=== PATIENT | male | born 1960 | race Caucasian/White ===

== ENCOUNTER 2019-06-30 14:52 | Emergency (ER) | payer BC, MEDICARE ==
--- NOTE | 2019-06-30 15:54 | ED ---
General Adult HPI - General Chief complaint: Shortness of Breath Stated complaint: SOB, low 02 levels, high blood count Time Seen by Provider: 06/30/19 15:25 Source: patient Mode of arrival: ambulatory Limitations: no limitations - History of Present Illness Initial comments: Dictation was produced using [employer] dictation software. please excuse any grammatical, word or spelling errors. Chief Complaint: 59-year-old male who has past medical history of rare blood disorder. He presents today with shortness breath and hypoxac. History of Present Illness: 59-year-old male presents today with chief complaint of shortness of breath and chest pain. 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 He was recently on a plane where he had hour and a half plane ride from [place]. Patient went to go see his special doctor to treat his rare blood disorder. Patient currently on immunotherapy for his disease. Patient states his was symptomatic upon coming back. Denies any lower extremity symptoms. History of blood clots. Patient states he has a pulse ox machine at home. Found to be in the low 90s high 80s. Patient also complains of some mild vertigo chest pain is anterior chest. To see primary care doctor today. He was sent over to the emergency department because they felt he needed to be evaluated for pulmonary embolus. he has no history of PE. The ROS documented in this emergency department record has been reviewed and confirmed by me. Those systems with pertinent positive or negative responses have been documented in the HPI. All other systems are other negative and/or noncontributory. PHYSICAL EXAM: General Impression: Alert and oriented x3, not in acute distress HEENT: Normocephalic atraumatic, extra-ocular movements intact, pupils equal and reactive to light bilaterally, mucous membranes moist. Cardiovascular: Heart regular rate and rhythm, S1&S2 audible, no murmurs, rubs or gallops Chest: Lungs clear to auscultation bilaterally, no rhonchi, no wheeze, no rales Abdomen: Bowel sounds present, abdomen soft, non-tender, non-distended, no organomegaly Musculoskeletal: Pulses present and equal in all extremities, no peripheral edema Motor: no focal deficits noted Neurological: CN II-XII grossly intact, no focal motor or sensory deficits noted Skin: Intact with no visualized rashes Psych: Normal affect and mood ED course: 59 y Old male presents with chief complaint of shortness of breath or chest pain. His upon arrival are within acceptable limits. Patient's well- appearing. He is not hypoxic Laboratory evaluation obtained. Nontoxic is 14.1. Coag panel unremarkable. D- dimer 0.34. Metabolic panel is negative. Troponins negative. Prematurity peptide is 88. X-ray shows mild degree of atelectasis. Patient observed in emergency department with stable medical condition. Patient clear for discharge. Advised follow-up with his primary care physician. Patient understandable and agreeable to disposition. Return parameters discussed. All questions answered. EKG interpretation: Ventricular rate 72, normal sinus rhythm. No NE prolongation, no QTC prolongation, no ST or T-wave changes noted. Overall, this EKG is unremarkable - Related Data Home Medications Medication Instructions Recorded Confirmed ALPRAZolam [Xanax] 2 mg PO HS 01/19/14 01/19/14 Lisinopril [Zestril] 40 mg PO DAILY 01/19/14 01/19/14 Allergies Allergy/AdvReac Type Severity Reaction Status Date / Time No Known Allergies Allergy Verified 06/30/19 15:02 Review of Systems ROS Statement: Those systems with pertinent positive or pertinent negative responses have been documented in the HPI. ROS Other: All systems not noted in ROS Statement are negative. Past Medical History Past Medical History: Coronary Artery Disease (CAD), Cancer, CVA/TIA, Hypertension History of Any Multi-Drug Resistant Organisms: None Reported Past Surgical History: Heart Catheterization With Stent, Hernia Repair Additional Past Surgical History / Comment(s): exp lap Past Psychological History: Anxiety, Depression Smoking Status: Never smoker Past Alcohol Use History: None Reported Past Drug Use History: None Reported General Exam Limitations: no limitations Course Vital Signs 06/30/19 06/30/19 14:57 16:35 Temperature 97.7 F Pulse Rate 88 Respiratory 22 20 Rate Blood Pressure 155/89 O2 Sat by Pulse 96 Oximetry Medical Decision Making - Lab Data Result diagrams: 06/30/19 16:12 06/30/19 16:12 Lab Results 06/30/19 06/30/19 06/30/19 Range/Units 16:12 16:12 16:12 WBC 14.1 H (3.8-10.6) k/uL RBC 4.78 (4.30-5.90) m/uL Hgb 14.9 (13.0-17.5) gm/dL Hct 44.3 (39.0-53.0) % MCV 92.6 (80.0-100.0) fL MCH 31.1 (25.0-35.0) pg MCHC 33.6 (31.0-37.0) g/dL RDW 12.5 (11.5-15.5) % Plt Count 295 (150-450) k/uL Neutrophils % 83 % Lymphocytes % 6 % Monocytes % 6 % Eosinophils % 1 % Basophils % 2 % Neutrophils # 11.6 H (1.3-7.7) k/uL Lymphocytes # 0.9 L (1.0-4.8) k/uL Monocytes # 0.8 (0-1.0) k/uL Eosinophils # 0.2 (0-0.7) k/uL Basophils # 0.2 (0-0.2) k/uL PT 9.7 (9.0-12.0) sec INR 0.9 (<1.2) APTT 25.6 (22.0-30.0) sec D-Dimer 0.34 (<0.60) mg/L FEU Sodium 137 (137-145) mmol/L Potassium 4.4 (3.5-5.1) mmol/L Chloride 101 (98-107) mmol/L Carbon Dioxide 30 (22-30) mmol/L Anion Gap 6 mmol/L BUN 17 (9-20) mg/dL Creatinine 0.93 (0.66-1.25) mg/dL Est GFR (CKD-EPI)AfAm >90 (>60 ml/min/1.73 sqM) Est GFR (CKD-EPI)NonAf >90 (>60 ml/min/1.73 sqM) Glucose 100 H (74-99) mg/dL Plasma Lactic Acid Isaiah (0.7-2.0) mmol/L Calcium 9.3 (8.4-10.2) mg/dL Magnesium 2.1 (1.6-2.3) mg/dL Troponin I (0.000-0.034) ng/mL NT-Pro-B Natriuret Pep pg/mL 06/30/19 06/30/19 06/30/19 Range/Units 16:12 16:12 16:12 WBC (3.8-10.6) k/uL RBC (4.30-5.90) m/uL Hgb (13.0-17.5) gm/dL Hct (39.0-53.0) % MCV (80.0-100.0) fL MCH (25.0-35.0) pg MCHC (31.0-37.0) g/dL RDW (11.5-15.5) % Plt Count (150-450) k/uL Neutrophils % % Lymphocytes % % Monocytes % % Eosinophils % % Basophils % % Neutrophils # (1.3-7.7) k/uL Lymphocytes # (1.0-4.8) k/uL Monocytes # (0-1.0) k/uL Eosinophils # (0-0.7) k/uL Basophils # (0-0.2) k/uL PT (9.0-12.0) sec INR (<1.2) APTT (22.0-30.0) sec D-Dimer (<0.60) mg/L FEU Sodium (137-145) mmol/L Potassium (3.5-5.1) mmol/L Chloride (98-107) mmol/L Carbon Dioxide (22-30) mmol/L Anion Gap mmol/L BUN (9-20) mg/dL Creatinine (0.66-1.25) mg/dL Est GFR (CKD-EPI)AfAm (>60 ml/min/1.73 sqM) Est GFR (CKD-EPI)NonAf (>60 ml/min/1.73 sqM) Glucose (74-99) mg/dL Plasma Lactic Acid Isaiah 0.9 (0.7-2.0) mmol/L Calcium (8.4-10.2) mg/dL Magnesium (1.6-2.3) mg/dL Troponin I <0.012 (0.000-0.034) ng/mL NT-Pro-B Natriuret Pep 88 pg/mL Disposition Clinical Impression: Dyspnea Disposition: HOME SELF-CARE Condition: Good Instructions (If sedation given, give patient instructions): Dyspnea (ED) Is patient prescribed a controlled substance at d/c from ED?: No Referrals: Hernan Hinton MD [Primary Care Provider] - 1-2 days Time of Disposition: 17:31
[2019-06-30 16:42] LABS: Basophils # (A) 0.2 k/uL (0-0.2); Basophils % (A) 2 %; Eosinophils # (A) 0.2 k/uL (0-0.7); Eosinophils % (A) 1 %; HCT 44.3 % (39.0-53.0); HGB 14.9 gm/dL (13.0-17.5); Lymphocytes # (A) 0.9 k/uL (1.0-4.8); Lymphocytes % (A) 6 %; MCH 31.1 pg (25.0-35.0); MCHC 33.6 g/dL (31.0-37.0); MCV 92.6 fL (80.0-100.0); Mean Platelet Volume 7.2; Monocytes # (A) 0.8 k/uL (0-1.0); Monocytes % (A) 6 %; Neutrophils # (A) 11.6 k/uL (1.3-7.7); Neutrophils % (A) 83 %; Platelet Count 295 k/uL (150-450); RBC 4.78 m/uL (4.30-5.90); RDW 12.5 % (11.5-15.5); WBC 14.1 k/uL (3.8-10.6)
[2019-06-30 16:50] LABS: African American GFR (CKD) >90 (>60 ml/min/1.73 sqM); Anion Gap 6 mmol/L; Blood Urea Nitrogen 17 mg/dL (9-20); Calcium 9.3 mg/dL (8.4-10.2); Carbon Dioxide 30 mmol/L (22-30); Chloride 101 mmol/L (98-107); Glucose 100 mg/dL (74-99); Magnesium 2.1 mg/dL (1.6-2.3); Non-African American GFR(CKD) >90 (>60 ml/min/1.73 sqM); Potassium 4.4 mmol/L (3.5-5.1); Sodium 137 mmol/L (137-145)
--- NOTE | 2019-06-30 16:52 | XR ---
EXAMINATION TYPE: XR chest 2V DATE OF EXAM: 06/30/2019 COMPARISON: NONE HISTORY: Short of breath TECHNIQUE: 2 views FINDINGS: There is some patchy linear density in the mid and lower lung alvarez. Heart size is normal. There is no heart failure. There is no pleural effusion. IMPRESSION: Patchy atelectasis at the lung bases. Normal heart.
[2019-06-30 16:54] LABS: D-Dimer 0.34 mg/L FEU (<0.60); INR 0.9 (<1.2); Partial Thromboplastin Time 25.6 sec (22.0-30.0); Prothrombin Time 9.7 sec (9.0-12.0)
[2019-06-30 17:47] VITALS: BP 120/72; PULSE 71; RESP 18; TEMP 98.2
== END 2019-06-30 17:50 | disposition home or self-care (01) ==
LOC: EC 14:52
DX: R06.00 Dyspnea, unspecified (principal); R06.02 Shortness of breath; R07.9 Chest pain, unspecified; R42 Dizziness and giddiness; I10 Essential (primary) hypertension; F41.9 Anxiety disorder, unspecified; F32.9 Major depressive disorder, single episode, unspecified; I25.10 Atherosclerotic heart disease of native coronary artery without angina pectoris; Z79.899 Other long term (current) drug therapy; Z86.73 Personal history of transient ischemic attack (TIA), and cerebral infarction without residual deficits; Z95.5 Presence of coronary angioplasty implant and graft
CPT/HCPCS: 36415; 71046; 80048; 83605; 83735; 83880; 84484; 85025; 85379; 85610; 85730; 93005; 99285

== ENCOUNTER 2019-07-05 18:08 | Inpatient (IN) | payer MEDICARE ==
[2019-07-05] MEDS ORDERED: IPRATROPIUM-ALBUTEROL 3 ML NEB INHALATION STA (18:32)
--- NOTE | 2019-07-05 18:37 | ED ---
SOB HPI - General Chief Complaint: Shortness of Breath Stated Complaint: SOB Time Seen by Provider: 07/05/19 18:16 Source: patient, RN notes reviewed Mode of arrival: ambulatory Limitations: no limitations - History of Present Illness Initial Comments: This a 59-year-old male presents emergency Department chief complaint of dyspnea. He's had worsening dyspnea along with exertional dyspnea the last 1 week. He states it's a point where he can only go a few isles at the grocery store. Patient states he was seen here a few days ago and symptoms have worsened. He does admit that he has a very rare blood disorder in which he sees an oncologist in [place]. He states he occasionally is on chemo currently is on a new immunotherapy in which he recently got back from [place]. He felt that he picked up some type of cold but states that symptoms are not improving. He's had low-grade temp around 99-100. Patient was seen and sent emergency department on June 30 by PCP. Patient has no history of PE though he has pleuritic chest pain. He does admit that he had a stent placed 7 years ago in which she had similar symptoms. Patient denies any history of CHF. He has no prior lung disease. Patient denies any leg swelling he does admit to some leg cramping. Patient denies any nausea vomiting diarrhea constipation. Patient states that today he was so short of breath that he noticed some skin discoloration to his hands. - Related Data Home Medications Medication Instructions Recorded Confirmed ALPRAZolam [Xanax] 2 mg PO HS 01/19/14 01/19/14 Lisinopril [Zestril] 40 mg PO DAILY 01/19/14 01/19/14 Allergies Allergy/AdvReac Type Severity Reaction Status Date / Time No Known Allergies Allergy Verified 07/05/19 18:14 Review of Systems ROS Statement: Those systems with pertinent positive or pertinent negative responses have been documented in the HPI. ROS Other: All systems not noted in ROS Statement are negative. 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 Absent: scleral icterus, conjunctival injection, periorbital swelling ENT exam: Present: normal exam, normal oropharynx, mucous membranes moist, TM's normal bilaterally, normal external ear exam Neck exam: Present: normal inspection, full ROM. Absent: tenderness, meningismus, lymphadenopathy Respiratory exam: Present: wheezes, decreased breath sounds. Absent: normal lung sounds bilaterally, respiratory distress, rales, rhonchi, stridor Cardiovascular Exam: Present: normal rhythm, tachycardia, normal heart sounds. Absent: systolic murmur, diastolic murmur, rubs, gallop, clicks GI/Abdominal exam: Present: soft, normal bowel sounds. Absent: distended, tenderness, guarding, rebound, rigid Extremities exam: Absent: pedal edema Psychiatric exam: Present: normal affect, normal mood Skin exam: Present: warm, dry, intact, normal color. Absent: rash Course Vital Signs 07/05/19 07/05/19 07/05/19 18:10 18:28 19:18 Temperature 99.8 F H Pulse Rate 110 H Respiratory 18 18 Rate Blood Pressure 146/81 O2 Sat by Pulse 90 L 81 L Oximetry 07/05/19 07/05/19 07/05/19 19:19 19:29 19:40 Temperature 100.9 F H Pulse Rate 81 92 100 Respiratory 16 Rate Blood Pressure 136/84 O2 Sat by Pulse 97 Oximetry Medical Decision Making - Medical Decision Making Chest x-ray shows bilateral atelectasis versus pneumonia CT shows bilateral diffuse infiltrates, labs reveal moderate leukocytosis, vitals show evidence of hypoxia, fever. Patient be admitted for bilateral pneumonia with exertional dyspnea patient will have pulmonology evaluation, echocardiogram. Patient be continued on DuoNeb treatments, antibiotics, steroids - Lab Data Result diagrams: 07/05/19 18:45 07/05/19 18:45 Lab Results 07/05/19 07/05/19 07/05/19 Range/Units 18:45 18:45 18:45 WBC 18.3 H (3.8-10.6) k/uL RBC 4.77 (4.30-5.90) m/uL Hgb 14.5 (13.0-17.5) gm/dL Hct 43.5 (39.0-53.0) % MCV 91.2 (80.0-100.0) fL MCH 30.5 (25.0-35.0) pg MCHC 33.4 (31.0-37.0) g/dL RDW 12.3 (11.5-15.5) % Plt Count 386 (150-450) k/uL Neutrophils % 86 % Lymphocytes % 6 % Monocytes % 4 % Eosinophils % 1 % Basophils % 0 % Neutrophils # 15.8 H (1.3-7.7) k/uL Lymphocytes # 1.1 (1.0-4.8) k/uL Monocytes # 0.8 (0-1.0) k/uL Eosinophils # 0.2 (0-0.7) k/uL Basophils # 0.1 (0-0.2) k/uL PT (9.0-12.0) sec INR (<1.2) APTT (22.0-30.0) sec VBG pH (7.31-7.41) VBG pCO2 (37-51) mmHg VBG HCO3 (24-28) mmol/L Sodium 134 L (137-145) mmol/L Potassium 5.3 H (3.5-5.1) mmol/L Chloride 100 (98-107) mmol/L Carbon Dioxide 25 (22-30) mmol/L Anion Gap 9 mmol/L BUN 19 (9-20) mg/dL Creatinine 0.86 (0.66-1.25) mg/dL Est GFR (CKD-EPI)AfAm >90 (>60 ml/min/1.73 sqM) Est GFR (CKD-EPI)NonAf >90 (>60 ml/min/1.73 sqM) Glucose 89 (74-99) mg/dL Calcium 9.4 (8.4-10.2) mg/dL Magnesium 1.9 (1.6-2.3) mg/dL Total Bilirubin 0.6 (0.2-1.3) mg/dL AST 49 (17-59) U/L ALT 43 (4-49) U/L Alkaline Phosphatase 97 (38-126) U/L Troponin I (0.000-0.034) ng/mL NT-Pro-B Natriuret Pep 74 pg/mL Total Protein 6.6 (6.3-8.2) g/dL Albumin 3.6 (3.5-5.0) g/dL Influenza Type A RNA (Not Detectd) Influenza Type B (PCR) (Not Detectd) 07/05/19 07/05/19 07/05/19 Range/Units 18:45 18:45 18:45 WBC (3.8-10.6) k/uL RBC (4.30-5.90) m/uL Hgb (13.0-17.5) gm/dL Hct (39.0-53.0) % MCV (80.0-100.0) fL MCH (25.0-35.0) pg MCHC (31.0-37.0) g/dL RDW (11.5-15.5) % Plt Count (150-450) k/uL Neutrophils % % Lymphocytes % % Monocytes % % Eosinophils % % Basophils % % Neutrophils # (1.3-7.7) k/uL Lymphocytes # (1.0-4.8) k/uL Monocytes # (0-1.0) k/uL Eosinophils # (0-0.7) k/uL Basophils # (0-0.2) k/uL PT 10.2 (9.0-12.0) sec INR 0.9 (<1.2) APTT 22.8 (22.0-30.0) sec VBG pH (7.31-7.41) VBG pCO2 (37-51) mmHg VBG HCO3 (24-28) mmol/L Sodium (137-145) mmol/L Potassium (3.5-5.1) mmol/L Chloride (98-107) mmol/L Carbon Dioxide (22-30) mmol/L Anion Gap mmol/L BUN (9-20) mg/dL Creatinine (0.66-1.25) mg/dL Est GFR (CKD-EPI)AfAm (>60 ml/min/1.73 sqM) Est GFR (CKD-EPI)NonAf (>60 ml/min/1.73 sqM) Glucose (74-99) mg/dL Calcium (8.4-10.2) mg/dL Magnesium (1.6-2.3) mg/dL Total Bilirubin (0.2-1.3) mg/dL AST (17-59) U/L ALT (4-49) U/L Alkaline Phosphatase (38-126) U/L Troponin I <0.012 (0.000-0.034) ng/mL NT-Pro-B Natriuret Pep pg/mL Total Protein (6.3-8.2) g/dL Albumin (3.5-5.0) g/dL Influenza Type A RNA Not Detected (Not Detectd) Influenza Type B (PCR) Not Detected (Not Detectd) 07/05/19 Range/Units 18:45 WBC (3.8-10.6) k/uL RBC (4.30-5.90) m/uL Hgb (13.0-17.5) gm/dL Hct (39.0-53.0) % MCV (80.0-100.0) fL MCH (25.0-35.0) pg MCHC (31.0-37.0) g/dL RDW (11.5-15.5) % Plt Count (150-450) k/uL Neutrophils % % Lymphocytes % % Monocytes % % Eosinophils % % Basophils % % Neutrophils # (1.3-7.7) k/uL Lymphocytes # (1.0-4.8) k/uL Monocytes # (0-1.0) k/uL Eosinophils # (0-0.7) k/uL Basophils # (0-0.2) k/uL PT (9.0-12.0) sec INR (<1.2) APTT (22.0-30.0) sec VBG pH 7.46 H (7.31-7.41) VBG pCO2 39 (37-51) mmHg VBG HCO3 27 (24-28) mmol/L Sodium (137-145) mmol/L Potassium (3.5-5.1) mmol/L Chloride (98-107) mmol/L Carbon Dioxide (22-30) mmol/L Anion Gap mmol/L BUN (9-20) mg/dL Creatinine (0.66-1.25) mg/dL Est GFR (CKD-EPI)AfAm (>60 ml/min/1.73 sqM) Est GFR (CKD-EPI)NonAf (>60 ml/min/1.73 sqM) Glucose (74-99) mg/dL Calcium (8.4-10.2) mg/dL Magnesium (1.6-2.3) mg/dL Total Bilirubin (0.2-1.3) mg/dL AST (17-59) U/L ALT (4-49) U/L Alkaline Phosphatase (38-126) U/L Troponin I (0.000-0.034) ng/mL NT-Pro-B Natriuret Pep pg/mL Total Protein (6.3-8.2) g/dL Albumin (3.5-5.0) g/dL Influenza Type A RNA (Not Detectd) Influenza Type B (PCR) (Not Detectd) Disposition Clinical Impression: Bilateral pneumonia, Exertional dyspnea, Hypoxia Disposition: ADMITTED IP TO THIS HOSP Condition: Fair Referrals: Hernan Hinton MD [Primary Care Provider] - 1-2 days
[2019-07-05 18:59] LABS: Basophils # (A) 0.1 k/uL (0-0.2); Basophils % (A) 0 %; Eosinophils # (A) 0.2 k/uL (0-0.7); Eosinophils % (A) 1 %; HCT 43.5 % (39.0-53.0); HGB 14.5 gm/dL (13.0-17.5); Lymphocytes # (A) 1.1 k/uL (1.0-4.8); Lymphocytes % (A) 6 %; MCH 30.5 pg (25.0-35.0); MCHC 33.4 g/dL (31.0-37.0); MCV 91.2 fL (80.0-100.0); Mean Platelet Volume 7.1; Monocytes # (A) 0.8 k/uL (0-1.0); Monocytes % (A) 4 %; Neutrophils # (A) 15.8 k/uL (1.3-7.7); Neutrophils % (A) 86 %; Platelet Count 386 k/uL (150-450); RBC 4.77 m/uL (4.30-5.90); RDW 12.3 % (11.5-15.5); VBG PH 7.46 (7.31-7.41); WBC 18.3 k/uL (3.8-10.6)
--- NOTE | 2019-07-05 19:00 | XR ---
EXAMINATION TYPE: XR chest 1V DATE OF EXAM: 07/05/2019 COMPARISON: 06/30/2019 HISTORY: Short of breath TECHNIQUE: Single view FINDINGS: There is poor aspiration and atelectasis at both lung bases. There is no heart failure. Hea rt size is normal. Bony thorax is intact. IMPRESSION: There is increased atelectasis at the lung bases compared to last exam. No heart failure.
[2019-07-05 19:10] LABS: ALT 43 U/L (4-49); AST 49 U/L (17-59); African American GFR (CKD) >90 (>60 ml/min/1.73 sqM); Albumin 3.6 g/dL (3.5-5.0); Alkaline Phosphatase 97 U/L (38-126); Anion Gap 9 mmol/L; Blood Urea Nitrogen 19 mg/dL (9-20); Calcium 9.4 mg/dL (8.4-10.2); Carbon Dioxide 25 mmol/L (22-30); Chloride 100 mmol/L (98-107); Glucose 89 mg/dL (74-99); Magnesium 1.9 mg/dL (1.6-2.3); Non-African American GFR(CKD) >90 (>60 ml/min/1.73 sqM); Potassium 5.3 mmol/L (3.5-5.1); Sodium 134 mmol/L (137-145); Total Bilirubin 0.6 mg/dL (0.2-1.3); Total Protein 6.6 g/dL (6.3-8.2)
[2019-07-05 19:22] LABS: INR 0.9 (<1.2); Partial Thromboplastin Time 22.8 sec (22.0-30.0); Prothrombin Time 10.2 sec (9.0-12.0)
--- NOTE | 2019-07-05 19:40 | CT ---
EXAMINATION TYPE: CT chest angio for PE DATE OF EXAM: 07/05/2019 COMPARISON: None HISTORY: Exertional dyspnea, chest pain. Hx stroke, heart cath w/stent. CT DLP: 388.7 mGycm Automated exposure control for dose reduction was used. CONTRAST: Performed with IV Contrast, patient injected with 100 mL of Isovue 370. there are 3-D post processed images. There is patchy groundglass interstitial infiltrate in both lungs. There is more coalescent reticular interstitial infiltrate at the lung bases. Heart size is normal. There is no pericardial effusion. T here is no mediastinal adenopathy. There are no hilar masses. There are a few bilateral bronchial lym ph nodes up to 1 cm. Thoracic aorta shows no aneurysm or dissection. There is normal contrast opacification of the pulmona ry arteries. I see no filling defect. Thoracic spine is intact. There is no compression fracture. There is spurring in the thoracic spine. There is extensive bilateral perinephric edema. IMPRESSION: No evidence of pulmonary embolism. Extensive pulmonary interstitial infiltrates are nonspecific and c ould relate to pulmonary interstitial fibrosis. Extensive perinephric edema.
[2019-07-05] MEDS ORDERED: cefTRIAXone IN SWFI 1,000 MG/10 ML SYRINGE IVP STA (19:52)
[2019-07-05] MEDS ORDERED: AZITHROMYCIN 500 MG in SODIUM CHLORIDE 0.9% 250 ML IVPB STA (19:52)
[2019-07-05] MEDS ORDERED: methylPREDNISolone SOD SUCCI 125 MG/2 ML VIAL IV STA (19:52)
[2019-07-05] MEDS ORDERED: PNEUMONIA PROTOCOL UTILIZED 1 EACH MISC PO PRN (19:54)
[2019-07-05] MEDS: IPRATROPIUM-ALBUTEROL 3 ML NEB INHALATION SCH (20:10)
[2019-07-05] MEDS ORDERED: CAFFEINE PO PRN (23:02)
[2019-07-05] MEDS ORDERED: ASPIRIN PO PRN (23:02)
[2019-07-05] MEDS ORDERED: HYDROcodone/APAP 10-325MG 1 EACH TAB PO PRN (23:02)
[2019-07-05] MEDS ORDERED: BUTALBITAL PO PRN (23:02)
[2019-07-05] MEDS ORDERED: ASPIRIN-ACET-CAFF 250-250-65MG 1 EACH TAB PO PRN (23:27)
[2019-07-05] MEDS: MORPHINE SULFATE ER 30 MG TABLET PO SCH (23:41)
[2019-07-05] MEDS: methylPREDNISolone SOD SUCCI 125 MG/2 ML VIAL IV SCH (23:50)
[2019-07-06 07:16] LABS: Glucose,Whole Blood 144 mg/dL (75-99)
--- NOTE | 2019-07-06 07:45 | XR ---
EXAMINATION TYPE: XR chest 2V DATE OF EXAM: 07/06/2019 COMPARISON: 07/05/2019, 06/30/2019 INDICATION: Pneumonia TECHNIQUE: Frontal and lateral views of the chest are obtained. FINDINGS: The heart size is normal. The pulmonary vasculature is normal. Bibasilar infiltrates are present. This is greater on the right. Findings are similar to the most rec ent comparison.. IMPRESSION: 1. Bibasilar infiltrates, worsening from 06/30/2019 but similar to 07/05/2019. Continued follow-up is recommended
[2019-07-06] MEDS: IPRATROPIUM-ALBUTEROL 3 ML NEB INHALATION SCH ×4 (09:14→21:13)
[2019-07-06 09:17] LABS: HCT 43.8 % (39.0-53.0); HGB 14.5 gm/dL (13.0-17.5); MCH 30.6 pg (25.0-35.0); MCHC 33.1 g/dL (31.0-37.0); MCV 92.7 fL (80.0-100.0); Mean Platelet Volume 7.3; Platelet Count 415 k/uL (150-450); RBC 4.73 m/uL (4.30-5.90); RDW 12.3 % (11.5-15.5); WBC 12.4 k/uL (3.8-10.6)
[2019-07-06 09:24] LABS: African American GFR (CKD) >90 (>60 ml/min/1.73 sqM); Anion Gap 8 mmol/L; Blood Urea Nitrogen 17 mg/dL (9-20); Calcium 9.3 mg/dL (8.4-10.2); Carbon Dioxide 29 mmol/L (22-30); Chloride 99 mmol/L (98-107); Glucose 129 mg/dL (74-99); Non-African American GFR(CKD) >90 (>60 ml/min/1.73 sqM); Potassium 4.9 mmol/L (3.5-5.1); Sodium 136 mmol/L (137-145)
[2019-07-06] MEDS: CLOPIDOGREL 75 MG TAB PO SCH (09:39)
[2019-07-06] MEDS: AZITHROMYCIN 500 MG TAB PO SCH (09:39)
[2019-07-06] MEDS: MULTIVITAMINS, THERA 1 EACH TAB PO SCH (09:39)
[2019-07-06] MEDS: METOPROLOL TARTRATE 25 MG TAB PO SCH (09:39)
[2019-07-06] MEDS: ATORVASTATIN 20 MG TAB PO SCH (09:39)
[2019-07-06] MEDS: LISINOPRIL 5 MG TAB PO SCH (09:39)
[2019-07-06] MEDS: methylPREDNISolone SOD SUCCI 125 MG/2 ML VIAL IV SCH ×2 (09:40→15:35)
[2019-07-06] MEDS: CITALOPRAM HYDROBROMIDE 20 MG TAB PO SCH (09:40)
[2019-07-06] MEDS: TAMSULOSIN 0.4 MG CAP.ER.24H PO SCH (09:40)
[2019-07-06] MEDS: CHOLECALCIFEROL 1,000 UNIT TAB PO SCH (09:41)
[2019-07-06] MEDS: buPROPion XL 300 MG TAB.ER.24H PO SCH (09:43)
[2019-07-06] MEDS: MORPHINE SULFATE ER 30 MG TABLET PO SCH ×2 (09:43→22:09)
--- NOTE | 2019-07-06 09:59 | HP ---
HISTORY AND PHYSICAL CHIEF COMPLAINT: 59-year-old white male comes in the hospital complaining of dyspnea, worsening dyspnea over the past week. When he goes to the grocery store. He gets short of breath. Does admit has a very rare blood disorder. He sees Oncology in [place]. He is on new chemo with new immunotherapy. He recently got back in [place]. Not sure what it is. No history of PE. He has pleuritic-type chest pain though. He had CT in the chest which is negative except for pulmonary fibrosis. He had cardiac stent placed 7 years ago. Denies any prior history of CHF. No prior lung disease. Denies any leg swelling or leg cramping. Denies any nausea, vomiting, diarrhea, constipation. He became short of breath. He did notice some discoloration of his hands. MEDICATIONS: At home include: Xanax 2 mg at night, Zestril 40 mg daily. ALLERGIES: None. REVIEW OF SYSTEMS: Fourteen-point review of systems negative except for mentioned in HPI. PAST MEDICAL HISTORY: Coronary artery disease, CVA, TIA, hypertension, heart catheterization with stent, anxiety, depression. SOCIAL HISTORY: Never a smoker. No alcohol. No illicit drugs. PHYSICAL EXAMINATION: HEENT normocephalic, atraumatic. Vital signs are reviewed. Pupils equal, round, reactive. GI soft. Hematology negative Homans. Lungs are not clear. They are wheezing, scattered wheezing and rales at the bases. Heart S1, S2. Abdomen is soft, nontender. No masses or organomegaly. Psych: Fair mood and affect. SKIN: Warm, dry, intact. No rashes. O2 saturation 81-90 percent, temp 99.8, pulse rate is 110, respiratory rate 16 to 18. Chest x-ray shows bilateral atelectasis versus pneumonia. CT shows bilateral diffuse infiltrates. LAB DATA: Show moderate leukocytosis, hypoxia, fever. ASSESSMENT AND PLAN: 1. Bilateral pneumonia. 2. Pulmonary fibrosis. 3. DuoNeb. 4. Antibiotics. 5. Steroids. 6. Cardiology consult. 7. Pulmonary consult. 8. Please see further orders. MMODL / IJN: [id number] /
[2019-07-06 14:48] VITALS: RESP 16
--- NOTE | 2019-07-06 22:57 | CONS ---
CONSULTATION PULMONARY/CRITICAL CARE CONSULTATION: DATE OF SERVICE: 07/06/2019 This is a very pleasant 59-year-old gentleman who presents to the emergency department with complaints of shortness of breath. The patient apparently had worsening shortness of breath for about a week prior to presenting to the emergency room on July 05. The patient apparently could only walk a few feet before became very short of breath. When his symptoms worsened, he decided to come to the emergency room to be evaluated. 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 He currently sees a specialist in [place] at [facility] for his disease and has been getting both chemotherapy and immunotherapy for the disease process. He was concerned that his recently administered immunotherapy may have caused his difficulty in breathing. The patient apparently had a slight temperature elevation. He also was complaining of cough and some mild production. The patient had a CT angiogram which did not show any pulmonary embolism. It did show some chronic basilar and peripheral fibrotic changes consistent with somebody with interstitial lung disease. He denies a prior history of lung disease. He denies any hemoptysis. He denies any chest pain or chest discomfort. There is no nausea, vomiting or diarrhea. No genitourinary complaints. MEDICATIONS: Reviewed. He is on Wellbutrin XL, morphine sulfate, [place] Plavix, vitamin D3, Flomax, metoprolol, lisinopril, Crestor, multivitamins, dexamethasone, Celexa, and butalbital/aspirin/caffeine. ALLERGIES: Denied. PAST MEDICAL HISTORY: Includes hypertension, hyperlipidemia, CVA, Erdheim-[place] disease and CAD. SURGICAL HISTORY: Includes heart catheterization with stent placement and hernia repair. SOCIAL HISTORY: Significant for he is a lifelong nonsmoker. Denies any alcohol use or illicit drug use. REVIEW OF SYSTEMS: CONSTITUTIONAL: Negative. NEUROLOGIC: Negative. HEENT: Negative. CARDIOVASCULAR: Negative. PULMONARY: Shortness of breath on exertion, not at rest; chest tightness, cough, minimal phlegm production and slight fever. GI: Negative. : Negative. RHEUMATOLOGIC: Negative. IMMUNOLOGIC: Negative. ENDOCRINOLOGIC: Negative. DERMATOLOGIC: Negative. PHYSICAL EXAMINATION: Current vital signs are reviewed. He is afebrile. Temperature is 98.5, heart rate 95, respiratory rate 16, blood pressure 130/74, mean 92, 2 L saturation 94%. He appears in no acute distress. Actually when we saw him he was on room air. No audible wheezing, use of accessory muscles, or conversational dyspnea. HEENT examination is grossly unremarkable. Mucous membranes are moist. No oral lesions. NECK: Supple. Full range of motion. No adenopathy or thyromegaly. Neck veins are flat. CARDIOVASCULAR examination reveals regular rhythm and rate. Heart rate about 80 beats per minute. S1, S2 normal. No murmur. LUNGS: Reveal a few scattered coarse rhonchi and crackles. Breath sounds equal. No wheezes. ABDOMEN: Soft. Bowel sounds are heard. EXTREMITIES are intact. No signs of clubbing or edema. SKIN: Without rash. NEUROLOGIC: Examination is brief but nonfocal. LABS: Reviewed. White count 12.4, hemoglobin 14.5, hematocrit 43.8, platelet count 415,000. PT/INR and PTT all normal. Venous blood gases are normal. Electrolytes look good. Sodium 136, potassium 4.9, chloride 99, CO2 is 29, anion gap is 8. BUN and creatinine were 17 and 0.86. The rest of his labs look good including this troponins and N terminal proBNP. Influenza studies were negative. The patient had a chest x-ray which shows some infiltrate or atelectasis at the lung bases. A CT angiogram was negative for PE but did show evidence of interstitial infiltrates, possibly related to underlying fibrosis. A repeat chest x-ray again shows diffuse bilateral lower lobe infiltrates or atelectasis, which are stable from the prior exam. Current medications are reviewed. As pertains to his respiratory status, he is on Zithromax and Rocephin. He is also on Solu-Medrol 60 q.8h. He is also on DuoNeb q.i.d. and p.r.n. ASSESSMENT: 1. Probable purulent tracheobronchitis rather than bronchopneumonia. 2. Erdheim-[place] disease. 3. History of coronary artery disease with previous stent placement. 4. History of cerebrovascular accident. 5. Hypertension. 6. Hyperlipidemia. 7. ILD/pulmonary fibrosis PLAN: The patient is doing well. He is feeling better. I would like him to be able to be discharged tomorrow I believe. The CT scan looks more chronic than acute. He is feeling better from the respiratory status. He is not requiring any supplemental oxygen. He is on good antibiotics, updrafts and steroids. Additional recommendations and suggestions are forthcoming. I am going to try to contact the neuro oncology fellow from [facility] that this patient sees. ELIE / FRANCESN: [id number] / MTDD
[2019-07-07] MEDS: methylPREDNISolone SOD SUCCI 125 MG/2 ML VIAL IV SCH ×2 (00:06→08:04)
[2019-07-07 06:16] VITALS: BP 108/69; TEMP 98.5
[2019-07-07] MEDS: buPROPion XL 300 MG TAB.ER.24H PO SCH (08:03)
[2019-07-07] MEDS: MORPHINE SULFATE ER 30 MG TABLET PO SCH (08:03)
[2019-07-07] MEDS: ATORVASTATIN 20 MG TAB PO SCH (08:04)
[2019-07-07] MEDS: METOPROLOL TARTRATE 25 MG TAB PO SCH (08:04)
[2019-07-07] MEDS: LISINOPRIL 5 MG TAB PO SCH (08:04)
[2019-07-07] MEDS: MULTIVITAMINS, THERA 1 EACH TAB PO SCH (08:04)
[2019-07-07] MEDS: TAMSULOSIN 0.4 MG CAP.ER.24H PO SCH (08:04)
[2019-07-07] MEDS: CHOLECALCIFEROL 1,000 UNIT TAB PO SCH (08:04)
[2019-07-07] MEDS: CITALOPRAM HYDROBROMIDE 20 MG TAB PO SCH (08:04)
[2019-07-07] MEDS: CLOPIDOGREL 75 MG TAB PO SCH (08:04)
[2019-07-07] MEDS: AZITHROMYCIN 500 MG TAB PO SCH (08:04)
[2019-07-07 08:52] LABS: HCT 43.7 % (39.0-53.0); HGB 14.4 gm/dL (13.0-17.5); MCH 30.7 pg (25.0-35.0); MCHC 32.9 g/dL (31.0-37.0); MCV 93.5 fL (80.0-100.0); Platelet Count 445 k/uL (150-450); RBC 4.67 m/uL (4.30-5.90); RDW 12.4 % (11.5-15.5); WBC 22.2 k/uL (3.8-10.6)
[2019-07-07] MEDS: IPRATROPIUM-ALBUTEROL 3 ML NEB INHALATION SCH ×2 (08:58→12:20)
[2019-07-07 09:00] LABS: African American GFR (CKD) >90 (>60 ml/min/1.73 sqM); Anion Gap 9 mmol/L; Blood Urea Nitrogen 16 mg/dL (9-20); Calcium 10.1 mg/dL (8.4-10.2); Carbon Dioxide 31 mmol/L (22-30); Chloride 99 mmol/L (98-107); Glucose 145 mg/dL (74-99); Non-African American GFR(CKD) >90 (>60 ml/min/1.73 sqM); Potassium 5.2 mmol/L (3.5-5.1); Sodium 139 mmol/L (137-145)
--- NOTE | 2019-07-07 11:24 | ECHOF ---
Referral Reason:Exertional dyspnea MEASUREMENTS -------- HEIGHT: 175.3 cm WEIGHT: 79.4 kg BP: 108/69 RVIDd: 3.3 cm (< 3.3) IVSd: 1.1 cm (0.6 - 1.1) LVIDd: 4.6 cm (3.9 - 5.3) LVPWd: 1.1 cm (0.6 - 1.1) IVSs: 1.4 cm LVIDs: 3.0 cm LVPWs: 1.7 cm LA Diam: 3.7 cm (2.7 - 3.8) LAESV Index (A-L): 27.19 ml/m Ao Diam: 3.2 cm (2.0 - 3.7) AV Cusp: 2.4 cm (1.5 - 2.6) MV EXCURSION: 16.594 mm (> 18.000) MV EF SLOPE: 56 mm/s (70 - 150) EPSS: 0.3 cm MV E Hernan: 0.88 m/s MV DecT: 216 ms MV A Hernan: 0.76 m/s MV E/A Ratio: 1.16 FINDINGS -------- Sinus rhythm. This was a technically adequate study. The left ventricular size is normal. There is borderline concentric left ventricular hypertrophy. Overall left ventricular systolic function is normal with, an EF between 55 - 60 %. The right ventricle is normal in size. Normal LA size by volume 22+/-6 ml/m2. The right atrial size is normal. Interatrial and interventricular septum intact. The aortic valve is trileaflet, and appears structurally normal. No aortic stenosis or regurgitation. The mitral valve is normal. There is trace to mild mitral regurgitation. The tricuspid valve appears structurally normal. Trace tricuspid regurgitation present. There is no pulmonic regurgitation present. The aortic root size is normal. Normal inferior vena cava with normal inspiratory collapse consistent with estimated right atrial pre ssure of 5 mmHg. There is no pericardial effusion. CONCLUSIONS -------- 1. Sinus rhythm. 2. The left ventricular size is normal. 3. There is borderline concentric left ventricular hypertrophy. 4. Overall left ventricular systolic function is normal with, an EF between 55 - 60 %. 5. Normal LA size by volume 22+/-6 ml/m2. 6. The aortic valve is trileaflet, and appears structurally normal. No aortic stenosis or regurgitati on. 7. There is trace to mild mitral regurgitation. 8. Trace tricuspid regurgitation present. 9. There is no pulmonic regurgitation present. 10. There is no pericardial effusion. AUTO TRANSMISSION SPECIALIST: Rosanna Villa RDCS
[2019-07-07 12:31] VITALS: PULSE 96
--- NOTE | 2019-07-07 13:26 | P.DS ---
Providers Date of admission: 07/05/19 20:27 Expected date of discharge: 07/07/19 Attending physician: Rufino López Consults: 07/05/19 19:54 Consult Physician Routine Consulting Provider: Tyler Harrington Consult Reason/Comments: Bilateral pneumonia, exertional dyspnea Do you want consulting provider notified?: Yes Primary care physician: [facility] Hospital Course: Final Diagnoses: Acute purulent tracheobronchitis, doubt bronchial pneumonia as per pulmonary Pulmonary fibrosis Erdheim-[place] disease. Hypertension Hyperlipidemia Hospital course this is a 59-year-old gentleman presented with complaints of dyspnea, on chemotherapy, immunotherapy with a history of Erdheim-Migue Syndrome and multiple other medical issues. CTA reported no pulmonary embolism. Evaluated by pulmonary, CT reviewed, more chronic than acute/repeat chest x-ray reported bilateral lower lobe infiltrates or atelectasis, unchanged from prior exam. Maintained on IV antibiotics, steroids and nebulized treatments. Significant clinical improvement. Cleared by pulmonary for discharge. Patient is being discharged home in a stable condition with guarded prognosis. EXAM: GENERAL: Alert and oriented 3, no acute distress CARDIOVASCULAR: S1, S2 regular.. No murmur RESPIRATION: Breath sounds diminished in the bases. Occasional scattered rhonchi and crackles. No wheezing. ABDOMEN: Soft, nontender . No guarding. no masses palpable.Bowel sounds hear NERVOUS SYSTEM: No focal deficits. The impression and plan of care has been dictated as directed. : I performed a history and examination of this patient, discussed the same with the dictator. I agree with the dictator's note ,documented as a scribe. Any additional findings or plans will be noted. Patient Condition at Discharge: Stable Plan - Discharge Summary Discharge Rx Participant: No New Discharge Prescriptions: New Cefuroxime Axetil [Ceftin] 500 mg PO BID #10 tab methylPREDNISolone Dose Pack [Medrol Dose Pack] 4 mg PO DIRECTED #21 package Albuterol Sulfate [Ventolin HFA] 2 puff INHALATION QID #1 inhaler Continue buPROPion HCL [Wellbutrin XL] 300 mg PO DAILY Morphine Sulfate ER [Ms Contin] 30 mg PO Q12H Hydrocodone/Acetaminophen [[place] 10-325] 1 tab PO TID PRN PRN Reason: Breakthrough Pain Clopidogrel Bisulfate [Plavix] 75 mg PO DAILY Cholecalciferol (Vitamin D3) [Vitamin D3] 2,000 unit PO DAILY Tamsulosin HCl [Flomax] 0.4 mg PO DAILY Metoprolol Tartrate 25 mg PO DAILY Lisinopril [Prinivil] 5 mg PO DAILY Rosuvastatin Calcium [Crestor] 10 mg PO DAILY Multivit-Min/FA/Lycopen/Lutein [Centrum Silver Men Tablet] 1 tab PO DAILY Citalopram Hydrobromide [CeleXA] 20 mg PO DAILY Butalbital/Aspirin/Caffeine [[place]-Qruztlv-Ncpptohi 50-325-40 mg] 1 tab PO Q4H PRN PRN Reason: Migraine Headache Dexamethasone 1 mg PO DAILY #0 Discharge Medication List Butalbital/Aspirin/Caffeine [Leyvub-Mtsbwaf-Anlgnxjm 50-325-40 mg] 1 tab PO Q4H PRN 07/05/19 [History] Cholecalciferol (Vitamin D3) [Vitamin D3] 2,000 unit PO DAILY 07/05/19 [History] Citalopram Hydrobromide [CeleXA] 20 mg PO DAILY 07/05/19 [History] Clopidogrel Bisulfate [Plavix] 75 mg PO DAILY 07/05/19 [History] Hydrocodone/Acetaminophen [[place] 10-325] 1 tab PO TID PRN 07/05/19 [History] Lisinopril [Prinivil] 5 mg PO DAILY 07/05/19 [History] Metoprolol Tartrate 25 mg PO DAILY 07/05/19 [History] Morphine Sulfate ER [Ms Contin] 30 mg PO Q12H 07/05/19 [History] Multivit-Min/FA/Lycopen/Lutein [Centrum Silver Men Tablet] 1 tab PO DAILY 07/05/19 [History] Rosuvastatin Calcium [Crestor] 10 mg PO DAILY 07/05/19 [History] Tamsulosin HCl [Flomax] 0.4 mg PO DAILY 07/05/19 [History] buPROPion HCL [Wellbutrin XL] 300 mg PO DAILY 07/05/19 [History] Albuterol Sulfate [Ventolin HFA] 2 puff INHALATION QID #1 inhaler 07/07/19 [Rx] Cefuroxime Axetil [Ceftin] 500 mg PO BID #10 tab 07/07/19 [Rx] Dexamethasone 1 mg PO DAILY #0 07/07/19 [Rx] methylPREDNISolone Dose Pack [Medrol Dose Pack] 4 mg PO DIRECTED #21 package 07/07/19 [Rx] Follow up Appointment(s)/Referral(s): Hernan Hinton MD [Primary Care Provider] - 07/08/19 (Office closed, please call to make appointment) Ambulatory/Diagnostic Orders: Complete Blood Count w/diff [LAB.AMB] Time Frame: 3 Days, Location: None Selected Activity/Diet/Wound Care/Special Instructions: Copy of CT with patient to take to Dr. Jeanine Mitchell in [place].
--- NOTE | 2019-07-07 14:17 | P.PN ---
Subjective Progress Note Date: 07/07/19 Principal diagnosis: Probable purulent tracheobronchitis On 07/07/2019 patient seen in follow-up on medical surgical floor. He is awake and alert, sitting up in the recliner, he has been ambulating in the hallway, tolerating activity well, no shortness of breath, he is breathing much easier, room air pulse ox is 95%, no fever or chills, hemodynamically stable. Blood culture showed no growth, lung sounds reveal a few scattered rhonchi, no wheezes, patient has been treated with a combination of Zithromax and ceftriaxone, breathing treatments and IV steroids, improved, patient can be considered for discharge home today. Objective - Vital Signs Vital signs: Vital Signs Temp 98.5 F 07/07/19 06:14 Pulse 96 07/07/19 12:31 Resp 16 07/07/19 06:14 BP 108/69 07/07/19 06:14 Pulse Ox 95 07/07/19 06:14 Intake & Output 07/06/19 07/07/19 07/07/19 18:59 06:59 18:59 Intake Total 300 200 600 Balance 300 200 600 Intake: Oral 300 200 600 Other: Voiding Method Toilet Toilet # Voids 3 2 1 - Exam GENERAL EXAM: Alert, pleasant, 59-year-old white male, on room air, with a pulse ox of 97% comfortable in no apparent distress. HEAD: Normocephalic/atraumatic. EYES: Normal reaction of pupils, equal size. Conjunctiva pink, sclera white. NOSE: Clear with pink turbinates. THROAT: No erythema or exudates. NECK: No masses, no JVD, no thyroid enlargement, no adenopathy. CHEST: No chest wall deformity. Symmetrical expansion. LUNGS: Equal air entry with a few scattered rhonchi, no wheezing, good air entry bilaterally CVS: Regular rate and rhythm, normal S1 and S2, no gallops, no murmurs, no rubs ABDOMEN: Soft, nontender. No hepatosplenomegaly, normal bowel sounds, no guarding or rigidity. EXTREMITIES: No clubbing, no edema, no cyanosis, 2+ pulses and upper and lower extremities. MUSCULOSKELETAL: Muscle strength and tone normal. SPINE: No scoliosis or deformity SKIN: No rashes CENTRAL NERVOUS SYSTEM: Alert and oriented -3. No focal deficits, tone is normal in all 4 extremities. PSYCHIATRIC: Alert and oriented -3. Appropriate affect. Intact judgment and insight. - Labs CBC & Chem 7: 07/07/19 08:19 07/07/19 08:19 Labs: Abnormal Lab Results - Last 24 Hours (Table) 07/07/19 07/07/19 Range/Units 08:19 08:19 WBC 22.2 H (3.8-10.6) k/uL Potassium 5.2 H (3.5-5.1) mmol/L Carbon Dioxide 31 H (22-30) mmol/L Glucose 145 H (74-99) mg/dL Microbiology - Last 24 Hours (Table) 07/05/19 18:45 Blood Culture - Preliminary Blood No Growth after 24 hours Assessment and Plan Plan: Assessment: #1. Dyspnea related to probable purulent tracheobronchitis, doubt bronchopneumonia #2. Erdheim-[place] disease #3. History of coronary artery disease with previous stent placement #4. History of CVA #5. Hypertension #6. Hyperlipidemia #7. ILD/pulmonary fibrosis Plan: Patient is doing well, vital signs are stable, no fever or chills, patient is on room air, he is tolerating ambulation, no significant cough or congestion, patie nt is stable for discharge home today on oral antibiotics, and prednisone taper, patient was instructed to follow-up with his Erdheim-Pl[place] disease specialist in [place], and take CD with his CT scan of the chest with him at the follow-up appointment. Clinically stable. I performed a history & physical examination of the patient and discussed their management with my nurse practitioner, Leticia Morales. I reviewed the nurse practitioner's note and agree with the documented findings and plan of care. Lung sounds are positive for a few scattered rhonchi. The findings and the impression was discussed with the patient. I attest to the documentation by the nurse practitioner. Time with Patient: Less than 30
== END 2019-07-07 14:26 | disposition home or self-care (01) | DRG 203 ==
LOC: EC 18:08 → 6NMEDSUR 20:27
PROVIDERS: ADMIT Family Medicine; ATTEND Family Medicine
DX: J20.9 Acute bronchitis, unspecified (principal); E88.89 Other specified metabolic disorders; J84.10 Pulmonary fibrosis, unspecified; R09.02 Hypoxemia; I10 Essential (primary) hypertension; E78.5 Hyperlipidemia, unspecified; F32.9 Major depressive disorder, single episode, unspecified; F41.9 Anxiety disorder, unspecified; Z79.02 Long term (current) use of antithrombotics/antiplatelets; Z79.891 Long term (current) use of opiate analgesic; Z79.899 Other long term (current) drug therapy; I25.10 Atherosclerotic heart disease of native coronary artery without angina pectoris; Z86.73 Personal history of transient ischemic attack (TIA), and cerebral infarction without residual deficits; Z95.5 Presence of coronary angioplasty implant and graft; Z98.890 Other specified postprocedural states
CPT/HCPCS: 36415; 71045; 71046; 71275; 80048; 80053; 82803; 83605; 83735; 83880; 84484; 85025; 85027; 85610; 85730; 87040; 87502; 93005; 93306; 94640; 96365; 96375; 99285

== ENCOUNTER → 2019-07-11 | Outpatient (CLI) | payer MEDICARE ==
[2019-07-11 10:21] LABS: Basophils # (A) 0.3 k/uL (0-0.2); Basophils % (A) 1 %; Eosinophils # (A) 0.5 k/uL (0-0.7); Eosinophils % (A) 2 %; HCT 48.9 % (39.0-53.0); HGB 15.9 gm/dL (13.0-17.5); Lymphocytes # (A) 1.3 k/uL (1.0-4.8); Lymphocytes % (A) 6 %; MCH 30.8 pg (25.0-35.0); MCHC 32.4 g/dL (31.0-37.0); MCV 94.9 fL (80.0-100.0); Monocytes # (A) 0.9 k/uL (0-1.0); Monocytes % (A) 5 %; Neutrophils # (A) 17.2 k/uL (1.3-7.7); Neutrophils % (A) 83 %; Platelet Count 505 k/uL (150-450); RBC 5.15 m/uL (4.30-5.90); RDW 12.4 % (11.5-15.5); WBC 20.7 k/uL (3.8-10.6)
== END | disposition home or self-care (01) ==
LOC: LABWHC1 09:48
PROVIDERS: ATTEND Psychiatry & Neurology Neurology
DX: D76.3 Other histiocytosis syndromes (principal); J18.9 Pneumonia, unspecified organism
CPT/HCPCS: 36415; 85025

== ENCOUNTER 2019-10-01 12:38 | Emergency (ER) | payer MEDICARE ==
[2019-10-01] MEDS ORDERED: RX INFO: IV CONTRAST WAS GIVEN 1 EACH MISC MISCELLANE PRN (13:14)
[2019-10-01 13:19] VITALS: RESP 20
[2019-10-01 13:22] LABS: Basophils # (A) 0.1 k/uL (0-0.2); Basophils % (A) 1 %; Eosinophils # (A) 0.2 k/uL (0-0.7); Eosinophils % (A) 2 %; HCT 51.3 % (39.0-53.0); HGB 16.8 gm/dL (13.0-17.5); Lymphocytes % (A) 8 %; MCH 29.7 pg (25.0-35.0); MCHC 32.8 g/dL (31.0-37.0); MCV 90.4 fL (80.0-100.0); Mean Platelet Volume 7.3; Monocytes # (A) 0.8 k/uL (0-1.0); Monocytes % (A) 7 %; Neutrophils # (A) 10.3 k/uL (1.3-7.7); Neutrophils % (A) 80 %; Platelet Count 370 k/uL (150-450); RBC 5.67 m/uL (4.30-5.90); RDW 12.8 % (11.5-15.5); WBC 12.9 k/uL (3.8-10.6)
[2019-10-01 13:40] LABS: African American GFR (CKD) >90 (>60 ml/min/1.73 sqM); Anion Gap 6 mmol/L; Blood Urea Nitrogen 16 mg/dL (9-20); C Reactive Protein 46.2 mg/L (<10.0); Calcium 9.4 mg/dL (8.4-10.2); Carbon Dioxide 27 mmol/L (22-30); Chloride 102 mmol/L (98-107); Glucose 79 mg/dL (74-99); Non-African American GFR(CKD) >90 (>60 ml/min/1.73 sqM); Potassium 4.7 mmol/L (3.5-5.1); Sodium 135 mmol/L (137-145)
--- NOTE | 2019-10-01 13:40 | ED ---
General Adult HPI - General Chief complaint: Shortness of Breath Stated complaint: SOB Time Seen by Provider: 10/01/19 12:50 Source: patient Mode of arrival: ambulatory Limitations: no limitations - History of Present Illness Initial comments: Dictation was produced using [employer] dictation software. please excuse any grammatical, word or spelling errors. This patient was cared for during a federal and state declared state of emergency secondary to Covid 19 Chief Complaint: 59-year-old male with past medical history of Erdheim-Migue syndrome presents with dyspnea, dizziness and hypoxia. History of Present Illness: Patient is 59-year-old male with past medical history of unusual rare immune disease called Erdheim-Migue resents today with a chief complaint of dyspnea, dizziness and hypoxia. Patient is concerned that he has Covid 19. He reports that patient goes to [place] regularly for special immunotherapy infusions. He sees a specialist oncologist and gets a rare chemotherapy. The last time he was in [place] was in July. 2 days ago patient had a infusions at [facility]. Patient denies any recent sick contacts. She states that he's been feeling dizzy. He states he feels more dizzy especially with leaning forward. He does feel mildly dyspneic especially with exertion. He has a pulse oximeter at home and measured it and found readings that were reading 86%. States this made him anxious and prompted him to come to the emergency department. She denies any coughing. Denies any vomiting or diarrhea. No abdominal pain. Patient has no pain complaints. No history of blood clots. The ROS documented in this emergency department record has been reviewed and confirmed by me. Those systems with pertinent positive or negative responses have been documented in the HPI. All other systems are other negative and/or noncontributory. PHYSICAL EXAM: General Impression: Alert and oriented x3, not in acute distress HEENT: Normocephalic atraumatic, extra-ocular movements intact, pupils equal and reactive to light bilaterally, mucous membranes moist. 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 As upon arrival shows an is within acceptable limits. Patient's 96% on room air. Patient's well-appearing at bedside. Laboratory evaluation obtained. Mild leukocytosis of 12.9. Metabolic panel is unremarkable. Patient does have a C-reactive protein elevation of 46.2, and fluids test negative CT of the chest was obtained considering patient had complex CT findings in the past. CT shows no findings to suggest infiltrate or ground glass opacities. There is however inflammatory process of his retroperitoneum. Patient knows of these findings and has his oncologist in [place] and this up. This has been a chronic finding last several months. Patient observed in emergency department. Patient is well-appearing. Patient is not hypoxic. Not showing signs of respiratory distress. Clinical presentation does not suggest Covid 19 however hypothetically there is still a chance. Patient told to self isolate. Return parameters discussed. Patient told to seek immediate medical attention should he develop worsening symptoms especially in setting of fever, chills and hypoxia. He is advised to monitor his oxygen le vels at home with his pulse oximeter. Patient is understandable and agreeable with disposition. All questions answered. EKG interpretation: Ventricular rate, normal sinus rhythm,. Interval 176, QRS 82, QTC 46. No NM prolongation, no QTC prolongation, no ST or T-wave changes noted. EKG compared to 07/05/2019 showing no changes. Overall, this EKG is unremarkable - Related Data Home Medications Medication Instructions Recorded Confirmed Butalbital/Aspirin/Caffeine 1 tab PO Q4H PRN 07/05/19 07/05/19 [Dvlcui-Kfbpgiv-Kgxmgoaq 50-325-40 mg] Cholecalciferol (Vitamin D3) 2,000 unit PO DAILY 07/05/19 07/05/19 [Vitamin D3] Citalopram Hydrobromide [CeleXA] 20 mg PO DAILY 07/05/19 07/05/19 Clopidogrel Bisulfate [Plavix] 75 mg PO DAILY 07/05/19 07/05/19 Hydrocodone/Acetaminophen [Palmetto 1 tab PO TID PRN 07/05/19 07/05/19 10-325] Lisinopril [Prinivil] 5 mg PO DAILY 07/05/19 07/05/19 Metoprolol Tartrate 25 mg PO DAILY 07/05/19 07/05/19 Morphine Sulfate ER [Ms Contin] 30 mg PO Q12H 07/05/19 07/05/19 Multivit-Min/FA/Lycopen/Lutein 1 tab PO DAILY 07/05/19 07/05/19 [Centrum Silver Men Tablet] Rosuvastatin Calcium [Crestor] 10 mg PO DAILY 07/05/19 07/05/19 Tamsulosin HCl [Flomax] 0.4 mg PO DAILY 07/05/19 07/05/19 buPROPion HCL [Wellbutrin XL] 300 mg PO DAILY 07/05/19 07/05/19 Previous Rx's Medication Instructions Recorded Albuterol Sulfate [Ventolin HFA] 2 puff INHALATION QID #1 inhaler 07/07/19 Cefuroxime Axetil [Ceftin] 500 mg PO BID #10 tab 07/07/19 Dexamethasone 1 mg PO DAILY #0 07/07/19 methylPREDNISolone Dose Pack 4 mg PO DIRECTED #21 package 07/07/19 [Medrol Dose Pack] Azithromycin [Zithromax Z-pack] 0 mg PO DIRECTED #6 tab 10/01/19 Allergies Allergy/AdvReac Type Severity Reaction Status Date / Time No Known Allergies Allergy Verified 10/01/19 12:49 Review of Systems ROS Statement: Those systems with pertinent positive or pertinent negative responses have been documented in the HPI. ROS Other: All systems not noted in ROS Statement are negative. Past Medical History Past Medical History: Coronary Artery Disease (CAD), Cancer, CVA/TIA, Hypertension Additional Past Medical History / Comment(s): erdheimchester's disease (rare blood cancer) History of Any Multi-Drug Resistant Organisms: None Reported Past Surgical History: Heart Catheterization With Stent, Hernia Repair Additional Past Surgical History / Comment(s): exp lap,. biopsies of bone and kidney (negative) Past Anesthesia/Blood Transfusion Reactions: No Reported Reaction Date of Last Stent Placement:: 2013 Past Psychological History: Anxiety, Depression Smoking Status: Never smoker Past Alcohol Use History: None Reported Past Drug Use History: None Reported - Past Family History Mother Family Medical History: Coronary Artery Disease (CAD) Father Additional Family Medical History / Comment(s): dies from AIDS in 1988 General Exam Limitations: no limitations Course Vital Signs 10/01/19 10/01/19 10/01/19 12:46 13:00 14:00 Temperature 97.9 F Pulse Rate 90 85 76 Respiratory 22 20 20 Rate Blood Pressure 153/100 135/96 128/65 O2 Sat by Pulse 96 97 97 Oximetry 10/01/19 14:53 Temperature 98.2 F Pulse Rate 67 Respiratory 20 Rate Blood Pressure 131/92 O2 Sat by Pulse 94 L Oximetry Medical Decision Making - Lab Data Result diagrams: 10/01/19 13:09 10/01/19 13:09 Lab Results 10/01/19 10/01/19 10/01/19 Range/Units 13:05 13:09 13:09 WBC 12.9 H (3.8-10.6) k/uL RBC 5.67 (4.30-5.90) m/uL Hgb 16.8 (13.0-17.5) gm/dL Hct 51.3 (39.0-53.0) % MCV 90.4 (80.0-100.0) fL MCH 29.7 (25.0-35.0) pg MCHC 32.8 (31.0-37.0) g/dL RDW 12.8 (11.5-15.5) % Plt Count 370 (150-450) k/uL Neutrophils % 80 % Lymphocytes % 8 % Monocytes % 7 % Eosinophils % 2 % Basophils % 1 % Neutrophils # 10.3 H (1.3-7.7) k/uL Lymphocytes # 1.0 (1.0-4.8) k/uL Monocytes # 0.8 (0-1.0) k/uL Eosinophils # 0.2 (0-0.7) k/uL Basophils # 0.1 (0-0.2) k/uL Sodium 135 L (137-145) mmol/L Potassium 4.7 (3.5-5.1) mmol/L Chloride 102 (98-107) mmol/L Carbon Dioxide 27 (22-30) mmol/L Anion Gap 6 mmol/L BUN 16 (9-20) mg/dL Creatinine 0.86 (0.66-1.25) mg/dL Est GFR (CKD-EPI)AfAm >90 (>60 ml/min/1.73 sqM) Est GFR (CKD-EPI)NonAf >90 (>60 ml/min/1.73 sqM) Glucose 79 (74-99) mg/dL Calcium 9.4 (8.4-10.2) mg/dL C-Reactive Protein 46.2 H (<10.0) mg/L NT-Pro-B Natriuret Pep pg/mL Influenza Type A RNA Not Detected (Not Detectd) Influenza Type B (PCR) Not Detected (Not Detectd) 10/01/19 Range/Units 13:09 WBC (3.8-10.6) k/uL RBC (4.30-5.90) m/uL Hgb (13.0-17.5) gm/dL Hct (39.0-53.0) % MCV (80.0-100.0) fL MCH (25.0-35.0) pg MCHC (31.0-37.0) g/dL RDW (11.5-15.5) % Plt Count (150-450) k/uL Neutrophils % % Lymphocytes % % Monocytes % % Eosinophils % % Basophils % % Neutrophils # (1.3-7.7) k/uL Lymphocytes # (1.0-4.8) k/uL Monocytes # (0-1.0) k/uL Eosinophils # (0-0.7) k/uL Basophils # (0-0.2) k/uL Sodium (137-145) mmol/L Potassium (3.5-5.1) mmol/L Chloride (98-107) mmol/L Carbon Dioxide (22-30) mmol/L Anion Gap mmol/L BUN (9-20) mg/dL Creatinine (0.66-1.25) mg/dL Est GFR (CKD-EPI)AfAm (>60 ml/min/1.73 sqM) Est GFR (CKD-EPI)NonAf (>60 ml/min/1.73 sqM) Glucose (74-99) mg/dL Calcium (8.4-10.2) mg/dL C-Reactive Protein (<10.0) mg/L NT-Pro-B Natriuret Pep 55 pg/mL Influenza Type A RNA (Not Detectd) Influenza Type B (PCR) (Not Detectd) Disposition Clinical Impression: Dyspnea Disposition: HOME SELF-CARE Condition: Good Instructions (If sedation given, give patient instructions): Dyspnea (ED) Additional Instructions: Today you were evaluated for symptoms consistent with upper respiratory infection. There is concern that perhaps your symptomatology may represent Covid 19. Your are stable for discharge, however it is instructed to to seek immediate medical attention especially if you develop worsening symptoms especi ally respiratory distress. In the meantime please remain in quarantine for 14 days. For any other questions please contact Arturo for here in emergency department or [facility] at [phone] Prescriptions: Azithromycin [Zithromax Z-pack] 0 mg PO DIRECTED #6 tab Is patient prescribed a controlled substance at d/c from ED?: No Referrals: Hernan Hinton MD [Primary Care Provider] - 1-2 days Time of Disposition: 15:00
--- NOTE | 2019-10-01 14:49 | CT ---
EXAMINATION TYPE: CT chest w con DATE OF EXAM: 10/01/2019 COMPARISON: CTA chest July 05, 2019. 2 view chest x-ray July 06, 2019. HISTORY: Dyspnea, SOB CT DLP: 378.6 mGycm. Automated Exposure Control for Dose Reduction was Utilized. TECHNIQUE: CT scan of the thorax is performed following with IV Contrast, patient injected with 100 ml mL of Isovue 300. FINDINGS: LUNGS: An overall mosaic attenuation bilaterally is present similar to prior CT. Dependent groundglas s opacities in the lower lungs remain present. Additional [id number] linear atelectasis and/or scarring again seen. No new areas of focal consolidation or groundglass opacity. No pneumothorax seen bilaterally. Tiny bilateral pleural effusions or pleural thickening posterior medial aspect both naseem gs redemonstrated. No suspicious new nodules or masses. Tracheobronchial tree patent. MEDIASTINUM: There are no greater than 1 cm hilar or mediastinal lymph nodes. No cardiomegaly or pe ricardial effusion is seen. OTHER: Redemonstration of significant perinephric fluid surrounding the visualized portion of both ki dneys along with areas of increased thickening and vascularity in the wall of the gallbladder. Abnorm al retroperitoneal fluid and/or soft tissue in the upper abdomen remains present encasing both renal arteries. Findings not significant change from prior CT. IMPRESSION: No significant change from prior CTA chest study. Unusual involvement of abnormal tissue and/or fluid in the retroperitoneum. Consider underlying vasculitis, inflammatory processes such as s arcoidosis, IgG4 related diseases, or other systemic processes. No new focal infiltrate. Advise nonem ergent endocrinology, GI, and/or pulmonary referrals.
[2019-10-01 14:54] VITALS: BP 131/92; PULSE 67; TEMP 98.2
== END 2019-10-01 15:05 | disposition home or self-care (01) ==
LOC: EC 12:38
DX: R06.00 Dyspnea, unspecified (principal); D72.829 Elevated white blood cell count, unspecified; R79.82 Elevated C-reactive protein (CRP); R93.89 Abnormal findings on diagnostic imaging of other specified body structures; E88.89 Other specified metabolic disorders; R42 Dizziness and giddiness; Z20.828 Contact with and (suspected) exposure to other viral communicable diseases; I25.10 Atherosclerotic heart disease of native coronary artery without angina pectoris; I10 Essential (primary) hypertension; F32.9 Major depressive disorder, single episode, unspecified; F41.9 Anxiety disorder, unspecified; Z79.02 Long term (current) use of antithrombotics/antiplatelets; Z79.891 Long term (current) use of opiate analgesic; Z79.899 Other long term (current) drug therapy; Z92.21 Personal history of antineoplastic chemotherapy; Z92.25 Personal history of immunosuppression therapy; Z86.73 Personal history of transient ischemic attack (TIA), and cerebral infarction without residual deficits; Z95.5 Presence of coronary angioplasty implant and graft
CPT/HCPCS: 36415; 93005; 83880; 80048; 85025; 86140; 87502; 71260; 99285; Q9967

== ENCOUNTER → 2020-12-21 | Outpatient (CLI) | payer MEDICARE ==
--- NOTE | 2020-12-22 04:41 | MR ---
EXAMINATION TYPE: MR angio head wo con DATE OF EXAM: 12/21/2020 COMPARISON: None HISTORY: Migraines MR angiographic images were obtained of the brain without contrast. There is arterial flow in both distal internal carotid arteries. There is arterial flow in the basila r artery. Basilar artery fills from the left side. There is arterial flow apparently in both distal v ertebral arteries. Exam fails to show any significant blood flow in the left middle cerebral artery. It is not clear whe re the blood supply to the left temporal lobe is originating. There is diminished arterial vessels in the left sylvian fissure compared to the right. There appears to be only significant flow in one ant erior cerebral artery. There is no blood flow seen in the A1 segment of the right anterior cerebral a rtery. Anterior cerebral arteries appear to fill entirely from the left side through the left interna l carotid artery. There is arterial flow in both posterior cerebral arteries. The right posterior cerebral arteries lar asya than the left. No evidence of intracranial aneurysm. There is increased signal in the frontal sinuses could relate to sinusitis. IMPRESSION: Diminished size and flow signal seen in the left posterior cerebral artery compared to the right. The re appears to be no significant flow in the left anterior cerebral artery. The right anterior cerebra l artery appears to fill through the anterior communicating artery from the left side. There is no significant blood flow demonstrated in the left middle cerebral artery proximally. There is diminished vessels in the left sylvian fissure compared to the right. Appearance could relate to m ultifocal hemodynamically significant stenosis. CT angiogram would be helpful to confirm the extent of the vascular abnormalities.
== END | disposition home or self-care (01) ==
LOC: RADMRIMAIN 10:48
PROVIDERS: ATTEND Physician Assistant Medical
DX: G43.909 Migraine, unspecified, not intractable, without status migrainosus (principal)
CPT/HCPCS: 70544

== ENCOUNTER → 2021-01-10 | Outpatient (CLI) | payer MEDICARE ==
--- NOTE | 2021-01-10 16:45 | MR ---
EXAMINATION TYPE: MR brain wo con DATE OF EXAM: 01/10/2021 COMPARISON: Prior MRI brain September 08, 2011 HISTORY: Migraines, history of blood cancer. TECHNIQUE: Multiplanar, multisequence imaging of the brain and brainstem is performed without IV cont rast. FINDINGS: Diffusion weighted images demonstrate no evidence of a recent infarct or other diffusion abnormality. There is no worrisome extra-axial fluid collection. The ventricular system and cisternal spaces are n ormal in size and appearance. The brain volume is age appropriate. There a few scattered foci of T2 hyperintensity seen throughout the white matter bilaterally. Approxi mately 5-10 scattered lesions small in size redemonstrated. They are nonspecific in appearance and di stribution but felt to reflect product of chronic small vessel ischemic change. There are areas of old infarct or encephalomalacia in the right parietal-occipital and the left poste rior frontal lobes redemonstrated. Former fairly stable. Latter more prominent or increased in size f rom prior. Midline structures redemonstrate normal morphology. The craniocervical junction appears within normal limits. Normal vascular flow voids are redemonstrated. Absent right A1 segment with filling of A2 segment fro m the anterior communicating artery. Dominant left vertebral artery redemonstrated. The globes are intact. Moderate mucosal thickening involving paranasal sinuses redemonstrated slightl y improved from prior. IMPRESSION: Mild chronic small vessel ischemic change fairly stable. Stable right posterior watershed infarct. More prominent old infarct left parietal lobe from 2012 study. Chronic paranasal sinus dise ase slightly less prominent than prior study.
== END | disposition home or self-care (01) ==
LOC: RADMRIMAIN 14:02
PROVIDERS: ATTEND Physician Assistant Medical
DX: I67.82 Cerebral ischemia (principal); I63.9 Cerebral infarction, unspecified; Z85.79 Personal history of other malignant neoplasms of lymphoid, hematopoietic and related tissues
CPT/HCPCS: 70551

== ENCOUNTER → 2021-01-24 | Outpatient (CLI) | payer MEDICARE ==
--- NOTE | 2021-01-24 08:31 | CT ---
EXAMINATION TYPE: CT angio head DATE OF EXAM: 01/24/2021 COMPARISON: None HISTORY: Migraine CT DLP: 1473.1 mGycm CONTRAST: CTA [place] with 3-D reconstruction is performed and without and with IV Contrast, patient i njected with 100 mL of Isovue 370. Contrast CTA of the [place] was performed 3-D reconstruction imaging obtained at a separate workstation. Vertebrobasilar system as well as intracranial portions of the internal carotid arterie s and their major tributaries are patent. I do not see evidence for sizable aneurysm or vascular mal formation. Please note MRI provides greater sensitivity and specificity. CT of the brain demonstrate s a remote insult high left frontal region as well as the posterior right parietal region IMPRESSION: No evidence for sizable aneurysm or vascular malformation.
== END | disposition home or self-care (01) ==
LOC: RADCTMAIN 06:36
PROVIDERS: ATTEND Psychiatry & Neurology Neurology
DX: G43.909 Migraine, unspecified, not intractable, without status migrainosus (principal)
CPT/HCPCS: 82565; 84520; 70496; 36415; Q9967

== ENCOUNTER 2021-12-30 13:48 | Emergency (ER) | payer MEDICARE ==
[2021-12-30 14:14] VITALS: RESP 18; TEMP 98.9
--- NOTE | 2021-12-30 16:15 | US ---
EXAMINATION TYPE: US venous doppler duplex LE RT DATE OF EXAM: 12/30/2021 2:20 PM COMPARISON: NONE CLINICAL HISTORY: dvt. Right leg pain. No redness. On blood thinners. CAD. SIDE PERFORMED: Right TECHNIQUE: The lower extremity deep venous system is examined utilizing real time linear array sonog indira with graded compression, doppler sonography and color-flow sonography. VESSELS IMAGED: Common Femoral Vein Deep Femoral Vein Superior aspect of the Greater Saphenous Vein * Femoral Vein Popliteal Vein Small Saphenous Vein * Proximal Calf Veins (* superficial vessels) Right Leg: Positive for DVT. Duplicate Femoral vein seen. Positive for SVT in SSV. IMPRESSION: DVT of the right lower extremity is seen extending from the mid femoral vein down to the inferior aspect of the popliteal vein.
--- NOTE | 2021-12-30 16:25 | ED ---
General Adult HPI - General Source: EMS Mode of arrival: EMS <Janna Emery - Last Filed: 12/30/21 16:31> <Kendall Fernandes - Last Filed: 12/30/21 17:41> - General Chief complaint: Recheck/Abnormal Lab/Rx Stated complaint: Right Leg Pain Time Seen by Provider: 12/30/21 14:00 - History of Present Illness Initial comments: 61-year-old male with past medical history of erdheim-yahaira disease, CVA on plavix, peptic ulcer disease who presents to the emergency department with 2 days' worth of right calf pain. States that the pain started after he was mowing the lawn. He describes it as a cramping sensation. The pain is worse in the morning when he wakes up. Reports that it will feel better over the course the day. This morning the pain was so significant that he went into an urgent care on [address]. He was seen by a nurse practitioner who ordered an ultrasound. He was told that his study was positive and he needed to be transferred to the hospital for treatment. Patient is not sent with results of the ultrasound. He denies previous history of DVT or PE. Denies any chest pain or shortness of breath. Does have history of peptic ulcer disease which required blood transfusion. Denies having any issues with peptic ulcer disease in several years. He remains on Plavix without issue. No other alleviating, precipitating or modifying factors (Janna Emery) - Related Data Home Medications Medication Instructions Recorded Confirmed Clopidogrel Bisulfate [Plavix] 75 mg PO DAILY 07/05/19 12/30/21 Hydrocodone/Acetaminophen [[place] 1 tab PO TID PRN 07/05/19 12/30/21 10-325] Metoprolol Tartrate 25 mg PO DAILY 07/05/19 12/30/21 Multivit-Min/FA/Lycopen/Lutein 1 tab PO DAILY 07/05/19 12/30/21 [Centrum Silver Men Tablet] Rosuvastatin Calcium [Crestor] 10 mg PO DAILY 07/05/19 12/30/21 Tamsulosin HCl [Flomax] 0.4 mg PO DAILY 07/05/19 12/30/21 lisinopriL [Prinivil] 5 mg PO DAILY 07/05/19 12/30/21 Ascorbic Acid [Vitamin C] 500 mg PO DAILY 12/30/21 12/30/21 Butalb/APAP/Caff 50-325-40Mg 1 tab PO TID PRN 12/30/21 12/30/21 [Fioricet 50-325-40] Cholecalciferol [Vitamin D3 (25 25 mcg PO DAILY 12/30/21 12/30/21 Mcg = 1000 Iu)] Morphine Sulfate ER [Ms Contin] 15 mg PO HS 12/30/21 12/30/21 Omeprazole 20 mg PO DAILY 12/30/21 12/30/21 buPROPion XL [Wellbutrin XL] 150 mg PO DAILY 12/30/21 12/30/21 dexAMETHasone [Dexamethasone] 0.5 mg PO DAILY 12/30/21 12/30/21 Previous Rx's Medication Instructions Recorded Apixaban [Eliquis Starter Pack 5 - 10 mg PO DIRECTED 30 Days 12/30/21 (for VTE)] #1 each Allergies Allergy/AdvReac Type Severity Reaction Status Date / Time No Known Allergies Allergy Verified 12/30/21 15:08 Review of Systems ROS Other: All systems not noted in ROS Statement are negative. <Janna Emery - Last Filed: 12/30/21 16:31> ROS Other: All systems not noted in ROS Statement are negative. <Kendall Fernandes - Last Filed: 12/30/21 17:41> ROS Statement: Those systems with pertinent positive or pertinent negative responses have been documented in the HPI. Past Medical History Past Medical History: Coronary Artery Disease (CAD), Cancer, CVA/TIA, Hypertension Additional Past Medical History / Comment(s): erdheimchester's disease (rare blood cancer) History of Any Multi-Drug Resistant Organisms: None Reported Past Surgical History: Heart Catheterization With Stent, Hernia Repair Additional Past Surgical History / Comment(s): exp lap,. biopsies of bone and kidney (negative) Past Anesthesia/Blood Transfusion Reactions: No Reported Reaction Date of Last Stent Placement:: 2013 Past Psychological History: Anxiety, Depression Smoking Status: Never smoker Past Alcohol Use History: Rare Past Drug Use History: Marijuana - Past Family History Mother Family Medical History: Coronary Artery Disease (CAD) Father Additional Family Medical History / Comment(s): dies from AIDS in 1988 <Janna Emery - Last Filed: 12/30/21 16:31> General Exam General appearance: alert, in no apparent distress Head exam: Present: atraumatic, normocephalic, normal inspection Eye exam: Present: normal appearance, PERRL, EOMI. Absent: scleral icterus, conjunctival injection, periorbital swelling ENT exam: Present: normal exam, mucous membranes moist Neck exam: Present: normal inspection. Absent: tenderness, meningismus, lymphadenopathy Respiratory exam: Present: normal lung sounds bilaterally. Absent: respiratory distress, wheezes, rales, rhonchi, stridor Cardiovascular Exam: Present: regular rate, normal rhythm, normal heart sounds. Absent: systolic murmur, diastolic murmur, rubs, gallop, clicks GI/Abdominal exam: Present: soft, normal bowel sounds. Absent: distended, tenderness, guarding, rebound, rigid Extremities exam: Present: full ROM, tenderness, normal capillary refill, calf tenderness, other (Compartments are soft. 2+ DP and PT pulses. Cap refill is less than 3 seconds). Absent: pedal edema, joint swelling Back exam: Present: normal inspection Neurological exam: Present: alert, oriented X3, CN II-XII intact Psychiatric exam: Present: normal affect, normal mood Skin exam: Present: warm, dry, intact, normal color. Absent: rash <Janna Emery - Last Filed: 12/30/21 16:31> Course Vital Signs 12/30/21 12/30/21 13:54 17:18 Temperature 98.9 F Pulse Rate 75 76 Respiratory 18 18 Rate Blood Pressure 155/98 133/76 O2 Sat by Pulse 99 96 Oximetry Medical Decision Making <Janna Emery - Last Filed: 12/30/21 16:31> <Kendall Fernandes - Last Filed: 12/30/21 17:41> - Medical Decision Making Upon arrival patient was placed into room 6. We did call over to the urgent care and we are required to leave a message. We do attempt to contact them at several different numbers however we are unable to obtain the results of the ultrasound. I did order a repeat ultrasound at our facility. Patient originally refused as he did not want to pay double for the study. Patient finally agrees as we are told that the results will not be finalized for several days from the urgent care. Ultrasound read pending at this time the patient is signed out to Dr. Fernandes. (Janna Emery) Patient was signed out to me pending results of DVT scan of the right lower extremity. On discussion with him, no suspicion for PE at this time. Isolated RLE swelling/pain. He does have a complicated past medical history including Erdheim-Marl[place] disease which is a form of blood disorders/cancer, prior GI bleed multiple years ago remains on Plavix, no history of anticoagulation use. Patient also had a prior CVA when he was taken off Plavix. Presents after a positive DVT scan at outpatient facility. Was unable to confirm as he was not sent with any documentation, reads. Unable to receive the read. Therefore scan was repeated here. Ultrasound returned positive for DVT in the right lower extremity. I reached out to our vascular surgeon here, Dr. Reilly who I discussed the findings with. We're ensuring that with his past medical history, he believes it is appropriate to start him on Eliquis outpatient. To his knowledge, this is the case. He agreed with the plan. Also recommended that we attempt to contact the patient's blood specialist. I spoke with the patient, who does have an on-call line he can contact his specialist who is located at [facility] in [place]. Specialist name is Dr. Miranda Mitchell. He'll reach out to him and discuss starting Eliquis for DVT. Patient was able to contact his physician's offices and they stated that it is okay to start Eliquis on the patient to treat for DVT. Will follow up with vascular surgery as well as primary care. He'll be given his first dose here as well as Eliquis starter pack. Patient was in agreement this plan. Strict return precautions were discussed regarding signs and symptoms of PE or GI bleed. Patient was in agreement with this plan. I will provide the patient with a prescription for Eliquis. I instructed the patient to follow up with their PCP in the next 3 days. I provided contact information for follow up with vascular surgery. I explained that the patient should return to the emergency department if they experience any worsening symptoms. Strict return precautions were discussed with the patient. The patient expressed understanding of these instructions. I answered all questions that the patient had. The patient was discharged home in good condition with their prescr iptions and follow up information. (Kendall Fernandes) Disposition <Janna Emery - Last Filed: 12/30/21 16:31> Is patient prescribed a controlled substance at d/c from ED?: No Time of Disposition: 17:30 <Kendall Fernandes - Last Filed: 12/30/21 17:41> Clinical Impression: DVT (deep venous thrombosis) Disposition: HOME SELF-CARE Condition: Good Instructions (If sedation given, give patient instructions): Deep Vein Thrombosis (ED) Additional Instructions: Watch for signs of GI bleeding, including blood in stool or emesis. Watch for signs or symptoms of blood clot in lung including chest pain, worsening shortness of breath. Return for evaluation if any concern. Follow up with vascular surgery. Prescriptions: Apixaban [Eliquis Starter Pack (for VTE)] 5 - 10 mg PO DIRECTED 30 Days #1 each Referrals: Hernan Hinton MD [Primary Care Provider] - 1-2 days Gold Reilly DO [STAFF PHYSICIAN] - 1-2 days
[2021-12-30] MEDS ORDERED: APIXABAN 5 MG TAB PO STA (17:32)
[2021-12-30 17:58] VITALS: BP 137/84; PULSE 72
== END 2021-12-30 17:58 | disposition home or self-care (01) ==
LOC: EC 13:48
DX: I82.401 Acute embolism and thrombosis of unspecified deep veins of right lower extremity (principal); I25.10 Atherosclerotic heart disease of native coronary artery without angina pectoris; I10 Essential (primary) hypertension; F32.A Depression, unspecified; F41.9 Anxiety disorder, unspecified; F12.90 Cannabis use, unspecified, uncomplicated; Z79.899 Other long term (current) drug therapy; Z79.02 Long term (current) use of antithrombotics/antiplatelets
CPT/HCPCS: 99284

== ENCOUNTER → 2022-06-07 | Outpatient (CLI) | payer MEDICARE ==
[2022-06-07 10:03] LABS: ALT 25 U/L (4-49); AST 25 U/L (17-59); African American GFR (CKD) 80 (>60 ml/min/1.73 sqM); Albumin 4.4 g/dL (3.5-5.0); Alkaline Phosphatase 60 U/L (38-126); Amylase 68 U/L (30-110); Anion Gap 7 mmol/L; Blood Urea Nitrogen 17 mg/dL (9-20); C Reactive Protein <0.5 mg/dL (<1.0); Carbon Dioxide 29 mmol/L (22-30); Chloride 102 mmol/L (98-107); Glucose 94 mg/dL (74-99); Lipase 133 U/L (23-300); Magnesium 2.1 mg/dL (1.6-2.3); Non-African American GFR(CKD) 69 (>60 ml/min/1.73 sqM); Phosphorus 4.1 mg/dL (2.5-4.5); Potassium 4.8 mmol/L (3.5-5.1); Sodium 138 mmol/L (137-145); Total Bilirubin 0.5 mg/dL (0.2-1.3); Total Protein 6.9 g/dL (6.3-8.2)
[2022-06-07 10:08] LABS: HCT 45.2 % (39.0-53.0); HGB 15.4 gm/dL (13.0-17.5); MCH 32.2 pg (25.0-35.0); MCV 94.5 fL (80.0-100.0); Mean Platelet Volume 8.4; Platelet Count 258 k/uL (150-450); RBC 4.78 m/uL (4.30-5.90); RDW 12.2 % (11.5-15.5); WBC 8.4 k/uL (3.8-10.6)
[2022-06-07 12:38] LABS: Erythrocyte Sedimentation Rate 2 mm/hr (0-15)
--- NOTE | 2022-06-09 22:00 | PE ---
EXAMINATION TYPE: PET CT fusion whole body DATE OF EXAM: 06/07/2022 CLINICAL INDICATION:Male, 62 years old with history of [id number]; TECHNIQUE: Following the intravenous administration of 13.0 mCi of F-18 FDG, whole body images are performed from the skull base through the feet. Images are reviewed on the computer in the coronal, axial, and sagittal planes. Reconstructed rotating images are created on independent workstation and reviewed on the computer. A non-contrast CT is performed in conjunction with the PET scan. Glucose level 92 mg/dL COMPARISON: CT 01/24/2021, PET/CT None, FINDINGS: Mediastinal SUV mean is 1.5. Hepatic parenchyma SUV mean is 2.8. SKULL BASE AND NECK: No suspicious radiotracer activity. Radiotracer uptake at the level of vocal cords posteriorly max SUV 6.3 inferiorly be physiologic. CHEST, MEDIASTINUM, AND HILAR REGION: No suspicious radiotracer activity. ABDOMEN AND PELVIS: No suspicious radiotracer activity. OSSEOUS STRUCTURES: No suspicious radiotracer activity. EXTREMITIES: The lower extremities demonstrate no abnormal radiotracer uptake. OTHER CT: Atherosclerosis of the arterial vasculature including the coronary arteries. Fat stranding changes around the kidneys bilaterally. Mild fatty changes to the inguinal canals bilaterally. Few sc attered clonic diverticula present. Redemonstration of fat stranding changes around the aorta extendi ng from the retrocrural region and down along the aorta similar to report description and from CT in 2015. IMPRESSION: 1. No evidence for suspicious metabolic activity. 2. Findings consistent with prior diagnosis of Erdheim Migue with perinephric and retroperitoneal inflammation changes. Findings are described in report provided from 03/28/2021.
== END | disposition home or self-care (01) ==
LOC: RADPETMAIN 08:18
PROVIDERS: ATTEND Psychiatry & Neurology Neurology
DX: E88.89 Other specified metabolic disorders (principal)
CPT/HCPCS: 80053; 85652; 82150; 83690; 83735; 84100; 85027; 86140; 78816; A9552

== ENCOUNTER 2022-06-16 20:48 | Observation (INO) | payer MEDICARE ==
[2022-06-16] MEDS ORDERED: ASPIRIN 81 MG PO STA (21:02)
[2022-06-16] MEDS ORDERED: ONDANSETRON 4 MG/2 ML VIAL IVP STA (21:03)
[2022-06-16 21:20] LABS: HCT 45.5 % (39.0-53.0); HGB 15.7 gm/dL (13.0-17.5); MCH 31.8 pg (25.0-35.0); MCHC 34.5 g/dL (31.0-37.0); MCV 92.2 fL (80.0-100.0); Platelet Count 253 k/uL (150-450); RBC 4.94 m/uL (4.30-5.90); RDW 12.1 % (11.5-15.5); WBC 12.9 k/uL (3.8-10.6)
[2022-06-16 21:21] LABS: Basophils # (A) 0.1 k/uL (0-0.2); Basophils % (A) 0 %; Eosinophils # (A) 0.2 k/uL (0-0.7); Eosinophils % (A) 2 %; Lymphocytes # (A) 1.1 k/uL (1.0-4.8); Lymphocytes % (A) 9 %; Mean Platelet Volume 8.1; Monocytes # (A) 0.6 k/uL (0-1.0); Monocytes % (A) 5 %; Neutrophils # (A) 10.7 k/uL (1.3-7.7); Neutrophils % (A) 82 %
[2022-06-16 21:31] LABS: Albumin 4.3 g/dL (3.5-5.0); Calcium 9.3 mg/dL (8.4-10.2); Potassium 3.9 mmol/L (3.5-5.1); Total Bilirubin 0.7 mg/dL (0.2-1.3); Total Protein 6.7 g/dL (6.3-8.2)
--- NOTE | 2022-06-16 21:34 | XR ---
EXAMINATION TYPE: XR chest 2V DATE OF EXAM: 06/16/2022 9:18 PM COMPARISON: Chest radiographs from 07/06/2019 TECHNIQUE: XR chest 2V Frontal and lateral views of the chest. CLINICAL INDICATION:Male, 62 years old with history of Chest Pain; FINDINGS: Lungs/Pleura: There is no evidence of pleural effusion, focal consolidation, or pneumothorax. Pulmonary vascularity: Unremarkable. Heart/mediastinum: Cardiomediastinal silhouette is unremarkable. Musculoskeletal: No acute osseous pathology. IMPRESSION: No acute cardiopulmonary disease/process.
--- NOTE | 2022-06-16 21:41 | ED ---
General Adult HPI - General Chief complaint: Chest Pain Stated complaint: Chest Pain Time Seen by Provider: 06/16/22 20:53 Source: patient, EMS Mode of arrival: EMS Limitations: no limitations - History of Present Illness Initial comments: Patient is a 62-year-old male with past medical history remarkable for coronary artery disease, TIA/CVA, hypertension, Erdheim Hughes's disease, DVTs currently on I will request who presents emergency Department complaining of sudden onset chest pain. States the pain started approximate 1 hour ago while watching TV. States it is more of an epigastric abdominal discomfort that he describes as a twisting knot sensation that did not radiate. It causes nausea as well as diaphoresis for the patient. States it lasted until he called EMS. It resolved when he was placed in the ambulance. States he does have a history of marked multiple cardiac stents. Most of his physicians are out of the area, including in [place]. Is to follow up with them 2 weeks. Denies any fevers, chills, sick contacts. Denies any shortness of breath. States he is compliant with anticoagulation. - Related Data Home Medications Medication Instructions Recorded Confirmed Clopidogrel Bisulfate [Plavix] 75 mg PO DAILY 07/05/19 06/16/22 Hydrocodone/Acetaminophen [[place] 1 tab PO TID PRN 07/05/19 06/16/22 10-325] Metoprolol Tartrate 25 mg PO DAILY 07/05/19 06/16/22 Multivit-Min/FA/Lycopen/Lutein 1 tab PO DAILY 07/05/19 06/16/22 [Centrum Silver Men Tablet] Rosuvastatin Calcium [Crestor] 10 mg PO DAILY 07/05/19 06/16/22 Tamsulosin HCl [Flomax] 0.4 mg PO DAILY 07/05/19 06/16/22 lisinopriL [Prinivil] 5 mg PO DAILY 07/05/19 06/16/22 Butalb/APAP/Caff 50-325-40Mg 1 tab PO TID PRN 12/30/21 06/16/22 [Fioricet 50-325-40] Cholecalciferol [Vitamin D3 (25 25 mcg PO DAILY 12/30/21 06/16/22 Mcg = 1000 Iu)] Morphine Sulfate ER [Ms Contin] 15 mg PO HS 12/30/21 06/16/22 Omeprazole 20 mg PO DAILY 12/30/21 06/16/22 buPROPion XL [Wellbutrin XL] 150 mg PO DAILY 12/30/21 06/16/22 dexAMETHasone [Dexamethasone] 0.5 mg PO DAILY 12/30/21 06/16/22 Apixaban [Eliquis] 5 mg PO BID 06/16/22 06/16/22 Citalopram Hydrobromide [CeleXA] 20 mg PO DAILY 06/16/22 06/16/22 Allergies Allergy/AdvReac Type Severity Reaction Status Date / Time No Known Allergies Allergy Verified 06/16/22 20:49 Review of Systems ROS Statement: Those systems with pertinent positive or pertinent negative responses have been documented in the HPI. ROS Other: All systems not noted in ROS Statement are negative. Past Medical History Past Medical History: Coronary Artery Disease (CAD), Cancer, CVA/TIA, Hypertension Additional Past Medical History / Comment(s): erdheimchester's disease (rare blood cancer) History of Any Multi-Drug Resistant Organisms: None Reported Past Surgical History: Heart Catheterization With Stent, Hernia Repair Additional Past Surgical History / Comment(s): exp lap,. biopsies of bone and kidney (negative) Past Anesthesia/Blood Transfusion Reactions: No Reported Reaction Date of Last Stent Placement:: 2013 Past Psychological History: Anxiety, Depression Smoking Status: Never smoker Past Alcohol Use History: Rare Past Drug Use History: Marijuana - Past Family History Mother Family Medical History: Coronary Artery Disease (CAD) Father Additional Family Medical History / Comment(s): dies from AIDS in 1988 General Exam - General Exam Comments Initial Comments: General: Appears in no acute distress. HEAD: Normal with no signs of head trauma. EYES: PERRLA, EOMI, conjunctiva normal, no discharge. ENT: Hearing grossly intact, normal oropharynx. RESPIRATORY: Clear breath sounds bilaterally. No wheezes, rales, or rhonchi. C/V: Regular rate and rhythm. S1 and S2 auscultated, no edema, peripheral pulses 2+ and intact throughout ABD: Abd is soft, nontender, nondistended EXT: Normal range of motion, no obvious deformity SKIN: No rashes or lesions observed on exposed skin. NEURO: Alert and oriented 4. Limitations: no limitations Course Vital Signs 06/16/22 20:49 Temperature 98.2 F Pulse Rate 81 Respiratory 16 Rate Blood Pressure 118/76 O2 Sat by Pulse 98 Oximetry Medical Decision Making - Medical Decision Making Based on the patient's presentation and physical exam, I'm concerned for possible cardiac etiology for his current symptoms. He is currently symptom- free but his symptoms earlier were concerned for possible ACS considering his history cardiac stents. We will obtain cardiac labs including EKG, chest x-ray, and blood work. He will be given 324 millions of aspirin. Also be given Zofran. He was in agreement this plan. Vital signs within acceptable limits. EKG shows no signs of acute ischemia. Chronic T wave inversions in lead III.Chest x-ray as interpreted by myself reveals no evidence of acute cardio pulmonary process. Patient's laboratory studies are remarkable for a mild leukocytosis of 12.9 which is likely reactive. No other findings. Troponin undetectable. On reevaluation come patient remains asymptomatic. His heart score is 4. We did discuss that with his past medical history, and risk factors I believe it is safest for him to be in observation telemetry admission. He was in agreement this plan. He'll be admitted to observation telemetry. Cardiology is consulted. Troponin will be trended. We'll continue his home medications. I spoke with the admitting physician, Dr. Bush who accepted the patient. Patient was admitted in stable condition. - Lab Data Result diagrams: 06/16/22 21:04 06/16/22 21:04 Lab Results 06/16/22 06/16/22 06/16/22 Range/Units 21:04 21:04 21:04 WBC 12.9 H (3.8-10.6) k/uL RBC 4.94 (4.30-5.90) m/uL Hgb 15.7 (13.0-17.5) gm/dL Hct 45.5 (39.0-53.0) % MCV 92.2 (80.0-100.0) fL MCH 31.8 (25.0-35.0) pg MCHC 34.5 (31.0-37.0) g/dL RDW 12.1 (11.5-15.5) % Plt Count 253 (150-450) k/uL MPV 8.1 Neutrophils % 82 % Lymphocytes % 9 % Monocytes % 5 % Eosinophils % 2 % Basophils % 0 % Neutrophils # 10.7 H (1.3-7.7) k/uL Lymphocytes # 1.1 (1.0-4.8) k/uL Monocytes # 0.6 (0-1.0) k/uL Eosinophils # 0.2 (0-0.7) k/uL Basophils # 0.1 (0-0.2) k/uL PT 10.6 (9.0-12.0) sec INR 1.0 (<1.2) APTT 23.0 (22.0-30.0) sec Sodium 135 L (137-145) mmol/L Potassium 3.9 (3.5-5.1) mmol/L Chloride 102 (98-107) mmol/L Carbon Dioxide 25 (22-30) mmol/L Anion Gap 8 mmol/L BUN 17 (9-20) mg/dL Creatinine 1.11 (0.66-1.25) mg/dL Est GFR (CKD-EPI)AfAm 83 (>60 ml/min/1.73 sqM) Est GFR (CKD-EPI)NonAf 72 (>60 ml/min/1.73 sqM) Glucose 129 H (74-99) mg/dL Calcium 9.3 (8.4-10.2) mg/dL Magnesium 2.0 (1.6-2.3) mg/dL Total Bilirubin 0.7 (0.2-1.3) mg/dL AST 23 (17-59) U/L ALT 21 (4-49) U/L Alkaline Phosphatase 54 (38-126) U/L Troponin I (0.000-0.034) ng/mL Total Protein 6.7 (6.3-8.2) g/dL Albumin 4.3 (3.5-5.0) g/dL Amylase 85 (30-110) U/L Lipase 191 (23-300) U/L 06/16/22 Range/Units 21:04 WBC (3.8-10.6) k/uL RBC (4.30-5.90) m/uL Hgb (13.0-17.5) gm/dL Hct (39.0-53.0) % MCV (80.0-100.0) fL MCH (25.0-35.0) pg MCHC (31.0-37.0) g/dL RDW (11.5-15.5) % Plt Count (150-450) k/uL MPV Neutrophils % % Lymphocytes % % Monocytes % % Eosinophils % % Basophils % % Neutrophils # (1.3-7.7) k/uL Lymphocytes # (1.0-4.8) k/uL Monocytes # (0-1.0) k/uL Eosinophils # (0-0.7) k/uL Basophils # (0-0.2) k/uL PT (9.0-12.0) sec INR (<1.2) APTT (22.0-30.0) sec Sodium (137-145) mmol/L Potassium (3.5-5.1) mmol/L Chloride (98-107) mmol/L Carbon Dioxide (22-30) mmol/L Anion Gap mmol/L BUN (9-20) mg/dL Creatinine (0.66-1.25) mg/dL Est GFR (CKD-EPI)AfAm (>60 ml/min/1.73 sqM) Est GFR (CKD-EPI)NonAf (>60 ml/min/1.73 sqM) Glucose (74-99) mg/dL Calcium (8.4-10.2) mg/dL Magnesium (1.6-2.3) mg/dL Total Bilirubin (0.2-1.3) mg/dL AST (17-59) U/L ALT (4-49) U/L Alkaline Phosphatase (38-126) U/L Troponin I <0.012 (0.000-0.034) ng/mL Total Protein (6.3-8.2) g/dL Albumin (3.5-5.0) g/dL Amylase (30-110) U/L Lipase (23-300) U/L - EKG Data -: EKG Interpreted by Me EKG Comments: 12-lead Electrocardiogram Interpretation Note EKG was reviewed and interpreted by myself. 12-lead ECG performed at 2049 is interpreted by me as revealing normal sinus rhythm at a rate of 74 beats per minute. [place] is normal. [place] interval is 187 ms, QRS duration is 84 ms, QTc is 385 ms.. There is a chronic T-wave inversions seen in EKGs from June 2019. There were no acute ST or T wave abnormalities to suggest myocardial ischemia or injury. R wave progression across the precordium was satisfactory. By my interpretation this EKG is non-diagnostic for acute ischemia. Disposition Clinical Impression: Chest pain Disposition: ADMITTED IP TO THIS HOSP Condition: Stable Referrals: Hernan Hinton MD [Primary Care Provider] - 1-2 days Time of Disposition: 22:15
[2022-06-16 21:46] LABS: Prothrombin Time 10.6 sec (9.0-12.0)
[2022-06-16] MEDS ORDERED: NALOXONE 0.4 MG/ML 1 ML VIAL IV PRN (22:20)
[2022-06-16] MEDS ORDERED: HYDROcodone/APAP 10-325MG 1 EACH TAB PO PRN (22:23)
[2022-06-16] MEDS ORDERED: BUTALB/APAP/CAFF 50-325-40MG TAB PO PRN (22:23)
--- NOTE | 2022-06-17 03:56 | P.HPIM ---
History of Present Illness H&P Date: 06/17/22 Chief Complaint: chest pain 62 year old male with CAD s/p stents, CVA/TIA, Erdheim [place] Disease patient coming in for sudden onset chest pain, he was relaxing watching TV when started having epigastric abd and lower chest pain, non radiating , 7/10 in severity sharp crushing pain, with shallow difficult breathing, cold sweats, feeling nauseated and dizzy. denies any palpitations,. this felt like a heart attack to him, and notified EMS. he denies any recent travel, hospital stay , or history of blood clots. he is on blood thinners per cardiology recommendations due to his history of CAD and stents . he denies any history of afib. he denies any fever, chills, URI symptoms , trauma . denies any GI bleeding workup in the ED unremarkable , EKG NSR, CXR no acute pathology he denies any tobacco smoking, illicit drugs or heavy alcohol Review of Systems Pertinent positives as noted in HPI. All other systems were reviewed and are neg ative Past Medical History Past Medical History: Coronary Artery Disease (CAD), Cancer, CVA/TIA, Hypertension Additional Past Medical History / Comment(s): erdheimchester's disease (rare blood cancer) History of Any Multi-Drug Resistant Organisms: None Reported Past Surgical History: Heart Catheterization With Stent, Hernia Repair Additional Past Surgical History / Comment(s): exp lap,. biopsies of bone and kidney (negative) Past Anesthesia/Blood Transfusion Reactions: No Reported Reaction Date of Last Stent Placement:: 2013 Past Psychological History: Anxiety, Depression Smoking Status: Never smoker Past Alcohol Use History: Rare Past Drug Use History: Marijuana - Past Family History Mother Family Medical History: Coronary Artery Disease (CAD) Father Additional Family Medical History / Comment(s): dies from AIDS in 1988 Medications and Allergies Home Medications Medication Instructions Recorded Confirmed Type Clopidogrel Bisulfate [Plavix] 75 mg PO DAILY 07/05/19 06/16/22 History Hydrocodone/Acetaminophen [[place] 1 tab PO TID PRN 07/05/19 06/16/22 History 10-325] Metoprolol Tartrate 25 mg PO DAILY 07/05/19 06/16/22 History Multivit-Min/FA/Lycopen/Lutein 1 tab PO DAILY 07/05/19 06/16/22 History [Centrum Silver Men Tablet] Rosuvastatin Calcium [Crestor] 10 mg PO DAILY 07/05/19 06/16/22 History Tamsulosin HCl [Flomax] 0.4 mg PO DAILY 07/05/19 06/16/22 History lisinopriL [Prinivil] 5 mg PO DAILY 07/05/19 06/16/22 History Butalb/APAP/Caff 50-325-40Mg 1 tab PO TID PRN 12/30/21 06/16/22 History [Fioricet 50-325-40] Cholecalciferol [Vitamin D3 (25 25 mcg PO DAILY 12/30/21 06/16/22 History Mcg = 1000 Iu)] Morphine Sulfate ER [Ms Contin] 15 mg PO HS 12/30/21 06/16/22 History Omeprazole 20 mg PO DAILY 12/30/21 06/16/22 History buPROPion XL [Wellbutrin XL] 150 mg PO DAILY 12/30/21 06/16/22 History dexAMETHasone [Dexamethasone] 0.5 mg PO DAILY 12/30/21 06/16/22 History Apixaban [Eliquis] 5 mg PO BID 06/16/22 06/16/22 History Citalopram Hydrobromide [CeleXA] 20 mg PO DAILY 06/16/22 06/16/22 History Allergies Allergy/AdvReac Type Severity Reaction Status Date / Time No Known Allergies Allergy Verified 06/16/22 20:49 Physical Exam Vitals: Vital Signs Temp Pulse Resp BP Pulse Ox 06/16/22 23:51 62 18 117/77 92 L 06/16/22 23:12 70 15 114/71 94 L 06/16/22 20:49 98.2 F 81 16 118/76 98 Intake and Output 06/16/22 06/16/22 06/17/22 14:59 22:59 06:59 Other: Weight 86.183 kg Constitutional: No acute distress, conversant, pleasant Eyes: Anicteric sclerae, moist conjunctiva, Pupils equal round reactive to light ENMT: NC/AT Oropharynx clear, no erythema, or exudates Neck: Supple, no masses, or JVD No carotid bruits No thyromegaly Lungs: Clear to auscultation Clear to percussion Normal respiratory effort, no accessory muscle use Cardiovascular: Heart regular in rate and rhythm, No murmurs, gallops, or rubs No peripheral edema Abdominal: Soft Nontender, no guarding, rebound or rigidity Abdomen moving with respiration Normoactive bowel sounds No hepatomegaly, No splenomegaly No palpable mass No abdominal wall hernia noted Skin: Normal temperature, tone, texture, turgor No induration No subcutaneous nodules No rash, lesions No ulcers Extremities: No digital cyanosis No clubbing Pedal pulses intact and symmetrical Radial pulses intact and symmetrical No calf tenderness Psychiatric: Alert and oriented to person, place and time Appropriate affect fair judgement Neuro Muscles Strength 5/5 in all 4 extremities Sensation to light touch grossly present throughout Cranial nerves II-XII grossly intact Lymphatics: no palpable cervical or supraclavicular lymph nodes Results CBC & Chem 7: 06/16/22 21:04 06/16/22 21:04 Labs: Abnormal Lab Results - Last 24 Hours (Table) 06/16/22 06/16/22 Range/Units 21:04 21:04 WBC 12.9 H (3.8-10.6) k/uL Neutrophils # 10.7 H (1.3-7.7) k/uL Sodium 135 L (137-145) mmol/L Glucose 129 H (74-99) mg/dL Assessment and Plan Assessment: atypical chest pain rule out ACS EKG no acute changes CXR no acute pathology trops negative X2 monitoring and evaluation advisor monitor vital signs ASA, statin cardiology consult A1c, lipid panel , TSH pain control chronic conditions CAD s/p stents Erdheim, yahaira disease , continue OP follow up full code DVT PPX on eliquis for cardiac reasons , no history of afib
[2022-06-17 04:02] LABS: Basophils # (A) 0.1 k/uL (0-0.2); Basophils % (A) 1 %; Eosinophils # (A) 0.3 k/uL (0-0.7); Eosinophils % (A) 3 %; HCT 44.6 % (39.0-53.0); HGB 15.4 gm/dL (13.0-17.5); Lymphocytes # (A) 1.9 k/uL (1.0-4.8); Lymphocytes % (A) 20 %; MCH 32.1 pg (25.0-35.0); MCHC 34.5 g/dL (31.0-37.0); MCV 93.1 fL (80.0-100.0); Mean Platelet Volume 8.1; Monocytes # (A) 0.7 k/uL (0-1.0); Monocytes % (A) 7 %; Neutrophils # (A) 6.3 k/uL (1.3-7.7); Neutrophils % (A) 66 %; Platelet Count 241 k/uL (150-450); RDW 12.1 % (11.5-15.5); WBC 9.6 k/uL (3.8-10.6)
[2022-06-17 04:14] LABS: Calcium 9.2 mg/dL (8.4-10.2); Potassium 4.7 mmol/L (3.5-5.1)
[2022-06-17] MEDS: PANTOPRAZOLE 40 MG TABLET PO SCH (07:39)
[2022-06-17] MEDS: CITALOPRAM HYDROBROMIDE 20 MG TAB PO SCH (09:08)
[2022-06-17] MEDS: APIXABAN 5 MG TAB PO SCH ×2 (09:08→20:19)
[2022-06-17] MEDS: CHOLECALCIFEROL 25 MCG (1000 IU) TABLET PO SCH (09:08)
[2022-06-17] MEDS: ATORVASTATIN 20 MG TAB PO SCH (09:08)
[2022-06-17] MEDS: ASPIRIN 81 MG PO SCH (09:08)
--- NOTE | 2022-06-17 09:08 | P.PN ---
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 He presented to the emergency department 06/16/22 with a chief complaint of chest pain/pressure. He underwent full evaluation in the emergency department. Labs including CBC, CMP, coags, lipase and troponin were unremarkable with the exception of mild leukocytosis with a WBC count of 12.9. Troponin was less than 0.012. EKG showing sinus rhythm at 74 bpm with no noted T-wave or ST abnormalities showing no signs of acute ischemia. Chest x-ray negative for acute cardiopulmonary process. Patient was admitted under services of consultation to cardiology. Troponins trended overnight all negative at less than 0.012. Patient seen and evaluated at bedside this morning and reports that he feels that previous reports of chest pain was the result of a panic attack and currently denies having any pain or complaints. Cardiology evaluated recommending stress testing however patient was given breakfast this morning so plan is for patient to again be hospitalized overnight with plans to undergo stress echocardiogram tomorrow morning. Physical exam: Vital signs reviewed and stable. General: Nontoxic, no distress and appears stated age. Derm: Skin warm and dry, normal coloration for ethnicity. Head: Atraumatic, normocephalic and symmetric. Eyes: EOMs intact, no lid lag, and anicteric sclera Mouth: no lip lesions, mucus membranes moist Cardiovascular: regular rate and rhythm with normal S1S2, no murmur, positive posterior tibial pulses bilaterally, and cap refill < 2 seconds. Lungs: Respirations even, regular, and unlabored on room air. Lungs CTA bilaterally, no rhonchi, no rales, no wheezing, and no accessory muscle usage. Abdominal: soft, nontender to palpation, no guarding, no appreciable organomegaly Ext: ROM intact. No gross muscle atrophy, no edema, no contractures Neuro: Speech clear, face symmetrical and CN II-XII grossly intact with no noted focal neuro deficits Psych: Alert and oriented to person, place, time, and situation. Appropriate and pleasant affect. Assessment and Plan of Care: Chest pain, rule out acute coronary event History of CAD status post stents 2 Hypertension Hyperlipidemia -Cardiology following, planning to take patient for stress echocardiogram tomorrow morning. -Telemetry monitoring -Troponins negative. -Cardiac diet, NPO at midnight -Continue cardiac medication regimen with Eliquis, Aspirin, atorvastatin, Plavix, lisinopril, and metoprolol. -Echocardiogram Erdheim-Mifflin disease History of DVTs -Continue anticoagulation with Eliquis History of CVAx2 due to left cerebral artery occlusion -Continue daily Plavix and rosuvastatin CODE STATUS: Full code DVT prophylaxis: Eliquis Discussed with: Patient and RN Anticipated discharge date: Within the next 24-[address]: Home A total of 35 minutes was spent on the care of this complex patient more than 50% of the time was spent in counseling and care coordination. Objective - Vital Signs Vital signs: Vital Signs Temp 98.3 F 06/17/22 07:34 Pulse 63 06/17/22 07:34 Resp 20 06/17/22 07:34 BP 122/73 06/17/22 07:34 Pulse Ox 95 06/17/22 07:34 FiO2 Intake & Output 06/16/22 06/17/22 06/17/22 18:59 06:59 18:59 Weight 86.183 kg - Labs CBC & Chem 7: 06/17/22 03:42 06/17/22 03:42 Labs: Abnormal Lab Results - Last 24 Hours (Table) 06/16/22 06/16/22 06/17/22 Range/Units 21:04 21:04 03:42 WBC 12.9 H (3.8-10.6) k/uL Neutrophils # 10.7 H (1.3-7.7) k/uL Sodium 135 L 136 L (137-145) mmol/L Glucose 129 H (74-99) mg/dL
[2022-06-17] MEDS: lisinopriL 5 MG TAB PO SCH (09:09)
[2022-06-17] MEDS: TAMSULOSIN 0.4 MG CAP.ER.24H PO SCH (09:09)
[2022-06-17] MEDS: buPROPion XL 150 MG TAB.ER.24H PO SCH (09:09)
[2022-06-17] MEDS: METOPROLOL TARTRATE 25 MG TAB PO SCH (09:09)
[2022-06-17] MEDS: CLOPIDOGREL 75 MG TAB PO SCH (09:09)
--- NOTE | 2022-06-17 10:06 | P.CRDCN ---
History of Present Illness Consult date: 06/17/22 History of present illness: History of present illness: This is a 62 year old male patient with past medical history of coronary artery disease with 2 stents in the circumflex at [facility], CVA 2 at age 51, Erdheim-Taylor disease, left cerebral artery occlusion, DVT diagnosed in August 2021 on eliquis. Patient follows with stock wetter, Dr. Spear, but has not been to him in greater than 1 year. Patient states that he was having a low sternal chest pressure along with extreme chills and shakes and cold sweats and a little shortness of breath. He thinks he was having a panic attack because after the EMS arrived and they checked his vital signs he started to come down in [place] the pressure. The day before this he was standing and was feeling dizzy but no chest pain. At that time he also had some right arm numbness and he tried to sit down and take some deep breaths and relax with improvement. EKG sinus rhythm Chest x-ray shows no acute disease Troponin negative 3. Initial WBC 12.9 with repeat of 9.6. Hemoglobin 12.4 and platelet count 241. Sodium 136 otherwise electrolytes and renal function are normal. Liver function tests are normal. Magnesium 2.0 Home cardiac medications: Eliquis 5 mg twice daily (for DVT), Plavix 75 mg da nigel, lisinopril 5 mg daily, metoprolol tartrate 25 mg daily, Crestor 10 mg daily Review Of Systems: At the time of my evaluation Constitutional: No fever, no chills. No weakness, fatigue or lethargy. EENT: No headache. No dizziness. Lungs: No shortness of breath, cough, no sputum production. No wheezing. Cardiovascular: No chest pain, no lower extremity edema. No palpitations. No paroxysmal nocturnal dyspnea. No orthopnea. No lightheadedness or dizziness. No syncopal episodes. Abdominal: No abdominal pain. No nausea, vomiting. No diarrhea. No constipation. No bloody or tarry stools.. No loss of appetite. Genitourinary: No dysuria.. No urinary retention. Musculoskeletal: No myalgias. No muscle weakness, no gait dysfunction, no frequent falls. No back pain. No neck pain. Integumentary: No wounds. No rash or pruritus. No unusual bruising. Neurologic: No aphasia. No facial droop. No change in mentation. No head injury. No headache. No paralysis. No paresthesia. Psychiatric: No depression. No anxiety. Endocrine: No abnormal blood sugars. Physical examination: Gen: This is a 62-year-old male resting in the ER stretcher and appears to be comfortable, no acute distress. VS: reviewed HEENT: Head is atraumatic, normocephalic. Pupils equal, round. Sclerae is anic teric. NECK: Supple. No JVD. LUNGS: Clear to auscultation. No wheezes or rhonchi. No intercostal retractions. HEART: Regular rate and rhythm. No murmur. ABDOMEN: Soft. No masses. No tenderness. EXTREMITIES: No pedal edema. No calf tenderness. Dorsalis pedis +2 bilaterally. NEUROLOGICAL: Patient is awake, alert and oriented x3. Assessment: Chest pressure with chills shakes cold sweats and shortness of breath, possible panic attack Acute coronary syndrome has been ruled out History of coronary artery disease status post 2 stents in the circumflex CVA 2 Erdheim-Taylor disease Left cerebral artery occlusion DVT Plan: Patient ate breakfast this morning Stress echocardiogram ordered for tomorrow Obtain 2-D echocardiogram and Doppler study to assess cardiac structure and function Recommend continuing patient's home cardiac medications Further recommendations to follow based upon clinical course Thank you kindly for this consultation. Nurse practitioner note has been reviewed, I agree with documented findings and plan of care. Patient was seen and examined. Past Medical History Past Medical History: Coronary Artery Disease (CAD), Cancer, CVA/TIA, Hypertension Additional Past Medical History / Comment(s): erdheimchester's disease (rare blood cancer) History of Any Multi-Drug Resistant Organisms: None Reported Past Surgical History: Heart Catheterization With Stent, Hernia Repair Additional Past Surgical History / Comment(s): exp lap,. biopsies of bone and kidney (negative) Past Anesthesia/Blood Transfusion Reactions: No Reported Reaction Date of Last Stent Placement:: 2013 Past Psychological History: Anxiety, Depression Smoking Status: Never smoker Past Alcohol Use History: Rare Past Drug Use History: Marijuana - Past Family History Mother Family Medical History: Coronary Artery Disease (CAD) Father Additional Family Medical History / Comment(s): dies from AIDS in 1988 Medications and Allergies Home Medications Medication Instructions Recorded Confirmed Type Clopidogrel Bisulfate [Plavix] 75 mg PO DAILY 07/05/19 06/16/22 History Hydrocodone/Acetaminophen [[place] 1 tab PO TID PRN 07/05/19 06/16/22 History 10-325] Metoprolol Tartrate 25 mg PO DAILY 07/05/19 06/16/22 History Multivit-Min/FA/Lycopen/Lutein 1 tab PO DAILY 07/05/19 06/16/22 History [Centrum Silver Men Tablet] Rosuvastatin Calcium [Crestor] 10 mg PO DAILY 07/05/19 06/16/22 History Tamsulosin HCl [Flomax] 0.4 mg PO DAILY 07/05/19 06/16/22 History lisinopriL [Prinivil] 5 mg PO DAILY 07/05/19 06/16/22 History Butalb/APAP/Caff 50-325-40Mg 1 tab PO TID PRN 12/30/21 06/16/22 History [Fioricet 50-325-40] Cholecalciferol [Vitamin D3 (25 25 mcg PO DAILY 12/30/21 06/16/22 History Mcg = 1000 Iu)] Morphine Sulfate ER [Ms Contin] 15 mg PO HS 12/30/21 06/16/22 History Omeprazole 20 mg PO DAILY 12/30/21 06/16/22 History buPROPion XL [Wellbutrin XL] 150 mg PO DAILY 12/30/21 06/16/22 History dexAMETHasone [Dexamethasone] 0.5 mg PO DAILY 12/30/21 06/16/22 History Apixaban [Eliquis] 5 mg PO BID 06/16/22 06/16/22 History Citalopram Hydrobromide [CeleXA] 20 mg PO DAILY 06/16/22 06/16/22 History Allergies Allergy/AdvReac Type Severity Reaction Status Date / Time No Known Allergies Allergy Verified 06/16/22 20:49 Physical Exam Vitals: Vital Signs Temp Pulse Resp BP Pulse Ox 06/17/22 07:34 98.3 F 63 20 122/73 95 06/17/22 06:15 64 15 121/73 94 L 06/16/22 23:51 62 18 117/77 92 L 06/16/22 23:12 70 15 114/71 94 L 06/16/22 20:49 98.2 F 81 16 118/76 98 Intake and Output 06/16/22 06/17/22 06/17/22 22:59 06:59 14:59 Other: Weight 86.183 kg Results 06/17/22 03:42 06/17/22 03:42 Cardiac Enzymes 06/16/22 06/16/22 06/17/22 Range/Units 21:04 21:04 00:40 AST 23 (17-59) U/L Troponin I <0.012 <0.012 (0.000-0.034) ng/mL 06/17/22 Range/Units 03:42 AST (17-59) U/L Troponin I <0.012 (0.000-0.034) ng/mL Coagulation 06/16/22 Range/Units 21:04 PT 10.6 (9.0-12.0) sec APTT 23.0 (22.0-30.0) sec CBC 06/16/22 06/17/22 Range/Units 21:04 03:42 WBC 12.9 H 9.6 (3.8-10.6) k/uL RBC 4.94 4.80 (4.30-5.90) m/uL Hgb 15.7 15.4 (13.0-17.5) gm/dL Hct 45.5 44.6 (39.0-53.0) % Plt Count 253 241 (150-450) k/uL Comprehensive Metabolic Panel 06/16/22 06/17/22 Range/Units 21:04 03:42 Sodium 135 L 136 L (137-145) mmol/L Potassium 3.9 4.7 (3.5-5.1) mmol/L Chloride 102 105 (98-107) mmol/L Carbon Dioxide 25 24 (22-30) mmol/L BUN 17 15 (9-20) mg/dL Creatinine 1.11 1.05 (0.66-1.25) mg/dL Glucose 129 H 92 (74-99) mg/dL Calcium 9.3 9.2 (8.4-10.2) mg/dL AST 23 (17-59) U/L ALT 21 (4-49) U/L Alkaline Phosphatase 54 (38-126) U/L Total Protein 6.7 (6.3-8.2) g/dL Albumin 4.3 (3.5-5.0) g/dL Current Medications Generic Name Dose Route Start Last Admin Trade Name Freq PRN Reason Stop Dose Admin Acetaminophen/Butalbital/Caffeine 1 each 06/16/22 22:23 Butalb/Apap/Caff 50-325-40mg Tab PO TID PRN Migraine Headache Hydrocodone Bitart/Acetaminophen 1 each 06/16/22 22:23 Hydrocodone/Apap 10-325mg 1 Each Tab PO TID PRN Breakthrough Pain Apixaban 5 mg 06/17/22 09:00 Apixaban 5 Mg Tab PO BID [facility] Protocol Aspirin 81 mg 06/17/22 09:00 Aspirin 81 Mg PO DAILY [facility] Atorvastatin Calcium 20 mg 06/17/22 09:00 Atorvastatin 20 Mg Tab PO DAILY [facility] Bupropion HCl 150 mg 06/17/22 09:00 Bupropion Xl 150 Mg Tab.Er.24h PO DAILY [facility] Cholecalciferol 25 mcg 06/17/22 09:00 Cholecalciferol 25 Mcg (1000 Iu) Tablet PO DAILY [facility] Citalopram Hydrobromide 20 mg 06/17/22 09:00 Citalopram Hydrobromide 20 Mg Tab PO DAILY [facility] Clopidogrel Bisulfate 75 mg 06/17/22 09:00 Clopidogrel 75 Mg Tab PO DAILY [facility] Dexamethasone 0.5 mg 06/17/22 09:00 Dexamethasone 0.5 Mg Tab PO DAILY [facility] Lisinopril 5 mg 06/17/22 09:00 Lisinopril 5 Mg Tab PO DAILY [facility] Metoprolol Tartrate 25 mg 06/17/22 09:00 Metoprolol Tartrate 25 Mg Tab PO DAILY [facility] Naloxone HCl 0.2 mg 06/16/22 22:20 Naloxone 0.4 Mg/Ml 1 Ml Vial IV Q2M PRN Opioid Reversal Pantoprazole Sodium 40 mg 06/17/22 07:30 06/17/22 07:39 Pantoprazole 40 Mg Tablet PO 40 mg [id number] [facility] Administration Tamsulosin HCl 0.4 mg 06/17/22 09:00 Tamsulosin 0.4 Mg Cap.Er.24h PO DAILY [facility] Intake and Output 06/16/22 06/17/22 06/17/22 22:59 06:59 14:59 Other: Weight 86.183 kg 06/17/22 03:42 06/17/22 03:42
[2022-06-17] MEDS ORDERED: MORPHINE SULFATE ER 15 MG TABLET PO SCH (21:00)
[2022-06-18] MEDS: PANTOPRAZOLE 40 MG TABLET PO SCH (06:06)
--- NOTE | 2022-06-18 07:44 | P.PN ---
Subjective Progress Note Date: 06/18/22 History of present illness: This is a 62 year old male patient with past medical history of coronary artery disease with 2 stents in the circumflex at [facility], CVA 2 at age 51, Erdheim-Avinger disease, left cerebral artery occlusion, DVT diagnosed in August 2021 on eliquis. Patient follows with budget counselor, Dr. Spear, but has not been to him in greater than 1 year. Patient states that he was having a low sternal chest pressure along with extreme chills and shakes and cold sweats and a little shortness of breath. He thinks he was having a panic attack because after the EMS arrived and they checked his vital signs he started to come down in [place] the pressure. The day before this he was standing and was feeling dizzy but no chest pain. At that time he also had some right arm numbness and he tried to sit down and take some deep breaths and relax with improvement. EKG sinus rhythm Chest x-ray shows no acute disease Troponin negative 3. Initial WBC 12.9 with repeat of 9.6. Hemoglobin 12.4 and platelet count 241. Sodium 136 otherwise electrolytes and renal function are normal. Liver function tests are normal. Magnesium 2.0 Home cardiac medications: Eliquis 5 mg twice daily (for DVT), Plavix 75 mg daily, lisinopril 5 mg daily, metoprolol tartrate 25 mg daily, Crestor 10 mg daily 06/18 Patient denies having any chest pain last evening or this morning. He also denies having any anxiety or panic attacks overnight. He is scheduled for echocardiogram and exercise stress echocardiogram today. He has been hemodynamically stable. court recording monitor has been a sinus rhythm. Physical examination: Gen: This is a 62-year-old male resting in the ER stretcher and appears to be comfortable, no acute distress. VS: reviewed HEENT: Head is atraumatic, normocephalic. Pupils equal, round. Sclerae is anicteric. NECK: Supple. No JVD. LUNGS: Clear to auscultation. No wheezes or rhonchi. No intercostal retractions. HEART: Regular rate and rhythm. No murmur. ABDOMEN: Soft. No masses. No tenderness. EXTREMITIES: No pedal edema. No calf tenderness. Dorsalis pedis +2 bilaterally. NEUROLOGICAL: Patient is awake, alert and oriented x3. Assessment: Chest pressure with chills shakes cold sweats and shortness of breath, possible panic attack Acute coronary syndrome has been ruled out History of coronary artery disease status post 2 stents in the circumflex CVA 2 Erdheim-Avinger disease Left cerebral artery occlusion DVT Plan: Exercise Stress echocardiogram today Obtain 2-D echocardiogram and Doppler study to assess cardiac structure and function, pending Recommend continuing patient's home cardiac medications If exercise stress echocardiogram and echocardiogram are within normal limits, patient is cleared from cardiology for discharge home. Thank you kindly for this consultation. Nurse practitioner note has been reviewed, I agree with documented findings and plan of care. Patient was seen and examined. Objective - Vital Signs Vital signs: Vital Signs Temp 98.4 F 06/18/22 03:10 Pulse 66 06/18/22 03:10 Resp 19 06/18/22 03:10 BP 117/67 06/18/22 03:10 Pulse Ox 94 L 06/18/22 03:10 FiO2 Intake & Output 06/17/22 06/18/22 06/18/22 18:59 06:59 18:59 Intake Total 240 Balance 240 Weight 83.1 kg Intake: Oral 240 Other: Voiding Method Toilet # Voids 1 2 - Labs CBC & Chem 7: 06/17/22 03:42 06/17/22 03:42
[2022-06-18 08:58] VITALS: RESP 18
[2022-06-18] MEDS: ATORVASTATIN 20 MG TAB PO SCH (10:28)
[2022-06-18] MEDS: TAMSULOSIN 0.4 MG CAP.ER.24H PO SCH (10:28)
[2022-06-18] MEDS: ASPIRIN 81 MG PO SCH (10:28)
[2022-06-18] MEDS: buPROPion XL 150 MG TAB.ER.24H PO SCH (10:29)
[2022-06-18] MEDS: CLOPIDOGREL 75 MG TAB PO SCH (10:29)
[2022-06-18] MEDS: APIXABAN 5 MG TAB PO SCH (10:29)
[2022-06-18] MEDS: CITALOPRAM HYDROBROMIDE 20 MG TAB PO SCH (10:29)
[2022-06-18] MEDS: CHOLECALCIFEROL 25 MCG (1000 IU) TABLET PO SCH (10:29)
[2022-06-18] MEDS: lisinopriL 5 MG TAB PO SCH (10:29)
[2022-06-18] MEDS: METOPROLOL TARTRATE 25 MG TAB PO SCH (13:56)
[2022-06-18 14:00] VITALS: BP 131/72; PULSE 97; TEMP 98.6
--- NOTE | 2022-06-18 17:31 | CA ---
Transthoracic Echo Report Name: Pancho Hicks Age: 62 Gender: M : 1960 Exam Date: 06/18/2022 12:00 Exam Location: [facility] Ht (in): 68 Wt (lb): 183 Ordering Physician: Chichi Overton Attending/Referring Phys: [id number], [employer] Fauzia Armenta RDCS Procedure CPT: Indications: LVF Cardiac Hx: Technical Quality: Fair Contrast 1: Total Dose (mL): Contrast 2: Total Dose (mL): MEASUREMENTS (Male / Female) Normal Values 2D ECHO LV Diastolic Diameter PLAX 3.3 cm 4.2 - 5.9 / 3.9 - 5.3 cm LV Systolic Diameter PLAX 2.3 cm IVS Diastolic Thickness 1.2 cm 0.6 - 1.0 / 0.6 - 0.9 cm LVPW Diastolic Thickness 1.2 cm 0.6 - 1.0 / 0.6 - 0.9 cm LV Relative Wall Thickness 0.7 RV Internal Dim ED PLAX 2.9 cm LA Volume 25.5 cm??? 18 - 58 / 22 - 52 cm??? M-MODE Aortic Root Diameter MM 3.3 cm LA Systolic Diameter MM 3.4 cm LA Ao Ratio MM 1.0 AV Cusp Separation MM 2.5 cm DOPPLER AV Peak Velocity 128.4 cm/s AV Peak Gradient 6.6 mmHg AV Mean Velocity 86.3 cm/s AV Mean Gradient 3.4 mmHg AV Velocity Time Integral 23.5 cm LVOT Peak Velocity 105.8 cm/s LVOT Peak Gradient 4.5 mmHg MV Area PHT 2.9 cm??? Mitral E Point Velocity 48.0 cm/s Mitral A Point Velocity 81.0 cm/s Mitral E to A Ratio 0.6 MV Deceleration Time 260.6 ms MV E' Velocity 5.7 cm/s Mitral E to MV E' Ratio 8.4 FINDINGS Left Ventricle Mildly increased left ventricular wall thickness. Normal Left ventricular size, systolic function with no obvious regional wall motion abnormalities. Normal Left ventricular diastolic filling pattern. Left ventricular ejection fraction is estimated at 55-60 %. Right Ventricle Normal right ventricular size and function. Right ventricular systolic pressure within normal limits. Right Atrium Normal right atrial size. Left Atrium Normal left atrial size. No evidence for an atrial septal defect. Mitral Valve Structurally normal mitral valve. No mitral stenosis, regurgitation or prolapse. Aortic Valve Trileaflet aortic valve. No aortic valve stenosis or regurgitation. Tricuspid Valve Structurally normal tricuspid valve. Trace tricuspid regurgitation. Pulmonic Valve Trace pulmonic regurgitation. Pericardium No pericardial effusion. Aorta Normal size aortic root and proximal ascending aorta. CONCLUSIONS Normal LV function Previewed by: Dr. Dieudonne Looney MD (Electronically Signed) Final Date: 18 June 2022 17:30
--- NOTE | 2022-06-18 17:33 | CA ---
Stress Echo Report Pancho Hicks Age: 62 Gender: M : 1960 Exam Date: 06/18/2022 11:41 Exam Location: [facility] Ht (in): 69 Wt (lb): 183 Ordering Physician: Chichi Overton Referring Physician: [id number] [employer] Rehabilitation Officer: Jonatan Jackman Technologist Procedure CPT: Indication: CP ICD-9 Codes: Rhythm: Patient History: Cardiac Medications: Medications in past 24 hours: Contrast: Stress Results Protocol: Paul Total dose(mL): Exercise Duration (min:sec): 9:[address] Depression (mm): Angina Score: Mays Score: METS: 10.3 Resting HR: 92 Resting BP: 117 / 63 Peak HR: 155 Peak BP: 209 / 94 Max Predicted HR: 160 97 % Max Predicted HR Target HR: 136 Double Product: [id number] Stress Summary: BP Response: Reason for Termination: Reached target heart rate or work-load Cardiac Symptoms: NO SYMPTOMS ECG Analysis Resting ECG: Normal sinus rhythm normal axis normal intervals Stress ECG: No ST segment depression Arrhythmia: Echo Analysis Resting Echo: Normal left ventricular size wall motion systolic function Peak Echo Analysis: Normal hyperdynamic response of all segments of myocardium noted MEASUREMENTS (Male/Female) Normal Values CONCLUSIONS Good exercise tolerance Negative stress test by EKG criteria Negative stress echo Dr. Dieudonne Looney MD (Electronically Signed) Final Date: 18 June 2022 17:32
--- NOTE | 2022-06-18 18:39 | P.DS ---
Providers Date of admission: 06/16/22 22:21 Expected date of discharge: 06/18/22 Attending physician: Hannah Babcock MD Consults: 06/16/22 22:20 Consult Physician Routine Consulting Provider: [facility] Consult Reason/Comments: chest pain Do you want consulting provider notified?: Yes, Notify in am Primary care physician: Hernan [facility] Course: Discharge Diagnosis: Chest pain, acute coronary event ruled out. 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 He presented to the emergency department 06/16/22 with a chief complaint of chest pain/pressure. He underwent full evaluation in the emergency department. Labs including CBC, CMP, coags, lipase and troponin were unremarkable with the exception of mild leukocytosis with a WBC count of 12.9. Troponin was less than 0.012. EKG showing sinus rhythm at 74 bpm with no noted T-wave or ST abnormalities showing no signs of acute ischemia. Chest x-ray negative for acute cardiopulmonary process. Patient was admitted under services of consultation to cardiology. Troponins trended overnight all negative at less than 0.012. Patient seen and evaluated at bedside this morning and reports that he feels that previous reports of chest pain was the result of a panic attack and currently denies having any pain or complaints. Cardiology evaluated and took patient for stress echo. Stress echo revealed good exercise tolerance and negative stress test by EKG and echo criteria. Echocardiogram revealed normal EF of 55-60% with no reported valvular structural abnormalities. Patient has been free from chest pain and denies having any other complaints or concerns. Vital signs are unremarkable. Medically, patient is stable for discharge at this time and to follow up outpatient with PCP in 1-2 days and cardiology in 1 week. No medication changes were made during this admission. Physical exam: Vital signs reviewed and stable. General: Nontoxic, no distress and appears stated age. Derm: Skin warm and dry, normal coloration for ethnicity. Head: Atraumatic, normocephalic and symmetric. Eyes: EOMs intact, no lid lag, and anicteric sclera Mouth: no lip lesions, mucus membranes moist Cardiovascular: regular rate and rhythm with normal S1S2, no murmur, positive posterior tibial pulses bilaterally, and cap refill < 2 seconds. Lungs: Respirations even, regular, and unlabored on room air. Lungs CTA bilaterally, no rhonchi, no rales, no wheezing, and no accessory muscle usage. Abdominal: soft, nontender to palpation, no guarding, no appreciable organomegaly Ext: ROM intact. No gross muscle atrophy, no edema, no contractures Neuro: Speech clear, face symmetrical and CN II-XII grossly intact with no noted focal neuro deficits Psych: Alert and oriented to person, place, time, and situation. Appropriate and pleasant affect. A total of 33 minutes of time were spent preparing this complex discharge summary. Pt was discharged on 06/18/22 at 6:39 PM. Attending Note Abel Wilder NP rendered care for this patient independently, reviewed the findings and plan as documented in the note above. I did not physically speak with our examined the patient on this date. Patient Condition at Discharge: Stable Plan - Discharge Summary New Discharge Prescriptions: Continue Hydrocodone/Acetaminophen [[place] 10-325] 1 tab PO TID PRN PRN Reason: Breakthrough Pain Clopidogrel Bisulfate [Plavix] 75 mg PO DAILY Tamsulosin HCl [Flomax] 0.4 mg PO DAILY Metoprolol Tartrate 25 mg PO DAILY lisinopriL [Prinivil] 5 mg PO DAILY Rosuvastatin Calcium [Crestor] 10 mg PO DAILY Multivit-Min/FA/Lycopen/Lutein [Centrum Silver Men Tablet] 1 tab PO DAILY Omeprazole 20 mg PO DAILY Cholecalciferol [Vitamin D3 (25 Mcg = 1000 Iu)] 25 mcg PO DAILY buPROPion XL [Wellbutrin XL] 150 mg PO DAILY Morphine Sulfate ER [Ms Contin] 15 mg PO HS dexAMETHasone [Dexamethasone] 0.5 mg PO DAILY Butalb/APAP/Caff 50-325-40Mg [Fioricet 50-325-40] 1 tab PO TID PRN PRN Reason: Migraine Headache Apixaban [Eliquis] 5 mg PO BID Citalopram Hydrobromide [CeleXA] 20 mg PO DAILY Discharge Medication List Clopidogrel Bisulfate [Plavix] 75 mg PO DAILY 07/05/19 [History] Hydrocodone/Acetaminophen [Frank[place] 10-325] 1 tab PO TID PRN 07/05/19 [History] Metoprolol Tartrate 25 mg PO DAILY 07/05/19 [History] Multivit-Min/FA/Lycopen/Lutein [Centrum Silver Men Tablet] 1 tab PO DAILY 07/05/19 [History] Rosuvastatin Calcium [Crestor] 10 mg PO DAILY 07/05/19 [History] Tamsulosin HCl [Flomax] 0.4 mg PO DAILY 07/05/19 [History] lisinopriL [Prinivil] 5 mg PO DAILY 07/05/19 [History] Butalb/APAP/Caff 50-325-40Mg [Fioricet 50-325-40] 1 tab PO TID PRN 12/30/21 [History] Cholecalciferol [Vitamin D3 (25 Mcg = 1000 Iu)] 25 mcg PO DAILY 12/30/21 [History] Morphine Sulfate ER [Ms Contin] 15 mg PO HS 12/30/21 [History] Omeprazole 20 mg PO DAILY 12/30/21 [History] buPROPion XL [Wellbutrin XL] 150 mg PO DAILY 12/30/21 [History] dexAMETHasone [Dexamethasone] 0.5 mg PO DAILY 12/30/21 [History] Apixaban [Eliquis] 5 mg PO BID 06/16/22 [History] Citalopram Hydrobromide [CeleXA] 20 mg PO DAILY 06/16/22 [History] Follow up Appointment(s)/Referral(s): Hernan Hitnon MD [Primary Care Provider] - 1-2 days Dieudonne Looney MD [STAFF PHYSICIAN] - 1 Week (pt to call and make appointment ) Patient Instructions/Handouts: Chest Pain (DC) Activity/Diet/Wound Care/Special Instructions: Activity: As tolerated. Take breaks as needed. Diet: Heart healthy and carb consistent diet. Avoid salts, or foods with hidden salts such as canned or boxed foods and frozen dinners. Extra salt makes your heart work harder and traps the fluid in your body for longer. Special Instructions: Take all of your medications as directed and remember to keep all of your doctor's appointments and follow-up as needed. Thank you for allowing us to participate in your care, it was truly a pleasure having you for our patient!!! Discharge Disposition: HOME SELF-CARE
== END 2022-06-18 19:00 | disposition home or self-care (01) ==
LOC: EC 20:48 → 6NMEDSUR 22:21
PROVIDERS: ADMIT Internal Medicine; ATTEND Internal Medicine
DX: R07.89 Other chest pain (principal); D72.829 Elevated white blood cell count, unspecified; I25.10 Atherosclerotic heart disease of native coronary artery without angina pectoris; I10 Essential (primary) hypertension; E88.89 Other specified metabolic disorders; F41.9 Anxiety disorder, unspecified; F32.A Depression, unspecified; E78.5 Hyperlipidemia, unspecified; F12.90 Cannabis use, unspecified, uncomplicated; I66.9 Occlusion and stenosis of unspecified cerebral artery; I07.1 Rheumatic tricuspid insufficiency; I37.1 Nonrheumatic pulmonary valve insufficiency; Z86.73 Personal history of transient ischemic attack (TIA), and cerebral infarction without residual deficits; Z86.718 Personal history of other venous thrombosis and embolism; Z95.5 Presence of coronary angioplasty implant and graft; Z79.02 Long term (current) use of antithrombotics/antiplatelets; Z79.899 Other long term (current) drug therapy; Z79.01 Long term (current) use of anticoagulants; Z82.49 Family history of ischemic heart disease and other diseases of the circulatory system; Z83.0 Family history of human immunodeficiency virus [HIV] disease
CPT/HCPCS: 96374; 99291; 36415; 94760; 93005; 93306; 93351; 80053; 80048; 82150; 83690; 83735; 84484 ×2; 85025 ×2; 85610; 85730; 71046; G0378 ×3; J8540 ×2; J2405

== ENCOUNTER 2024-06-02 16:05 | Emergency (ER) | payer MEDICARE ==
[2024-06-02 16:34] LABS: Basophils % (A) 0 %; Eosinophils # (A) 0.1 k/uL (0-0.7); Eosinophils % (A) 1 %; HCT 47.9 % (39.0-53.0); HGB 16.3 gm/dL (13.0-17.5); Lymphocytes # (A) 0.5 k/uL (1.0-4.8); Lymphocytes % (A) 3 %; MCH 31.9 pg (25.0-35.0); MCV 93.8 fL (80.0-100.0); Mean Platelet Volume 7.3; Monocytes # (A) 0.4 k/uL (0-1.0); Monocytes % (A) 3 %; Neutrophils # (A) 13.7 k/uL (1.3-7.7); Neutrophils % (A) 93 %; Platelet Count 233 k/uL (150-450); RDW 12.9 % (11.5-15.5); WBC 14.8 k/uL (3.8-10.6)
--- NOTE | 2024-06-02 16:39 | ED ---
Chest Pain HPI - General Chief Complaint: Chest Pain Stated Complaint: Chest pain Time Seen by Provider: 06/02/24 16:10 Source: patient, EMS, RN notes reviewed, old records reviewed Mode of arrival: EMS Limitations: no limitations - History of Present Illness Initial Comments: This is a 64-year-old male to the ER today. This patient is going to Emergency Department for evaluation in regards to chest pain MD Complaint: chest pain -: hour(s) Onset: during rest, during exertion Pain Location: substernal Pain Radiation: none Severity: moderate Severity scale (1-10): 4 Quality: tightness Consistency: constant Improves With: nothing Worsens With: nothing Anginal Symptoms: dyspnea Other Symptoms: palpitations Treatments Prior to Arrival: none - Related Data Home Medications Medication Instructions Recorded Confirmed Clopidogrel Bisulfate [Plavix] 75 mg PO DAILY 07/05/19 06/02/24 Metoprolol Tartrate 25 mg PO BID 07/05/19 06/02/24 Rosuvastatin Calcium [Crestor] 10 mg PO DAILY 07/05/19 06/02/24 Tamsulosin HCl [Flomax] 0.4 mg PO DAILY 07/05/19 06/02/24 lisinopriL [Prinivil] 5 mg PO DAILY 07/05/19 06/02/24 Omeprazole 20 mg PO DAILY 12/30/21 06/02/24 buPROPion XL [Wellbutrin XL] 150 mg PO DAILY 12/30/21 06/02/24 dexAMETHasone [Dexamethasone] 0.5 mg PO BID 12/30/21 06/02/24 Citalopram Hydrobromide [CeleXA] 20 mg PO DAILY 06/16/22 06/02/24 Allergies Allergy/AdvReac Type Severity Reaction Status Date / Time No Known Allergies Allergy Verified 06/02/24 16:11 Review of Systems ROS Statement: Those systems with pertinent positive or pertinent negative responses have been documented in the HPI. ROS Other: All systems not noted in ROS Statement are negative. EKG Findings - EKG Comments: EKG Findings:: EKG is sinus 87 NJ 172 QRS 82 QTc 404 - EKG Results: EKG: interpreted by DEANNE Past Medical History Past Medical History: Coronary Artery Disease (CAD), Cancer, CVA/TIA, Hypertension Additional Past Medical History / Comment(s): erdheimchester's disease (rare blood cancer) History of Any Multi-Drug Resistant Organisms: None Reported Past Surgical History: Heart Catheterization With Stent, Hernia Repair Additional Past Surgical History / Comment(s): exp lap,. biopsies of bone and kidney (negative) Past Anesthesia/Blood Transfusion Reactions: No Reported Reaction Date of Last Stent Placement:: 2013 Past Psychological History: Anxiety, Depression Smoking Status: Never smoker Past Alcohol Use History: Rare Past Drug Use History: Marijuana - Past Family History Mother Family Medical History: Coronary Artery Disease (CAD) Father Additional Family Medical History / Comment(s): dies from AIDS in 1988 General Exam Limitations: no limitations General appearance: anxious Head exam: Present: atraumatic, normocephalic, normal inspection Eye exam: Present: normal appearance, PERRL, EOMI. Absent: scleral icterus, conjunctival injection, periorbital swelling ENT exam: Present: normal exam, mucous membranes moist Neck exam: Present: normal inspection. Absent: tenderness, meningismus, lymphadenopathy Respiratory exam: Present: normal lung sounds bilaterally. Absent: respiratory distress, wheezes, rales, rhonchi, stridor Cardiovascular Exam: Present: regular rate, normal rhythm, normal heart sounds. Absent: systolic murmur, diastolic murmur, rubs, gallop, clicks GI/Abdominal exam: Present: soft, normal bowel sounds. Absent: distended, tenderness, guarding, rebound, rigid Extremities exam: Present: normal inspection, full ROM, normal capillary refill. Absent: tenderness, pedal edema, joint swelling, calf tenderness Back exam: Present: normal inspection Neurological exam: Present: alert, oriented X3, CN II-XII intact Psychiatric exam: Present: normal affect, normal mood Skin exam: Present: warm, dry, intact, normal color. Absent: rash Course Vital Signs 06/02/24 06/02/24 06/02/24 16:06 17:19 18:43 Temperature 97.9 F 98.0 F Pulse Rate 69 75 102 H Respiratory 20 16 18 Rate Blood Pressure 121/70 164/85 126/88 O2 Sat by Pulse 100 96 95 Oximetry - Reevaluation(s) Reevaluation #1: 06/02/24 16:43 Medical records reviewed Reevaluation #2: 06/02/24 18:17 Patient symptoms improved Reevaluation #3: 06/02/24 18:18 Informed of results and questions answered Reevaluation #4: Was pt. sent in by a medical professional or institution (, MARTIN, PRODUCTION ESTIMATOR, urgent care, hospital, or custodial...) When possible be specific @ -no Did you speak to anyone other than the patient for history (EMS, parent, family, police, friend...)? What history was obtained from this source @ -no Did you review nursing and triage notes (agree or disagree)? Why? @ -agree Are old charts reviewed (outside hosp., previous admission, EMS record, old EKG, old radiological studies, urgent care reports/EKG's, custodial records)? Report findings @ -yes Differential Diagnosis (chest pain, altered mental status, abdominal pain women, abdominal pain men, vaginal bleeding, weakness, fever, dyspnea, syncope, headache, dizziness, GI bleed, back pain, seizure, CVA, palpatations, mental health, musculoskeletal)? @ -prior EKG interpreted by me (3pts min.). @ -yes X-rays interpreted by me (1pt min.). @ -no CT interpreted by me (1pt min.). @ -yes negative for acute disease U/S interpreted by me (1pt. min.). @ -no What testing was considered but not performed or refused? (CT, X-rays, U/S, labs)? Why? @ -none What meds were considered but not given or refused? Why? @ -none Did you discuss the management of the patient with other professionals (professionals i.e. , MARTIN, PRODUCTION ESTIMATOR, lab, RT, psych nurse, older adult social work specialist, turkey cleaner, teacher, chief risk officer, case manager specialist)? Give summary @ -no Was smoking cessation discussed for >3mins.? @ -no Was critical care preformed (if so, how long)? @ -no Were there social determinants of health that impacted care today? How? (Homelessness, low income, unemployed, alcoholism, drug addiction, transportation, low edu. Level, literacy, decrease access to med. care, snf, rehab)? @ -none Was there de-escalation of care discussed even if they declined (Discuss DNR or withdrawal of care, Hospice)? DNR status @ -no What co-morbidities impacted this encounter? (DM, HTN, Smoking, COPD, CAD, Cancer, CVA, ARF, Chemo, Hep., AIDS, mental health diagnosis, sleep apnea, morbid obesity)? @ -none Was patient admitted / discharged? Hospital course, mention meds given and route, prescriptions, significant lab abnormalities, going to OR and other pertinent info. @ - 64 male with nausea vomiting diarrhea chest pain, no acute cause of any symptoms found here in the ER patient has normal lab testing normal imaging and will be discharged home Discharge Undiagnosed new problem with uncertain prognosis? @ -no Drug Therapy requiring intensive monitoring for toxicity (Heparin, Nitro, Insulin, Cardizem)? @ -no Were any procedures done? @ -no Diagnosis/symptom? @ -Nausea vomiting chest pain Acute, or Chronic, or Acute on Chronic? @ -Acute Uncomplicated (without systemic symptoms) or Complicated (systemic symptoms)? @ -Complicated Side effects of treatment? @ -no Exacerbation, Progression, or Severe Exacerbation? @ -exacerbation Poses a threat to life or bodily function? How? (Chest pain, USA, ID, pneumonia, PE, COPD, DKA, ARF, appy, cholecystitis, CVA, Diverticulitis, Homicidal, Suicidal, threat to staff... and all critical care pts) @ -yes with chest pain Reevaluation #5: Differential Chest Pain: Stable Angina, Unstable Angina, STEMI, NSTEMI Aortic Dissection, Pneumothorax, Musculoskeletal, Esophageal Spasm GERD, Cholecystitis, Pancreatitis, Zoster, this is not meant to be an all-inclusive list. Chest Pain [facility]DM - [facility] 64 male with nausea vomiting diarrhea chest pain, no acute cause of any symptoms found here in the ER patient has normal lab testing normal imaging and will be discharged home Disposition Clinical Impression: Chest pain, Gastroenteritis Disposition: HOME SELF-CARE Condition: Good Instructions (If sedation given, give patient instructions): Chest Pain (ED), Gastroenteritis (ED) Is patient prescribed a controlled substance at d/c from ED?: No Referrals: Hernan Hinton MD [Primary Care Provider] - 1-2 days Time of Disposition: 18:00
[2024-06-02 16:44] LABS: ALT 33 U/L (4-49); AST 56 U/L (17-59); African American GFR (CKD) 74 (>60 ml/min/1.73 sqM); Albumin 4.5 g/dL (3.5-5.0); Alkaline Phosphatase 69 U/L (38-126); Anion Gap 9 mmol/L; Blood Urea Nitrogen 17 mg/dL (9-20); Calcium 9.7 mg/dL (8.4-10.2); Carbon Dioxide 26 mmol/L (22-30); Chloride 100 mmol/L (98-107); Glucose 112 mg/dL (74-99); Lipase 91 U/L (23-300); Magnesium 1.8 mg/dL (1.6-2.3); Non-African American GFR(CKD) 64 (>60 ml/min/1.73 sqM); Potassium 4.1 mmol/L (3.5-5.1); Sodium 135 mmol/L (137-145); Total Bilirubin 2.9 mg/dL (0.2-1.3)
[2024-06-02 16:53] LABS: NT-Pro-B-Type Natriuretic Pept 115 pg/mL
[2024-06-02 16:59] LABS: Prothrombin Time 10.6 sec (10.0-12.5)
[2024-06-02 17:08] LABS: Partial Thromboplastin Time 20.1 sec (22.0-30.0)
[2024-06-02] MEDS: ONDANSETRON 4 MG/2 ML VIAL IVP STA (17:13)
[2024-06-02] MEDS: HYDROmorphone 1 MG/ML 1 ML SYRINGE IVP STA (17:15)
[2024-06-02] MEDS: ACETAMINOPHEN IV (For NPO) 1,000 MG in EMPTY BAG 1 BAG IVPB STA (17:17)
--- NOTE | 2024-06-02 18:02 | CT ---
EXAMINATION TYPE: CT abdomen pelvis w con DATE OF EXAM: 06/02/2024 5:48 PM COMPARISON: Previous PET/CT study dated 06/07/2022. CLINICAL INDICATION: Male, 64 years old with history of pain; N,V,D, CP burning pain under left ribs, hx of stents, started this AM 0900. TECHNIQUE: Axial CT abdomen pelvis w con;Sagittal and coronal reformats were created on a separate w orkstation. Contrast used:100ml mL of Isovue 370 with IV Contrast, (none if empty) Oral contrast used: without Oral Contrast (none if empty) CT DLP: Combined 1386.5 mGycm, Automated exposure control for dose reduction was used. FINDINGS: LOWER CHEST: Unremarkable ABDOMEN LIVER: Unremarkable GALLBLADDER AND BILE DUCTS: Unremarkable. PANCREAS: Unremarkable. SPLEEN: Unremarkable. ADRENAL GLANDS: Unremarkable. KIDNEYS AND URETERS: Bilateral perinephric soft tissue stranding present on prior study 06/07/2022. Ki dneys enhance relatively symmetrically. No definite hydronephrosis. PELVIS BLADDER: No evidence for wall thickening or mass given limitations of exam. REPRODUCTIVE: Unremarkable. ABDOMEN & PELVIS STOMACH AND BOWEL: Stomach and duodenum are unremarkable. Scattered diverticula are noted throughout the colon. No evidence of bowel obstruction. PERITONEUM/RETROPERITONEUM: Soft tissue stranding in the retroperitoneum, most involving the left per iaortic region. No significant free fluid or free air in abdomen/pelvis. VASCULATURE: No evidence of aortic aneurysm. Soft tissue in the retroperitoneum surrounding the aorta , most notably within the left periaortic region. MUSCULOSKELETAL: No acute osseous abnormalities LYMPH NODES: No gross evidence for lymphadenopathy. SOFT TISSUE/ABDOMINAL WALL: Unremarkable IMPRESSION: 1. No acute abnormality in the abdomen/pelvis. 2. Extensive perinephric and retroperitoneal soft tissue stranding, present on prior study 06/07/2022 and previously described as Erdheim Otero's disease. [facility], Workstation: [id number], 06/02/2024 6:00 PM
--- NOTE | 2024-06-02 18:05 | CT ---
EXAMINATION TYPE: CT angio chest DATE OF EXAM: 06/02/2024 5:48 PM COMPARISON: Previous CT chest dated 10/01/2019. CLINICAL INDICATION: Male, 64 years old with history of pain; N,V,D, CP burning pain under left ribs, hx of stents, started this AM 0900. TECHNIQUE/CONTRAST: CTA scan of the thorax is performed with IV Contrast, patient injected with 100ml mL of Isovue 370, M IP images are created and reviewed these are created on a separate workstation.. CT DLP: Combined 1386.5 mGycm, Automated exposure control for dose reduction was used. FINDINGS: Pulmonary Artery: There is no evidence for a filling defect within the pulmonary vasculature to sugge st acute pulmonary embolism. The pulmonary artery is of normal size. Lungs/Pleura: No evidence of focal consolidation, pleural effusion or pneumothorax. Pleural thickenin g bilaterally, similar to previous studies Airway: Large airways are patent. Heart: Heart is within normal limits for size. Vasculature: No evidence of aortic aneurysm. Mediastinum: No gross evidence of adenopathy. Musculoskeletal: No acute osseous abnormalities Soft Tissues/lymph nodes: Unremarkable. Lower neck: No significant findings. Upper Abdomen: No significant findings. IMPRESSION: No evidence of acute pulmonary embolism. [facility], , 06/02/2024 6:03 PM
[2024-06-02 18:40] VITALS: BP 126/88; PULSE 102; RESP 18; TEMP 98
[2024-06-02] MEDS: traMADol 50 MG STARTER PACK 3 TAB BTL PO STA (18:42)
[2024-06-02] MEDS: ONDANSETRON 4 MG ODT STARTER PACK 2 TAB BTL PO STA (18:42)
== END 2024-06-02 18:43 | disposition home or self-care (01) ==
LOC: EC 16:05
DX: K52.9 Noninfective gastroenteritis and colitis, unspecified (principal); R07.9 Chest pain, unspecified; Z86.73 Personal history of transient ischemic attack (TIA), and cerebral infarction without residual deficits
CPT/HCPCS: 36415; 93005; 83880; 80053; 83690; 83735; 84484; 85025; 85610; 85730; 71275; 74177; 99285; 96365; 96375 ×2; J2405; J1171; J0131; S0119; Q9967

== ENCOUNTER 2024-06-15 08:34 | Inpatient (IN) | payer MEDICARE ==
--- NOTE | 2024-06-15 09:20 | ED ---
Abdominal Pain HPI - General Chief Complaint: Abdominal Pain Stated Complaint: NVD/abd pain Time Seen by Provider: 06/15/24 08:59 Source: patient, RN notes reviewed Mode of arrival: ambulatory Limitations: no limitations - History of Present Illness Initial Comments: This is a 64-year-old male who presents to the emergency department for abdominal pain, nausea, and vomiting. States that it started around 3 AM. Pain is in the epigastric region. Reports diarrhea as well. He was evaluated here for this 2 to 3 weeks ago and states that symptoms feel the same. At that time they could not determine a cause of his symptoms. Patient is concerned that it may be related to his gallbladder. States that he had a lot of fatty and greasy foods last night. MD Complaint: abdominal pain - Related Data Home Medications Medication Instructions Recorded Confirmed Clopidogrel Bisulfate [Plavix] 75 mg PO DAILY 07/05/19 06/15/24 Metoprolol Tartrate 25 mg PO BID 07/05/19 06/15/24 Rosuvastatin Calcium [Crestor] 10 mg PO DAILY 07/05/19 06/15/24 Tamsulosin HCl [Flomax] 0.4 mg PO DAILY 07/05/19 06/15/24 lisinopriL [Prinivil] 5 mg PO DAILY 07/05/19 06/15/24 Omeprazole 20 mg PO DAILY 12/30/21 06/15/24 buPROPion XL [Wellbutrin XL] 150 mg PO DAILY 12/30/21 06/15/24 Citalopram Hydrobromide [CeleXA] 20 mg PO DAILY 06/16/22 06/15/24 Vemurafenib [Zelboraf] 1 dose PO DIRECTED 06/15/24 06/15/24 Allergies Allergy/AdvReac Type Severity Reaction Status Date / Time No Known Allergies Allergy Verified 06/15/24 12:53 Review of Systems ROS Statement: Those systems with pertinent positive or pertinent negative responses have been documented in the HPI. ROS Other: All systems not noted in ROS Statement are negative. Past Medical History Past Medical History: Coronary Artery Disease (CAD), Cancer, CVA/TIA, Hypertension Additional Past Medical History / Comment(s): erdheimchester's disease (rare blood cancer) History of Any Multi-Drug Resistant Organisms: None Reported Past Surgical History: Heart Catheterization With Stent, Hernia Repair Additional Past Surgical History / Comment(s): exp lap,. biopsies of bone and kidney (negative) Past Anesthesia/Blood Transfusion Reactions: No Reported Reaction Date of Last Stent Placement:: 2013 Past Psychological History: Anxiety, Depression Smoking Status: Never smoker Past Alcohol Use History: Rare Past Drug Use History: Marijuana - Past Family History Mother Family Medical History: Coronary Artery Disease (CAD) Father Additional Family Medical History / Comment(s): dies from AIDS in 1988 General Exam Limitations: no limitations General appearance: alert, in distress Head exam: Present: atraumatic, normocephalic, normal inspection Respiratory exam: Present: normal lung sounds bilaterally. Absent: respiratory distress, wheezes, rales, rhonchi, stridor Cardiovascular Exam: Present: regular rate, normal rhythm, normal heart sounds. Absent: systolic murmur, diastolic murmur, rubs, gallop, clicks GI/Abdominal exam: Present: soft, tenderness (Epigastric), normal bowel sounds. Absent: distended Neurological exam: Present: alert, oriented X3, CN II-XII intact Psychiatric exam: Present: normal affect, normal mood Skin exam: Present: warm, dry, intact, normal color. Absent: rash Course Vital Signs 06/15/24 06/15/24 06/15/24 08:51 13:12 14:54 Temperature 97.4 F L 98.5 F Pulse Rate 69 99 Pulse Rate [ 93 Pulse Oximetery ] Respiratory 20 20 16 Rate Blood Pressure 184/108 172/102 Blood Pressure 178/95 [Left Arm] O2 Sat by Pulse 100 99 96 Oximetry Medical Decision Making - Medical Decision Making This is a 64-year-old male who presents emergency department for abdominal pain, nausea, and vomiting. Was pt. sent in by a medical professional or institution? @ -No Did you speak to anyone other than the patient for history? @ -No Did you review nursing and triage notes? @ -Yes, and I agree, it is accurate with regards to the patient's symptoms. Were old charts reviewed? @ -No Differential Diagnosis? @ -Differential Abdominal Pain Men: Appendicitis, cholecystitis, diverticulosis, ischemic bowel, pancreatitis, he patitis, UTI, gastroenteritis, AAA, incarcerated hernia, bowel obstruction, constipation, inflammatory bowel, hepatitis, peptic ulcer disease, splenic infarction, perforated viscus, testicular torsion, this is not meant to be an all-inclusive list EKG interpreted by me (3pts min.)? @ -EKG interpreted by me demonstrating the following: Sinus rhythm. Ventricular rate 77 bpm, VT interval 202 ms, QRS duration 86 ms, QTc 402 ms. X-rays interpreted by me (1pt min.)? @ -Not obtained CT interpreted by me (1pt min.)? @ -CT scan of the abdomen and pelvis obtained. My interpretation identifies no evidence of bowel wall thickening. U/S interpreted by me (1pt. min.)? @ -Gallbladder ultrasound obtained. Major potation identifies no evidence of gallbladder wall thickening. What testing was considered but not performed? (CT, X-rays, U/S, labs)? Why? @ -None What meds were considered but not given? Why? @ -None Did you discuss the management of the patient with other professionals? @ -Yes, Dr. Matos, who accepts the patient for admission. Did you reconcile home meds? @ -Yes Was smoking cessation discussed for >3mins.? @ -No Was critical care preformed (if so, how long)? @ -No Were there social determinants of health that impacted care today? How? (Homelessness, low income, unemployed, alcoholism, drug addiction, transpo rtation, low edu. Level, literacy, decrease access to med. care, retirement, rehab)? @ -No Was there de-escalation of care discussed even if they declined? (Discuss DNR or withdrawal of care, Hospice)? @ -No What co-morbidities impacted this encounter? (DM, HTN, Smoking, COPD, CAD, Cancer, CVA, Hep., AIDS, mental health diagnosis, sleep apnea, morbid obesity)? @ -CAD, HTN Was patient admitted / discharged? @ -Admitted. Lab work demonstrates leukocytosis with a white blood cell count of 27.9. Lactic acid elevated at 2.4. Amylase 5473 and lipase greater than 20,000. We first started with a gallbladder ultrasound. His gallbladder was at the upper limits of normal and the CBD was reported to be dilated. No gallstones were identified. We then proceeded with a CT scan of the abdomen and pelvis. He was found to have progression of extensive perinephric and retroperitoneal soft tissue stranding/fluid from imaging on 06/02 consistent with [place] disease. Superimposed pancreatitis is identified as well. There are no organizing fluid collections. On the CT they did note cholelithiasis, which was not noted on the ultrasound. They also identified slightly increased intrahepatic biliary ductal dilation. LFTs unremarkable. Of note he was noted to have an increasing hypodense region in the left kidney that may represent a renal neoplasm versus infarct versus infection that will require further workup. Patient admitted to medicine for pancreatitis. There are questionable gallstones per CT report. Consult placed for GI and general surgery for pancreatitis, possibly caused by gallstones. Given the level of leukocytosis, he was started on Zosyn. Maintenance fluids initiated as well. Case discussed with ED attending Dr. Wright. Undiagnosed new problem with uncertain prognosis? @ -None Drug Therapy requiring intensive monitoring for toxicity (Heparin, Nitro, Insulin, Cardizem)? @ -None Were any procedures done? @ -None Diagnosis/symptom? @ -Pancreatitis, possible gallstones Acute, or Chronic, or Acute on Chronic? @ -Acute Uncomplicated (without systemic symptoms) or Complicated (systemic symptoms)? @ -Complicated Side effects of treatment? @ -None Exacerbation, Progression, or Severe Exacerbation] @ -Not applicable Poses a threat to life or bodily function? @ -Yes, can lead to life threatening infection - Lab Data Result diagrams: 06/15/24 09:16 06/15/24 09:16 Lab Results 06/15/24 06/15/24 06/15/24 Range/Units 09:16 09:16 09:16 WBC 27.9 H (3.8-10.6) k/uL RBC 5.18 (4.30-5.90) m/uL Hgb 16.0 (13.0-17.5) gm/dL Hct 48.2 (39.0-53.0) % MCV 93.0 (80.0-100.0) fL MCH 30.9 (25.0-35.0) pg MCHC 33.2 (31.0-37.0) g/dL RDW 13.3 (11.5-15.5) % Plt Count 554 H D (150-450) k/uL MPV 7.7 Neutrophils % 87 % Lymphocytes % 6 % Monocytes % 5 % Eosinophils % 1 % Basophils % 0 % Neutrophils # 24.2 H (1.3-7.7) k/uL Lymphocytes # 1.6 (1.0-4.8) k/uL Monocytes # 1.4 H (0-1.0) k/uL Eosinophils # 0.3 (0-0.7) k/uL Basophils # 0.1 (0-0.2) k/uL Sodium 137 (137-145) mmol/L Potassium 4.1 (3.5-5.1) mmol/L Chloride 105 (98-107) mmol/L Carbon Dioxide 24 (22-30) mmol/L Anion Gap 8 mmol/L BUN 17 (9-20) mg/dL Creatinine 0.99 (0.66-1.25) mg/dL Est GFR (CKD-EPI)AfAm >90 (>60 ml/min/1.73 sqM) Est GFR (CKD-EPI)NonAf 81 (>60 ml/min/1.73 sqM) Glucose 114 H (74-99) mg/dL Lactic Ac Sepsis Rflx Plasma Lactic Acid Isaiah (0.7-2.0) mmol/L Calcium 10.2 (8.4-10.2) mg/dL Total Bilirubin 1.0 (0.2-1.3) mg/dL AST 45 (17-59) U/L ALT 51 H (4-49) U/L Alkaline Phosphatase 109 (38-126) U/L Troponin I (0.000-0.034) ng/mL Total Protein 7.2 (6.3-8.2) g/dL Albumin 4.7 (3.5-5.0) g/dL Amylase 5473 H* (30-110) U/L Lipase >53698 H (23-300) U/L Urine Color Colorless Urine Appearance Clear (Clear) Urine pH 5.5 (5.0-8.0) Ur Specific Eads 1.010 (1.001-1.035) Urine Protein Negative (Negative) Urine Glucose (UA) Negative (Negative) Urine Ketones Negative (Negative) Urine Blood Negative (Negative) Urine Nitrite Negative (Negative) Urine Bilirubin Negative (Negative) Urine Urobilinogen <2.0 (<2.0) mg/dL Ur Leukocyte Esterase Negative (Negative) 06/15/24 06/15/24 06/15/24 Range/Units 09:16 09:16 10:20 WBC (3.8-10.6) k/uL RBC (4.30-5.90) m/uL Hgb (13.0-17.5) gm/dL Hct (39.0-53.0) % MCV (80.0-100.0) fL MCH (25.0-35.0) pg MCHC (31.0-37.0) g/dL RDW (11.5-15.5) % Plt Count (150-450) k/uL MPV Neutrophils % % Lymphocytes % % Monocytes % % Eosinophils % % Basophils % % Neutrophils # (1.3-7.7) k/uL Lymphocytes # (1.0-4.8) k/uL Monocytes # (0-1.0) k/uL Eosinophils # (0-0.7) k/uL Basophils # (0-0.2) k/uL Sodium (137-145) mmol/L Potassium (3.5-5.1) mmol/L Chloride (98-107) mmol/L Carbon Dioxide (22-30) mmol/L Anion Gap mmol/L BUN (9-20) mg/dL Creatinine (0.66-1.25) mg/dL Est GFR (CKD-EPI)AfAm (>60 ml/min/1.73 sqM) Est GFR (CKD-EPI)NonAf (>60 ml/min/1.73 sqM) Glucose (74-99) mg/dL Lactic Ac Sepsis Rflx Y Plasma Lactic Acid Isaiah 2.4 H* (0.7-2.0) mmol/L Calcium (8.4-10.2) mg/dL Total Bilirubin (0.2-1.3) mg/dL AST (17-59) U/L ALT (4-49) U/L Alkaline Phosphatase (38-126) U/L Troponin I <0.012 (0.000-0.034) ng/mL Total Protein (6.3-8.2) g/dL Albumin (3.5-5.0) g/dL Amylase (30-110) U/L Lipase (23-300) U/L Urine Color Urine Appearance (Clear) Urine pH (5.0-8.0) Ur Specific Eads (1.001-1.035) Urine Protein (Negative) Urine Glucose (UA) (Negative) Urine Ketones (Negative) Urine Blood (Negative) Urine Nitrite (Negative) Urine Bilirubin (Negative) Urine Urobilinogen (<2.0) mg/dL Ur Leukocyte Esterase (Negative) 06/15/24 Range/Units 12:51 WBC (3.8-10.6) k/uL RBC (4.30-5.90) m/uL Hgb (13.0-17.5) gm/dL Hct (39.0-53.0) % MCV (80.0-100.0) fL MCH (25.0-35.0) pg MCHC (31.0-37.0) g/dL RDW (11.5-15.5) % Plt Count (150-450) k/uL MPV Neutrophils % % Lymphocytes % % Monocytes % % Eosinophils % % Basophils % % Neutrophils # (1.3-7.7) k/uL Lymphocytes # (1.0-4.8) k/uL Monocytes # (0-1.0) k/uL Eosinophils # (0-0.7) k/uL Basophils # (0-0.2) k/uL Sodium (137-145) mmol/L Potassium (3.5-5.1) mmol/L Chloride (98-107) mmol/L Carbon Dioxide (22-30) mmol/L Anion Gap mmol/L BUN (9-20) mg/dL Creatinine (0.66-1.25) mg/dL Est GFR (CKD-EPI)AfAm (>60 ml/min/1.73 sqM) Est GFR (CKD-EPI)NonAf (>60 ml/min/1.73 sqM) Glucose (74-99) mg/dL Lactic Ac Sepsis Rflx Plasma Lactic Acid Isaiah 1.7 (0.7-2.0) mmol/L Calcium (8.4-10.2) mg/dL Total Bilirubin (0.2-1.3) mg/dL AST (17-59) U/L ALT (4-49) U/L Alkaline Phosphatase (38-126) U/L Troponin I (0.000-0.034) ng/mL Total Protein (6.3-8.2) g/dL Albumin (3.5-5.0) g/dL Amylase (30-110) U/L Lipase (23-300) U/L Urine Color Urine Appearance (Clear) Urine pH (5.0-8.0) Ur Specific Eads (1.001-1.035) Urine Protein (Negative) Urine Glucose (UA) (Negative) Urine Ketones (Negative) Urine Blood (Negative) Urine Nitrite (Negative) Urine Bilirubin (Negative) Urine Urobilinogen (<2.0) mg/dL Ur Leukocyte Esterase (Negative) - Radiology Data Radiology results: report reviewed, image reviewed Disposition Clinical Impression: Pancreatitis, Abnormal findings on diagnostic imaging of gallbladder Disposition: ADMITTED IP TO THIS HOSP
[2024-06-15] MEDS: ONDANSETRON 4 MG/2 ML VIAL IVP STA ×2 (09:37→10:55)
[2024-06-15] MEDS: PANTOPRAZOLE 40 MG/10 ML VIAL IVP STA (09:37)
[2024-06-15] MEDS: SODIUM CHLORIDE 0.9% 1,000 ML IV STA (09:37)
[2024-06-15] MEDS: HYDROmorphone 1 MG/ML 1 ML SYRINGE IVP STA ×3 (09:38→13:10)
[2024-06-15 09:57] LABS: Basophils # (A) 0.1 k/uL (0-0.2); Basophils % (A) 0 %; Eosinophils # (A) 0.3 k/uL (0-0.7); Eosinophils % (A) 1 %; HCT 48.2 % (39.0-53.0); Lymphocytes # (A) 1.6 k/uL (1.0-4.8); Lymphocytes % (A) 6 %; MCH 30.9 pg (25.0-35.0); MCHC 33.2 g/dL (31.0-37.0); Mean Platelet Volume 7.7; Monocytes # (A) 1.4 k/uL (0-1.0); Monocytes % (A) 5 %; Neutrophils # (A) 24.2 k/uL (1.3-7.7); Neutrophils % (A) 87 %; RBC 5.18 m/uL (4.30-5.90); RDW 13.3 % (11.5-15.5); WBC 27.9 k/uL (3.8-10.6)
[2024-06-15 10:00] LABS: Platelet Count 554 k/uL (150-450)
[2024-06-15 10:01] LABS: ALT 51 U/L (4-49); AST 45 U/L (17-59); African American GFR (CKD) >90 (>60 ml/min/1.73 sqM); Albumin 4.7 g/dL (3.5-5.0); Alkaline Phosphatase 109 U/L (38-126); Anion Gap 8 mmol/L; Blood Urea Nitrogen 17 mg/dL (9-20); Calcium 10.2 mg/dL (8.4-10.2); Carbon Dioxide 24 mmol/L (22-30); Chloride 105 mmol/L (98-107); Glucose 114 mg/dL (74-99); Non-African American GFR(CKD) 81 (>60 ml/min/1.73 sqM); Potassium 4.1 mmol/L (3.5-5.1); Sodium 137 mmol/L (137-145); Total Protein 7.2 g/dL (6.3-8.2)
[2024-06-15 11:33] LABS: Lipase >20000 U/L (23-300)
[2024-06-15 11:34] LABS: Amylase 5473 U/L (30-110)
--- NOTE | 2024-06-15 11:42 | US ---
EXAMINATION TYPE: US gallbladder DATE OF EXAM: 06/15/2024 COMPARISON: NONE CLINICAL INDICATION: Male, 64 years old with history of Epigastric pain; RUQ pain and vomiting. Limi damion exam due to bowel gas and patient in a lot of pain. TECHNIQUE: Grayscale and color Doppler imaging of the right upper quadrant was performed. FINDINGS: EXAM MEASUREMENTS: Liver Length: 16 cm Gallbladder Wall: .3 cm CBD: 0.7 cm Right Kidney: 9.5 x 6.0 x 5.4 cm CHAMPION OF SUSTAINABLE DESIGN NOTES: Pancreas: Obscured by bowel gas Liver: Limited due to bowel gas. Gallbladder: 9.6 cm upper limits no stones seen. Evidence for sonographic Negron's sign: no CBD: Dilated Right Kidney: Limited due to bowel gas. IMPRESSION: No evidence for acute process. [facility], , 06/15/2024 11:39 AM
[2024-06-15 12:21] LABS: Appearance,Urine Clear (Clear); Bilirubin,Urine Negative (Negative); Blood,Urine Negative (Negative); Color,Urine Colorless; Glucose,Urine (UA) Negative (Negative); Ketones,Urine Negative (Negative); Leukocyte Esterase,Urine Negative (Negative); Nitrite,Urine Negative (Negative); PH, Urine 5.5 (5.0-8.0); Protein,Urine Negative (Negative); Urobilinogen,Urine <2.0 mg/dL (<2.0)
--- NOTE | 2024-06-15 12:54 | CT ---
EXAMINATION TYPE: CT abdomen pelvis w con CT DLP: 1275.2 mGycm, Automated exposure control for dose reduction was used. DATE OF EXAM: 06/15/2024 12:33 PM COMPARISON: Gallbladder ultrasound 06/15/2024, CT abdomen and pelvis 06/02/2024, PET CT 06/07/2022 CLINICAL INDICATION:Male, 64 years old with history of Epigastric pain, pancreatitis; Abdominal pain with n/v since this morning. 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 TECHNIQUE: Standard CT of the abdomen and pelvis following the administration of 100 cc of Isovue 3 00 IV contrast material. Coronal and sagittal reformats were performed. FINDINGS: LOWER CHEST: Linear atelectasis within the bilateral lower lobes. Coronary artery calcifications. ABDOMEN LIVER: Unremarkable GALLBLADDER AND BILE DUCTS: Mildly dilated gallbladder with cholelithiasis. No surrounding inflammato ry changes. Subtle increase in intrahepatic biliary duct dilatation. No definitive extrahepatic bilia ry duct dilatation. PANCREAS: The pancreas enhances homogeneously without intrapancreatic lesion. No pancreatic parenchym al calcifications or ductal dilatation. There is surrounding fat stranding/fluid without organized fl uid collection. The portal venous system is patent. SPLEEN: Unremarkable. ADRENAL GLANDS: Unremarkable. KIDNEYS AND URETERS: No evidence of hydronephrosis. Nonobstructive bilateral renal calculi with large st within the right kidney measuring up to 4 mm in largest within the left kidney measuring up to 5 m m. The kidneys enhance symmetrically. There is again bilateral similar perinephric stranding changes. No ureteral dilatation or calculi. Increase region of low attenuation within the medial aspect of th e left mid kidney. Contrast is demonstrated within both collecting systems on the delayed phase. PELVIS BLADDER: Unremarkable REPRODUCTIVE: Unremarkable. ABDOMEN & PELVIS STOMACH AND BOWEL: Stomach is unremarkable. There is surrounding inflammatory changes involving the d uodenum without significant wall thickening. The appendix is within normal limits. No focal bowel wal l thickening. No evidence of bowel obstruction. PERITONEUM/RETROPERITONEUM: No evidence of pneumoperitoneum. Increased fat and fluid stranding change s within the retroperitoneum around the duodenum and pancreas extending into the mesentery when bety red to prior exam. This extends into the german hepatis region. VASCULATURE: Mild atherosclerotic calcifications are present throughout the abdominal aorta and its b ranches. No evidence of aortic aneurysm. Periaortic fat stranding changes are redemonstrated. MUSCULOSKELETAL: No acute osseous abnormalities. Minimal grade 1 anterolisthesis of L4 on L5. No pars defects. Mild multilevel degenerative disc disease. LYMPH NODES: Redemonstration of enlarged left periaortic lymph node measuring 2.4 cm. Additional subc entimeter para-aortic lymph nodes. SOFT TISSUE/ABDOMINAL WALL: Postsurgical changes of the lower anterior abdominal wall hernia repair w ith mesh anchors. IMPRESSION: 1. Progression of extensive perinephric and retroperitoneal soft tissue stranding/fluid from prior C T on 06/02/2024. Findings are consistent with reported [place]heim [place] disease. Superimposed pancreat itis is not excluded. No organized fluid collections. 2. Increasing size of hypodense 3.2 cm region within the left kidney which may represent a renal eloina plasm versus infarct versus infectious process versus other. Consider further workup. 3. Slightly increased intrahepatic biliary duct dilatation which may be related to #1. Correlate wit h biliary labs. 4. Redemonstration of an enlarged left periaortic lymph node and surrounding subcentimeter lymph nod es which are likely reactive to #1. 5. Nonobstructive bilateral renal calculi. 6. Cholelithiasis. [facility], , 06/15/2024 12:52 PM
[2024-06-15] MEDS: KETOROLAC 15 MG/ML 1 ML VIAL IVP STA (13:07)
[2024-06-15] MEDS: METOCLOPRAMIDE 5 MG/ML 2 ML VIAL IVP STA (13:08)
[2024-06-15] MEDS ORDERED: ACETAMINOPHEN TAB 325 MG TAB PO PRN (13:16)
[2024-06-15] MEDS ORDERED: NALOXONE 0.4 MG/ML 1 ML VIAL IV PRN (13:16)
[2024-06-15] MEDS ORDERED: HYDROmorphone 0.5 MG/0.5 ML SYRINGE IVP PRN (13:16)
[2024-06-15] MEDS: PIPERACILLIN-TAZOBACTAM 3.375 GM in SODIUM CHLORIDE 0.9% 100 ML IVPB SCH (13:41)
[2024-06-15] MEDS: SODIUM CHLORIDE 0.9% 1,000 ML IV SCH (13:45)
--- NOTE | 2024-06-15 15:21 | P.CONS ---
History of Present Illness - Reason for Consult Consult date: 06/15/24 Possible gallstone pancreatitis Requesting physician: Robin E Sheet - Chief Complaint Nausea vomiting and abdominal pain - History of Present Illness This a pleasant 64-year-old male with a past medical history of with [place]heim [place]'s disease, COPD, coronary artery disease, CVA/TIA, anxiety and depression. Patient presented to the emergency department today with complaints of nausea vomiting and abdominal pain that started yesterday. He had a similar episode Thanks day and came into the emergency department. States that pain only lasted a few hours. He was sent home once pain was resolved. At that time he had no elevation in his LFTs or pancreatic enzymes. However they did think it could be secondary to his gallbladder. During this visit it was noted that he had elevated amylase and lipase. He had a CT of the abdomen pelvis as well as gallbladder ultrasound. CT shows fat stranding consistent with Erdheim- [place]'s disease as well as possible superimposed pancreatitis, mildly dilated gallbladder with cholelithiasis. Gallbladder ultrasound reports normal gallbladder without any this gallstones. CBD 0.7 cm. Today's labs WBC 27.8, total bilirubin 1.0 AST 45 ALT 51 alkaline phosphatase 109, amylase 5473 and lipase greater than 20,000. Review of Systems REVIEW OF SYSTEMS: CARDIOPULMONARY: No chest pain or shortness of breath. Gastrointestinal: Abdominal pain. Positive nausea or vomiting. No hematemesis, coffee-ground emesis. No rectal bleeding, or melena. GENITOURINARY: No dysuria or hematuria. MUSCULOSKELETAL: Reports normal range of motion., Joint pain. SKIN: No rashes. No jaundice. ENDOCRINE: No chills, fevers. No excessive weight gain or loss. No polydipsia or polyuria. PSYCHIATRIC: Unremarkable. NEUROLOGY: No change in mental status. Denies dizziness, headache. ENT: Vision unremarkable. CONSTITUTIONAL: No recent weight loss. No fever, chills, night sweats. Past Medical History Past Medical History: Coronary Artery Disease (CAD), Cancer, CVA/TIA, Hypertension Additional Past Medical History / Comment(s): erdheim[place]'s disease (rare blood cancer) History of Any Multi-Drug Resistant Organisms: None Reported Past Surgical History: Heart Catheterization With Stent, Hernia Repair Additional Past Surgical History / Comment(s): exp lap,. biopsies of bone and kidney (negative) Past Anesthesia/Blood Transfusion Reactions: No Reported Reaction Date of Last Stent Placement:: 2013 Past Psychological History: Anxiety, Depression Smoking Status: Never smoker Past Alcohol Use History: Rare Past Drug Use History: Marijuana - Past Family History Mother Family Medical History: Coronary Artery Disease (CAD) Father Additional Family Medical History / Comment(s): dies from AIDS in 1988 Medications and Allergies Home Medications Medication Instructions Recorded Confirmed Type Clopidogrel Bisulfate [Plavix] 75 mg PO DAILY 07/05/19 06/15/24 History Metoprolol Tartrate 25 mg PO BID 07/05/19 06/15/24 History Rosuvastatin Calcium [Crestor] 10 mg PO DAILY 07/05/19 06/15/24 History Tamsulosin HCl [Flomax] 0.4 mg PO DAILY 07/05/19 06/15/24 History lisinopriL [Prinivil] 5 mg PO DAILY 07/05/19 06/15/24 History Omeprazole 20 mg PO DAILY 12/30/21 06/15/24 History buPROPion XL [Wellbutrin XL] 150 mg PO DAILY 12/30/21 06/15/24 History Citalopram Hydrobromide [CeleXA] 20 mg PO DAILY 06/16/22 06/15/24 History Vemurafenib [Zelboraf] 1 dose PO DIRECTED 06/15/24 06/15/24 History Allergies Allergy/AdvReac Type Severity Reaction Status Date / Time No Known Allergies Allergy Verified 06/15/24 12:53 Physical Exam Vitals: Vital Signs Temp Pulse Resp BP Pulse Ox 06/15/24 13:12 99 20 172/102 99 06/15/24 08:51 97.4 F L 69 20 184/108 100 Intake and Output 06/14/24 06/15/24 06/15/24 22:59 06:59 14:59 Other: Weight 81.647 kg General appearance: The patient is alert, oriented, appears in no acute distress. HET: Head is normocephalic and atraumatic. Conjunctiva pink. Sclera anicteric. Neck: Supple without lymphadenopathy. Trachea midline. Heart: Regular. Lungs: Equal expansion, normal respiratory effort. Abdomen: Soft, no epigastric and right upper quadrant tenderness, , nondistended. Skin: No rashes. No jaundice. Extremities: Normal skin color and turgor. No pedal edema. Neurological: No focal deficits. Alert and oriented x3. Results CBC & Chem 7: 06/15/24 09:16 06/15/24 09:16 Labs: Abnormal Lab Results - Last 24 Hours (Table) 06/15/24 06/15/24 06/15/24 Range/Units 09:16 09:16 09:16 WBC 27.9 H (3.8-10.6) k/uL Plt Count 554 H D (150-450) k/uL Neutrophils # 24.2 H (1.3-7.7) k/uL Monocytes # 1.4 H (0-1.0) k/uL Glucose 114 H (74-99) mg/dL Plasma Lactic Acid Isaiah 2.4 H* (0.7-2.0) mmol/L ALT 51 H (4-49) U/L Amylase 5473 H* (30-110) U/L Lipase >61183 H (23-300) U/L Assessment and Plan (1) Pancreatitis Narrative/Plan: 64-year-old male presenting with abdominal pain, nausea and vomiting with elevated amylase and lipase consistent with pancreatitis. No history of alcoholism. I will CT of the abdomen pelvis shows some fat stranding around pancreas could be secondary to patient's Erdheim Migue disease with superimposed pancreatitis. Gallbladder ultrasound without any evidence of gallstones. Pancreatitis is likely secondary to gallstones without any evidence of choledocholithiasis. Will continue to monitor, recommend surgical consult. Current Visit: Yes Status: Acute Code(s): K85.90 - ACUTE PANCREATITIS WITHOUT NECROSIS OR INFECTION, UNSP SNOMED Code(s): 82057918 (2) Abdominal pain Current Visit: Yes Status: Acute Code(s): R10.9 - UNSPECIFIED ABDOMINAL PAIN SNOMED Code(s): 34334002 (3) [place] disease Current Visit: Yes Status: Acute Code(s): E88.89 - OTHER SPECIFIED METABOLIC DISORDERS SNOMED Code(s): 797836894 (4) Leukocytosis Current Visit: Yes Status: Acute Code(s): D72.829 - ELEVATED WHITE BLOOD CELL COUNT, UNSPECIFIED SNOMED Code(s): 208439642 Plan: 1. Continue symptomatic and supportive care 2. Keep n.p.o. 3. Antiemetics as needed 4. Protonix 40 mg daily for GI prophylaxis 5. Pain medication as needed 6. Repeat CBC, BMP, amylase and lipase tomorrow 7. General Surgery on consult 8. Further recommendations forthcoming based on clinical course Thank you for this consultation, we will continue to follow. Dr. Steven Looney I agree with the dictator's note, documented as a scribe by Patricia BASS. Patient
[2024-06-15] MEDS: HYDROmorphone 1 MG/ML 1 ML SYRINGE IVP PRN (15:27)
[2024-06-15] MEDS: VEMURAFENIB 240 MG PO SCH (16:13)
--- NOTE | 2024-06-15 19:12 | P.HPIM ---
History of Present Illness This is a pleasant 64 years old male with past medical history of multiple medical problems as per patient and at bedside he was recently treated for acute pancreatitis for about 2 to 3 weeks ago, he felt well and then he disch arged home. However his symptoms recurrent over the last few days and he presents with worsening abdominal pain and nausea vomiting. He is afebrile. No fever no sick contact. Denies specific urinary complaint, no headache dizziness weakness numbness, no chest pain dyspnea. He states that his urine was dark. He had diarrhea today. He vomited today but there is no blood. Abdominal pain looks moderate and controlled now. He denies smoking alcohol or illicit drugs Vitals stable, afebrile. Labs showing significant leukocytosis of 27.9, rest of CBC, BMP, LFT, INR were unremarkable MAC is elevated 11/06/1972, lipase more than 20,000. CT of the abdomen and pelvis showing progression of extensive perinephric and Retroperitoneal soft tissue stranding [ Erdheim yahaira disease ] per radiologist and superimposed pancreatitis -Increased left renal 3.2 cm lesion suspicious for neoplasm versus infection. -Renal and gallbladder stones EKG showing sinus rhythm at 77 with frequent PVCs but no significant ST-T changes Review of Systems Review of systems CONSTITUTIONAL: No fever, no malaise, no fatigue. HEENT: No recent visual problems or hearing problems. Denied any sore throat. CARDIOVASCULAR: No orthopnea, PND, no palpitations, no syncope. PULMONARY: No shortness of breath, no cough, no hemoptysis. GASTROINTESTINAL: As above NEUROLOGICAL: No headaches, no weakness, no numbness. HEMATOLOGICAL: Denies any bleeding or petechiae. GENITOURINARY: Denies any burning micturition, frequency, or urgency. MUSCULOSKELETAL/RHEUMATOLOGICAL: Denies any joint pain, swelling, or any muscle pain. ENDOCRINE: Denies any polyuria or polydipsia. Past Medical History Past Medical History: Coronary Artery Disease (CAD), Cancer, CVA/TIA, Hypertension Additional Past Medical History / Comment(s): erdheimchester's disease (rare blood cancer) History of Any Multi-Drug Resistant Organisms: None Reported Past Surgical History: Heart Catheterization With Stent, Hernia Repair Additional Past Surgical History / Comment(s): exp lap,. biopsies of bone and kidney (negative) Past Anesthesia/Blood Transfusion Reactions: No Reported Reaction Date of Last Stent Placement:: 2013 Past Psychological History: Anxiety, Depression Smoking Status: Never smoker Past Alcohol Use History: Rare Past Drug Use History: Marijuana - Past Family History Mother Family Medical History: Coronary Artery Disease (CAD) Father Additional Family Medical History / Comment(s): dies from AIDS in 1988 Medications and Allergies Home Medications Medication Instructions Recorded Confirmed Type Clopidogrel Bisulfate [Plavix] 75 mg PO DAILY 07/05/19 06/15/24 History Metoprolol Tartrate 25 mg PO BID 07/05/19 06/15/24 History Rosuvastatin Calcium [Crestor] 10 mg PO DAILY 07/05/19 06/15/24 History Tamsulosin HCl [Flomax] 0.4 mg PO DAILY 07/05/19 06/15/24 History lisinopriL [Prinivil] 5 mg PO DAILY 07/05/19 06/15/24 History Omeprazole 20 mg PO DAILY 12/30/21 06/15/24 History buPROPion XL [Wellbutrin XL] 150 mg PO DAILY 12/30/21 06/15/24 History Citalopram Hydrobromide [CeleXA] 20 mg PO DAILY 06/16/22 06/15/24 History Vemurafenib [Zelboraf] 1 dose PO DIRECTED 06/15/24 06/15/24 History Allergies Allergy/AdvReac Type Severity Reaction Status Date / Time No Known Allergies Allergy Verified 06/15/24 12:53 Physical Exam Vitals: Vital Signs Temp Pulse Pulse Resp BP BP Pulse Ox 06/15/24 14:54 98.5 F 93 16 178/95 96 06/15/24 13:12 99 20 172/102 99 06/15/24 08:51 97.4 F L 69 20 184/108 100 Intake and Output 06/15/24 06/15/24 06/15/24 06:59 14:59 22:59 Other: Weight 81.647 kg 81.647 kg GENERAL: The patient is alert and oriented x3, not in any acute distress. Well developed, well nourished. HEENT: Pupils are round and equally reacting to light. EOMI. No scleral icterus. No conjunctival pallor. Normocephalic, atraumatic. No pharyngeal erythema. No thyromegaly. CARDIOVASCULAR: S1 and S2 present. No murmurs, rubs, or gallops. PULMONARY: Chest is clear to auscultation, no wheezing , no crackles. -ABDOMEN: Soft, periumbilical and epigastric tenderness r, nondistended, normo active bowel sounds. No palpable organomegaly. MUSCULOSKELETAL: No joint swelling or deformity. EXTREMITIES: No cyanosis, clubbing, or pedal edema. NEUROLOGICAL: Gross neurological examination did not reveal any focal deficits. SKIN: No rashes. no petechiae. Results CBC & Chem 7: 06/15/24 09:16 06/15/24 09:16 Labs: Abnormal Lab Results - Last 24 Hours (Table) 06/15/24 06/15/24 06/15/24 Range/Units 09:16 09:16 09:16 WBC 27.9 H (3.8-10.6) k/uL Plt Count 554 H D (150-450) k/uL Neutrophils # 24.2 H (1.3-7.7) k/uL Monocytes # 1.4 H (0-1.0) k/uL Glucose 114 H (74-99) mg/dL Plasma Lactic Acid Isaiah 2.4 H* (0.7-2.0) mmol/L ALT 51 H (4-49) U/L Amylase 5473 H* (30-110) U/L Lipase >49695 H (23-300) U/L Thrombosis Risk Factor Assmnt - Choose All That Apply Any of the Below Risk Factors Present?: Yes Each Factor Represents 1 point: Obesity (BMI >25) Other Risk Factors: Yes Each Risk Factor Represents 2 Points: Age 61-74 years Each Risk Factor Represents 3 Points: History of DVT/PE Other congenital or acquired thrombophilia - If yes, enter type in comment: Yes Thrombosis Risk Factor Assessment Total Risk Factor Score: 6 Thrombosis Risk Factor Assessment Level: High Risk Assessment and Plan Assessment: -Acute pancreatitis with CT of the abdomen and pelvis showing progression of extensive perinephric and Retroperitoneal soft tissue stranding [ Erdheim yahaira disease ] per radiologist and superimposed pancreatitis -Extensive leukocytosis secondary to above -Enlarging left kidney lesion 3.2 cm suspicious for neoplasm versus infection -Cholelithiasis -Kidney stone -Hypertension Plan: Continue with bowel rest, currently n.p.o. Continue with normal saline 130 mL/h On pain medication Dilaudid and Toradol Surgery team consult GI team consult Patient will require outpatient follow-up for his left kidney lesion/mass Continue with the blood pressure medication lisinopril, metoprolol. Add p.o. and IV hydralazine as needed Plavix is on hold Labs and medication were reviewed.. Continue same treatment. Continue with symptomatic treatment. Resume home medication. Monitor labs and vitals. DVT and GI prophylaxis. Further recommendations as per clinical course of the patient DVT prophylaxis: Subcutaneous heparin GI Prophylaxis: P Protonix Prognosis is guarded
[2024-06-15] MEDS: METOPROLOL TARTRATE 25 MG TAB PO SCH (20:31)
[2024-06-15] MEDS: HEPARIN SODIUM,PORCINE 5,000 UNIT/ML 1 ML VIAL SQ SCH (20:31)
[2024-06-16 08:40] LABS: HGB 14.9 g/dL (13.0-17.0); MCH 30.7 pg (27.0-32.0); MCHC 33.1 g/dL (32.0-37.0); MCV 92.6 FL (80.0-97.0); Mean Platelet Volume 9.4 FL (9.5-12.2); NRBC Per 100 WBC 0 X 10*3/uL (0.00-0.01); Platelet Count 461 X 10*3/uL (140-440); RBC 4.86 X 10*6/uL (4.40-5.60); RDW 13.4 % (11.5-14.5); WBC 24.11 X 10*3/uL (4.50-10.00)
[2024-06-16] MEDS: lisinopriL 5 MG TAB PO SCH (08:43)
[2024-06-16] MEDS: TAMSULOSIN 0.4 MG CAP.ER.24H PO SCH (08:43)
[2024-06-16] MEDS: ATORVASTATIN 20 MG TAB PO SCH (08:43)
[2024-06-16] MEDS: CITALOPRAM HYDROBROMIDE 20 MG TAB PO SCH (08:44)
[2024-06-16] MEDS: PANTOPRAZOLE 40 MG/10 ML VIAL IV SCH (08:44)
[2024-06-16] MEDS: buPROPion XL 150 MG TAB.ER.24H PO SCH (08:44)
[2024-06-16] MEDS: KETOROLAC 15 MG/ML 1 ML VIAL IVP PRN (08:50)
[2024-06-16] MEDS ORDERED: NON FORMULARY DRUG (Omeprazole [Omeprazole] 20 MG Capsule.Dr) PO SCH (09:00)
[2024-06-16 09:06] LABS: ALT 37 U/L (10-49); AST 27 U/L (14-35); Albumin 3.5 g/dL (3.8-4.9); Albumin/Globulin Ratio 1.84 Ratio (1.60-3.17); Alkaline Phosphatase 86 U/L (41-126); Amylase 1149 U/L (23-121); BUN/Creat Ratio 15.18 Ratio (12.00-20.00); Blood Urea Nitrogen 16.7 mg/dL (9.0-27.0); Calcium 8.7 mg/dL (8.7-10.3); Carbon Dioxide 22.5 mmol/L (21.6-31.8); Chloride 110 mmol/L (96-109); Globulin 1.9 g/dL (1.6-3.3); Glucose 95 mg/dL (70-110); Potassium 5.2 mmol/L (3.5-5.5); Sodium 141 mmol/L (135-145); Total Bilirubin 1.3 mg/dL (0.3-1.2); Total Protein 5.4 g/dL (6.2-8.2)
[2024-06-16 09:18] LABS: Lipase 1780 U/L (14-60)
[2024-06-16 10:59] LABS: Basophils # (A) 0.04 X 10*3/uL (0.00-0.10); Basophils % (A) 0.2 %; Eosinophils # (A) 0.03 X 10*3/uL (0.04-0.35); Eosinophils % (A) 0.1 %; Lymphocytes # (A) 0.83 X 10*3/uL (0.90-5.00); Lymphocytes % (A) 3.4 %; Monocytes % (A) 6.6 %; Neutrophils # (A) 21.42 X 10*3/uL (1.80-7.70); Neutrophils % (A) 88.9 %; RBC Morphology Normal (Normal)
--- NOTE | 2024-06-16 13:17 | P.PN ---
Subjective This is a pleasant 64 years old male with past medical history of multiple medical problems as per patient and at bedside he was recently treated for acute pancreatitis for about 2 to 3 weeks ago, he felt well and then he discharged home. However his symptoms recurrent over the last few days and he presents with worsening abdominal pain and nausea vomiting. He is afebrile. No fever no sick contact. Denies specific urinary complaint, no headache dizziness weakness numbness, no chest pain dyspnea. He states that his urine was dark. He had diarrhea today. He vomited today but there is no blood. Abdominal pain looks moderate and controlled now. He denies smoking alcohol or illicit drugs Vitals stable, afebrile. Labs showing significant leukocytosis of 27.9, rest of CBC, BMP, LFT, INR were unremarkable MAC is elevated 11/06/1972, lipase more than 20,000. CT of the abdomen and pelvis showing progression of extensive perinephric and Retroperitoneal soft tissue stranding [ Erdheim yahaira disease ] per radiologist and superimposed pancreatitis -Increased left renal 3.2 cm lesion suspicious for neoplasm versus infection. -Renal and gallbladder stones EKG showing sinus rhythm at 77 with frequent PVCs but no significant ST-T curry ges 06/16 Patient feels much better, he is sitting in chair, he tolerated Abdominal pain is better His plan for him to go to surgery on Thursday He says Plavix is taking for coronary artery disease and stent placed 12 years ago school. Keep holding Plavix, patient informed and he agrees Objective - Vital Signs Vital signs: Vital Signs Temp 98.0 F 06/16/24 07:47 Pulse 77 06/16/24 07:47 Resp 16 06/16/24 07:47 BP 128/75 06/16/24 07:47 Pulse Ox 93 L 06/16/24 07:47 FiO2 Intake & Output 06/15/24 06/16/24 06/16/24 18:59 06:59 18:59 Weight 81.647 kg Other: # Voids 2 - Exam GENERAL: The patient is alert and oriented x3, not in any acute distress. Well developed, well nourished. HEENT: Pupils are round and equally reacting to light. EOMI. No scleral icterus. No conjunctival pallor. Normocephalic, atraumatic. No pharyngeal erythema. No thyromegaly. CARDIOVASCULAR: S1 and S2 present. No murmurs, rubs, or gallops. PULMONARY: Chest is clear to auscultation, no wheezing , no crackles. -ABDOMEN: Soft, periumbilical and epigastric tenderness (better) , nondistended, normoactive bowel sounds. No palpable organomegaly. MUSCULOSKELETAL: No joint swelling or deformity. EXTREMITIES: No cyanosis, clubbing, or pedal edema. NEUROLOGICAL: Gross neurological examination did not reveal any focal deficits. SKIN: No rashes. no petechiae. - Labs CBC & Chem 7: 06/16/24 02:57 06/16/24 02:57 Labs: Abnormal Lab Results - Last 24 Hours (Table) 06/16/24 06/16/24 06/16/24 Range/Units 02:57 02:57 02:57 WBC 24.11 H (4.50-10.00) X 10*3/uL Plt Count 461 H (140-440) X 10*3/uL MPV 9.4 L (9.5-12.2) FL Immature Gran # 0.19 H (0.00-0.04) X 10*3/uL Neutrophils # 21.42 H (1.80-7.70) X 10*3/uL Lymphocytes # 0.83 L (0.90-5.00) X 10*3/uL Monocytes # 1.60 H (0.20-1.00) X 10*3/uL Eosinophils # 0.03 L (0.04-0.35) X 10*3/uL Chloride 110 H (96-109) mmol/L Total Bilirubin 1.3 H (0.3-1.2) mg/dL Total Protein 5.4 L (6.2-8.2) g/dL Albumin 3.5 L (3.8-4.9) g/dL Amylase 1149 H (23-121) U/L Lipase 1780 H (14-60) U/L Procalcitonin 1.49 H (0.02-0.50) ng/mL Assessment and Plan Assessment: -Acute pancreatitis with CT of the abdomen and pelvis showing progression of extensive perinephric and Retroperitoneal soft tissue stranding [ Erdheim yahaira disease ] per radiologist and superimposed pancreatitis -Extensive leukocytosis secondary to above -Enlarging left kidney lesion 3.2 cm suspicious for neoplasm versus infection -Cholelithiasis -Kidney stone -Hypertension Plan: Continue with bowel rest, diet advanced to clear liquid Continue continue with IV hydration Plan for surgery on Thursday On pain medication Dilaudid and Toradol Surgery team consult GI team consult Patient will require outpatient follow-up for his left kidney lesion/mass Continue with the blood pressure medication lisinopril, metoprolol. Add p.o. and IV hydralazine as needed Plavix is on hold Labs and medication were reviewed.. Continue same treatment. Continue with symptomatic treatment. Resume home medication. Monitor labs and vitals. DVT and GI prophylaxis. Further recommendations as per clinical course of the pat ient DVT prophylaxis: Subcutaneous heparin GI Prophylaxis: P Protonix Prognosis is guarded
--- NOTE | 2024-06-16 13:26 | P.GSCN ---
History of Present Illness Consult date: 06/16/24 History of present illness: CHIEF COMPLAINT: Abdominal pain HISTORY OF PRESENT ILLNESS: This is a 64-year-old male who presented with complaints of epigastric pain and right upper quadrant abdominal pain that started yesterday. Patient reports the pain was very severe. Pain did occur after eating pizza. Patient did have several episodes of vomiting and diarrhea. Patient had a CAT scan abdomen pelvis completed that reported progression of extensive perinephric and retroperitoneal soft tissue stranding/fluid from prior CAT scan in May. 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 Superimposed pancreatitis is not excluded. Cholelithiasis present. Patient reports having a similar episode about a month ago that resolved on its own. Patient has elevated lipase and white count. Denies any alcohol use. Abdominal surgery includes a inguinal hernia repair. Patient seen and examined with Dr. Childers PAST MEDICAL HISTORY: Coronary Artery Disease (CAD), Cancer, CVA/TIA, Hypertension, Erdheim-Migue disease PAST SURGICAL HISTORY: Heart Catheterization With Stent, Hernia Repair, biopsies of bone and kidney (negative) MEDICATIONS: See below ALLERGIES: See below SOCIAL HISTORY: No illicit drug use. REVIEW OF SYSTEMS: CONSTITUTIONAL: Denies fever or chills. HEENT: Denies blurred vision, vision changes, or eye pain. Denies hemoptysis CARDIOVASCULAR: Denies chest pain or pressure. RESPIRATORY: No shortness of breath. GASTROINTESTINAL: See HPI for pertinent findings HEMATOLOGIC: Denies bleeding disorders. GENITOURINARY: Denies any blood in urine or increased urinary frequency. SKIN: Denies pruitis. Denies rash. PHYSICAL EXAM: VITAL SIGNS: Reviewed GENERAL: Well-developed in no acute distress. HEENT: No sclera icterus. Extraocular movements grossly intact. Moist buccal mucosa. Head is atraumatic, normocephalic. No nasal drainage. ABDOMEN: Soft. Nondistended. Tenderness to palpation epigastric and right upper quadrant area NEUROLOGIC: Alert and oriented. Cranial nerves II through XII grossly intact. LABORATORY DATA: WBC 27.9 to 24.11 Hgb 14.9 platelets 461 Sodium 141 potassium is 5.2 creatinine 1.1 Lactic acid 2.4 down to 1.7 Total bilirubin 1.3 AST 27 ALT 37 alk phos 86 Lipase greater than 20,000 down to 1780 amylase 5004 and 73 down to 1149 IMAGING: CT scan abdomen and pelvis reports progression of extrinsic perinephric and retroperitoneal soft tissue stranding/fluid from prior CT on 06/02/2024. 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 Superimposed pancreatitis is not excluded. No organized fluid collections. Increasing size of hypodense 3.2 cm region within the left kidney which may represent a renal neoplasm versus infarct versus infectious process versus other. Slightly increased intrahepatic biliary duct dilatation which may be related to #1. Redemonstration of an enlarged left periaortic lymph node and surrounding subcentimeter lymph nodes which may be active to #1. Nonobstructive bilateral renal calculi. Cholelithiasis. Gallbladder ultrasound reports no evidence for acute process. Gallbladder upper limits of normal 9.6 cm ASSESSMENT: 1. Gallstone pancreatitis. Right upper quadrant and epigastric abdominal pain. 2. History of Erdheim-Seymour's disease PLAN: -Patient scheduled for laparoscopic cholecystectomy on Thursday with Dr. Childers -Advance diet to clear liquids -Continue IV fluids -Continue pain management -Continue antibiotics -Repeat labs in a.m. Physician Jailer/Training Officer note has been reviewed by physician. Signing provider agrees with the documented findings, assessment, and plan of care. Past Medical History Past Medical History: Coronary Artery Disease (CAD), Cancer, CVA/TIA, Hypertension Additional Past Medical History / Comment(s): erdheimchester's disease (rare blood cancer) History of Any Multi-Drug Resistant Organisms: None Reported Past Surgical History: Heart Catheterization With Stent, Hernia Repair Additional Past Surgical History / Comment(s): exp lap,. biopsies of bone and kidney (negative) Past Anesthesia/Blood Transfusion Reactions: No Reported Reaction Date of Last Stent Placement:: 2013 Past Psychological History: Anxiety, Depression Smoking Status: Never smoker Past Alcohol Use History: Rare Past Drug Use History: Marijuana - Past Family History Mother Family Medical History: Coronary Artery Disease (CAD) Father Additional Family Medical History / Comment(s): dies from AIDS in 1988 Medications and Allergies Home Medications Medication Instructions Recorded Confirmed Type Clopidogrel Bisulfate [Plavix] 75 mg PO DAILY 07/05/19 06/15/24 History Metoprolol Tartrate 25 mg PO BID 07/05/19 06/15/24 History Rosuvastatin Calcium [Crestor] 10 mg PO DAILY 07/05/19 06/15/24 History Tamsulosin HCl [Flomax] 0.4 mg PO DAILY 07/05/19 06/15/24 History lisinopriL [Prinivil] 5 mg PO DAILY 07/05/19 06/15/24 History Omeprazole 20 mg PO DAILY 12/30/21 06/15/24 History buPROPion XL [Wellbutrin XL] 150 mg PO DAILY 12/30/21 06/15/24 History Citalopram Hydrobromide [CeleXA] 20 mg PO DAILY 06/16/22 06/15/24 History Vemurafenib [Zelboraf] 960 mg PO BID 06/15/24 06/16/24 History Allergies Allergy/AdvReac Type Severity Reaction Status Date / Time No Known Allergies Allergy Verified 06/15/24 12:53 Surgical - Exam Vital Signs Temp Pulse Resp BP Pulse Ox 97.4 F L 69 20 184/108 100 06/15/24 08:51 06/15/24 08:51 06/15/24 08:51 06/15/24 08:51 06/15/24 08:51 Results - Labs 06/16/24 02:57 06/16/24 02:57 Abnormal Lab Results - Last 24 Hours (Table) 06/16/24 06/16/24 06/16/24 Range/Units 02:57 02:57 02:57 WBC 24.11 H (4.50-10.00) X 10*3/uL Plt Count 461 H (140-440) X 10*3/uL MPV 9.4 L (9.5-12.2) FL Immature Gran # 0.19 H (0.00-0.04) X 10*3/uL Neutrophils # 21.42 H (1.80-7.70) X 10*3/uL Lymphocytes # 0.83 L (0.90-5.00) X 10*3/uL Monocytes # 1.60 H (0.20-1.00) X 10*3/uL Eosinophils # 0.03 L (0.04-0.35) X 10*3/uL Chloride 110 H (96-109) mmol/L Total Bilirubin 1.3 H (0.3-1.2) mg/dL Total Protein 5.4 L (6.2-8.2) g/dL Albumin 3.5 L (3.8-4.9) g/dL Amylase 1149 H (23-121) U/L Lipase 1780 H (14-60) U/L Procalcitonin 1.49 H (0.02-0.50) ng/mL Diabetes panel 06/16/24 Range/Units 02:57 Sodium 141 (135-145) mmol/L Potassium 5.2 (3.5-5.5) mmol/L Chloride 110 H (96-109) mmol/L Carbon Dioxide 22.5 (21.6-31.8) mmol/L BUN 16.7 (9.0-27.0) mg/dL Creatinine 1.1 (0.6-1.5) mg/dL Glucose 95 (70-110) mg/dL Calcium 8.7 (8.7-10.3) mg/dL AST 27 (14-35) U/L ALT 37 (10-49) U/L Alkaline Phosphatase 86 (41-126) U/L Total Protein 5.4 L (6.2-8.2) g/dL Albumin 3.5 L (3.8-4.9) g/dL Calcium panel 06/16/24 Range/Units 02:57 Calcium 8.7 (8.7-10.3) mg/dL Albumin 3.5 L (3.8-4.9) g/dL Pituitary panel 06/16/24 Range/Units 02:57 Sodium 141 (135-145) mmol/L Potassium 5.2 (3.5-5.5) mmol/L Chloride 110 H (96-109) mmol/L Carbon Dioxide 22.5 (21.6-31.8) mmol/L BUN 16.7 (9.0-27.0) mg/dL Creatinine 1.1 (0.6-1.5) mg/dL Glucose 95 (70-110) mg/dL Calcium 8.7 (8.7-10.3) mg/dL Adrenal panel 06/16/24 Range/Units 02:57 Sodium 141 (135-145) mmol/L Potassium 5.2 (3.5-5.5) mmol/L Chloride 110 H (96-109) mmol/L Carbon Dioxide 22.5 (21.6-31.8) mmol/L BUN 16.7 (9.0-27.0) mg/dL Creatinine 1.1 (0.6-1.5) mg/dL Glucose 95 (70-110) mg/dL Calcium 8.7 (8.7-10.3) mg/dL Total Bilirubin 1.3 H (0.3-1.2) mg/dL AST 27 (14-35) U/L ALT 37 (10-49) U/L Alkaline Phosphatase 86 (41-126) U/L Total Protein 5.4 L (6.2-8.2) g/dL Albumin 3.5 L (3.8-4.9) g/dL
--- NOTE | 2024-06-16 14:03 | P.PN ---
Subjective Progress Note Date: 06/16/24 Principal diagnosis: Pancreatitis This a pleasant 64-year-old male with a past medical history of with Erdheim Migue's disease, COPD, coronary artery disease, CVA/TIA, anxiety and depression. Patient presented to the emergency department today with complaints of nausea vomiting and abdominal pain that started yesterday. He had a similar episode Thanks day and came into the emergency department. States that pain only lasted a few hours. He was sent home once pain was resolved. At that time he had no elevation in his LFTs or pancreatic enzymes. However they did think it could be secondary to his gallbladder. During this visit it was noted that he had elevated amylase and lipase. He had a CT of the abdomen pelvis as well as gallbladder ultrasound. CT shows fat stranding consistent with Erdheim- Migue's disease as well as possible superimposed pancreatitis, mildly dilated gallbladder with cholelithiasis. Gallbladder ultrasound reports normal gallblad rajni without any this gallstones. CBD 0.7 cm. Today's labs WBC 27.8, total bilirubin 1.0 AST 45 ALT 51 alkaline phosphatase 109, amylase 5473 and lipase greater than 20,000. 06/16/2024 Patient seen and examined today as a follow-up. He states abdominal pain has improved some. Of course he is on pain medication. No further nausea or vomiting. He remains with leukocytosis, LFTs are unremarkable, bilirubin 1.3 amylase 1149 down from 5473 lipase 1780 down from greater than 20,000 Objective - Vital Signs Vital signs: Vital Signs Temp 98.0 F 06/16/24 07:47 Pulse 77 06/16/24 07:47 Resp 16 06/16/24 07:47 BP 128/75 06/16/24 07:47 Pulse Ox 93 L 06/16/24 07:47 FiO2 Intake & Output 06/15/24 06/16/24 06/16/24 18:59 06:59 18:59 Weight 81.647 kg Other: # Voids 2 - Exam General appearance: The patient is alert, oriented, appears in no acute distress. HET: Head is normocephalic and atraumatic. Conjunctiva pink. Sclera anicteric. Neck: Supple without lymphadenopathy. Abdomen: Soft, right upper quadrant and epigastric tenderness, nondistended. Extremities: Normal skin color and turgor. No pedal edema Skin: No rashes, no jaundice Neurological: No focal deficits. Alert and oriented. - Labs CBC & Chem 7: 06/16/24 02:57 06/16/24 02:57 Labs: Abnormal Lab Results - Last 24 Hours (Table) 06/15/24 06/15/24 06/15/24 Range/Units 09:16 09:16 09:16 WBC 27.9 H (3.8-10.6) k/uL Plt Count 554 H D (150-450) k/uL MPV (9.5-12.2) FL Neutrophils # 24.2 H (1.3-7.7) k/uL Monocytes # 1.4 H (0-1.0) k/uL Chloride (96-109) mmol/L Glucose 114 H (74-99) mg/dL Plasma Lactic Acid Isaiah 2.4 H* (0.7-2.0) mmol/L Total Bilirubin (0.3-1.2) mg/dL ALT 51 H (4-49) U/L Total Protein (6.2-8.2) g/dL Albumin (3.8-4.9) g/dL Amylase 5473 H* (30-110) U/L Lipase >96541 H (23-300) U/L Procalcitonin (0.02-0.50) ng/mL 06/16/24 06/16/24 06/16/24 Range/Units 02:57 02:57 02:57 WBC 24.11 H (3.8-10.6) k/uL Plt Count 461 H (150-450) k/uL MPV 9.4 L (9.5-12.2) FL Neutrophils # (1.3-7.7) k/uL Monocytes # (0-1.0) k/uL Chloride 110 H (96-109) mmol/L Glucose (74-99) mg/dL Plasma Lactic Acid Isaiah (0.7-2.0) mmol/L Total Bilirubin 1.3 H (0.3-1.2) mg/dL ALT (4-49) U/L Total Protein 5.4 L (6.2-8.2) g/dL Albumin 3.5 L (3.8-4.9) g/dL Amylase 1149 H (30-110) U/L Lipase 1780 H (23-300) U/L Procalcitonin 1.49 H (0.02-0.50) ng/mL Assessment and Plan (1) Pancreatitis Narrative/Plan: 64-year-old male presenting with abdominal pain, nausea and vomiting with elevated amylase and lipase consistent with pancreatitis. No history of alcoholism. I will CT of the abdomen pelvis shows some fat stranding around pa ncreas could be secondary to patient's Erdheim Brea disease with superimposed pancreatitis. Gallbladder ultrasound without any evidence of gallstones. Pancreatitis is likely secondary to gallstones without any evidence of choledocholithiasis. Will continue to monitor, recommend surgical consult. Current Visit: Yes Status: Acute Code(s): K85.90 - ACUTE PANCREATITIS WITHOUT NECROSIS OR INFECTION, UNSP SNOMED Code(s): 01473438 (2) Abdominal pain Current Visit: Yes Status: Acute Code(s): R10.9 - UNSPECIFIED ABDOMINAL PAIN SNOMED Code(s): 27225517 (3) Erdheim-Migue disease Current Visit: Yes Status: Acute Code(s): E88.89 - OTHER SPECIFIED METABOLIC DISORDERS SNOMED Code(s): 794587143 (4) Leukocytosis Narrative/Plan: Continue antibiotics Current Visit: Yes Status: Acute Code(s): D72.829 - ELEVATED WHITE BLOOD CELL COUNT, UNSPECIFIED SNOMED Code(s): 325480341 Plan: 1. Continue symptomatic and supportive care 2. May advance to clear liquid diet 3. Antiemetics as needed 4. Protonix 40 mg daily for GI prophylaxis 5. Pain medication as needed 6. Repeat CBC, BMP, amylase and lipase tomorrow 7. General Surgery on consult, they plan on laparoscopic cholecystectomy on Thursday 8. Further recommendations forthcoming based on clinical course Thank you for this consultation, we will continue to follow. Dr. Steven Looney I agree with the dictator's note, documented as a scribe by Patricia Enciso. Patient
[2024-06-17] MEDS: ONDANSETRON 4 MG/2 ML VIAL IVP PRN (08:35)
[2024-06-17 08:39] LABS: Basophils # (A) 0.04 X 10*3/uL (0.00-0.10); Basophils % (A) 0.3 %; Eosinophils # (A) 0.22 X 10*3/uL (0.04-0.35); Eosinophils % (A) 1.5 %; HCT 37.6 % (39.6-50.0); HGB 12.2 g/dL (13.0-17.0); Lymphocytes # (A) 0.79 X 10*3/uL (0.90-5.00); Lymphocytes % (A) 5.3 %; MCH 30.8 pg (27.0-32.0); MCHC 32.4 g/dL (32.0-37.0); MCV 94.9 FL (80.0-97.0); Mean Platelet Volume 9.7 FL (9.5-12.2); Monocytes # (A) 1.11 X 10*3/uL (0.20-1.00); Monocytes % (A) 7.5 %; NRBC Per 100 WBC 0 X 10*3/uL (0.00-0.01); Neutrophils # (A) 12.53 X 10*3/uL (1.80-7.70); Neutrophils % (A) 84.9 %; Platelet Count 333 X 10*3/uL (140-440); RBC 3.96 X 10*6/uL (4.40-5.60); RDW 13.2 % (11.5-14.5); WBC 14.77 X 10*3/uL (4.50-10.00)
[2024-06-17 09:28] LABS: ALT 21 U/L (10-49); AST 18 U/L (14-35); Albumin/Globulin Ratio 1.76 Ratio (1.60-3.17); Alkaline Phosphatase 71 U/L (41-126); BUN/Creat Ratio 15.33 Ratio (12.00-20.00); Blood Urea Nitrogen 13.8 mg/dL (9.0-27.0); Carbon Dioxide 17.4 mmol/L (21.6-31.8); Chloride 109 mmol/L (96-109); Globulin 1.7 g/dL (1.6-3.3); Glucose 77 mg/dL (70-110); Lipase 409 U/L (14-60); Sodium 138 mmol/L (135-145); Total Bilirubin 1.1 mg/dL (0.3-1.2); Total Protein 4.7 g/dL (6.2-8.2)
--- NOTE | 2024-06-17 11:43 | P.PN ---
Subjective This is a pleasant 64 years old male with past medical history of multiple medical problems as per patient and at bedside he was recently treated for acute pancreatitis for about 2 to 3 weeks ago, he felt well and then he discharged home. However his symptoms recurrent over the last few days and he presents with worsening abdominal pain and nausea vomiting. He is afebrile. No fever no sick contact. Denies specific urinary complaint, no headache dizziness weakness numbness, no chest pain dyspnea. He states that his urine was dark. He had diarrhea today. He vomited today but there is no blood. Abdominal pain looks moderate and controlled now. He denies smoking alcohol or illicit drugs Vitals stable, afebrile. Labs showing significant leukocytosis of 27.9, rest of CBC, BMP, LFT, INR were unremarkable MAC is elevated 11/06/1970, lipase more than 20,000. CT of the abdomen and pelvis showing progression of extensive perinephric and Retroperitoneal soft tissue stranding [ Erdheim yahaira disease ] per radiologist and superimposed pancreatitis -Increased left renal 3.2 cm lesion suspicious for neoplasm versus infection. -Renal and gallbladder stones EKG showing sinus rhythm at 77 with frequent PVCs but no significant ST-T curry ges 06/16 Patient feels much better, he is sitting in chair, he tolerated Abdominal pain is better His plan for him to go to surgery on Thursday He says Plavix is taking for coronary artery disease and stent placed 12 years ago school. Keep holding Plavix, patient informed and he agrees 06/17 Patient still has epigastric abdominal pain today and extensive nausea. He has to bowel movements. However patient states his nausea medicine is working. Patient has low-grade fever yesterday. Leukocytosis improving down to 14.7. Patient wants to switch surgeons services. I discussed the case with Dr. Chester who kindly will come and see the patient today. Also will consult urology service for his kidney lesion Objective - Vital Signs Vital signs: Vital Signs Temp 97.5 F L 06/17/24 07:30 Pulse 80 06/17/24 07:30 Resp 16 06/17/24 07:30 BP 146/88 06/17/24 07:30 Pulse Ox 98 06/17/24 07:30 FiO2 Intake & Output 06/16/24 06/17/24 06/17/24 18:59 06:59 18:59 Intake Total 1760 Balance 1760 Intake: Intake, IV Titration 1760 Amount Piperacillin-Tazobactam 3 200 .375 gm In Sodium Chloride 0.9% 100 ml @ 25 mls/hr IVPB Q8HR [facility] Rx# :[id number] Sodium Chloride 0.9% 1, 1560 000 ml @ 130 mls/hr IV . Q7H42M [facility] Rx#:[id number] Other: # Voids 2 - Exam GENERAL: The patient is alert and oriented x3, not in any acute distress. Well developed, well nourished. HEENT: Pupils are round and equally reacting to light. EOMI. No scleral icterus. No conjunctival pallor. Normocephalic, atraumatic. No pharyngeal erythema. No thyromegaly. CARDIOVASCULAR: S1 and S2 present. No murmurs, rubs, or gallops. PULMONARY: Chest is clear to auscultation, no wheezing , no crackles. -ABDOMEN: Soft, periumbilical and epigastric tenderness (better) , nondistended, normoactive bowel sounds. No palpable organomegaly. MUSCULOSKELETAL: No joint swelling or deformity. EXTREMITIES: No cyanosis, clubbing, or pedal edema. NEUROLOGICAL: Gross neurological examination did not reveal any focal deficits. SKIN: No rashes. no petechiae. - Labs CBC & Chem 7: 06/17/24 04:21 06/17/24 04:21 Labs: Abnormal Lab Results - Last 24 Hours (Table) 06/17/24 06/17/24 Range/Units 04:21 04:21 WBC 14.77 H (4.50-10.00) X 10*3/uL RBC 3.96 L (4.40-5.60) X 10*6/uL Hgb 12.2 L (13.0-17.0) g/dL Hct 37.6 L (39.6-50.0) % Immature Gran # 0.08 H (0.00-0.04) X 10*3/uL Neutrophils # 12.53 H (1.80-7.70) X 10*3/uL Lymphocytes # 0.79 L (0.90-5.00) X 10*3/uL Monocytes # 1.11 H (0.20-1.00) X 10*3/uL Carbon Dioxide 17.4 L (21.6-31.8) mmol/L Calcium 8.0 L (8.7-10.3) mg/dL Total Protein 4.7 L (6.2-8.2) g/dL Albumin 3.0 L (3.8-4.9) g/dL Lipase 409 H (14-60) U/L Microbiology - Last 24 Hours (Table) 06/15/24 13:43 Blood Culture - Preliminary Blood Assessment and Plan Assessment: -Acute pancreatitis with CT of the abdomen and pelvis showing progression of extensive perinephric and Retroperitoneal soft tissue stranding [ Erdheim yahaira disease ] per radiologist and superimposed pancreatitis -Extensive leukocytosis secondary to above -Enlarging left kidney lesion 3.2 cm suspicious for neoplasm versus infection -Cholelithiasis -Kidney stone -Hypertension Plan: Continue with bowel rest, diet advanced to clear liquid Continue continue with IV hydration Plan for surgery on Thursday or as per surgery team. On pain medication Dilaudid and Toradol Surgery team consult, change service per patient request GI team consult consult urology for his left kidney lesion Continue with the blood pressure medication lisinopril, metoprolol. Add p.o. and IV hydralazine as needed Plavix is on hold Labs and medication were reviewed.. Continue same treatment. Continue with symptomatic treatment. Resume home medication. Monitor labs and vitals. DVT and GI prophylaxis. Further recommendations as per clinical course of the patient DVT prophylaxis: Subcutaneous heparin GI Prophylaxis: P Protonix Prognosis is guarded
--- NOTE | 2024-06-17 12:36 | P.PN ---
Subjective Progress Note Date: 06/17/24 Principal diagnosis: Pancreatitis This a pleasant 64-year-old male with a past medical history of with Erdheim Migue's disease, COPD, coronary artery disease, CVA/TIA, anxiety and depression. Patient presented to the emergency department today with complaints of nausea vomiting and abdominal pain that started yesterday. He had a similar episode Thanks day and came into the emergency department. States that pain only lasted a few hours. He was sent home once pain was resolved. At that time he had no elevation in his LFTs or pancreatic enzymes. However they did think it could be secondary to his gallbladder. During this visit it was noted that he had elevated amylase and lipase. He had a CT of the abdomen pelvis as well as gallbladder ultrasound. CT shows fat stranding consistent with Erdheim- Migue's disease as well as possible superimposed pancreatitis, mildly dilated gallbladder with cholelithiasis. Gallbladder ultrasound reports normal gallblad rajni without any this gallstones. CBD 0.7 cm. Today's labs WBC 27.8, total bilirubin 1.0 AST 45 ALT 51 alkaline phosphatase 109, amylase 5473 and lipase greater than 20,000. 06/16/2024 Patient seen and examined today as a follow-up. He states abdominal pain has improved some. Of course he is on pain medication. No further nausea or vomiting. He remains with leukocytosis, LFTs are unremarkable, bilirubin 1.3 amylase 1149 down from 5473 lipase 1780 down from greater than 20,000 1324 Patient seen and examined today as a follow-up. Abdominal pain continues to improve. No nausea or vomiting. He has been tolerating a clear liquid diet. He has been afebrile. Patient is asking for a general surgeon second opinion. Patient is waiting second surgical consult recommendations. Leukocytosis improving. Total bilirubin 1.1 AST 18 ALT 21 alkaline phosphatase 71 lipase 409 Objective - Vital Signs Vital signs: Vital Signs Temp 99.3 F 06/17/24 01:50 Pulse 76 06/17/24 01:50 Resp 16 06/17/24 01:50 BP 117/63 06/17/24 01:50 Pulse Ox 92 L 06/17/24 01:50 FiO2 Intake & Output 06/16/24 06/16/24 06/17/24 06:59 18:59 06:59 Intake Total 1760 Balance 1760 Intake: Intake, IV Titration 1760 Amount Piperacillin-Tazobactam 3 200 .375 gm In Sodium Chloride 0.9% 100 ml @ 25 mls/hr IVPB Q8HR [facility] Rx# :[id number] Sodium Chloride 0.9% 1, 1560 000 ml @ 130 mls/hr IV . Q7H42M [facility] Rx#:[id number] Other: # Voids 2 2 - Exam General appearance: The patient is alert, oriented, appears in no acute distress. HET: Head is normocephalic and atraumatic. Conjunctiva pink. Sclera anicteric. Neck: Supple without lymphadenopathy. Abdomen: Soft, right upper quadrant and epigastric tenderness, nondistended. Extremities: Normal skin color and turgor. No pedal edema Skin: No rashes, no jaundice Neurological: No focal deficits. Alert and oriented. - Labs CBC & Chem 7: 06/17/24 04:21 06/17/24 04:21 Labs: Abnormal Lab Results - Last 24 Hours (Table) 06/16/24 06/16/24 06/16/24 Range/Units 02:57 02:57 02:57 WBC 24.11 H (4.50-10.00) X 10*3/uL Plt Count 461 H (140-440) X 10*3/uL MPV 9.4 L (9.5-12.2) FL Immature Gran # 0.19 H (0.00-0.04) X 10*3/uL Neutrophils # 21.42 H (1.80-7.70) X 10*3/uL Lymphocytes # 0.83 L (0.90-5.00) X 10*3/uL Monocytes # 1.60 H (0.20-1.00) X 10*3/uL Eosinophils # 0.03 L (0.04-0.35) X 10*3/uL Chloride 110 H (96-109) mmol/L Total Bilirubin 1.3 H (0.3-1.2) mg/dL Total Protein 5.4 L (6.2-8.2) g/dL Albumin 3.5 L (3.8-4.9) g/dL Amylase 1149 H (23-121) U/L Lipase 1780 H (14-60) U/L Procalcitonin 1.49 H (0.02-0.50) ng/mL Microbiology - Last 24 Hours (Table) 06/15/24 13:43 Blood Culture - Preliminary Blood Assessment and Plan (1) Pancreatitis Narrative/Plan: 64-year-old male presenting with abdominal pain, nausea and vomiting with elevated amylase and lipase consistent with pancreatitis. No history of alcoholism. I will CT of the abdomen pelvis shows some fat stranding around pancreas could be secondary to patient's Erdheim Migue disease with superimposed pancreatitis. Gallbladder ultrasound without any evidence of gallstones. Pancreatitis is likely secondary to gallstones without any evidence of choledocholithiasis. Will continue to monitor, recommend surgical consult. Current Visit: Yes Status: Acute Code(s): K85.90 - ACUTE PANCREATITIS WITHOUT NECROSIS OR INFECTION, UNSP SNOMED Code(s): 34395909 (2) Abdominal pain Current Visit: Yes Status: Acute Code(s): R10.9 - UNSPECIFIED ABDOMINAL PAIN SNOMED Code(s): 45795707 (3) Erdheim-Beaver disease Current Visit: Yes Status: Acute Code(s): E88.89 - OTHER SPECIFIED METABOLIC DISORDERS SNOMED Code(s): 921973771 (4) Leukocytosis Narrative/Plan: Continue antibiotics Current Visit: Yes Status: Acute Code(s): D72.829 - ELEVATED WHITE BLOOD CELL COUNT, UNSPECIFIED SNOMED Code(s): 806293601 Plan: 1. Continue symptomatic and supportive care 2. Diet per recommendations from general surgery 3. Antiemetics as needed 4. Protonix 40 mg daily for GI prophylaxis 5. Pain medication as needed 6. General Surgery on consult, they plan on laparoscopic cholecystectomy on Thursday Thank you for allowing us to participate in the care of the patient, the GI service will sign off. . Dr. Steven Looney I agree with the dictator's note, documented as a scribe by Patricia Enciso. Patient
--- NOTE | 2024-06-17 13:26 | P.GSCN ---
History of Present Illness Consult date: 06/17/24 History of present illness: Patient seen and examined with Dr. Patel CHIEF COMPLAINT: Abdominal pain HISTORY OF PRESENT ILLNESS: This is a 64-year-old male who presented with complaints of epigastric pain and right upper quadrant abdominal pain that started 2 days ago. Patient reports the pain was very severe. Pain did occur after eating pizza. Patient did have several episodes of vomiting and diarrhea. Patient had a CAT scan abdomen pelvis completed that reported progression of extensive perinephric and retroperitoneal soft tissue stranding/fluid from prior CAT scan in May. 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 Superimposed pancreatitis is not excluded. Cholelithiasis present. Patient reports having a similar episode about a month ago that resolved on its own. Patient has elevated lipase and white count. Denies any alcohol use. Abdominal surgery history includes a inguinal hernia repair. Patient reports that he has been off of his Plavix for over 5 days. Patient does report being on a chemo medication for his Erdheim-Hampden disease. He follows with a specialist out of [place]. Patient had more nausea and vomiting this morning. After being restarted on his medications the nausea has improved. His lipase is trending downwards. PAST MEDICAL HISTORY: Coronary Artery Disease (CAD), Cancer, CVA/TIA, Hypertension, Erdheim-Migue disease PAST SURGICAL HISTORY: Heart Catheterization With Stent, Hernia Repair, biopsies of bone and kidney (negative) MEDICATIONS: See below ALLERGIES: See below SOCIAL HISTORY: No illicit drug use. REVIEW OF SYSTEMS: CONSTITUTIONAL: Denies fever or chills. HEENT: Denies blurred vision, vision changes, or eye pain. Denies hemoptysis CARDIOVASCULAR: Denies chest pain or pressure. RESPIRATORY: No shortness of breath. GASTROINTESTINAL: See HPI for pertinent findings HEMATOLOGIC: Denies bleeding disorders. GENITOURINARY: Denies any blood in urine or increased urinary frequency. SKIN: Denies pruitis. Denies rash. PHYSICAL EXAM: VITAL SIGNS: Reviewed GENERAL: Well-developed in no acute distress. HEENT: No sclera icterus. Extraocular movements grossly intact. Moist buccal mucosa. Head is atraumatic, normocephalic. No nasal drainage. ABDOMEN: Soft. Nondistended. Tenderness palpation epigastric and right upper quadrant NEUROLOGIC: Alert and oriented. Cranial nerves II through XII grossly intact. LABORATORY DATA: WBC 27 on admission down to 14.7 Hgb 12.2 platelets 333 Sodium 138 potassium 4.0 creatinine 0.9 Lipase greater than 20,000 on admission down to 1780 now 409 Amylase 5473 down to 1149 IMAGING: CT scan abdomen and pelvis reports progression of extrinsic perinephric and retroperitoneal soft tissue stranding/fluid from prior CT on 06/02/2024. 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 Superimposed pa ncreatitis is not excluded. No organized fluid collections. Increasing size of hypodense 3.2 cm region within the left kidney which may represent a renal neoplasm versus infarct versus infectious process versus other. Slightly increased intrahepatic biliary duct dilatation which may be related to #1. Redemonstration of an enlarged left periaortic lymph node and surrounding subcentimeter lymph nodes which may be active to #1. Nonobstructive bilateral renal calculi. Cholelithiasis. Gallbladder ultrasound reports no evidence for acute process. Gallbladder upper limits of normal 9.6 cm ASSESSMENT: 1. Gallstone pancreatitis 2. History of Erdheim-Hampden's disease PLAN: -Advance diet to full liquids -Continue antibiotics -Continue antiemetics and pain medication as needed -Continue IV fluids -Further recommendations forthcoming per surgeon regarding surgical intervention Physician Major Assembly Lineman note has been reviewed by physician. Signing provider agrees with the documented findings, assessment, and plan of care. Past Medical History Past Medical History: Coronary Artery Disease (CAD), Cancer, CVA/TIA, Hypertension Additional Past Medical History / Comment(s): erdheimchester's disease (rare blood cancer) History of Any Multi-Drug Resistant Organisms: None Reported Past Surgical History: Heart Catheterization With Stent, Hernia Repair Additional Past Surgical History / Comment(s): exp lap,. biopsies of bone and kidney (negative) Past Anesthesia/Blood Transfusion Reactions: No Reported Reaction Date of Last Stent Placement:: 2013 Past Psychological History: Anxiety, Depression Smoking Status: Never smoker Past Alcohol Use History: Rare Past Drug Use History: Marijuana - Past Family History Mother Family Medical History: Coronary Artery Disease (CAD) Father Additional Family Medical History / Comment(s): dies from AIDS in 1988 Medications and Allergies Home Medications Medication Instructions Recorded Confirmed Type Clopidogrel Bisulfate [Plavix] 75 mg PO DAILY 07/05/19 06/15/24 History Metoprolol Tartrate 25 mg PO BID 07/05/19 06/15/24 History Rosuvastatin Calcium [Crestor] 10 mg PO DAILY 07/05/19 06/15/24 History Tamsulosin HCl [Flomax] 0.4 mg PO DAILY 07/05/19 06/15/24 History lisinopriL [Prinivil] 5 mg PO DAILY 07/05/19 06/15/24 History Omeprazole 20 mg PO DAILY 12/30/21 06/15/24 History buPROPion XL [Wellbutrin XL] 150 mg PO DAILY 12/30/21 06/15/24 History Citalopram Hydrobromide [CeleXA] 20 mg PO DAILY 06/16/22 06/15/24 History Vemurafenib [Zelboraf] 960 mg PO BID 06/15/24 06/16/24 History Allergies Allergy/AdvReac Type Severity Reaction Status Date / Time No Known Allergies Allergy Verified 06/15/24 12:53 Surgical - Exam Osteopathic Statement: *. No significant issues noted on an osteopathic structural exam other than those noted in the History and Physical/Consult. Vital Signs Temp Pulse Resp BP Pulse Ox 97.4 F L 69 20 184/108 100 06/15/24 08:51 06/15/24 08:51 06/15/24 08:51 06/15/24 08:51 06/15/24 08:51 Results - Labs 06/17/24 04:21 06/17/24 04:21 Abnormal Lab Results - Last 24 Hours (Table) 06/17/24 06/17/24 Range/Units 04:21 04:21 WBC 14.77 H (4.50-10.00) X 10*3/uL RBC 3.96 L (4.40-5.60) X 10*6/uL Hgb 12.2 L (13.0-17.0) g/dL Hct 37.6 L (39.6-50.0) % Immature Gran # 0.08 H (0.00-0.04) X 10*3/uL Neutrophils # 12.53 H (1.80-7.70) X 10*3/uL Lymphocytes # 0.79 L (0.90-5.00) X 10*3/uL Monocytes # 1.11 H (0.20-1.00) X 10*3/uL Carbon Dioxide 17.4 L (21.6-31.8) mmol/L Calcium 8.0 L (8.7-10.3) mg/dL Total Protein 4.7 L (6.2-8.2) g/dL Albumin 3.0 L (3.8-4.9) g/dL Lipase 409 H (14-60) U/L Microbiology - Last 24 Hours (Table) 06/15/24 13:43 Blood Culture - Preliminary Blood Diabetes panel 06/17/24 Range/Units 04:21 Sodium 138 (135-145) mmol/L Potassium 4.0 (3.5-5.5) mmol/L Chloride 109 (96-109) mmol/L Carbon Dioxide 17.4 L (21.6-31.8) mmol/L BUN 13.8 (9.0-27.0) mg/dL Creatinine 0.9 (0.6-1.5) mg/dL Glucose 77 (70-110) mg/dL Calcium 8.0 L (8.7-10.3) mg/dL AST 18 (14-35) U/L ALT 21 (10-49) U/L Alkaline Phosphatase 71 (41-126) U/L Total Protein 4.7 L (6.2-8.2) g/dL Albumin 3.0 L (3.8-4.9) g/dL Calcium panel 06/17/24 Range/Units 04:21 Calcium 8.0 L (8.7-10.3) mg/dL Albumin 3.0 L (3.8-4.9) g/dL Pituitary panel 06/17/24 Range/Units 04:21 Sodium 138 (135-145) mmol/L Potassium 4.0 (3.5-5.5) mmol/L Chloride 109 (96-109) mmol/L Carbon Dioxide 17.4 L (21.6-31.8) mmol/L BUN 13.8 (9.0-27.0) mg/dL Creatinine 0.9 (0.6-1.5) mg/dL Glucose 77 (70-110) mg/dL Calcium 8.0 L (8.7-10.3) mg/dL Adrenal panel 06/17/24 Range/Units 04:21 Sodium 138 (135-145) mmol/L Potassium 4.0 (3.5-5.5) mmol/L Chloride 109 (96-109) mmol/L Carbon Dioxide 17.4 L (21.6-31.8) mmol/L BUN 13.8 (9.0-27.0) mg/dL Creatinine 0.9 (0.6-1.5) mg/dL Glucose 77 (70-110) mg/dL Calcium 8.0 L (8.7-10.3) mg/dL Total Bilirubin 1.1 (0.3-1.2) mg/dL AST 18 (14-35) U/L ALT 21 (10-49) U/L Alkaline Phosphatase 71 (41-126) U/L Total Protein 4.7 L (6.2-8.2) g/dL Albumin 3.0 L (3.8-4.9) g/dL Assessment and Plan Assessment: 64 yo male w/ gallstone pancreatitis, pt still having abdominal pain. full liquid diet for now. NPO after midnight. Time with Patient: Less than 30
--- NOTE | 2024-06-17 17:39 | P.GSCN ---
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 Admitted to the hospital with pancreatitis. Urology is consulted for incidental finding of a 3.2 cm renal lesion. He underwent a CT abdomen pelvis on presentation which showed bilateral renal stranding which has been present on previous CTs and is consistent with his disease. But in addition there is also a 3.2 renal lesion along the right kidney that was not clearly present on prior imaging, read by the radiologist as a possible focal abscess versus a mass. He denies any flank pain, gross hematuria or dysuria. No previous renal surgeries. Patient did have evidence of leukocytosis on presentation which has been resolving, he is afebrile currently. He indicated he undergoes a PET scan every 6-month to evaluate his disease. He does have a follow-up coming up with his medical oncologist Review of Systems - Constitutional Denies fever, Denies weight loss - EENT Ears, nose, mouth and throat: Denies dysphagia - Cardiovascular Denies chest pain, Denies shortness of breath - Respiratory Denies cough, Denies 7 - Gastrointestinal Reports abdominal pain, Denies nausea, Denies vomiting - Integumentary Reports as per HPI - Neurological Denies headaches, Denies syncope Past Medical History Past Medical History: Coronary Artery Disease (CAD), Cancer, CVA/TIA, Hypertensi on Additional Past Medical History / Comment(s): erdheimchester's disease (rare blood cancer) History of Any Multi-Drug Resistant Organisms: None Reported Past Surgical History: Heart Catheterization With Stent, Hernia Repair Additional Past Surgical History / Comment(s): exp lap,. biopsies of bone and kidney (negative) Past Anesthesia/Blood Transfusion Reactions: No Reported Reaction Date of Last Stent Placement:: 2013 Past Psychological History: Anxiety, Depression Smoking Status: Never smoker Past Alcohol Use History: Rare Past Drug Use History: Marijuana - Past Family History Mother Family Medical History: Coronary Artery Disease (CAD) Father Additional Family Medical History / Comment(s): dies from AIDS in 1988 Medications and Allergies Home Medications Medication Instructions Recorded Confirmed Type Clopidogrel Bisulfate [Plavix] 75 mg PO DAILY 07/05/19 06/15/24 History Metoprolol Tartrate 25 mg PO BID 07/05/19 06/15/24 History Rosuvastatin Calcium [Crestor] 10 mg PO DAILY 07/05/19 06/15/24 History Tamsulosin HCl [Flomax] 0.4 mg PO DAILY 07/05/19 06/15/24 History lisinopriL [Prinivil] 5 mg PO DAILY 07/05/19 06/15/24 History Omeprazole 20 mg PO DAILY 12/30/21 06/15/24 History buPROPion XL [Wellbutrin XL] 150 mg PO DAILY 12/30/21 06/15/24 History Citalopram Hydrobromide [CeleXA] 20 mg PO DAILY 06/16/22 06/15/24 History Vemurafenib [Zelboraf] 960 mg PO BID 06/15/24 06/16/24 History Allergies Allergy/AdvReac Type Severity Reaction Status Date / Time No Known Allergies Allergy Verified 06/15/24 12:53 Surgical - Exam Vital Signs Temp Pulse Resp BP Pulse Ox 97.4 F L 69 20 184/108 100 06/15/24 08:51 06/15/24 08:51 06/15/24 08:51 06/15/24 08:51 06/15/24 08:51 - General no distress, no pain - Eyes normal ocular movement, no pale - ENT normal nares, normal mucosa - Respiratory normal expansion, normal respiratory effort - Abdomen No CVA tenderness Abdomen: soft - Psychiatric oriented to time, oriented to person, oriented to place Results - Labs 06/17/24 04:21 06/17/24 04:21 Abnormal Lab Results - Last 24 Hours (Table) 06/17/24 06/17/24 Range/Units 04:21 04:21 WBC 14.77 H (4.50-10.00) X 10*3/uL RBC 3.96 L (4.40-5.60) X 10*6/uL Hgb 12.2 L (13.0-17.0) g/dL Hct 37.6 L (39.6-50.0) % Immature Gran # 0.08 H (0.00-0.04) X 10*3/uL Neutrophils # 12.53 H (1.80-7.70) X 10*3/uL Lymphocytes # 0.79 L (0.90-5.00) X 10*3/uL Monocytes # 1.11 H (0.20-1.00) X 10*3/uL Carbon Dioxide 17.4 L (21.6-31.8) mmol/L Calcium 8.0 L (8.7-10.3) mg/dL Total Protein 4.7 L (6.2-8.2) g/dL Albumin 3.0 L (3.8-4.9) g/dL Lipase 409 H (14-60) U/L Microbiology - Last 24 Hours (Table) 06/15/24 13:43 Blood Culture - Preliminary Blood Diabetes panel 06/17/24 Range/Units 04:21 Sodium 138 (135-145) mmol/L Potassium 4.0 (3.5-5.5) mmol/L Chloride 109 (96-109) mmol/L Carbon Dioxide 17.4 L (21.6-31.8) mmol/L BUN 13.8 (9.0-27.0) mg/dL Creatinine 0.9 (0.6-1.5) mg/dL Glucose 77 (70-110) mg/dL Calcium 8.0 L (8.7-10.3) mg/dL AST 18 (14-35) U/L ALT 21 (10-49) U/L Alkaline Phosphatase 71 (41-126) U/L Total Protein 4.7 L (6.2-8.2) g/dL Albumin 3.0 L (3.8-4.9) g/dL Calcium panel 06/17/24 Range/Units 04:21 Calcium 8.0 L (8.7-10.3) mg/dL Albumin 3.0 L (3.8-4.9) g/dL Pituitary panel 06/17/24 Range/Units 04:21 Sodium 138 (135-145) mmol/L Potassium 4.0 (3.5-5.5) mmol/L Chloride 109 (96-109) mmol/L Carbon Dioxide 17.4 L (21.6-31.8) mmol/L BUN 13.8 (9.0-27.0) mg/dL Creatinine 0.9 (0.6-1.5) mg/dL Glucose 77 (70-110) mg/dL Calcium 8.0 L (8.7-10.3) mg/dL Adrenal panel 06/17/24 Range/Units 04:21 Sodium 138 (135-145) mmol/L Potassium 4.0 (3.5-5.5) mmol/L Chloride 109 (96-109) mmol/L Carbon Dioxide 17.4 L (21.6-31.8) mmol/L BUN 13.8 (9.0-27.0) mg/dL Creatinine 0.9 (0.6-1.5) mg/dL Glucose 77 (70-110) mg/dL Calcium 8.0 L (8.7-10.3) mg/dL Total Bilirubin 1.1 (0.3-1.2) mg/dL AST 18 (14-35) U/L ALT 21 (10-49) U/L Alkaline Phosphatase 71 (41-126) U/L Total Protein 4.7 L (6.2-8.2) g/dL Albumin 3.0 L (3.8-4.9) g/dL Assessment and Plan Assessment: 64-year-old male with history Erdheim-[place] disease, trending around his kidneys consistent with a disease, but the focal area seen on CT unlikely to be related to his disease but cannot be completely excluded. At this time discussed with him he is asymptomatic from it and he is currently on antibiotics which I recommend continuing. Discussed is difficult to assess whether this is a focal abscess versus a renal mass, did discuss with him he will need continued surveillance of this lesion. Given lack of symptoms and fever it is unlikely to be a renal abscess -Advised him to follow back up with us as an outpatient, we will obtain a repeat CT. -Recommending continuing antibiotics for 2 weeks, he can be discharged on p.o. antibiotics, can be discharged on cephalosporins -Advised him to follow-up with his medical oncologist once he is discharged
[2024-06-17] MEDS: VEMURAFENIB 240 MG PO SCH (21:41)
--- NOTE | 2024-06-18 12:55 | MR ---
EXAMINATION TYPE: MR MRCP DATE OF EXAM: 06/18/2024 12:38 PM COMPARISON: 06/15/2024. CLINICAL INDICATION: Male, 64 years old with history of gallstone pancreatitis with retroperitoneal f at ; [facility], gallstone pancreatitis with retroperitoneal fat stranding with erdheim disease TECHNIQUE: Multi planar, T2-weighted imaging with and without fat saturation and chemical shift imag ing was performed of the abdomen. Then, heavily T2 weighted imaging (half-Fourier acquisition single- shot turbo spin-echo) was utilized in order to study the biliary system. Maximum intensity projectio n images were reconstructed from the original data of the biliary tree. 3D images were created on a [employer]urt work station. No Gadolinium given. FINDINGS: Lower Thorax: Trace bilateral pleural effusions with associated atelectasis. MRCP: * The intrahepatic ducts have a normal appearance. * The extrahepatic ducts have a normal appearance. * The common hepatic duct measures 6 mm in size. * The common bile duct at the level of the pancreatic head measures 5 mm in size. * The pancreatic duct is normal. * The gallbladder demonstrates some layering gallstones. The wall is prominent in size. Abdomen: Liver: No evidence for hepatic steatosis or cirrhosis. Pancreas: Fat stranding changes in the upper abdomen around the pancreas. No ductal dilation. No evid ence for solid mass. Spleen: Normal for size. Adrenal glands: Unremarkable. Kidneys: Lesion involving the medial aspect of the right kidneys is indeterminate without IV contrast . Measuring up to 24 mm. Extensive Fat stranding changes around the kidneys, right greater than left. No evidence for obstructive uropathy. Stomach and Bowel: No evidence for bowel wall thickening or evidence for obstruction. Retroperitoneum/Peritoneum: No evidence of pneumoperitoneum or free fluid. Vasculature: No aortic aneurysm. Musculoskeletal: The osseous structures appear intact. Lymph Nodes: No gross evidence for lymphadenopathy. Prominent lymph nodes along the aorta as seen on prior CT. Not significantly changed. Abdominal wall: Unremarkable. IMPRESSION: 1. Extensive fat stranding in the upper abdomen appears to be centered around the pancreas, findings could be guest services representative of pancreatitis alternatively pancreatic involvement of Erdheim [place] dise ase could be considered. Logy him visualized is no talus on the right and visualized. No neural 2. The pancreatic duct and common bile duct appear without evidence for obstructing stone. No eviden ce to suggest ductal stricture, choledocholithiasis, or biliary ductal dilatation. 3. Indeterminate medial left renal lesion. Increasing size of hypodense 3.2 cm region within the lef t kidney which may represent a renal neoplasm versus infarct versus infectious process versus other. Consider multiphase -renal mass protocol. 4. Redemonstration of an enlarged left periaortic lymph node and surrounding subcentimeter lymph nod es which are likely reactive to #1. 5. 5. Nonobstructive bilateral renal calculi better appreciated on CT. 6. Prominence of the gallbladder wall with Cholelithiasis correlate present and symptoms of cholecyst itis. [facility], , 06/18/2024 12:52 PM
--- NOTE | 2024-06-18 14:02 | P.PN ---
Subjective Progress Note Date: 06/18/24 64 years old male with past medical history of multiple medical problems as per patient and at bedside he was recently treated for acute pancreatitis for about 2 to 3 weeks ago, he felt well and then he discharged home. However his symptoms recurrent over the last few days and he presents with worsening abdominal pain and nausea vomiting. He is afebrile. No fever no sick contact. Denies specific urinary complaint, no headache dizziness weakness numbness, no chest pain dyspnea. He states that his urine was dark. He had diarrhea today. He vomited today but there is no blood. Abdominal pain looks moderate and controlled now. He denies smoking alcohol or illicit drugs Vitals stable, afebrile. Labs showing significant leukocytosis of 27.9, rest of CBC, BMP, LFT, INR were unremarkable MAC is elevated 11/06/1970, lipase more than 20,000. CT of the abdomen and pelvis showing progression of extensive perinephric and Retroperitoneal soft tissue stranding [ Erdheim yahaira disease ] per radio logist and superimposed pancreatitis -Increased left renal 3.2 cm lesion suspicious for neoplasm versus infection. -Renal and gallbladder stones EKG showing sinus rhythm at 77 with frequent PVCs but no significant ST-T changes 06/16 Patient feels much better, he is sitting in chair, he tolerated Abdominal pain is better His plan for him to go to surgery on Thursday He says Plavix is taking for coronary artery disease and stent placed 12 years ago school. Keep holding Plavix, patient informed and he agrees 06/17 Patient still has epigastric abdominal pain today and extensive nausea. He has to bowel movements. However patient states his nausea medicine is working. Patient has low-grade fever yesterday. Leukocytosis improving down to 14.7. Patient wants to switch surgeons services. I discussed the case with Dr. Chester who kindly will come and see the patient today. Also will consult urology service for his kidney lesion 06/18: patient seen and evaluated at bedside , completed MRCP, Does c/p Nausea and abdominal pain EXAM GENERAL: The patient is alert and oriented x3, not in any acute distress. Well developed, well nourished. HEENT: Pupils are round and equally reacting to light. EOMI. Normocephalic, atraumatic. CARDIOVASCULAR: S1 and S2 present. No murmurs, rubs, or gallops. PULMONARY: Chest is clear to auscultation, no wheezing , no crackles. ABDOMEN: Soft, epigastric tenderness, nondistended, normoactive bowel sounds. MUSCULOSKELETAL: No joint swelling or deformity. EXTREMITIES: No cyanosis, clubbing, or pedal edema. NEUROLOGICAL: Gross neurological examination did not reveal any focal deficits. SKIN: No rashes. no petechiae. CT scan abdomen and pelvis reports progression of extrinsic perinephric and retroperitoneal soft tissue stranding/fluid from prior CT on 06/02/2024. Findings are consistent with reported [place]heim[place] disease. Superimposed pancreatitis is not excluded. No organized fluid collections. Increasing size of hypodense 3.2 cm region within the left kidney which may represent a renal neoplasm versus infarct versus infectious process versus other. Slightly increa sed intrahepatic biliary duct dilatation which may be related to #1. Redemonstration of an enlarged left periaortic lymph node and surrounding subcentimeter lymph nodes which may be active to #1. Nonobstructive bilateral renal calculi. Cholelithiasis. Gallbladder ultrasound reports no evidence for acute process. Gallbladder upper limits of normal 9.6 cm Assessment and Plan * Acute pancreatitis * history Erdheim-Yahaira disease * sepsis secondary to pancreatitis * Enlarging left kidney lesion 3.2 cm suspicious for neoplasm versus infection * Cholelithiasis leading to pancreatitis * Hypertension * coronary artery disease history of PCI * history of DVT * history of CVA Plan: * in regards to pancreatitis CT abdomen pelvis reviewed, MRCP ordered continue patient on IV Zosyn, patient on fluid resuscitation, on full liquid diet * General Surgery team on consult, GI team consulted * in regards to renal lesion urology consulted recommend outpatient follow-up and continue antibiotic * in regards to sepsis, blood cultures collected no growth noted, infectious is consulted continue Zosyn * in regards to history of hypertension continue hydralazine, hold lisinopril, * Plavix is on hold in anticipation of surgical intervention * Labs and medication were reviewed. * DVT prophylaxis: Subcutaneous heparin * GI Prophylaxis: P Protonix Objective - Vital Signs Vital signs: Vital Signs Temp 98.8 F 06/18/24 07:14 Pulse 69 06/18/24 07:14 Resp 17 06/18/24 07:14 BP 179/87 06/18/24 07:14 Pulse Ox 95 06/18/24 07:14 FiO2 Intake & Output 06/17/24 06/18/24 06/18/24 18:59 06:59 18:59 Other: # Voids 2 - Labs CBC & Chem 7: 06/17/24 04:21 06/17/24 04:21 Labs: Microbiology - Last 24 Hours (Table) 06/15/24 13:43 Blood Culture - Preliminary Blood
--- NOTE | 2024-06-18 16:59 | P.PN ---
Subjective Patient seen and evaluated at bedside. Patent doing well, admits to minimal abdominal pain denies nausea, vomiting, fevers, or chills. Objective - Vital Signs Vital signs: Vital Signs Temp 97.5 F L 06/18/24 14:33 Pulse 73 06/18/24 14:33 Resp 17 06/18/24 14:33 BP 149/67 06/18/24 14:33 Pulse Ox 95 06/18/24 14:33 FiO2 Intake & Output 06/17/24 06/18/24 06/18/24 18:59 06:59 18:59 Intake Total 1140 Balance 1140 Intake: Intake, IV Titration 1140 Amount Piperacillin-Tazobactam 3 100 .375 gm In Sodium Chloride 0.9% 100 ml @ 25 mls/hr IVPB Q8HR [facility] Rx# :[id number] Sodium Chloride 0.9% 1, 1040 000 ml @ 130 mls/hr IV . Q7H42M [facility] Rx#:[id number] Other: # Voids 2 - Exam gen: nac cv: rrr pul: Non labored breathing abd: soft, min distention, mild tenderness, no guarding or rebound tenderness - Labs CBC & Chem 7: 06/17/24 04:21 06/17/24 04:21 Labs: Microbiology - Last 24 Hours (Table) 06/15/24 13:43 Blood Culture - Preliminary Blood Assessment and Plan Assessment: 64 yo male w/ gallstone pancreatitis 0k for full liquid diet mrcp reviewed, no choledocho or malignancy observed, will take to the OR tomorrow for robotic gilda npo after midnight Time with Patient: Less than 30
[2024-06-19] MEDS: IV FLUID CONTINUATION 1,000 ML IV ONE ×2 (09:15→12:07)
--- NOTE | 2024-06-19 09:19 | P.CONS ---
History of Present Illness - Reason for Consult Consult date: 06/18/24 Sepsis secondary to pancreatitis Requesting physician: Moshe Frausto - Chief Complaint Abdominal pain and vomiting x few days - History of Present Illness Patient is a 64-year-old male with a past medical history significant for CVA TIA hypertension coronary artery disease and erdheimchester's disease, patient presented to hospital 4 days ago for evaluation of abdominal pain nausea and vomiting the patient been started around 3 AM and has been mostly epigastric area patient apparently was evaluated in the ER about 3 weeks ago for similar issues patient was describing the pain to be mostly sharp moderate to severe intensity without any radiation this is a nausea and vomiting patient presented to the hospital was afebrile but he did have 1 low-grade fever of 99.9 on 06/16/2024 and the patient has been afebrile since then patient was not tachycardic hypotensive or hypoxic patient did have a white count of 27.9 on admission last white count is 14.7 patient did have normal kidney function electrolytes are normal did have elevated lactic acid on admission liver enzymes are normal except ALT was 51 on admission that has subsequent normalized patient did have elevated amylase and lipase procalcitonin check on 1211 was 1.49 UA has been negative patient did have abdominal pelvis CT progression of extensive perinephric and retroperitoneal soft tissue stranding findings are consistent with reported erdheim yahaira's disease, superimposed pancreatitis not excluded there was concern also for a renal neoplasm versus infarct versus infectious etiology and large left para-aortic lymph node and cholelithiasis patient gallbladder ultrasound no evidence for acute process patient has been treated with Zosyn infectious disease was consulted today concerning for possible sepsis related to pancreatitis patient did have MRCP completed this morning results are pending patient mention oral pain has decreased in intensity some nausea but no further vomiting Review of Systems Positive point and negatives has been mentioned in the HPI, complete review of systems was performed and all other systems are negative Past Medical History Past Medical History: Coronary Artery Disease (CAD), Cancer, CVA/TIA, Hypertension Additional Past Medical History / Comment(s): erdheimchester's disease (rare blood cancer) History of Any Multi-Drug Resistant Organisms: None Reported Past Surgical History: Heart Catheterization With Stent, Hernia Repair Additional Past Surgical History / Comment(s): exp lap,. biopsies of bone and kidney (negative) Past Anesthesia/Blood Transfusion Reactions: No Reported Reaction Date of Last Stent Placement:: 2013 Past Psychological History: Anxiety, Depression Smoking Status: Never smoker Past Alcohol Use History: Rare Past Drug Use History: Marijuana - Past Family History Mother Family Medical History: Coronary Artery Disease (CAD) Father Additional Family Medical History / Comment(s): dies from AIDS in 1988 Medications and Allergies Home Medications Medication Instructions Recorded Confirmed Type Clopidogrel Bisulfate [Plavix] 75 mg PO DAILY 07/05/19 06/15/24 History Metoprolol Tartrate 25 mg PO BID 07/05/19 06/15/24 History Rosuvastatin Calcium [Crestor] 10 mg PO DAILY 07/05/19 06/15/24 History Tamsulosin HCl [Flomax] 0.4 mg PO DAILY 07/05/19 06/15/24 History lisinopriL [Prinivil] 5 mg PO DAILY 07/05/19 06/15/24 History Omeprazole 20 mg PO DAILY 12/30/21 06/15/24 History buPROPion XL [Wellbutrin XL] 150 mg PO DAILY 12/30/21 06/15/24 History Citalopram Hydrobromide [CeleXA] 20 mg PO DAILY 06/16/22 06/15/24 History Vemurafenib [Zelboraf] 960 mg PO BID 06/15/24 06/16/24 History Allergies Allergy/AdvReac Type Severity Reaction Status Date / Time No Known Allergies Allergy Verified 06/15/24 12:53 Physical Exam Vitals: Vital Signs Temp Pulse Resp BP Pulse Ox 06/18/24 07:14 98.8 F 69 17 179/87 95 06/18/24 01:06 98.7 F 74 18 99/68 92 L 06/17/24 19:43 99.2 F 64 19 139/72 93 L 06/17/24 13:42 98.1 F 85 17 138/72 98 Intake and Output 06/17/24 06/18/24 06/18/24 22:59 06:59 14:59 Other: # Voids 2 GENERAL DESCRIPTION: Middle-aged male lying in bed, no distress. No tachypnea or accessory muscle of respiration use. HEENT: Shows Pallor , no scleral icterus. Oral mucous membrane is dry. NECK: Trachea central, no thyromegaly. LUNGS: Unlabored breathing. Clear to auscultation anteriorly. No wheeze or crackle. HEART: S1, S2, regular rate and rhythm. No loud murmur ABDOMEN: Soft, mild epigastric tenderness , no guarding or rigidity EXTREMITIES: No edema of feet. SKIN: No rash, no masses palpable. NEUROLOGICAL: The patient is awake, alert, oriented x3, mood and affect normal. Results CBC & Chem 7: 06/17/24 04:21 06/17/24 04:21 Labs: Microbiology - Last 24 Hours (Table) 06/15/24 13:43 Blood Culture - Preliminary Blood Assessment and Plan (1) Leukocytosis Current Visit: Yes Status: Acute Code(s): D72.829 - ELEVATED WHITE BLOOD CELL COUNT, UNSPECIFIED SNOMED Code(s): 964207577 (2) Pancreatitis Current Visit: Yes Status: Acute Code(s): K85.90 - ACUTE PANCREATITIS WITHOUT NECROSIS OR INFECTION, UNSP SNOMED Code(s): 39415465 Plan: 1patient presented to the hospital abdominal pain and this patient has been diagnosed with acute pancreatitis ultrasound of the gallbladder was negative for any gallstones aneurysm has been normal there was significant family changes but did not mention any fluid collection patient did have ongoing low-grade fever and the white count is trending down. There was abnormality seen on the kidney but UA has been negative 2patient is appropriately covered with Zosyn 3.375 g every 8 hour to continue and will follow-up on MRCP results Question concern answered We will follow on clinical condition and cultures to further adjust medication if needed Thank you for this consultation we will follow the patient along with you Dictation was produced using [employer] dictation software. please excuse any grammatical, word or spelling errors. Time with Patient: Greater than 30
[2024-06-19 10:00] LABS: ALT 16 U/L (10-49); AST 14 U/L (14-35); Albumin 2.8 g/dL (3.8-4.9); Albumin/Globulin Ratio 1.56 Ratio (1.60-3.17); Alkaline Phosphatase 73 U/L (41-126); Blood Urea Nitrogen 9.9 mg/dL (9.0-27.0); Calcium 8.1 mg/dL (8.7-10.3); Carbon Dioxide 19.5 mmol/L (21.6-31.8); Chloride 108 mmol/L (96-109); Globulin 1.8 g/dL (1.6-3.3); Glucose 81 mg/dL (70-110); Potassium 3.6 mmol/L (3.5-5.5); Sodium 137 mmol/L (135-145); Total Bilirubin 1.1 mg/dL (0.3-1.2); Total Protein 4.6 g/dL (6.2-8.2)
[2024-06-19] MEDS ORDERED: ROCURONIUM 10 MG/ML (5 ML VIAL) IV ONE (10:24)
[2024-06-19] MEDS ORDERED: MIDAZOLAM 2 MG/2 ML VIAL ONE (10:24)
[2024-06-19] MEDS ORDERED: PROPOFOL 10 MG/ML 20 ML VIAL IV ONE (10:24)
[2024-06-19] MEDS ORDERED: LIDOCAINE 1% INJ 10MG/ML (20 ML MDV) ONE (10:24)
[2024-06-19] MEDS ORDERED: fentaNYL (PF) 50 MCG/ML 2 ML AMP ONE (10:24)
[2024-06-19] MEDS ORDERED: SUCCINYLCHOLINE CHLORIDE 200 MG/10 ML VIAL IV ONE (10:24)
[2024-06-19] MEDS ORDERED: KETOROLAC 15 MG/ML 1 ML VIAL ONE (10:24)
[2024-06-19] MEDS ORDERED: HYDROmorphone (PF) 1 MG/ML ONE (10:24)
[2024-06-19] MEDS: LIDOCAINE 1%-EPI 1:100,000 20 ML VIAL SQ ONE ×2 (10:52→11:54)
--- NOTE | 2024-06-19 12:18 | P.PN ---
Subjective Progress Note Date: 06/19/24 64 years old male with past medical history of multiple medical problems as per patient and at bedside he was recently treated for acute pancreatitis for about 2 to 3 weeks ago, he felt well and then he discharged home. However his symptoms recurrent over the last few days and he presents with worsening abdominal pain and nausea vomiting. He is afebrile. No fever no sick contact. Denies specific urinary complaint, no headache dizziness weakness numbness, no chest pain dyspnea. He states that his urine was dark. He had diarrhea today. He vomited today but there is no blood. Abdominal pain looks moderate and controlled now. He denies smoking alcohol or illicit drugs Vitals stable, afebrile. Labs showing significant leukocytosis of 27.9, rest of CBC, BMP, LFT, INR were unremarkable MAC is elevated 11/06/1970, lipase more than 20,000. CT of the abdomen and pelvis showing progression of extensive perinephric and Retroperitoneal soft tissue stranding [ Erdheim yahaira disease ] per radio logist and superimposed pancreatitis -Increased left renal 3.2 cm lesion suspicious for neoplasm versus infection. -Renal and gallbladder stones EKG showing sinus rhythm at 77 with frequent PVCs but no significant ST-T changes 06/16 Patient feels much better, he is sitting in chair, he tolerated Abdominal pain is better His plan for him to go to surgery on Thursday He says Plavix is taking for coronary artery disease and stent placed 12 years ago school. Keep holding Plavix, patient informed and he agrees 06/17 Patient still has epigastric abdominal pain today and extensive nausea. He has to bowel movements. However patient states his nausea medicine is working. Patient has low-grade fever yesterday. Leukocytosis improving down to 14.7. Patient wants to switch surgeons services. I discussed the case with Dr. Chester who kindly will come and see the patient today. Also will consult urology service for his kidney lesion 06/18: patient seen and evaluated at bedside , completed MRCP, Does c/p Nausea and abdominal pain 06/19- patient seen and evaluated at bedside noted to have temp of 99, heart rate of 73 remains on room air saturation 91%, blood work reviewed sodium 137 creatinine of 0.9 calcium of 8.1 with albumin of 2.8 lipase trending down to 409 procalcitonin was elevated earlier 1.49, continue Zosyn MRCP results reviewed patient receiving fluid resuscitation as well, patient taken to the OR for surgery PHYSICAL EXAMINATION: Patient not available taken to the OR for surgery CT scan abdomen and pelvis reports progression of extrinsic perinephric and retroperitoneal soft tissue stranding/fluid from prior CT on 06/02/2024. 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 Superimposed p ancreatitis is not excluded. No organized fluid collections. Increasing size of hypodense 3.2 cm region within the left kidney which may represent a renal neoplasm versus infarct versus infectious process versus other. Slightly increased intrahepatic biliary duct dilatation which may be related to #1. Redemonstration of an enlarged left periaortic lymph node and surrounding subcentimeter lymph nodes which may be active to #1. Nonobstructive bilateral renal calculi. Cholelithiasis. Gallbladder ultrasound reports no evidence for acute process. Gallbladder upper limits of normal 9.6 cm Assessment and Plan * Acute pancreatitis * history Erdheim-Sutter disease * sepsis secondary to pancreatitis * Enlarging left kidney lesion 3.2 cm suspicious for neoplasm versus infection * Cholelithiasis leading to pancreatitis * Hypertension * coronary artery disease history of PCI * history of DVT * history of CVA Plan: * in regards to pancreatitis CT abdomen pelvis reviewed, MRCP completed continue patient on IV Zosyn, patient on fluid resuscitation, , undergoing robotic cholecystectomy * General Surgery team on consult, GI team consulted * in regards to renal lesion urology consulted recommend outpatient follow-up and continue antibiotic * in regards to sepsis, blood cultures collected no growth noted, infectious is consulted continue Zosyn * in regards to history of hypertension continue hydralazine, hold lisinopril, * Plavix is on hold in anticipation of surgical intervention * Labs and medication were reviewed. * DVT prophylaxis: Subcutaneous heparin * GI Prophylaxis: Protonix Objective - Vital Signs Vital signs: Vital Signs Temp 99.0 F 06/19/24 07:26 Pulse 73 06/19/24 07:26 Resp 16 06/19/24 07:26 BP 137/59 06/19/24 07:26 Pulse Ox 91 L 06/19/24 07:26 FiO2 Intake & Output 06/18/24 06/19/24 06/19/24 18:59 06:59 18:59 Intake Total 1140 1180 Balance 1140 1180 Intake: Intake, IV Titration 1140 100 Amount Piperacillin-Tazobactam 3 100 100 .375 gm In Sodium Chloride 0.9% 100 ml @ 25 mls/hr IVPB Q8HR [facility] Rx# :[id number] Sodium Chloride 0.9% 1, 1040 000 ml @ 130 mls/hr IV . Q7H42M [facility] Rx#:[id number] Oral 1080 Other: # Voids 7 - Labs CBC & Chem 7: 06/17/24 04:21 06/19/24 03:48 Labs: Abnormal Lab Results - Last 24 Hours (Table) 06/19/24 Range/Units 03:48 Carbon Dioxide 19.5 L (21.6-31.8) mmol/L BUN/Creatinine Ratio 11.00 L (12.00-20.00) Ratio Calcium 8.1 L (8.7-10.3) mg/dL Total Protein 4.6 L (6.2-8.2) g/dL Albumin 2.8 L (3.8-4.9) g/dL Albumin/Globulin Ratio 1.56 L (1.60-3.17) Ratio Microbiology - Last 24 Hours (Table) 06/15/24 13:43 Blood Culture - Preliminary Blood
--- NOTE | 2024-06-19 12:25 | P.OP ---
Date of Procedure: 06/19/24 Preoperative Diagnosis: gallstone pancreatitis Postoperative Diagnosis: gallstone pancreatitis Procedure(s) Performed: robotic assisted cholecystectomy Anesthesia: AZULA Surgeon: Hung Patel Estimated Blood Loss (ml): 40 Pathology: none sent Condition: stable Disposition: PACU Indications for Procedure: gallstone pancreatitis Operative Findings: distended gallbladder, edematous, inflammed Description of Procedure: the patient was brought to the operating room where he was cleaned and draped in sterile fashion and a timeout was performed and everyone agreed with the information recited.a #15 blade was then used to make an incision in the left upper quadrant and a 5 mm Visiport was then used to gain access. The abdomen was then insufflated. And 3 more 8 mm ports were placed in the mid abdomen and left upper quadrant. The gallbladder appeared to be edematous and inflamed and it was grasped at the body and retracted cephalad. The gallbladder was also grabbed by the fundus and retracted laterally. I started my dissection from lateral to medial. I first dissected out the cystic duct and then the cystic artery. These were doubly clipped distally and proximally and ligated using cautery. Further dissection demonstrated a posterior cystic branch which was doubly clipped and ligated as well. While taking the gallbladder off the gallbladder fossa encountered some bleeding from the the fossa. This was contr olled with clips and electrocautery. The remaining gallbladder was then taken off of the gallbladder fossa in a controlled manner. Of note prior surgery there was a significant amount of murky fluid in the abdomen which I assume was from the pancreatitis. Gallbladder was placed in Endo Catch bag and then removed all the left lower quadrant. A hemostatic timeout was performed after suction irrigation and Surgicel Powderr was placed as well.the left upper quadrant was closed using an 0 Vicryl suture bringing the fascia together.the instruments were removed under direct visualization and the surgeon re-sites were closed using 4-0 Vicryl suture in interrupted fashion. the patient tolerated the procedure well was then transported to PACU in stable condition.
--- NOTE | 2024-06-19 12:26 | P.PN ---
Objective - Vital Signs Vital signs: Vital Signs Temp 99.0 F 06/19/24 07:26 Pulse 73 06/19/24 07:26 Resp 16 06/19/24 07:26 BP 137/59 06/19/24 07:26 Pulse Ox 91 L 06/19/24 07:26 FiO2 Intake & Output 06/18/24 06/19/24 06/19/24 18:59 06:59 18:59 Intake Total 1140 1180 900 Output Total 40 Balance 1140 1180 860 Intake: IV 900 Intake, IV Titration 1140 100 Amount Piperacillin-Tazobactam 3 100 100 .375 gm In Sodium Chloride 0.9% 100 ml @ 25 mls/hr IVPB Q8HR [facility] Rx# :[id number] Sodium Chloride 0.9% 1, 1040 000 ml @ 130 mls/hr IV . Q7H42M [facility] Rx#:[id number] Oral 1080 Output: Estimated Blood Loss 40 Other: # Voids 7 - Labs CBC & Chem 7: 06/17/24 04:21 06/19/24 03:48 Labs: Abnormal Lab Results - Last 24 Hours (Table) 06/19/24 Range/Units 03:48 Carbon Dioxide 19.5 L (21.6-31.8) mmol/L BUN/Creatinine Ratio 11.00 L (12.00-20.00) Ratio Calcium 8.1 L (8.7-10.3) mg/dL Total Protein 4.6 L (6.2-8.2) g/dL Albumin 2.8 L (3.8-4.9) g/dL Albumin/Globulin Ratio 1.56 L (1.60-3.17) Ratio Microbiology - Last 24 Hours (Table) 06/15/24 13:43 Blood Culture - Preliminary Blood Assessment and Plan Assessment: 64-year-old male status post robotic-assisted cholecystectomy Surgery went well and I anticipate discharge on 06/20/2024 Please hold chemotherapy agents until Thursday Clear liquid diet today and advance as tolerated Encourage ambulation Follow-up a.m. labs before discharge
[2024-06-19] MEDS: ALBUTEROL NEBULIZED 2.5 MG/3 ML INHALATION STA (12:29)
[2024-06-19] MEDS: hydrALAZINE HCL 20 MG/ML 1 ML VIAL IVP PRN (12:30)
[2024-06-19 14:10] LABS: HCT 36.6 % (39.6-50.0); HGB 11.8 g/dL (13.0-17.0); MCH 30.2 pg (27.0-32.0); MCHC 32.2 g/dL (32.0-37.0); MCV 93.6 FL (80.0-97.0); NRBC Per 100 WBC 0 X 10*3/uL (0.00-0.01); Platelet Count 331 X 10*3/uL (140-440); RBC 3.91 X 10*6/uL (4.40-5.60); RDW 12.7 % (11.5-14.5); WBC 10.23 X 10*3/uL (4.50-10.00)
[2024-06-19 14:33] LABS: Basophils % (A) 0 %; Eosinophils # (A) 0.1 k/uL (0-0.7); Eosinophils % (A) 1 %; HCT 40.9 % (39.0-53.0); HGB 13.4 gm/dL (13.0-17.5); Lymphocytes # (A) 0.5 k/uL (1.0-4.8); Lymphocytes % (A) 4 %; MCH 30.8 pg (25.0-35.0); MCHC 32.7 g/dL (31.0-37.0); MCV 94.1 fL (80.0-100.0); Mean Platelet Volume 6.9; Monocytes # (A) 0.9 k/uL (0-1.0); Monocytes % (A) 8 %; Neutrophils % (A) 84 %; Platelet Count 328 k/uL (150-450); RBC 4.34 m/uL (4.30-5.90); RDW 12.8 % (11.5-15.5); WBC 10.7 k/uL (3.8-10.6)
[2024-06-19 14:43] LABS: Prothrombin Time 11.4 sec (10.0-12.5)
[2024-06-19 14:45] LABS: ALT 31 U/L (4-49); AST 47 U/L (17-59); African American GFR (CKD) >90 (>60 ml/min/1.73 sqM); Albumin 2.8 g/dL (3.5-5.0); Albumin/Globulin Ratio 1.2; Alkaline Phosphatase 86 U/L (38-126); Anion Gap 8 mmol/L; Bilirubin,Unconjugated 0.9 mg/dL (0.0-1.1); Blood Urea Nitrogen 10 mg/dL (9-20); Calcium 8.3 mg/dL (8.4-10.2); Carbon Dioxide 19 mmol/L (22-30); Chloride 108 mmol/L (98-107); Globulin 2.3 g/dL; Glucose 87 mg/dL (74-99); Non-African American GFR(CKD) >90 (>60 ml/min/1.73 sqM); Potassium 3.7 mmol/L (3.5-5.1); Sodium 135 mmol/L (137-145); Total Bilirubin 1.1 mg/dL (0.2-1.3); Total Protein 5.1 g/dL (6.3-8.2)
--- NOTE | 2024-06-19 15:01 | P.PN ---
Subjective Progress Note Date: 06/19/24 Principal diagnosis: Reason for follow-up is leukocytosis/pancreatitis Patient is a 64-year-old male with a past medical history significant for CVA TIA hypertension coronary artery disease and erdheimchester's disease, patient presented to [facility] for evaluation of abdominal pain nausea and vomiting has been diagnosed with acute pancreatitis, patient did have MRCP e xtensive fat stranding around the pancreas no evidence of choledocholithiasis patient is status post laparoscopic cholecystectomy completed on 06/19/2024. On today's evaluation that is 06/19/2024, Patient is afebrile patient is currently on 2 L nasal cannula oxygen and denies having any shortness of breath, the patient denies any chest pain or cough, the patient denies any nausea vomiting abdominal pain currently controlled. Patient white count normalized to 10.7 creatinine 0.90 Objective - Vital Signs Vital signs: Vital Signs Temp 99.0 F 06/19/24 07:26 Pulse 74 06/19/24 13:15 Resp 18 06/19/24 13:15 BP 154/74 06/19/24 13:15 Pulse Ox 93 L 06/19/24 13:15 FiO2 Intake & Output 06/18/24 06/19/24 06/19/24 18:59 06:59 18:59 Intake Total 1140 1180 1100 Output Total 40 Balance 1140 1180 1060 Intake: IV 1100 Intake, IV Titration 1140 100 Amount Piperacillin-Tazobactam 3 100 100 .375 gm In Sodium Chloride 0.9% 100 ml @ 25 mls/hr IVPB Q8HR [facility] Rx# :[id number] Sodium Chloride 0.9% 1, 1040 000 ml @ 130 mls/hr IV . Q7H42M [facility] Rx#:[id number] Oral 1080 Output: Estimated Blood Loss 40 Other: # Voids 7 - Exam GENERAL DESCRIPTION: Middle-age male lying in bed in no distress RESPIRATORY SYSTEM: Unlabored breathing , decreased breath sounds at bases HEART: S1 S2 regular rate and rhythm , ABDOMEN: Soft , mild tenderness EXTREMITIES: No edema feet - Labs CBC & Chem 7: 06/19/24 14:14 06/19/24 14:14 Labs: Abnormal Lab Results - Last 24 Hours (Table) 06/19/24 Range/Units 03:48 Carbon Dioxide 19.5 L (21.6-31.8) mmol/L BUN/Creatinine Ratio 11.00 L (12.00-20.00) Ratio Calcium 8.1 L (8.7-10.3) mg/dL Total Protein 4.6 L (6.2-8.2) g/dL Albumin 2.8 L (3.8-4.9) g/dL Albumin/Globulin Ratio 1.56 L (1.60-3.17) Ratio Microbiology - Last 24 Hours (Table) 06/15/24 13:43 Blood Culture - Preliminary Blood Assessment and Plan (1) Leukocytosis Current Visit: Yes Status: Acute Code(s): D72.829 - ELEVATED WHITE BLOOD CELL COUNT, UNSPECIFIED SNOMED Code(s): 092026585 (2) Pancreatitis Current Visit: Yes Status: Acute Code(s): K85.90 - ACUTE PANCREATITIS WITHOUT NECROSIS OR INFECTION, UNSP SNOMED Code(s): 70799768 Plan: 1patient presented to the hospital abdominal pain and this patient has been diagnosed with acute pancreatitis ultrasound of the gallbladder was negative for any gallstones aneurysm has been normal there was significant family changes but did not mention any fluid collection patient did have ongoing low-grade fever and the white count is trending down. There was abnormality seen on the kidney but UA has been negative 2patient is status post cholecystectomy patient white count normalized continue with Zosyn while inpatient transition to oral antibiotic on discharge Dictation was produced using [employer] dictation software. please excuse any grammatical, word or spelling errors. Time with Patient: Less than 30
[2024-06-19] MEDS: hydrALAZINE HCL 25 MG TAB PO PRN (23:04)
[2024-06-20 08:47] LABS: HCT 41.4 % (39.6-50.0); MCH 30.9 pg (27.0-32.0); MCHC 33.8 g/dL (32.0-37.0); MCV 91.4 FL (80.0-97.0); NRBC Per 100 WBC 0 X 10*3/uL (0.00-0.01); Platelet Count 366 X 10*3/uL (140-440); RBC 4.53 X 10*6/uL (4.40-5.60); RDW 12.8 % (11.5-14.5); WBC 15.25 X 10*3/uL (4.50-10.00)
[2024-06-20 08:59] LABS: BUN/Creat Ratio 9.11 Ratio (12.00-20.00); Blood Urea Nitrogen 8.2 mg/dL (9.0-27.0); Calcium 8.2 mg/dL (8.7-10.3); Carbon Dioxide 14.7 mmol/L (21.6-31.8); Chloride 107 mmol/L (96-109); Glucose 78 mg/dL (70-110); Potassium 3.9 mmol/L (3.5-5.5); Sodium 137 mmol/L (135-145)
--- NOTE | 2024-06-20 11:30 | P.PN ---
Subjective Progress Note Date: 06/20/24 SURGICAL PROGRESS NOTE CHIEF COMPLAINT: Gallstone pancreatitis HISTORY OF PRESENT ILLNESS: Postop day #1 status post robotic assisted cholecystectomy. Patient complains of nausea and decreased appetite. No vomiting. He reports that he has incisional abdominal pain. He has only been taking the Dilaudid. He did have a bowel movement. He is urinating without difficulty. Afebrile. WBC is up from 10-15 hemoglobin stable at 14 PHYSICAL EXAM: VITAL SIGNS: Reviewed. GENERAL: Well-developed in no acute distress. ABDOMEN: Soft. Nondistended. Tenderness at cross incision sites. Mild bruising noted around incision sites. Otherwise clean dry and intact. NEUROLOGIC: Alert and oriented. Cranial nerves II through XII grossly intact. ASSESSMENT: 1. Gallstone pancreatitis PLAN: -[place] added for oral pain medication -Continue antibiotics -Continue clear liquid diet -Encourage patient to increase activity level -Order incentive spirometer -Repeat WBC in a.m. -Continue antiemetics -DVT prophylaxis subcu heparin Physician Piledriver Carpenter note has been reviewed by physician. Signing provider agrees with the documented findings, assessment, and plan of care. Attestation Patient seen and examined at bedside. Appears to be doing well since surgery. Had some nausea this morning that has resolved. Advance diet to regular diet. Will continue to follow leukocytosis. Beth Rios, DO Objective - Vital Signs Vital signs: Vital Signs Temp 98.4 F 06/20/24 07:32 Pulse 84 06/20/24 07:32 Resp 18 06/20/24 07:32 BP 163/85 06/20/24 07:32 Pulse Ox 92 L 06/20/24 07:32 FiO2 Intake & Output 06/19/24 06/20/24 06/20/24 18:59 06:59 18:59 Intake Total 2000 Output Total 40 Balance 1960 Intake: IV 1100 Intake, IV Titration 900 Amount Piperacillin-Tazobactam 3 100 .375 gm In Sodium Chloride 0.9% 100 ml @ 25 mls/hr IVPB Q8HR [facility] Rx# :[id number] Sodium Chloride 0.9% 1, 800 000 ml @ 100 mls/hr IV . Q10H [facility] Rx#:[id number] Output: Estimated Blood Loss 40 Other: # Voids 1 - Labs CBC & Chem 7: 06/20/24 02:44 06/20/24 02:44 Labs: Abnormal Lab Results - Last 24 Hours (Table) 06/19/24 06/19/24 06/19/24 Range/Units 03:48 14:14 14:14 WBC 10.23 H 10.7 H (4.50-10.00) X 10*3/uL RBC 3.91 L (4.40-5.60) X 10*6/uL Hgb 11.8 L (13.0-17.0) g/dL Hct 36.6 L (39.6-50.0) % Neutrophils # 9.0 H (1.3-7.7) k/uL Lymphocytes # 0.5 L (1.0-4.8) k/uL Sodium 135 L (137-145) mmol/L Chloride 108 H (98-107) mmol/L Carbon Dioxide 19 L (22-30) mmol/L Anion Gap (4.00-12.00) mmol/L BUN (9.0-27.0) mg/dL BUN/Creatinine Ratio (12.00-20.00) Ratio Calcium 8.3 L (8.4-10.2) mg/dL Total Protein 5.1 L (6.3-8.2) g/dL Albumin 2.8 L (3.5-5.0) g/dL 06/20/24 06/20/24 Range/Units 02:44 02:44 WBC 15.25 H (4.50-10.00) X 10*3/uL RBC (4.40-5.60) X 10*6/uL Hgb (13.0-17.0) g/dL Hct (39.6-50.0) % Neutrophils # (1.3-7.7) k/uL Lymphocytes # (1.0-4.8) k/uL Sodium (137-145) mmol/L Chloride (98-107) mmol/L Carbon Dioxide 14.7 L (22-30) mmol/L Anion Gap 15.30 H (4.00-12.00) mmol/L BUN 8.2 L (9.0-27.0) mg/dL BUN/Creatinine Ratio 9.11 L (12.00-20.00) Ratio Calcium 8.2 L (8.4-10.2) mg/dL Total Protein (6.3-8.2) g/dL Albumin (3.5-5.0) g/dL Microbiology - Last 24 Hours (Table) 06/15/24 13:43 Blood Culture - Preliminary Blood
[2024-06-20] MEDS: HYDROcodone/APAP 5-325MG 1 EACH TAB PO PRN (11:49)
[2024-06-21 09:09] LABS: Basophils # (A) 0.04 X 10*3/uL (0.00-0.10); Basophils % (A) 0.3 %; Eosinophils # (A) 0.16 X 10*3/uL (0.04-0.35); HCT 38.5 % (39.6-50.0); Lymphocytes # (A) 0.73 X 10*3/uL (0.90-5.00); Lymphocytes % (A) 4.7 %; MCH 30.7 pg (27.0-32.0); MCHC 33.8 g/dL (32.0-37.0); MCV 90.8 FL (80.0-97.0); Mean Platelet Volume 10.3 FL (9.5-12.2); Monocytes # (A) 1.71 X 10*3/uL (0.20-1.00); Monocytes % (A) 11.1 %; NRBC Per 100 WBC 0 X 10*3/uL (0.00-0.01); Neutrophils # (A) 12.44 X 10*3/uL (1.80-7.70); Platelet Count 342 X 10*3/uL (140-440); RBC 4.24 X 10*6/uL (4.40-5.60); RDW 12.8 % (11.5-14.5); WBC 15.37 X 10*3/uL (4.50-10.00)
--- NOTE | 2024-06-21 09:44 | P.PN ---
Subjective Progress Note Date: 06/20/24 Seen postoperatively in PACU, updated postsurgery I updated post surgery PHYSICAL EXAMINATION: GENERAL: The patient is alert and oriented x3, cannula in place HEENT: Pupils are round and equally reacting to light. EOMI. CARDIOVASCULAR: S1 and S2 present. No murmurs, rubs, or gallops. PULMONARY: Chest is clear to auscultation, no wheezing or crackles. ABDOMEN: Soft, distended, surgical incision intactN M Pl. MUSCULOSKELETAL: No joint swelling or deformity. EXTREMITIES: No cyanosis, clubbing, or pedal edema. NEUROLOGICAL: Gross neurological examination did not reveal any focal deficits. SKIN: No rashes. Original Note: Subjective Progress Note Date: 06/19/24 64 years old male with past medical history of multiple medical problems as per patient and at bedside he was recently treated for acute pancreatitis for about 2 to 3 weeks ago, he felt well and then he discharged home. However his symptoms recurrent over the last few days and he presents with worsening abdominal pain and nausea vomiting. He is afebrile. No fever no sick contact. Denies specific urinary complaint, no headache dizziness weakness numbness, no chest pain dyspnea. He states that his urine was dark. He had diarrhea today. He vomited today but there is no blood. Abdominal pain looks moderate and controlled now. He denies smoking alcohol or illicit drugs Vitals stable, afebrile. Labs showing significant leukocytosis of 27.9, rest of CBC, BMP, LFT, INR were unremarkable MAC is elevated 11/06/1970, lipase more than 20,000. CT of the abdomen and pelvis showing progression of extensive perinephric and Retroperitoneal soft tissue stranding [ Erdheim yahaira disease ] per radiologist and superimposed pancreatitis -Increased left renal 3.2 cm lesion suspicious for neoplasm versus infection. -Renal and gallbladder stones EKG showing sinus rhythm at 77 with frequent PVCs but no significant ST-T changes 06/16 Patient feels much better, he is sitting in chair, he tolerated Abdominal pain is better His plan for him to go to surgery on Thursday He says Plavix is taking for coronary artery disease and stent placed 12 years ago school. Keep holding Plavix, patient informed and he agrees 06/17 Patient still has epigastric abdominal pain today and extensive nausea. He has to bowel movements. However patient states his nausea medicine is working. Patient has low-grade fever yesterday. Leukocytosis improving down to 14.7. Patient wants to switch surgeons services. I discussed the case with Dr. Chester who kindly will come and see the patient today. Also will consult urology service for his kidney lesion 06/18: patient seen and evaluated at bedside , completed MRCP, Does c/p Nausea and abdominal pain 06/19- patient seen and evaluated at bedside noted to have temp of 99, heart rate of 73 remains on room air saturation 91%, blood work reviewed sodium 137 creatinine of 0.9 calcium of 8.1 with albumin of 2.8 lipase trending down to 409 procalcitonin was elevated earlier 1.49, continue Zosyn MRCP results reviewed patient receiving fluid resuscitation as well, patient taken to the OR for surge ry 06/20/2024 Patient is seen in follow-up today status post cholecystectomy with general surgery. Infectious disease following as well and patient will likely be oral antibiotics on discharge. Patient reports not much of an appetite although is attempting to eat a little more. Patient does have intermittent nausea will use as needed antinausea medications along with pain management. Patient is afebrile with no reports of chest pain or shortness of breath. Encouraged increase activity as tolerated and would recommend incentive spirometer. Review of systems: Constitutional: No reports of fatigue, fever, or chills Cardiovascular: No reports of chest pain or palpitations Respiratory: No reports of shortness of breath or cough GI: reports of intermittent nausea, denies vomiting, or diarrhea : No reports of dysuria or retention, passing gas Neurovascular: reports of weakness, reports continued abdominal pain on the left All medications have been reviewed Physical exam: Gen: This is a 64-year-old male who is awake, alert and oriented x 3, well- developed, appears older than stated age HEENT: Head is atraumatic, normocephalic. Pupils equal, round. Sclerae is anicteric. NECK: Supple. No JVD. No lymphadenopathy. No thyromegaly. LUNGS: Diminished breath sounds bilaterally otherwise clear to auscultation. No wheezes or rhonchi. No intercostal retractions. HEART: Regular rate and rhythm. No murmur. ABDOMEN: Soft. Bowel sounds are present. No masses. tenderness noted more so on the left. EXTREMITIES: No pedal edema. No calf tenderness. NEUROLOGICAL: Patient is awake, alert and oriented x3. Cranial nerves 2 through [address] scan abdomen and pelvis reports progression of extrinsic perinephric and retroperitoneal soft tissue stranding/fluid from prior CT on 06/02/2024. 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 Superimposed pancreatitis is not excluded. No organized fluid collections. Increasing size of hypodense 3.2 cm region within the left kidney which may represent a renal neoplasm versus infarct versus infectious process versus other. Slightly increased intrahepatic biliary duct dilatation which may be related to #1. Redemonstration of an enlarged left periaortic lymph node and surrounding subcentimeter lymph nodes which may be active to #1. Nonobstructive bilateral renal calculi. Cholelithiasis. Gallbladder ultrasound reports no evidence for acute process. Gallbladder upper limits of normal 9.6 cm Assessment: * Acute pancreatitis, improving * history Erdheim-Fayette disease * sepsis secondary to pancreatitis * Enlarging left kidney lesion 3.2 cm suspicious for neoplasm versus infection * Cholelithiasis leading to pancreatitis, status post laparoscopic cholecystectomy * Hypertension * coronary artery disease history of PCI * history of DVT * history of CVA * GI prophylaxis * DVT prophylaxis * Full code Plan: * in regards to pancreatitis CT abdomen pelvis reviewed, MRCP completed continue patient on IV Zosyn, patient on fluid resuscitation, , status post robotic cholecystectomy * General Surgery as well as GI following * in regards to renal lesion urology consulted recommend outpatient follow-up and continue antibiotic * in regards to sepsis, blood cultures collected no growth noted, infectious is and will discuss further regarding discharge antibiotics following continue Zosyn * in regards to history of hypertension continue hydralazine, resume lisinopril * Plavix is on hold and will discuss with surgery when to resume * Labs and medication were reviewed. Recommend follow-up repeat labs and monitor white count is white count remains elevated * DVT prophylaxis: Subcutaneous heparin * GI Prophylaxis: Protonix * Due to multiple complex medical issues, overall prognosis is guarded The impression and plan of care has been dictated by Jessica Santiago, Nurse Practitioner as directed. Dr. Cory MD I have performed a history and examination and MDM of this patient, discussed the same with the dictator, and agree with the dictator's assessment and plan as written ,documented as a scribe. Based on total visit time, I have performed more than 50% of the visit. Objective - Vital Signs Vital signs: Vital Signs Temp 98.4 F 06/20/24 07:32 Pulse 84 06/20/24 07:32 Resp 18 06/20/24 07:32 BP 163/85 06/20/24 07:32 Pulse Ox 92 L 06/20/24 07:32 FiO2 Intake & Output 06/19/24 06/20/24 06/20/24 18:59 06:59 18:59 Intake Total 2000 Output Total 40 Balance 1959 Intake: IV 1100 Intake, IV Titration 900 Amount Piperacillin-Tazobactam 3 100 .375 gm In Sodium Chloride 0.9% 100 ml @ 25 mls/hr IVPB Q8HR [facility] Rx# :[id number] Sodium Chloride 0.9% 1, 800 000 ml @ 100 mls/hr IV . Q10H [facility] Rx#:[id number] Output: Estimated Blood Loss 40 Other: # Voids 1 - Labs CBC & Chem 7: 06/21/24 02:43 06/20/24 02:44 Labs: Abnormal Lab Results - Last 24 Hours (Table) 06/19/24 06/19/24 06/19/24 Range/Units 03:48 03:48 14:14 WBC 10.23 H 10.7 H (4.50-10.00) X 10*3/uL RBC 3.91 L (4.40-5.60) X 10*6/uL Hgb 11.8 L (13.0-17.0) g/dL Hct 36.6 L (39.6-50.0) % Neutrophils # 9.0 H (1.3-7.7) k/uL Lymphocytes # 0.5 L (1.0-4.8) k/uL Sodium (137-145) mmol/L Chloride (98-107) mmol/L Carbon Dioxide 19.5 L (21.6-31.8) mmol/L Anion Gap (4.00-12.00) mmol/L BUN (9.0-27.0) mg/dL BUN/Creatinine Ratio 11.00 L (12.00-20.00) Ratio Calcium 8.1 L (8.7-10.3) mg/dL Total Protein 4.6 L (6.2-8.2) g/dL Albumin 2.8 L (3.8-4.9) g/dL Albumin/Globulin Ratio 1.56 L (1.60-3.17) Ratio 06/19/24 06/20/24 06/20/24 Range/Units 14:14 02:44 02:44 WBC 15.25 H (4.50-10.00) X 10*3/uL RBC (4.40-5.60) X 10*6/uL Hgb (13.0-17.0) g/dL Hct (39.6-50.0) % Neutrophils # (1.3-7.7) k/uL Lymphocytes # (1.0-4.8) k/uL Sodium 135 L (137-145) mmol/L Chloride 108 H (98-107) mmol/L Carbon Dioxide 19 L 14.7 L (21.6-31.8) mmol/L Anion Gap 15.30 H (4.00-12.00) mmol/L BUN 8.2 L (9.0-27.0) mg/dL BUN/Creatinine Ratio 9.11 L (12.00-20.00) Ratio Calcium 8.3 L 8.2 L (8.7-10.3) mg/dL Total Protein 5.1 L (6.2-8.2) g/dL Albumin 2.8 L (3.8-4.9) g/dL Albumin/Globulin Ratio (1.60-3.17) Ratio Microbiology - Last 24 Hours (Table) 06/15/24 13:43 Blood Culture - Preliminary Blood
[2024-06-21] MEDS: lisinopriL 10 MG TAB PO SCH (10:08)
--- NOTE | 2024-06-21 12:27 | P.PN ---
Subjective Progress Note Date: 06/21/24 SURGICAL PROGRESS NOTE CHIEF COMPLAINT: Gallstone pancreatitis HISTORY OF PRESENT ILLNESS: Postop day #2 status post Robotic assisted cholecystectomy. Patient complains of abdominal pain with movement. He did have a bowel movement and flatus. He reports his nausea is better. He tolerated regular diet. He did ambulate in the hallway yesterday. Afebrile. WBC about the same at 15.3 Hgb 13 PHYSICAL EXAM: VITAL SIGNS: Reviewed. GENERAL: Well-developed in no acute distress. ABDOMEN: Soft. Nondistended. Tenderness with palpation to incision sites. Small hematoma around the incision left side of abdomen. Otherwise clean dry and intact. NEUROLOGIC: Alert and oriented. Cranial nerves II through XII grossly intact. ASSESSMENT: 1. Gallstone pancreatitis PLAN: -Continue regular diet -Continue antibiotics -Encourage patient to increase activity level -Encourage patient to use incentive spirometer -Continue pain management -repeat cbc in AM -DVT prophylaxis subcu heparin Physician Maintenance Of Way Foreman note has been reviewed by physician. Signing provider agrees with the documented findings, assessment, and plan of care. Objective - Vital Signs Vital signs: Vital Signs Temp 97.9 F 06/21/24 07:06 Pulse 72 06/21/24 08:00 Resp 16 06/21/24 08:00 BP 169/78 06/21/24 07:06 Pulse Ox 93 L 06/21/24 07:06 FiO2 Intake & Output 06/20/24 06/21/24 06/21/24 18:59 06:59 18:59 Intake Total 2380 Balance 2380 Intake: Intake, IV Titration 1300 Amount Piperacillin-Tazobactam 3 100 .375 gm In Sodium Chloride 0.9% 100 ml @ 25 mls/hr IVPB Q8HR [facility] Rx# :[id number] Sodium Chloride 0.9% 1, 1200 000 ml @ 100 mls/hr IV . Q10H [facility] Rx#:[id number] Oral 1080 Other: # Voids 3 3 # Bowel Movements 1 - Labs CBC & Chem 7: 06/21/24 02:43 06/21/24 06:11 Labs: Abnormal Lab Results - Last 24 Hours (Table) 06/21/24 Range/Units 02:43 WBC 15.37 H (4.50-10.00) X 10*3/uL RBC 4.24 L (4.40-5.60) X 10*6/uL Hct 38.5 L (39.6-50.0) % Immature Gran # 0.29 H (0.00-0.04) X 10*3/uL Neutrophils # 12.44 H (1.80-7.70) X 10*3/uL Lymphocytes # 0.73 L (0.90-5.00) X 10*3/uL Monocytes # 1.71 H (0.20-1.00) X 10*3/uL Microbiology - Last 24 Hours (Table) 06/15/24 13:43 Blood Culture - Final Blood Assessment and Plan Assessment: CT-year-old male status post robotic cholecystectomy secondary to gallstone pancreatitis Patient is stable for discharge tolerating a diet mild abdominal pain elevated white count is likely secondary to review his history of chemotherapy agents with delayed reaction. No further intervention necessary at this time
[2024-06-21 13:02] LABS: BUN/Creat Ratio 10.12 Ratio (12.00-20.00); Blood Urea Nitrogen 8.1 mg/dL (9.0-27.0); Calcium 7.8 mg/dL (8.7-10.3); Carbon Dioxide 19.3 mmol/L (21.6-31.8); Chloride 106 mmol/L (96-109); Glucose 109 mg/dL (70-110); Magnesium 1.8 mg/dL (1.5-2.4); Potassium 3.6 mmol/L (3.5-5.5); Sodium 136 mmol/L (135-145)
--- NOTE | 2024-06-21 15:40 | P.PN ---
Subjective Progress Note Date: 06/20/24 Principal diagnosis: Reason for follow-up is leukocytosis/pancreatitis Patient is a 64-year-old male with a past medical history significant for CVA TIA hypertension coronary artery disease and erdheimchester's disease, patient presented to [facility] for evaluation of abdominal pain nausea and vomiting has been diagnosed with acute pancreatitis, patient did have MRCP e xtensive fat stranding around the pancreas no evidence of choledocholithiasis patient is status post laparoscopic cholecystectomy completed on 06/19/2024. On today's evaluation that is 06/20/2024, patient has been afebrile, patient is breathing comfortably and is currently on 2 L nasal cannula oxygen patient denies having any significant cough no chest pain, patient denies nausea vomiting abdominal pain is currently controlled. Patient white count is 15.25 creatinine 0.9 Objective - Vital Signs Vital signs: Vital Signs Temp 98.8 F 06/20/24 13:55 Pulse 79 06/20/24 13:55 Resp 18 06/20/24 13:55 BP 155/82 06/20/24 13:55 Pulse Ox 94 L 06/20/24 13:55 FiO2 Intake & Output 06/19/24 06/20/24 06/20/24 18:59 06:59 18:59 Intake Total 2000 Output Total 40 Balance 1960 Intake: IV 1100 Intake, IV Titration 900 Amount Piperacillin-Tazobactam 3 100 .375 gm In Sodium Chloride 0.9% 100 ml @ 25 mls/hr IVPB Q8HR [facility] Rx# :[id number] Sodium Chloride 0.9% 1, 800 000 ml @ 100 mls/hr IV . Q10H [facility] Rx#:[id number] Output: Estimated Blood Loss 40 Other: # Voids 1 - Exam GENERAL DESCRIPTION: Middle-age male lying in bed in no distress RESPIRATORY SYSTEM: Unlabored breathing , decreased breath sounds at bases HEART: S1 S2 regular rate and rhythm , ABDOMEN: Soft , mild tenderness EXTREMITIES: No edema feet - Labs CBC & Chem 7: 06/21/24 02:43 06/21/24 06:11 Labs: Abnormal Lab Results - Last 24 Hours (Table) 06/20/24 06/20/24 Range/Units 02:44 02:44 WBC 15.25 H (4.50-10.00) X 10*3/uL Carbon Dioxide 14.7 L (21.6-31.8) mmol/L Anion Gap 15.30 H (4.00-12.00) mmol/L BUN 8.2 L (9.0-27.0) mg/dL BUN/Creatinine Ratio 9.11 L (12.00-20.00) Ratio Calcium 8.2 L (8.7-10.3) mg/dL Microbiology - Last 24 Hours (Table) 06/15/24 13:43 Blood Culture - Preliminary Blood Assessment and Plan (1) Leukocytosis Current Visit: Yes Status: Acute Code(s): D72.829 - ELEVATED WHITE BLOOD CELL COUNT, UNSPECIFIED SNOMED Code(s): 804666887 (2) Pancreatitis Current Visit: Yes Status: Acute Code(s): K85.90 - ACUTE PANCREATITIS WITHOUT NECROSIS OR INFECTION, UNSP SNOMED Code(s): 43756774 Plan: 1patient presented to the hospital abdominal pain and this patient has been diagnosed with acute pancreatitis ultrasound of the gallbladder was negative for any gallstones aneurysm has been normal there was significant family changes but did not mention any fluid collection patient did have ongoing low-grade fever and the white count is trending down. There was abnormality seen on the kidney but UA has been negative 2patient is status post cholecystectomy patient white count slightly up today compared to yesterday and we will monitor closely continue with Lucian Dictation was produced using [employer] dictation software. please excuse any grammatical, word or spelling errors. Time with Patient: Less than 30
--- NOTE | 2024-06-21 15:41 | P.PN ---
Subjective Progress Note Date: 06/21/24 Principal diagnosis: Reason for follow-up is leukocytosis/pancreatitis Patient is a 64-year-old male with a past medical history significant for CVA TIA hypertension coronary artery disease and erdheimchester's disease, patient presented to [facility] for evaluation of abdominal pain nausea and vomiting has been diagnosed with acute pancreatitis, patient did have MRCP e xtensive fat stranding around the pancreas no evidence of choledocholithiasis patient is status post laparoscopic cholecystectomy completed on 06/19/2024. On today's evaluation that is 06/21/2024, Patient is afebrile this morning patient mention he is doing okay this morning and did not have any concern. Patient white count is 15.37 creatinine 0.8 Objective - Vital Signs Vital signs: Vital Signs Temp 97.9 F 06/21/24 07:06 Pulse 72 06/21/24 08:00 Resp 16 06/21/24 08:00 BP 169/78 06/21/24 07:06 Pulse Ox 93 L 06/21/24 07:06 FiO2 Intake & Output 06/20/24 06/21/24 06/21/24 18:59 06:59 18:59 Intake Total 2380 Balance 2380 Intake: Intake, IV Titration 1300 Amount Piperacillin-Tazobactam 3 100 .375 gm In Sodium Chloride 0.9% 100 ml @ 25 mls/hr IVPB Q8HR [facility] Rx# :[id number] Sodium Chloride 0.9% 1, 1200 000 ml @ 100 mls/hr IV . Q10H [facility] Rx#:[id number] Oral 1080 Other: # Voids 3 3 # Bowel Movements 1 - Labs CBC & Chem 7: 06/21/24 02:43 06/21/24 06:11 Labs: Abnormal Lab Results - Last 24 Hours (Table) 06/21/24 06/21/24 Range/Units 02:43 06:11 WBC 15.37 H (4.50-10.00) X 10*3/uL RBC 4.24 L (4.40-5.60) X 10*6/uL Hct 38.5 L (39.6-50.0) % Immature Gran # 0.29 H (0.00-0.04) X 10*3/uL Neutrophils # 12.44 H (1.80-7.70) X 10*3/uL Lymphocytes # 0.73 L (0.90-5.00) X 10*3/uL Monocytes # 1.71 H (0.20-1.00) X 10*3/uL Carbon Dioxide 19.3 L (21.6-31.8) mmol/L BUN 8.1 L (9.0-27.0) mg/dL BUN/Creatinine Ratio 10.12 L (12.00-20.00) Ratio Calcium 7.8 L (8.7-10.3) mg/dL Microbiology - Last 24 Hours (Table) 06/15/24 13:43 Blood Culture - Final Blood Assessment and Plan (1) Leukocytosis Current Visit: Yes Status: Acute Code(s): D72.829 - ELEVATED WHITE BLOOD CELL COUNT, UNSPECIFIED SNOMED Code(s): 532775018 (2) Pancreatitis Current Visit: Yes Status: Acute Code(s): K85.90 - ACUTE PANCREATITIS WITHOUT NECROSIS OR INFECTION, UNSP SNOMED Code(s): 49092729 Plan: 1patient presented to the hospital abdominal pain and this patient has been diagnosed with acute pancreatitis ultrasound of the gallbladder was negative for any gallstones aneurysm has been normal there was significant family changes but did not mention any fluid collection patient did have ongoing low-grade fever and the white count is trending down. There was abnormality seen on the kidney but UA has been negative 2patient is status post cholecystectomy patient white count slightly after surgery possible reactive and will monitor close will repeat a CBC inflammation markers with a.m. lab and will continue with Zosyn at this point Dictation was produced using [employer] dictation software. please excuse any grammatical, word or spelling errors. Time with Patient: Less than 30
[2024-06-21] MEDS: HYDROmorphone 0.5 MG/0.5 ML SYRINGE IVP PRN (18:06)
[2024-06-22 08:51] LABS: Basophils # (A) 0.06 X 10*3/uL (0.00-0.10); Basophils % (A) 0.4 %; Eosinophils # (A) 0.25 X 10*3/uL (0.04-0.35); Eosinophils % (A) 1.5 %; HGB 12.4 g/dL (13.0-17.0); Lymphocytes % (A) 4.8 %; MCH 30.5 pg (27.0-32.0); MCHC 33.5 g/dL (32.0-37.0); MCV 90.9 FL (80.0-97.0); Mean Platelet Volume 10.1 FL (9.5-12.2); Monocytes # (A) 1.88 X 10*3/uL (0.20-1.00); Monocytes % (A) 11.2 %; NRBC Per 100 WBC 0 X 10*3/uL (0.00-0.01); Neutrophils # (A) 13.47 X 10*3/uL (1.80-7.70); Platelet Count 363 X 10*3/uL (140-440); RBC 4.07 X 10*6/uL (4.40-5.60); RDW 12.9 % (11.5-14.5); WBC 16.81 X 10*3/uL (4.50-10.00)
--- NOTE | 2024-06-22 09:21 | CDI ---
Documentation Clarification Form Date: 06/22/2024 09:15:09 AM From: Evelyne Jimenez RN, CCDS Phone: [phone] Admit Date: 06/15/2024 01:06:00 PM Patient Name: Pancho Hicks Visit Number: [id number] Discharge Date: ATTENTION: The Clinical Documentation Specialists (CDI) and [facility] Coding Staff appreciate your assistance in clarifying documentation. Please respond to the clarification below the line at the bottom and electronically sign. The CDI & [facility] Coding staff will review the response and follow-up if needed. Please note: Queries are made part of the Legal Health Record. If you have any questions, please contact the author of this message via ITS. Provider: Jessica BASS The patient has sepsis secondary to pancreatitis in the progress note started on 06/18/24. Based on this information and the findings below, is there an additional diagnosis that is clinically appropriate for this patient? History/Risk Factors: CVA TIA Hypertension, Coronary artery disease, Clinical Indicators: 64-year-old male was recently treated for acute pancreatitis for about 2 to 3 weeks ago, Presents with worsening abdominal pain and nausea vomiting. ED Sepsis screening: SIRS Present Pulse >90 WBC <4K or>12 Sepsis Risk: Treatment in progress 06/15 WBC 27.9, Neutrophils 24.2 Amylase 5473, Lipase >75173 06/15 Lactic acid: 2.4 06/15 Blood cultures: No growth 06/15 VS: (14:54) 145/85 96 18 98,5 96% RA, (19:44) VS: 145/85 96 18 99.6 96% RA 06/15 CT of the abdomen and pelvis showing progression of extensive perinephric and Retroperitoneal soft tissue stranding [ Erdheim Migue disease] per radiologist and superimposed pancreatitis Slightly increased intrahepatic biliary duct dilatation which may be related to #1.Correlate with biliary labs. -Renal and gallbladder stones Treatment: ID Consult: (06/18) Consulted for concern for possible sepsis related to pancreatitis Zosyn 3.375 GM IVPB Q 8 HRS .9 NS 1,000 ML IV Bolus Is there an additional diagnosis that is clinically appropriate for this patient? [x ] Sepsis, present on admission secondary to gallstone pancreatitis [ ] Sepsis, developed during stay, not present on admission [ ] Other, please specify [ ] Unable to determine SIRS Criteria: 2 or more of the following may indicate SIRS Temperature < 96.8F (36C) or > 101.0F (38.3C) Heart Rate > 90 bpm Respiratory Rate > 20 breaths/min or PaCO2 < 32 mmHg White Blood Cell Count > 12,000 or < 4,000 cells/mm3 or > 10% bands (Template Last Reviewed: July 2022) MTDD
--- NOTE | 2024-06-22 09:34 | P.PN ---
Subjective Progress Note Date: 06/21/24 Seen postoperatively in PACU, updated postsurgery I updated post surgery PHYSICAL EXAMINATION: GENERAL: The patient is alert and oriented x3, cannula in place HEENT: Pupils are round and equally reacting to light. EOMI. CARDIOVASCULAR: S1 and S2 present. No murmurs, rubs, or gallops. PULMONARY: Chest is clear to auscultation, no wheezing or crackles. ABDOMEN: Soft, distended, surgical incision intactN M Pl. MUSCULOSKELETAL: No joint swelling or deformity. EXTREMITIES: No cyanosis, clubbing, or pedal edema. NEUROLOGICAL: Gross neurological examination did not reveal any focal deficits. SKIN: No rashes. Original Note: Subjective Progress Note Date: 06/19/24 64 years old male with past medical history of multiple medical problems as per patient and at bedside he was recently treated for acute pancreatitis for about 2 to 3 weeks ago, he felt well and then he discharged home. However his symptoms recurrent over the last few days and he presents with worsening abdominal pain and nausea vomiting. He is afebrile. No fever no sick contact. Denies specific urinary complaint, no headache dizziness weakness numbness, no chest pain dyspnea. He states that his urine was dark. He had diarrhea today. He vomited today but there is no blood. Abdominal pain looks moderate and controlled now. He denies smoking alcohol or illicit drugs Vitals stable, afebrile. Labs showing significant leukocytosis of 27.9, rest of CBC, BMP, LFT, INR were unremarkable MAC is elevated 11/[birth year]/1972, lipase more than 20,000. CT of the abdomen and pelvis showing progression of extensive perinephric and Retroperitoneal soft tissue stranding [ Erdheim yahaira disease ] per radiologist and superimposed pancreatitis -Increased left renal 3.2 cm lesion suspicious for neoplasm versus infection. -Renal and gallbladder stones EKG showing sinus rhythm at 77 with frequent PVCs but no significant ST-T changes 06/16 Patient feels much better, he is sitting in chair, he tolerated Abdominal pain is better His plan for him to go to surgery on Thursday He says Plavix is taking for coronary artery disease and stent placed 12 years ago school. Keep holding Plavix, patient informed and he agrees 06/17 Patient still has epigastric abdominal pain today and extensive nausea. He has to bowel movements. However patient states his nausea medicine is working. Patient has low-grade fever yesterday. Leukocytosis improving down to 14.7. Patient wants to switch surgeons services. I discussed the case with Dr. Chester who kindly will come and see the patient today. Also will consult urology service for his kidney lesion 06/18: patient seen and evaluated at bedside , completed MRCP, Does c/p Nausea and abdominal pain 06/19- patient seen and evaluated at bedside noted to have temp of 99, heart rate of 73 remains on room air saturation 91%, blood work reviewed sodium 137 creatinine of 0.9 calcium of 8.1 with albumin of 2.8 lipase trending down to 409 procalcitonin was elevated earlier 1.49, continue Zosyn MRCP results reviewed patient receiving fluid resuscitation as well, patient taken to the OR for surge ry 06/20/2024 Patient is seen in follow-up today status post cholecystectomy with general surgery. Infectious disease following as well and patient will likely be oral antibiotics on discharge. Patient reports not much of an appetite although is attempting to eat a little more. Patient does have intermittent nausea will use as needed antinausea medications along with pain management. Patient is afebrile with no reports of chest pain or shortness of breath. Encouraged increase activity as tolerated and would recommend incentive spirometer. 06/21/2024 Patient is seen and evaluated in follow-up this morning reports to feeling slightly improved although fatigued with continuous abdominal pain. Patient is maintained on antibiotics with infectious disease following and white count is elevated. Patient is not having fevers at this time. Patient reports he is tolerating a little more diet but not much of an appetite. Patient strongly encouraged to increase activity as tolerated and he reports will be up and walking more frequently today. Patient has been encouraged and instructed on how to use incentive spirometer at least 10 times every hour while awake. Will follow-up with repeat labs and continue antibiotics. Review of systems: Constitutional: No reports of fatigue, fever, or chills Cardiovascular: No reports of chest pain or palpitations Respiratory: No reports of shortness of breath or cough GI: reports of intermittent nausea but improving, denies vomiting, or diarrhea : No reports of dysuria or retention, passing gas Neurovascular: reports of weakness, reports continued abdominal pain on the left All medications have been reviewed Physical exam: Gen: This is a 64-year-old male who is awake, alert and oriented x 3, well- developed, appears older than stated age HEENT: Head is atraumatic, normocephalic. Pupils equal, round. Sclerae is anicteric. NECK: Supple. No JVD. No lymphadenopathy. No thyromegaly. LUNGS: Diminished breath sounds bilaterally otherwise clear to auscultation. No wheezes or rhonchi. No intercostal retractions. HEART: Regular rate and rhythm. No murmur. ABDOMEN: Soft. Bowel sounds are present. No masses. tenderness noted more so on the left. EXTREMITIES: No pedal edema. No calf tenderness. NEUROLOGICAL: Patient is awake, alert and oriented x3. Cranial nerves 2 through [address] scan abdomen and pelvis reports progression of extrinsic perinephric and retroperitoneal soft tissue stranding/fluid from prior CT on 06/02/2024. 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 Superimposed pancreatitis is not excluded. No organized fluid collections. Increasing size of hypodense 3.2 cm region within the left kidney which may represent a renal neoplasm versus infarct versus infectious process versus other. Slightly increased intrahepatic biliary duct dilatation which may be related to #1. Redemonstration of an enlarged left periaortic lymph node and surrounding subcentimeter lymph nodes which may be active to #1. Nonobstructive bilateral renal calculi. Cholelithiasis. Gallbladder ultrasound reports no evidence for acute process. Gallbladder upper limits of normal 9.6 cm Assessment: * Acute pancreatitis, improving * history Erdheim-Yahaira disease * sepsis, present on admission, secondary to pancreatitis * Enlarging left kidney lesion 3.2 cm suspicious for neoplasm versus infection * Cholelithiasis leading to pancreatitis, status post laparoscopic cholecy stectomy * Leukocytosis, secondary to above * Hypertension * coronary artery disease history of PCI * history of DVT * history of CVA * GI prophylaxis * DVT prophylaxis * Full code Plan: * in regards to pancreatitis CT abdomen pelvis reviewed, MRCP completed continue patient on IV Zosyn, patient on fluid resuscitation, , status post robotic cholecystectomy * General Surgery as well as GI following * in regards to renal lesion urology consulted recommend outpatient follow-up and continue antibiotic * in regards to sepsis, blood cultures collected no growth noted, infectious is and will discuss further regarding discharge antibiotics following continue Zosyn, white blood count remains elevated and is afebrile, strongly encouraged incentive spirometer and will follow-up with repeat labs. Continue antibiotics. * in regards to history of hypertension continue hydralazine, resume lisinopril * Plavix is on hold and will discuss with surgery when to resume * Labs and medication were reviewed. Recommend follow-up repeat labs and monitor white count is white count remains elevated * DVT prophylaxis: Subcutaneous heparin * GI Prophylaxis: Protonix * Due to multiple complex medical issues, overall prognosis is guarded The impression and plan of care has been dictated by Jessica Santiago, Nurse Practitioner as directed. Dr. Cory MD I have performed a history and examination and MDM of this patient, discussed the same with the dictator, and agree with the dictator's assessment and plan as written ,documented as a scribe. Based on total visit time, I have performed more than 50% of the visit. Objective - Vital Signs Vital signs: Vital Signs Temp 97.9 F 06/21/24 07:06 Pulse 72 06/21/24 07:06 Resp 16 06/21/24 07:06 BP 169/78 06/21/24 07:06 Pulse Ox 93 L 06/21/24 07:06 FiO2 Intake & Output 06/20/24 06/21/24 06/21/24 18:59 06:59 18:59 Intake Total 2380 Balance 2380 Intake: Intake, IV Titration 1300 Amount Piperacillin-Tazobactam 3 100 .375 gm In Sodium Chloride 0.9% 100 ml @ 25 mls/hr IVPB Q8HR [facility] Rx# :[id number] Sodium Chloride 0.9% 1, 1200 000 ml @ 100 mls/hr IV . Q10H [facility] Rx#:[id number] Oral 1080 Other: # Voids 3 3 # Bowel Movements 1 - Labs CBC & Chem 7: 06/22/24 03:17 06/21/24 06:11 Labs: Abnormal Lab Results - Last 24 Hours (Table) 06/21/24 Range/Units 02:43 WBC 15.37 H (4.50-10.00) X 10*3/uL RBC 4.24 L (4.40-5.60) X 10*6/uL Hct 38.5 L (39.6-50.0) % Immature Gran # 0.29 H (0.00-0.04) X 10*3/uL Neutrophils # 12.44 H (1.80-7.70) X 10*3/uL Lymphocytes # 0.73 L (0.90-5.00) X 10*3/uL Monocytes # 1.71 H (0.20-1.00) X 10*3/uL Microbiology - Last 24 Hours (Table) 06/15/24 13:43 Blood Culture - Final Blood
[2024-06-22 09:42] LABS: ALT 26 U/L (10-49); AST 18 U/L (14-35); Albumin 2.7 g/dL (3.8-4.9); Albumin/Globulin Ratio 1.59 Ratio (1.60-3.17); Alkaline Phosphatase 91 U/L (41-126); BUN/Creat Ratio 9.62 Ratio (12.00-20.00); Blood Urea Nitrogen 7.7 mg/dL (9.0-27.0); Calcium 7.8 mg/dL (8.7-10.3); Carbon Dioxide 22.8 mmol/L (21.6-31.8); Chloride 103 mmol/L (96-109); Globulin 1.7 g/dL (1.6-3.3); Glucose 96 mg/dL (70-110); Potassium 3.7 mmol/L (3.5-5.5); Sodium 137 mmol/L (135-145); Total Bilirubin 0.7 mg/dL (0.3-1.2); Total Protein 4.4 g/dL (6.2-8.2)
--- NOTE | 2024-06-22 11:14 | XR ---
EXAMINATION TYPE: XR chest 1V portable DATE OF EXAM: 06/22/2024 11:00 AM COMPARISON: Chest radiographs from 06/16/2022 CLINICAL INDICATION: Male, 64 years old with history of shortness of breath; [facility] TECHNIQUE: XR chest 1V portable Frontal view of the chest. FINDINGS: Lungs/Pleura: Bibasilar airspace opacities versus atelectasis. No evidence of focal consolidation or pneumothorax. Blunting of the costophrenic angles is present. Pulmonary vascularity: Unremarkable. Heart/mediastinum: Cardiomediastinal silhouette is unremarkable. Musculoskeletal: No acute osseous pathology. IMPRESSION: Right basilar airspace opacities versus atelectasis correlate for pneumonia. Blunting of the costophrenic angles correlate for small bilateral pleural effusions. [facility], , 06/22/2024 11:12 AM
--- NOTE | 2024-06-22 14:35 | P.PN ---
Subjective Progress Note Date: 06/22/24 SURGICAL PROGRESS NOTE CHIEF COMPLAINT: Gallstone pancreatitis HISTORY OF PRESENT ILLNESS: Postop day #3 status post Robotic assisted cholecystectomy. Patient complaining of diarrhea today. He had 3 episodes of diarrhea this morning. WBC is up from 15-16 Hgb 12.4 PHYSICAL EXAM: VITAL SIGNS: Reviewed. GENERAL: Well-developed in no acute distress. ABDOMEN: Soft. Nondistended. NEUROLOGIC: Alert and oriented. Cranial nerves II through XII grossly intact. ASSESSMENT: 1. Gallstone pancreatitis status post Robotic cholecystectomy PLAN: -Agree with checking stool for C. difficile -Continue regular diet -Continue antibiotics -Encourage patient to increase activity level -Encourage patient to use incentive spirometer -Continue pain management -repeat cbc in AM -DVT prophylaxis subcu heparin Physician Stenographer Secretary note has been reviewed by physician. Signing provider agrees with the documented findings, assessment, and plan of care. Objective - Vital Signs Vital signs: Vital Signs Temp 99.4 F 06/22/24 07:22 Pulse 88 06/22/24 07:22 Resp 17 06/22/24 07:22 BP 149/81 06/22/24 07:22 Pulse Ox 92 L 06/22/24 07:22 FiO2 Intake & Output 06/21/24 06/22/24 06/22/24 18:59 06:59 18:59 Intake Total 800 Balance 800 Intake: Intake, IV Titration 800 Amount Piperacillin-Tazobactam 3 200 .375 gm In Sodium Chloride 0.9% 100 ml @ 25 mls/hr IVPB Q8HR [facility] Rx# :[id number] Sodium Chloride 0.9% 1, 600 000 ml @ 50 mls/hr IV . Q20H [facility] Rx#:[id number] Other: Voiding Method Toilet # Voids 2 - Labs CBC & Chem 7: 06/22/24 03:17 06/22/24 03:17 Labs: Abnormal Lab Results - Last 24 Hours (Table) 06/22/24 06/22/24 Range/Units 03:17 03:17 WBC 16.81 H (4.50-10.00) X 10*3/uL RBC 4.07 L (4.40-5.60) X 10*6/uL Hgb 12.4 L (13.0-17.0) g/dL Hct 37.0 L (39.6-50.0) % Immature Gran # 0.35 H (0.00-0.04) X 10*3/uL Neutrophils # 13.47 H (1.80-7.70) X 10*3/uL Lymphocytes # 0.80 L (0.90-5.00) X 10*3/uL Monocytes # 1.88 H (0.20-1.00) X 10*3/uL BUN 7.7 L (9.0-27.0) mg/dL BUN/Creatinine Ratio 9.62 L (12.00-20.00) Ratio Calcium 7.8 L (8.7-10.3) mg/dL C-Reactive Protein 16.80 H (0.00-0.80) mg/dL Total Protein 4.4 L (6.2-8.2) g/dL Albumin 2.7 L (3.8-4.9) g/dL Albumin/Globulin Ratio 1.59 L (1.60-3.17) Ratio Assessment and Plan Assessment: 64 yo male s/ robotic cholecystectomy 2/2 gallstone pancreatitis -continue regular diet -stable for discharge Time with Patient: Less than 30
[2024-06-22 15:18] VITALS: BMI 27.3
[2024-06-22] MEDS: ONDANSETRON 4 MG/2 ML VIAL IVP PRN (16:26)
[2024-06-22] MEDS: FUROSEMIDE 10 MG/ML 2 ML VIAL IV ONE (18:50)
[2024-06-23] MEDS ORDERED: LOPERAMIDE 2 MG CAP PO PRN (06:29)
--- NOTE | 2024-06-23 06:29 | P.PN ---
Subjective Progress Note Date: 06/22/24 Seen postoperatively in PACU, updated postsurgery I updated post surgery PHYSICAL EXAMINATION: GENERAL: The patient is alert and oriented x3, cannula in place HEENT: Pupils are round and equally reacting to light. EOMI. CARDIOVASCULAR: S1 and S2 present. No murmurs, rubs, or gallops. PULMONARY: Chest is clear to auscultation, no wheezing or crackles. ABDOMEN: Soft, distended, surgical incision intactN M Pl. MUSCULOSKELETAL: No joint swelling or deformity. EXTREMITIES: No cyanosis, clubbing, or pedal edema. NEUROLOGICAL: Gross neurological examination did not reveal any focal deficits. SKIN: No rashes. Original Note: Subjective Progress Note Date: 06/19/24 64 years old male with past medical history of multiple medical problems as per patient and at bedside he was recently treated for acute pancreatitis for about 2 to 3 weeks ago, he felt well and then he discharged home. However his symptoms recurrent over the last few days and he presents with worsening abdominal pain and nausea vomiting. He is afebrile. No fever no sick contact. Denies specific urinary complaint, no headache dizziness weakness numbness, no chest pain dyspnea. He states that his urine was dark. He had diarrhea today. He vomited today but there is no blood. Abdominal pain looks moderate and controlled now. He denies smoking alcohol or illicit drugs Vitals stable, afebrile. Labs showing significant leukocytosis of 27.9, rest of CBC, BMP, LFT, INR were unremarkable MAC is elevated 11/[birth year]1972, lipase more than 20,000. CT of the abdomen and pelvis showing progression of extensive perinephric and Retroperitoneal soft tissue stranding [ Erdheim yahaira disease ] per radiologist and superimposed pancreatitis -Increased left renal 3.2 cm lesion suspicious for neoplasm versus infection. -Renal and gallbladder stones EKG showing sinus rhythm at 77 with frequent PVCs but no significant ST-T changes 06/16 Patient feels much better, he is sitting in chair, he tolerated Abdominal pain is better His plan for him to go to surgery on Thursday He says Plavix is taking for coronary artery disease and stent placed 12 years ago school. Keep holding Plavix, patient informed and he agrees 06/17 Patient still has epigastric abdominal pain today and extensive nausea. He has to bowel movements. However patient states his nausea medicine is working. Patient has low-grade fever yesterday. Leukocytosis improving down to 14.7. Patient wants to switch surgeons services. I discussed the case with Dr. Chester who kindly will come and see the patient today. Also will consult urology service for his kidney lesion 06/18: patient seen and evaluated at bedside , completed MRCP, Does c/p Nausea and abdominal pain 06/19- patient seen and evaluated at bedside noted to have temp of 99, heart rate of 73 remains on room air saturation 91%, blood work reviewed sodium 137 creatinine of 0.9 calcium of 8.1 with albumin of 2.8 lipase trending down to 409 procalcitonin was elevated earlier 1.49, continue Zosyn MRCP results reviewed patient receiving fluid resuscitation as well, patient taken to the OR for surge ry 06/20/2024 Patient is seen in follow-up today status post cholecystectomy with general surgery. Infectious disease following as well and patient will likely be oral antibiotics on discharge. Patient reports not much of an appetite although is attempting to eat a little more. Patient does have intermittent nausea will use as needed antinausea medications along with pain management. Patient is afebrile with no reports of chest pain or shortness of breath. Encouraged increase activity as tolerated and would recommend incentive spirometer. 06/21/2024 Patient is seen and evaluated in follow-up this morning reports to feeling slightly improved although fatigued with continuous abdominal pain. Patient is maintained on antibiotics with infectious disease following and white count is elevated. Patient is not having fevers at this time. Patient reports he is tolerating a little more diet but not much of an appetite. Patient strongly encouraged to increase activity as tolerated and he reports will be up and walking more frequently today. Patient has been encouraged and instructed on how to use incentive spirometer at least 10 times every hour while awake. Will follow-up with repeat labs and continue antibiotics. 06/22/2024 Patient is seen in follow-up this morning reporting to having a rough night as he has not been sleeping well and continues to have abdominal discomfort. Patient is passing gas and having bowel movements and reports to having yellowy loose stools. Will obtain a C. difficile and if continuing to have loose stools and negative will add Imodium as needed for supportive care. Encouraged patient increase activity as tolerated with frequent walking and continuing to use incentive spirometer. White count remains elevated at 16 and is maintained on Zosyn and will continue. Infectious diseases following. Patient is afebrile. Review of systems: Constitutional: No reports of fatigue, fever, or chills Cardiovascular: No reports of chest pain or palpitations Respiratory: No reports of shortness of breath or cough GI: reports of intermittent nausea but improving, denies vomiting, or diarrhea : No reports of dysuria or retention, passing gas Neurovascular: reports of weakness, reports continued abdominal pain on the left All medications have been reviewed Physical exam: Gen: This is a 64-year-old male who is awake, alert and oriented x 3, well- developed, appears older than stated age HEENT: Head is atraumatic, normocephalic. Pupils equal, round. Sclerae is anicteric. NECK: Supple. No JVD. No lymphadenopathy. No thyromegaly. LUNGS: Diminished breath sounds bilaterally otherwise clear to auscultation. No wheezes or rhonchi. No intercostal retractions. HEART: Regular rate and rhythm. No murmur. ABDOMEN: Soft. Bowel sounds are present. No masses. tenderness noted more so on the left. EXTREMITIES: No pedal edema. No calf tenderness. NEUROLOGICAL: Patient is awake, alert and oriented x3. Cranial nerves 2 through [address] scan abdomen and pelvis reports progression of extrinsic perinephric and retroperitoneal soft tissue stranding/fluid from prior CT on 06/02/2024. Findings are consistent with reported Erdheim-Brighton disease. Superimposed pancreatitis is not excluded. No organized fluid collections. Increasing size of hypodense 3.2 cm region within the left kidney which may represent a renal neoplasm versus infarct versus infectious process versus other. Slightly increased intrahepatic biliary duct dilatation which may be related to #1. Redemonstration of an enlarged left periaortic lymph node and surrounding subcentimeter lymph nodes which may be active to #1. Nonobstructive bilateral renal calculi. Cholelithiasis. Gallbladder ultrasound reports no evidence for acute process. Gallbladder upper limits of normal 9.6 cm Assessment: * Acute pancreatitis, improving * history Erdheim-Brighton disease * sepsis, present on admission, secondary to pancreatitis * Enlarging left kidney lesion 3.2 cm suspicious for neoplasm versus infection * Cholelithiasis leading to pancreatitis, status post laparoscopic cholecystectomy * Leukocytosis, secondary to above * Hypertension * coronary artery disease history of PCI * history of DVT * history of CVA * GI prophylaxis * DVT prophylaxis * Full code Plan: * in regards to pancreatitis CT abdomen pelvis reviewed, MRCP completed continue patient on IV Zosyn, , status post robotic cholecystectomy * General Surgery as well as GI following * Patient reports to having loose yellow stools will obtain a C. difficile and if negative will add as needed Imodium * in regards to renal lesion urology consulted recommend outpatient follow-up and continue antibiotic * in regards to sepsis, blood cultures collected no growth noted, infectious is following and will discuss further regarding discharge antibiotics following continue Zosyn, white blood count remains elevated and is afebrile, strongly encouraged incentive spirometer and will follow-up with repeat labs. Continue antibiotics. * in regards to history of hypertension continue hydralazine, resume lisinopril * Plavix is on hold and will will resume 06/23/2024 * Labs and medication were reviewed. Recommend follow-up repeat labs and monitor white count is white count remains elevated * DVT prophylaxis: Subcutaneous heparin * GI Prophylaxis: Protonix * Due to multiple complex medical issues, overall prognosis is guarded The impression and plan of care has been dictated by Jessica Santiago, Nurse Practitioner as directed. Dr. Cory MD I have performed a history and examination and MDM of this patient, discussed the same with the dictator, and agree with the dictator's assessment and plan as written ,documented as a scribe. Based on total visit time, I have performed more than 50% of the visit. Objective - Vital Signs Vital signs: Vital Signs Temp 99.4 F 06/22/24 07:22 Pulse 88 06/22/24 07:22 Resp 17 06/22/24 07:22 BP 149/81 06/22/24 07:22 Pulse Ox 92 L 06/22/24 07:22 FiO2 Intake & Output 06/21/24 06/22/24 06/22/24 18:59 06:59 18:59 Intake Total 800 Balance 800 Intake: Intake, IV Titration 800 Amount Piperacillin-Tazobactam 3 200 .375 gm In Sodium Chloride 0.9% 100 ml @ 25 mls/hr IVPB Q8HR [facility] Rx# :[id number] Sodium Chloride 0.9% 1, 600 000 ml @ 50 mls/hr IV . Q20H [facility] Rx#:[id number] Other: Voiding Method Toilet # Voids 2 - Labs CBC & Chem 7: 06/22/24 03:17 06/22/24 03:17 Labs: Abnormal Lab Results - Last 24 Hours (Table) 06/21/24 06/22/24 06/22/24 Range/Units 06:11 03:17 03:17 WBC 16.81 H (4.50-10.00) X 10*3/uL RBC 4.07 L (4.40-5.60) X 10*6/uL Hgb 12.4 L (13.0-17.0) g/dL Hct 37.0 L (39.6-50.0) % Immature Gran # 0.35 H (0.00-0.04) X 10*3/uL Neutrophils # 13.47 H (1.80-7.70) X 10*3/uL Lymphocytes # 0.80 L (0.90-5.00) X 10*3/uL Monocytes # 1.88 H (0.20-1.00) X 10*3/uL Carbon Dioxide 19.3 L (21.6-31.8) mmol/L BUN 8.1 L 7.7 L (9.0-27.0) mg/dL BUN/Creatinine Ratio 10.12 L 9.62 L (12.00-20.00) Ratio Calcium 7.8 L 7.8 L (8.7-10.3) mg/dL C-Reactive Protein 16.80 H (0.00-0.80) mg/dL Total Protein 4.4 L (6.2-8.2) g/dL Albumin 2.7 L (3.8-4.9) g/dL Albumin/Globulin Ratio 1.59 L (1.60-3.17) Ratio
--- NOTE | 2024-06-23 08:04 | P.PN ---
Subjective Progress Note Date: 06/22/24 Principal diagnosis: Reason for follow-up is leukocytosis/pancreatitis Patient is a 64-year-old male with a past medical history significant for CVA TIA hypertension coronary artery disease and erdheimchester's disease, patient presented to [facility] for evaluation of abdominal pain nausea and vomiting has been diagnosed with acute pancreatitis, patient did have MRCP e xtensive fat stranding around the pancreas no evidence of choledocholithiasis patient is status post laparoscopic cholecystectomy completed on 06/19/2024. On today's evaluation that is 06/22/2024,the patient denies any fever or any chills, patient is breathing comfortably on room air, the patient denies chest pain shortness of breath and no significant cough, patient has been complaining of more abdominal pain did have some nausea but no vomiting did have multiple loose stool no blood or mucus in the stool. Patient white count 16.81, creatinine 0.8 stool for C. difficile has been requested pending collection Objective - Vital Signs Vital signs: Vital Signs Temp 99.4 F 06/22/24 07:22 Pulse 88 06/22/24 07:22 Resp 17 06/22/24 07:22 BP 149/81 06/22/24 07:22 Pulse Ox 92 L 06/22/24 07:22 FiO2 Intake & Output 06/21/24 06/22/24 06/22/24 18:59 06:59 18:59 Intake Total 800 Balance 800 Intake: Intake, IV Titration 800 Amount Piperacillin-Tazobactam 3 200 .375 gm In Sodium Chloride 0.9% 100 ml @ 25 mls/hr IVPB Q8HR [facility] Rx# :[id number] Sodium Chloride 0.9% 1, 600 000 ml @ 50 mls/hr IV . Q20H [facility] Rx#:[id number] Other: Voiding Method Toilet # Voids 2 - Exam GENERAL DESCRIPTION: Middle-age male lying in bed in no distress RESPIRATORY SYSTEM: Unlabored breathing , decreased breath sounds at bases HEART: S1 S2 regular rate and rhythm , ABDOMEN: Soft , mild tenderness EXTREMITIES: No edema feet - Labs CBC & Chem 7: 06/22/24 03:17 06/22/24 03:17 Labs: Abnormal Lab Results - Last 24 Hours (Table) 06/21/24 06/22/24 06/22/24 Range/Units 06:11 03:17 03:17 WBC 16.81 H (4.50-10.00) X 10*3/uL RBC 4.07 L (4.40-5.60) X 10*6/uL Hgb 12.4 L (13.0-17.0) g/dL Hct 37.0 L (39.6-50.0) % Immature Gran # 0.35 H (0.00-0.04) X 10*3/uL Neutrophils # 13.47 H (1.80-7.70) X 10*3/uL Lymphocytes # 0.80 L (0.90-5.00) X 10*3/uL Monocytes # 1.88 H (0.20-1.00) X 10*3/uL Carbon Dioxide 19.3 L (21.6-31.8) mmol/L BUN 8.1 L 7.7 L (9.0-27.0) mg/dL BUN/Creatinine Ratio 10.12 L 9.62 L (12.00-20.00) Ratio Calcium 7.8 L 7.8 L (8.7-10.3) mg/dL C-Reactive Protein 16.80 H (0.00-0.80) mg/dL Total Protein 4.4 L (6.2-8.2) g/dL Albumin 2.7 L (3.8-4.9) g/dL Albumin/Globulin Ratio 1.59 L (1.60-3.17) Ratio Assessment and Plan (1) Leukocytosis Current Visit: Yes Status: Acute Code(s): D72.829 - ELEVATED WHITE BLOOD CELL COUNT, UNSPECIFIED SNOMED Code(s): 744060150 (2) Pancreatitis Current Visit: Yes Status: Acute Code(s): K85.90 - ACUTE PANCREATITIS WIT HOUT NECROSIS OR INFECTION, UNSP SNOMED Code(s): 08328510 Plan: 1patient presented to the hospital abdominal pain and this patient has been diagnosed with acute pancreatitis ultrasound of the gallbladder was negative for any gallstones aneurysm has been normal there was significant family changes but did not mention any fluid collection patient did have ongoing low-grade fever and the white count is trending down. There was abnormality seen on the kidney but UA has been negative 2patient is status post cholecystectomy patient did have worsening of the white count and also has developed diarrhea stool for C. difficile has been requested we will follow results add Questran for symptomatic relief if he did have persistent diarrhea Dictation was produced using [employer] software. please excuse any grammatical, word or spelling errors. Time with Patient: Less than 30
[2024-06-23] MEDS: CLOPIDOGREL 75 MG TAB PO SCH (08:16)
[2024-06-23 08:18] VITALS: BP 157/76; PULSE 80; RESP 18; TEMP 99.5
[2024-06-23 08:47] LABS: Basophils # (A) 0.09 X 10*3/uL (0.00-0.10); Basophils % (A) 0.6 %; Eosinophils # (A) 0.31 X 10*3/uL (0.04-0.35); Eosinophils % (A) 2.1 %; HCT 36.6 % (39.6-50.0); HGB 12.4 g/dL (13.0-17.0); Lymphocytes # (A) 1.08 X 10*3/uL (0.90-5.00); Lymphocytes % (A) 7.3 %; MCH 30.5 pg (27.0-32.0); MCHC 33.9 g/dL (32.0-37.0); MCV 90.1 FL (80.0-97.0); Mean Platelet Volume 9.9 FL (9.5-12.2); Monocytes % (A) 10.8 %; NRBC Per 100 WBC 0 X 10*3/uL (0.00-0.01); Neutrophils # (A) 11.36 X 10*3/uL (1.80-7.70); Neutrophils % (A) 76.3 %; Platelet Count 398 X 10*3/uL (140-440); RBC 4.06 X 10*6/uL (4.40-5.60); RDW 12.8 % (11.5-14.5); WBC 14.87 X 10*3/uL (4.50-10.00)
[2024-06-23] MEDS: CHOLESTYRAMINE (WITH SUGAR) 4 GM PACKET PO SCH (11:19)
--- NOTE | 2024-06-23 12:34 | P.PN ---
Subjective Progress Note Date: 06/23/24 SURGICAL PROGRESS NOTE CHIEF COMPLAINT: Gallstone pancreatitis HISTORY OF PRESENT ILLNESS: Postop day #4 status post Robotic assisted cholecystectomy. Patient reports his diarrhea is less. He reports feeling better and ready for discharge. Tolerating diet. Pain controlled. Afebrile. WBC is down from 16-14.8 PHYSICAL EXAM: VITAL SIGNS: Reviewed. GENERAL: Well-developed in no acute distress. ABDOMEN: Soft. Nondistended. Incision sites clean dry and intact NEUROLOGIC: Alert and oriented. Cranial nerves II through XII grossly intact. ASSESSMENT: 1. Gallstone pancreatitis status post Robotic cholecystectomy 2. Leukocytosis likely secondary to history of chemotherapy agents with delayed reaction PLAN: -Patient can be discharged from surgical standpoint -Antibiotics per ID service -Continue regular diet -Okay to resume Plavix Physician Dumper Bailer Operator note has been reviewed by physician. Signing provider agrees with the documented findings, assessment, and plan of care. Objective - Vital Signs Vital signs: Vital Signs Temp 99.5 F 06/23/24 07:00 Pulse 80 06/23/24 07:00 Resp 18 06/23/24 07:00 BP 157/76 06/23/24 07:00 Pulse Ox 93 L 06/23/24 07:00 FiO2 Intake & Output 06/22/24 06/23/24 06/23/24 18:59 06:59 18:59 Weight 81.647 kg Other: # Voids 3 # Bowel Movements 2 - Labs CBC & Chem 7: 06/23/24 03:11 06/22/24 03:17 Labs: Abnormal Lab Results - Last 24 Hours (Table) 06/23/24 Range/Units 03:11 WBC 14.87 H (4.50-10.00) X 10*3/uL RBC 4.06 L (4.40-5.60) X 10*6/uL Hgb 12.4 L (13.0-17.0) g/dL Hct 36.6 L (39.6-50.0) % Immature Gran # 0.43 H (0.00-0.04) X 10*3/uL Neutrophils # 11.36 H (1.80-7.70) X 10*3/uL Monocytes # 1.60 H (0.20-1.00) X 10*3/uL
--- NOTE | 2024-06-23 13:37 | P.PN ---
Subjective Progress Note Date: 06/23/24 Principal diagnosis: Reason for follow-up is leukocytosis/pancreatitis Patient is a 64-year-old male with a past medical history significant for CVA TIA hypertension coronary artery disease and erdheimchester's disease, patient presented to [facility] for evaluation of abdominal pain nausea and vomiting has been diagnosed with acute pancreatitis, patient did have MRCP e xtensive fat stranding around the pancreas no evidence of choledocholithiasis patient is status post laparoscopic cholecystectomy completed on 06/19/2024. On today's evaluation that is 06/23/2024,the patient remains to be afebrile, patient is on room air not requiring supplemental oxygen and denies any shortness of breath no chest pain or cough.Patient denies having any nausea or vomiting, abdominal pain has decreased in intensity and diarrhea has slowed down. Patient white count is 14.87 Objective - Vital Signs Vital signs: Vital Signs Temp 99.5 F 06/23/24 07:00 Pulse 80 06/23/24 07:00 Resp 18 06/23/24 07:00 BP 157/76 06/23/24 07:00 Pulse Ox 93 L 06/23/24 07:00 FiO2 Intake & Output 06/22/24 06/23/24 06/23/24 18:59 06:59 18:59 Weight 81.647 kg Other: # Voids 3 # Bowel Movements 2 - Exam GENERAL DESCRIPTION: Middle-age male lying in bed in no distress RESPIRATORY SYSTEM: Unlabored breathing , decreased breath sounds at bases HEART: S1 S2 regular rate and rhythm , ABDOMEN: Soft , mild tenderness EXTREMITIES: No edema feet - Labs CBC & Chem 7: 06/23/24 03:11 06/22/24 03:17 Labs: Abnormal Lab Results - Last 24 Hours (Table) 06/23/24 Range/Units 03:11 WBC 14.87 H (4.50-10.00) X 10*3/uL RBC 4.06 L (4.40-5.60) X 10*6/uL Hgb 12.4 L (13.0-17.0) g/dL Hct 36.6 L (39.6-50.0) % Immature Gran # 0.43 H (0.00-0.04) X 10*3/uL Neutrophils # 11.36 H (1.80-7.70) X 10*3/uL Monocytes # 1.60 H (0.20-1.00) X 10*3/uL Assessment and Plan (1) Leukocytosis Current Visit: Yes Status: Acute Code(s): D72.829 - ELEVATED WHITE BLOOD CELL COUNT, UNSPECIFIED SNOMED Code(s): 122130725 (2) Pancreatitis Current Visit: Yes Status: Acute Code(s): K85.90 - ACUTE PANCREATITIS WITHOUT NECROSIS OR INFECTION, UNSP SNOMED Code(s): 33486366 Plan: 1patient presented to the hospital abdominal pain and this patient has been diagnosed with acute pancreatitis ultrasound of the gallbladder was negative for any gallstones aneurysm has been normal there was significant family changes but did not mention any fluid collection patient did have ongoing low-grade fever and the white count is trending down. There was abnormality seen on the kidney but UA has been negative 2patient is status post cholecystectomy patient did have worsening of the white count, stool for C. difficile was canceled and there was some formed stool sample sent down to the lab he will continue the Questran for symptomatic relief and consider a 7-day course of oral Ceftin and Flagyl on discharge Dictation was produced using [employer] dictation software. please excuse any grammatical, word or spelling errors. Time with Patient: Less than 30
--- NOTE | 2024-06-27 07:05 | P.DS ---
Providers Date of admission: 06/15/24 13:06 Expected date of discharge: 06/23/24 Attending physician: Robin Matos MD Consults: 06/17/24 11:35 Consult Physician Routine Consulting Provider: Hung Patel Consult Reason/Comments: pancreatitis with possible abscess Do you want consulting provider notified?: Already Contacted 06/17/24 11:39 Consult Physician Routine Consulting Provider: Suraj Lou Consult Reason/Comments: enlarging kid lesion , abscess vs neoplasm Do you want consulting provider notified?: Yes 06/18/24 10:32 Consult Physician Routine Consulting Provider: Sushil Tellez Consult Reason/Comments: sepsis secondary to pancreatitis Do you want consulting provider notified?: Yes Primary care physician: Hernan Hinton Hospital Course: Final diagnosis * Acute pancreatitis, improving * history Erdheim-Huerfano disease * sepsis, present on admission, secondary to pancreatitis * Enlarging left kidney lesion 3.2 cm suspicious for neoplasm versus infection * Cholelithiasis leading to pancreatitis, status post laparoscopic cholecystectomy * Leukocytosis, secondary to above * Hypertension * coronary artery disease history of PCI * history of DVT * history of CVA * GI prophylaxis * DVT prophylaxis * Full code Discharge disposition Patient is being discharged in a stable condition with guarded prognosis to home. Patient will follow-up with Dr. Hinton in the outpatient setting upon discharge. Patient is to continue with Ceftin and Flagyl on discharge and outpatient follow-up with general surgery as scheduled. Total time taken is greater than 35 minutes. Hospital course This is a 64-year-old male who was recently admitted with abdominal pain noted to have acute pancreatitis and sepsis, present on admission. Patient did have cholelithiasis evaluated by GI and also general surgery and is status post laparoscopic cholecystectomy. Patient with generalized weakness and white count which is trending down maintained on antibiotics. Patient will continue Ceftin and Flagyl on discharge for 1 week per ID recommendations. Patient to follow-up outpatient with primary care provider as well as general surgery this week. Patient reports to feeling improved and diarrhea has lessened and will continue Questran as needed. Please refer to other consultation notes for further HPI. Currently no reports of chest pain, shortness of breath, or palpitations. Patient is afebrile. No reports of nausea or vomiting and patient is tolerating diet. Patient will be discharged home today. Guarded prognosis. Physical exam: Gen: This is a 64-year-old male who is awake, alert oriented x 3, well- developed, elderly appearing HEENT: Head is atraumatic, normocephalic. Pupils equal, round. Sclerae is anicteric. NECK: Supple. No JVD. No lymphadenopathy. No thyromegaly. LUNGS: Clear to auscultation. No wheezes or rhonchi. No intercostal retractions. HEART: Regular rate and rhythm. No murmur. ABDOMEN: Soft. Bowel sounds are present. No masses. Mildly tender on palpation on the left upper quadrant EXTREMITIES: No pedal edema. No calf tenderness. NEUROLOGICAL: Patient is awake, alert and oriented x3. Cranial nerves 2 through 12 are grossly intact. Please refer to medication reconciliation sheet for a list of medications. The impression and plan of care has been dictated by Jessica Santiago, Nurse Practitioner as directed. Dr. Cory MD I have performed a history and examination and MDM of this patient, discussed the same with the dictator, and agree with the dictator's assessment and plan as written ,documented as a scribe. Based on total visit time, I have performed more than 50% of the visit. Patient Condition at Discharge: Stable Plan - Discharge Summary New Discharge Prescriptions: New hydrALAZINE HCL [Apresoline] 25 mg PO QID PRN 30 Days #120 tab PRN Reason: Blood Pressure - High Cholestyramine (with Sugar) [Questran Packet] 4 gm PO BID@1000,1800 #30 packet HYDROcodone/APAP 5-325MG [[place] 5-325] 1 tab PO Q6HR PRN 3 Days #12 tab PRN Reason: Pain Acetaminophen Tab [Tylenol] 650 mg PO Q6HR PRN tab PRN Reason: Mild Pain Or Fever > 100.5 lisinopriL [Zestril] 10 mg PO DAILY #30 tab cefuroxime axetiL [Ceftin] 500 mg PO BID 7 Days #14 tab metroNIDAZOLE [Flagyl] 500 mg PO TID 7 Days #21 tab Continue Clopidogrel Bisulfate [Plavix] 75 mg PO DAILY Tamsulosin HCl [Flomax] 0.4 mg PO DAILY Metoprolol Tartrate 25 mg PO BID Rosuvastatin Calcium [Crestor] 10 mg PO DAILY Omeprazole 20 mg PO DAILY buPROPion XL [Wellbutrin XL] 150 mg PO DAILY Citalopram Hydrobromide [CeleXA] 20 mg PO DAILY Vemurafenib [Zelboraf] 960 mg PO BID Discontinued lisinopriL [Prinivil] 5 mg PO DAILY Discharge Medication List Clopidogrel Bisulfate [Plavix] 75 mg PO DAILY 07/05/19 [History] Metoprolol Tartrate 25 mg PO BID 07/05/19 [History] Rosuvastatin Calcium [Crestor] 10 mg PO DAILY 07/05/19 [History] Tamsulosin HCl [Flomax] 0.4 mg PO DAILY 07/05/19 [History] Omeprazole 20 mg PO DAILY 12/30/21 [History] buPROPion XL [Wellbutrin XL] 150 mg PO DAILY 12/30/21 [History] Citalopram Hydrobromide [CeleXA] 20 mg PO DAILY 06/16/22 [History] Vemurafenib [Zelboraf] 960 mg PO BID 06/15/24 [History] Acetaminophen Tab [Tylenol] 650 mg PO Q6HR PRN tab 06/23/24 [Rx] Cholestyramine (with Sugar) [Questran Packet] 4 gm PO BID@1000,1800 #30 packet 06/23/24 [Rx] HYDROcodone/APAP 5-325MG [[place] 5-325] 1 tab PO Q6HR PRN 3 Days #12 tab 06/23/24 [Rx] cefuroxime axetiL [Ceftin] 500 mg PO BID 7 Days #14 tab 06/23/24 [Rx] hydrALAZINE HCL [Apresoline] 25 mg PO QID PRN 30 Days #120 tab 06/23/24 [Rx] lisinopriL [Zestril] 10 mg PO DAILY #30 tab 06/23/24 [Rx] metroNIDAZOLE [Flagyl] 500 mg PO TID 7 Days #21 tab 06/23/24 [Rx] Follow up Appointment(s)/Referral(s): Hernan Hinton MD [Primary Care Provider] - 1-2 days Suraj Lou MD [STAFF PHYSICIAN] - 1 Week Hung Patel DO [Doctor of Osteopathic Medicine] - 1 Week Activity/Diet/Wound Care/Special Instructions: Activity limited until follow-up Follow-up with primary care provider on discharge Continue taking medications as prescribed Continue with Ceftin and Flagyl for 1 week on discharge Continue current diet slowly advance as tolerated Follow-up with general surgery outpatient Discharge Disposition: HOME SELF-CARE
== END 2024-06-23 15:09 | disposition home or self-care (01) | DRG 853 ==
LOC: EC 08:34 → 4SSUR 13:06
PROVIDERS: ADMIT Internal Medicine; ATTEND Internal Medicine
PROC: 05HC33Z Insertion of Infusion Device into Left Basilic Vein, Percutaneous Approach (ICD-10-PCS; 2024-06-17)
PROC: 8E0W4CZ Robotic Assisted Procedure of Trunk Region, Percutaneous Endoscopic Approach (ICD-10-PCS; 2024-06-19)
PROC: 0FT44ZZ Resection of Gallbladder, Percutaneous Endoscopic Approach (ICD-10-PCS; principal; 2024-06-19 09:30)
DX: A41.9 Sepsis, unspecified organism (principal); K85.10 Biliary acute pancreatitis without necrosis or infection; K80.20 Calculus of gallbladder without cholecystitis without obstruction; I25.10 Atherosclerotic heart disease of native coronary artery without angina pectoris; F32.A Depression, unspecified; F41.9 Anxiety disorder, unspecified; I10 Essential (primary) hypertension; I49.3 Ventricular premature depolarization; N20.0 Calculus of kidney; N28.89 Other specified disorders of kidney and ureter; J44.9 Chronic obstructive pulmonary disease, unspecified; K82.8 Other specified diseases of gallbladder; Z79.02 Long term (current) use of antithrombotics/antiplatelets; Z79.899 Other long term (current) drug therapy; Z82.49 Family history of ischemic heart disease and other diseases of the circulatory system; Z86.718 Personal history of other venous thrombosis and embolism; Z86.73 Personal history of transient ischemic attack (TIA), and cerebral infarction without residual deficits; Z92.21 Personal history of antineoplastic chemotherapy; Z95.5 Presence of coronary angioplasty implant and graft; Z87.19 Personal history of other diseases of the digestive system
CPT/HCPCS: 36410; 36415; 71045; 74177; 74181; 76705; 76937; 80048; 80053; 80076; 81003; 82150; 83605; 83690; 83735; 84145; 84484; 85025; 85027; 85610; 86140; 86850; 86900; 86901; 87040; 88304; 93005; 96361; 96365; 96375; 96376; 99285

== ENCOUNTER 2024-07-05 15:12 | Inpatient (IN) | payer MEDICARE ==
--- NOTE | 2024-07-05 15:51 | ED ---
SOB HPI - General Source: patient, RN notes reviewed Mode of arrival: ambulatory Limitations: no limitations <McgarryKaitlin - Last Filed: 07/05/24 15:51> - General Source: patient, RN notes reviewed, old records reviewed Mode of arrival: ambulatory Limitations: no limitations - History of Present Illness MD Complaint: shortness of breath -: week(s) Consistency: constant Improves With: nothing Context: recent illness Associated Symptoms: chest pain Treatments Prior to Arrival: none <Ray Reyes - Last Filed: 07/05/24 19:12> - General Chief Complaint: Shortness of Breath Stated Complaint: poss PE Time Seen by Provider: 07/05/24 15:50 - History of Present Illness Initial Comments: Quick [id number] male presenting with shortness of breath x 3 weeks. Patient states he was recently hospitalized for pancreatitis and started to become short of breath at the end of admission. Patient states he is very short of breath with exertion. He does have a history of blood clots and he is currently on Plavix. Patient was sent by PCP due to concern for PE. (Kaitlin Mcgarry) This is a 64 male to ER for shortness of breath severe shortness of breath for 3 weeks worsening after recent hospital admission and he does have a history of blood clots (Ray Reyes) - Related Data Home Medications Medication Instructions Recorded Confirmed Clopidogrel Bisulfate [Plavix] 75 mg PO DAILY 07/05/19 06/15/24 Metoprolol Tartrate 25 mg PO BID 07/05/19 06/15/24 Rosuvastatin Calcium [Crestor] 10 mg PO DAILY 07/05/19 06/15/24 Tamsulosin HCl [Flomax] 0.4 mg PO DAILY 07/05/19 06/15/24 Omeprazole 20 mg PO DAILY 12/30/21 06/15/24 buPROPion XL [Wellbutrin XL] 150 mg PO DAILY 12/30/21 06/15/24 Citalopram Hydrobromide [CeleXA] 20 mg PO DAILY 06/16/22 06/15/24 Vemurafenib [Zelboraf] 960 mg PO BID 06/15/24 06/16/24 Previous Rx's Medication Instructions Recorded Acetaminophen Tab [Tylenol] 650 mg PO Q6HR PRN tab 06/23/24 Cholestyramine (with Sugar) 4 gm PO BID@1000,1800 #30 packet 06/23/24 [Questran Packet] HYDROcodone/APAP 5-325MG [[place] 1 tab PO Q6HR PRN 3 Days #12 tab 06/23/24 5-325] cefuroxime axetiL [Ceftin] 500 mg PO BID 7 Days #14 tab 06/23/24 hydrALAZINE HCL [Apresoline] 25 mg PO QID PRN 30 Days #120 tab 06/23/24 lisinopriL [Zestril] 10 mg PO DAILY #30 tab 06/23/24 metroNIDAZOLE [Flagyl] 500 mg PO TID 7 Days #21 tab 06/23/24 Allergies Allergy/AdvReac Type Severity Reaction Status Date / Time No Known Allergies Allergy Verified 07/05/24 15:28 Review of Systems ROS Other: All systems not noted in ROS Statement are negative. <Kaitlin Mcgarry - Last Filed: 07/05/24 15:51> ROS Other: All systems not noted in ROS Statement are negative. <Ray Reyes - Last Filed: 07/05/24 19:12> ROS Statement: Those systems with pertinent positive or pertinent negative responses have been documented in the HPI. Past Medical History Past Medical History: Coronary Artery Disease (CAD), Cancer, CVA/TIA, Hypertension Additional Past Medical History / Comment(s): erdheimchester's disease (rare blood cancer) History of Any Multi-Drug Resistant Organisms: None Reported Past Surgical History: Heart Catheterization With Stent, Hernia Repair Additional Past Surgical History / Comment(s): exp lap,. biopsies of bone and kidney (negative) Past Anesthesia/Blood Transfusion Reactions: No Reported Reaction Date of Last Stent Placement:: 2013 Past Psychological History: Anxiety, Depression Smoking Status: Never smoker Past Alcohol Use History: Rare Past Drug Use History: Marijuana - Past Family History Mother Family Medical History: Coronary Artery Disease (CAD) Father Additional Family Medical History / Comment(s): dies from AIDS in 1988 <Kaitlin Mcgarry - Last Filed: 07/05/24 15:51> General Exam Limitations: no limitations <Kaitlin Mcgarry - Last Filed: 07/05/24 15:51> General appearance: alert, in no apparent distress Head exam: Present: atraumatic, normocephalic, normal inspection Eye exam: Present: normal appearance, PERRL, EOMI. Absent: scleral icterus, conjunctival injection, periorbital swelling ENT exam: Present: normal exam, mucous membranes moist Neck exam: Present: normal inspection. Absent: tenderness, meningismus, lymphadenopathy Respiratory exam: Present: normal lung sounds bilaterally. Absent: respiratory distress, wheezes, rales, rhonchi, stridor Cardiovascular Exam: Present: regular rate, normal rhythm, normal heart sounds. Absent: systolic murmur, diastolic murmur, rubs, gallop, clicks GI/Abdominal exam: Present: soft, normal bowel sounds. Absent: distended, tenderness, guarding, rebound, rigid Extremities exam: Present: normal inspection, full ROM, normal capillary refill. Absent: tenderness, pedal edema, joint swelling, calf tenderness Back exam: Present: normal inspection Neurological exam: Present: alert, oriented X3, CN II-XII intact Psychiatric exam: Present: normal affect, normal mood Skin exam: Present: warm, dry, intact, normal color. Absent: rash <Ray Reyes - Last Filed: 07/05/24 19:12> - General Exam Comments Initial Comments: Visual Physical Exam Vital signs reviewed General: Well-appearing, nontoxic, no acute distress. Head: Normocephalic, atraumatic Eyes: PERRLA, EOMI ENT: Airway patent Chest: Nonlabored breathing Skin: No visual rash, normal skin tone Neuro: Alert and oriented 3 Musculoskeletal: No gross abnormalities (Kaitlin Mcgarry) Course <Ray Reyes - Last Filed: 07/05/24 19:12> Vital Signs 07/05/24 15:29 Temperature 98.8 F Pulse Rate 95 Respiratory 20 Rate Blood Pressure 143/85 O2 Sat by Pulse 98 Oximetry - Reevaluation(s) Reevaluation #1: 07/05/24 19:10 Medical records reviewed (Ray Reyes) Reevaluation #2: 07/05/24 19:11 Patient symptoms unchanged (Ray Reyes) Reevaluation #3: 07/05/24 19:11 Patient informed of results questions answered (Ray Reyes) Reevaluation #4: Was pt. sent in by a medical professional or institution (Dr., PA, PATIENT REGISTRATION CLERK, urgent care, hospital, or long term...) When possible be specific @ -no Did you speak to anyone other than the patient for history (EMS, parent, family, police, friend...)? What history was obtained from this source @ -no Did you review nursing and triage notes (agree or disagree)? Why? @ -agree Are old charts reviewed (outside hosp., previous admission, EMS record, old EKG, old radiological studies, urgent care reports/EKG's, long term records)? Report findings @ -yes Differential Diagnosis (chest pain, altered mental status, abdominal pain women, abdominal pain men, vaginal bleeding, weakness, fever, dyspnea, syncope, headache, dizziness, GI bleed, back pain, seizure, CVA, palpatations, mental health, musculoskeletal)? @ -prior EKG interpreted by me (3pts min.). @ -yes X-rays interpreted by me (1pt min.). @ -yes negative for acute disease CT interpreted by me (1pt min.). @ -no U/S interpreted by me (1pt. min.). @ -no What testing was considered but not performed or refused? (CT, X-rays, U/S, labs)? Why? @ -none What meds were considered but not given or refused? Why? @ -none Did you discuss the management of the patient with other professionals (professionals i.e. MARTIN Wade, PATIENT REGISTRATION CLERK, lab, RT, psych nurse, social sciences professor, glass bead maker, teacher, privacy officer, machine adjuster leader case trim)? Give summary @ -no Was smoking cessation discussed for >3mins.? @ -no Was critical care preformed (if so, how long)? @ -no Were there social determinants of health that impacted care today? How? (Homelessness, low income, unemployed, alcoholism, drug addiction, transportation, low edu. Level, literacy, decrease access to med. care, detention, rehab)? @ -none Was there de-escalation of care discussed even if they declined (Discuss DNR or withdrawal of care, Hospice)? DNR status @ -no What co-morbidities impacted this encounter? (DM, HTN, Smoking, COPD, CAD, Cancer, CVA, ARF, Chemo, Hep., AIDS, mental health diagnosis, sleep apnea, morbid obesity)? @ -none Was patient admitted / discharged? Hospital course, mention meds given and route, prescriptions, significant lab abnormalities, going to OR and other pertinent info. @ - Undiagnosed new problem with uncertain prognosis? @ -no Drug Therapy requiring intensive monitoring for toxicity (Heparin, Nitro, Insulin, Cardizem)? @ -no Were any procedures done? @ -no Diagnosis/symptom? @ - Acute, or Chronic, or Acute on Chronic? @ -Acute Uncomplicated (without systemic symptoms) or Complicated (systemic symptoms)? @ -Complicated Side effects of treatment? @ -no Exacerbation, Progression, or Severe Exacerbation? @ -exacerbation Poses a threat to life or bodily function? How? (Chest pain, [place], [place], pneumonia, PE, COPD, DKA, ARF, appy, cholecystitis, CVA, Diverticulitis, Homicidal, Suicidal, threat to staff... and all critical care pts) @ -yes (Ray Reyes) Reevaluation #5: Differential Dyspnea: Coronary syndrome, arrhythmia, tamponade, asthma, COPD, pulmonary embolism, pneumonia, pneumothorax, pulmonary effusion, anaphylaxis, diabetic ketoacidosis, flailed chest, pulmonary contusion, diaphragmatic rupture, anemia, neuromuscular, this is not meant to be an all-inclusive list. (Ray Reyes) - Consultations Consultation #1: Spoke with [facility] agrees to admit (Ray Reyes) Medical Decision Making <Kaitlin Mcgarry - Last Filed: 07/05/24 15:51> - Lab Data Result diagrams: 07/05/24 17:23 07/05/24 17:23 - Radiology Data Radiology results: report reviewed (CT angio chest positive for PE), image reviewed <Ray Reyes - Last Filed: 07/05/24 19:12> - Medical Decision Making I completed the quick note portion of this chart signed Kaitlin Mcgarry PA-C (Kaitlin Mcgarry) 64 male with provoked postoperative PE. Patient will be admitted for high-dose heparin (Ray Reyes) - Lab Data Lab Results 07/05/24 07/05/24 07/05/24 Range/Units 17:23 17:23 17:23 WBC 13.7 H (3.8-10.6) k/uL RBC 5.36 (4.30-5.90) m/uL Hgb 16.4 D (13.0-17.5) gm/dL Hct 49.0 (39.0-53.0) % MCV 91.4 (80.0-100.0) fL MCH 30.7 (25.0-35.0) pg MCHC 33.5 (31.0-37.0) g/dL RDW 13.1 (11.5-15.5) % Plt Count 711 H D (150-450) k/uL MPV 6.5 Neutrophils % 73 % Lymphocytes % 14 % Monocytes % 6 % Eosinophils % 3 % Basophils % 1 % Neutrophils # 10.1 H (1.3-7.7) k/uL Lymphocytes # 2.0 (1.0-4.8) k/uL Monocytes # 0.9 (0-1.0) k/uL Eosinophils # 0.4 (0-0.7) k/uL Basophils # 0.1 (0-0.2) k/uL PT 10.7 (10.0-12.5) sec INR 1.0 (<1.2) APTT 23.4 (22.0-30.0) sec D-Dimer 1.75 H (<0.60) mg/L FEU Sodium 133 L (137-145) mmol/L Potassium 4.8 (3.5-5.1) mmol/L Chloride 98 (98-107) mmol/L Carbon Dioxide 21 L (22-30) mmol/L Anion Gap 14 mmol/L BUN 21 H (9-20) mg/dL Creatinine 1.14 (0.66-1.25) mg/dL Est GFR (CKD-EPI)AfAm 80 (>60 ml/min/1.73 sqM) Est GFR (CKD-EPI)NonAf 69 (>60 ml/min/1.73 sqM) Glucose 109 H (74-99) mg/dL Calcium 10.1 (8.4-10.2) mg/dL Total Bilirubin 1.6 H (0.2-1.3) mg/dL AST 22 (17-59) U/L ALT 26 (4-49) U/L Alkaline Phosphatase 122 (38-126) U/L Troponin I (0.000-0.034) ng/mL Total Protein 7.5 (6.3-8.2) g/dL Albumin 4.5 (3.5-5.0) g/dL 07/05/24 Range/Units 17:23 WBC (3.8-10.6) k/uL RBC (4.30-5.90) m/uL Hgb (13.0-17.5) gm/dL Hct (39.0-53.0) % MCV (80.0-100.0) fL MCH (25.0-35.0) pg MCHC (31.0-37.0) g/dL RDW (11.5-15.5) % Plt Count (150-450) k/uL MPV Neutrophils % % Lymphocytes % % Monocytes % % Eosinophils % % Basophils % % Neutrophils # (1.3-7.7) k/uL Lymphocytes # (1.0-4.8) k/uL Monocytes # (0-1.0) k/uL Eosinophils # (0-0.7) k/uL Basophils # (0-0.2) k/uL PT (10.0-12.5) sec INR (<1.2) APTT (22.0-30.0) sec D-Dimer (<0.60) mg/L FEU Sodium (137-145) mmol/L Potassium (3.5-5.1) mmol/L Chloride (98-107) mmol/L Carbon Dioxide (22-30) mmol/L Anion Gap mmol/L BUN (9-20) mg/dL Creatinine (0.66-1.25) mg/dL Est GFR (CKD-EPI)AfAm (>60 ml/min/1.73 sqM) Est GFR (CKD-EPI)NonAf (>60 ml/min/1.73 sqM) Glucose (74-99) mg/dL Calcium (8.4-10.2) mg/dL Total Bilirubin (0.2-1.3) mg/dL AST (17-59) U/L ALT (4-49) U/L Alkaline Phosphatase (38-126) U/L Troponin I <0.012 (0.000-0.034) ng/mL Total Protein (6.3-8.2) g/dL Albumin (3.5-5.0) g/dL Critical Care Time Critical Care Time: Yes Total Critical Care Time: 31 <Roskopp,Ray B - Last Filed: 07/05/24 19:12> Disposition <Kaitlin Mcgarry - Last Filed: 07/05/24 15:51> Is patient prescribed a controlled substance at d/c from ED?: No Time of Disposition: 19:00 <Ray Reyes - Last Filed: 07/05/24 19:12> Clinical Impression: [place] disease, Chest pain, Exertional dyspnea, Pulmonary embolism Disposition: ADMITTED IP TO THIS HOSP Condition: Serious Referrals: Ben Monge MD [Primary Care Provider] - 1-2 days
[2024-07-05 17:28] LABS: Basophils # (A) 0.1 k/uL (0-0.2); Basophils % (A) 1 %; Eosinophils # (A) 0.4 k/uL (0-0.7); Eosinophils % (A) 3 %; Lymphocytes % (A) 14 %; MCH 30.7 pg (25.0-35.0); MCHC 33.5 g/dL (31.0-37.0); MCV 91.4 fL (80.0-100.0); Mean Platelet Volume 6.5; Monocytes # (A) 0.9 k/uL (0-1.0); Monocytes % (A) 6 %; Neutrophils # (A) 10.1 k/uL (1.3-7.7); Neutrophils % (A) 73 %; RBC 5.36 m/uL (4.30-5.90); RDW 13.1 % (11.5-15.5); WBC 13.7 k/uL (3.8-10.6)
[2024-07-05 17:38] LABS: HGB 16.4 gm/dL (13.0-17.5); Platelet Count 711 k/uL (150-450)
[2024-07-05 17:42] LABS: ALT 26 U/L (4-49); AST 22 U/L (17-59); African American GFR (CKD) 80 (>60 ml/min/1.73 sqM); Albumin 4.5 g/dL (3.5-5.0); Alkaline Phosphatase 122 U/L (38-126); Anion Gap 14 mmol/L; Blood Urea Nitrogen 21 mg/dL (9-20); Calcium 10.1 mg/dL (8.4-10.2); Carbon Dioxide 21 mmol/L (22-30); Chloride 98 mmol/L (98-107); Glucose 109 mg/dL (74-99); Non-African American GFR(CKD) 69 (>60 ml/min/1.73 sqM); Potassium 4.8 mmol/L (3.5-5.1); Sodium 133 mmol/L (137-145); Total Bilirubin 1.6 mg/dL (0.2-1.3); Total Protein 7.5 g/dL (6.3-8.2)
[2024-07-05 17:45] LABS: Partial Thromboplastin Time 23.4 sec (22.0-30.0); Prothrombin Time 10.7 sec (10.0-12.5)
--- NOTE | 2024-07-05 18:35 | CT ---
EXAMINATION TYPE: CT chest angio for PE DATE OF EXAM: 07/05/2024 6:17 PM COMPARISON: 05/25/2024 CLINICAL INDICATION: Male, 64 years old with history of SOB, Cholecystectomy x 2 weeks ago, positive dimer., TECHNIQUE: Contiguous axial scanning of the chest performed with IV Contrast, patient injected with 1 00 mL of Isovue 300. Coronal and sagittal MIP reconstructions performed. CT DLP: 339.3 mGycm, Automated exposure control for dose reduction was used. FINDINGS: Heart is normal size without pericardial effusion. No flattening of the interventricular septum or re flux of contrast into the hepatic veins. Mild proximal LAD coronary artery calcifications are noted. Aorta normal caliber with conventional arch vessel branching anatomy. A borderline sized 1.1 cm upper paratracheal lymph node probably reactive. Prominent hilar lymph nodes measuring up to 9 mm also likely reactive. Satisfactory opacification of the pulmonary arterial system with lobar and segmental branch emboli to the superior lingula, axial images 67 through 69. Lungs show no consolidation or pleural effusion. There is trace free air below the right hemidiaphragm. Gallbladder hydropic at 4.7 cm wide. Trace asc ites fluid. Extensive retroperitoneal stranding and central upper mesenteric infiltration and edema. Bilateral hearing kidney sign. Inhomogeneous enhancement medial left kidney probably due to infiltrat kylah disease. Abnormal density within the mid mesentery appears to have increased now measuring 4.7 cm . Bones: Facet arthropathy throughout with mild degenerative disc disease thoracic spine. Some paraspin al soft tissue thickening lower thoracic spine is unchanged. IMPRESSION: 1. EXAM POSITIVE FOR PULMONARY EMBOLUS WITH MILD BURDEN INVOLVING THE LOBAR AND SEGMENTAL BRANCHES OF THE LINGULA. NO RIGHT HEART STRAIN. 2. TRACE FREE AIR BELOW THE RIGHT HEMIDIAPHRAGM. THIS REQUIRES CAREFUL CLINICAL CORRELATION THERE IS A REPORTED HISTORY OF RECENT CHOLECYSTECTOMY. HOWEVER, WE NOTE THAT THE GALLBLADDER IS PRESENT. CO RRELATE TO EXCLUDE ANY SIGNS OF AN ACUTE ABDOMEN. 3. EXTENSIVE SOFT TISSUE INFILTRATION OF THE RETROPERITONEUM WITH INCREASING CHANGES WITHIN THE MID M ESENTERY. 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 RECOMMEND SPECIALIST REFERRAL FOR APPROPRIATE MANAGEMENT. [facility], , 07/05/2024 6:33 PM
[2024-07-05] MEDS ORDERED: MORPHINE SULFATE 4 MG/ML SYRINGE IV PRN (19:08)
[2024-07-05] MEDS ORDERED: NALOXONE 0.4 MG/ML 1 ML VIAL IV PRN (19:08)
[2024-07-05] MEDS ORDERED: ONDANSETRON 4 MG/2 ML VIAL IVP PRN (19:08)
[2024-07-05] MEDS ORDERED: HEPARIN SODIUM 1,000 UN/ML (10ML VL) IV PRN (19:09)
[2024-07-05] MEDS: HEPARIN SODIUM 1,000 UN/ML (10ML VL) IV ONE (19:34)
[2024-07-05] MEDS: HEPARIN SOD,PORK IN 0.45% NACL 25,000 UNIT in 0.45% NACL 1 250ML.BAG IV SCH (19:39)
[2024-07-05] MEDS: SODIUM CHLORIDE 0.9% 1,000 ML IV SCH (19:40)
[2024-07-06 08:45] LABS: Basophils # (A) 0.1 k/uL (0-0.2); Basophils % (A) 1 %; Eosinophils # (A) 0.6 k/uL (0-0.7); Eosinophils % (A) 5 %; HCT 49.9 % (39.0-53.0); HGB 16.2 gm/dL (13.0-17.5); Lymphocytes # (A) 2.4 k/uL (1.0-4.8); Lymphocytes % (A) 21 %; MCH 30.2 pg (25.0-35.0); MCHC 32.4 g/dL (31.0-37.0); Mean Platelet Volume 6.5; Monocytes # (A) 0.9 k/uL (0-1.0); Monocytes % (A) 8 %; Neutrophils % (A) 62 %; Platelet Count 704 k/uL (150-450); RBC 5.36 m/uL (4.30-5.90); RDW 13.1 % (11.5-15.5); WBC 11.3 k/uL (3.8-10.6)
[2024-07-06 09:25] LABS: ALT 23 U/L (4-49); AST 25 U/L (17-59); African American GFR (CKD) 84 (>60 ml/min/1.73 sqM); Albumin 4.3 g/dL (3.5-5.0); Alkaline Phosphatase 127 U/L (38-126); Anion Gap 12 mmol/L; Blood Urea Nitrogen 17 mg/dL (9-20); Calcium 9.7 mg/dL (8.4-10.2); Carbon Dioxide 22 mmol/L (22-30); Chloride 101 mmol/L (98-107); Glucose 112 mg/dL (74-99); Magnesium 2.3 mg/dL (1.6-2.3); Non-African American GFR(CKD) 72 (>60 ml/min/1.73 sqM); Phosphorus 3.9 mg/dL (2.5-4.5); Potassium 4.7 mmol/L (3.5-5.1); Sodium 135 mmol/L (137-145); Total Bilirubin 1.6 mg/dL (0.2-1.3); Total Protein 7.2 g/dL (6.3-8.2)
--- NOTE | 2024-07-06 11:25 | P.GSCN ---
History of Present Illness Consult date: 07/06/24 Reason for Consult: Pulmonary embolism. History of present illness: Patient is a 64-year-old male with a history of blood dyscrasia who presents with chief complaint of shortness of breath. In the emergency room workup included a CT with PE protocol demonstrating a nonhemodynamically severe pulmonary embolism event. The patient indicates that 6 months ago he was treated for deep venous thrombosis involving the right popliteal vein. Otis tionally he has a very unusual blood dyscrasia and is being treated by hematology in this regard. At the time of this event the patient was not on any anticoagulant. He denies any leg pain or edema. Past Medical History Past Medical History: Coronary Artery Disease (CAD), Cancer, CVA/TIA, Hypertension Additional Past Medical History / Comment(s): erdheimchester's disease (rare blood cancer) History of Any Multi-Drug Resistant Organisms: None Reported Past Surgical History: Heart Catheterization With Stent, Hernia Repair Additional Past Surgical History / Comment(s): exp lap,. biopsies of bone and kidney (negative) Past Anesthesia/Blood Transfusion Reactions: No Reported Reaction Date of Last Stent Placement:: 2013 Past Psychological History: Anxiety, Depression Smoking Status: Never smoker Past Alcohol Use History: Rare Past Drug Use History: Marijuana - Past Family History Mother Family Medical History: Coronary Artery Disease (CAD) Father Additional Family Medical History / Comment(s): dies from AIDS in 1988 Medications and Allergies Home Medications Medication Instructions Recorded Confirmed Type Clopidogrel Bisulfate [Plavix] 75 mg PO DAILY 07/05/19 07/05/24 History Metoprolol Tartrate 25 mg PO BID 07/05/19 07/05/24 History Rosuvastatin Calcium [Crestor] 10 mg PO DAILY 07/05/19 07/05/24 History Tamsulosin HCl [Flomax] 0.4 mg PO DAILY 07/05/19 07/05/24 History Omeprazole 20 mg PO DAILY 12/30/21 07/05/24 History buPROPion XL [Wellbutrin XL] 150 mg PO DAILY 12/30/21 07/05/24 History Citalopram Hydrobromide [CeleXA] 20 mg PO DAILY 06/16/22 07/05/24 History Vemurafenib [Zelboraf] 960 mg PO BID 12/11/24 12/31/24 History Acetaminophen Tab [Tylenol] 650 mg PO Q6HR PRN tab 06/23/24 07/05/24 Rx HYDROcodone/APAP 5-325MG [[place] 1 tab PO Q6HR PRN 3 Days #12 tab 06/23/24 07/05/24 Rx 5-325] hydrALAZINE HCL [Apresoline] 25 mg PO QID PRN 30 Days #120 tab 06/23/24 07/05/24 Rx lisinopriL [Zestril] 10 mg PO DAILY #30 tab 06/23/24 07/05/24 Rx Allergies Allergy/AdvReac Type Severity Reaction Status Date / Time No Known Allergies Allergy Verified 07/05/24 15:28 Surgical - Exam Osteopathic Statement: *. No significant issues noted on an osteopathic structural exam other than those noted in the History and Physical/Consult. Vital Signs Temp Pulse Resp BP Pulse Ox 98.8 F 95 20 143/85 98 07/05/24 15:29 07/05/24 15:29 07/05/24 15:29 07/05/24 15:29 07/05/24 15:29 Patient Seen Date: 07/06/24 Patient Seen Time: 11:00 Patient is awake, alert and in no apparent distress. He is sitting up at the side of the bed eating breakfast. He is not on any oxygen supplementation. Review of vitals demonstrates the patient to be afebrile and vital signs are stable with very good oxygenation on pulse oximetry room air. Heart: Regular rate and rhythm. Lungs: Clear to auscultation bilaterally. Abdomen: Soft and otherwise benign. Legs: Free of edema and are nontender to palpation. Normal range of motion of both upper and lower extremities is noted bilaterally. Neurologic: Cranial nerves II through XII are grossly intact. Equal motor strength is noted in the upper lower extremities bilaterally. - Respiratory clear to auscultation Results - Labs 07/06/24 08:23 07/06/24 08:23 Abnormal Lab Results - Last 24 Hours (Table) 07/05/24 07/05/24 07/05/24 Range/Units 17:23 17:23 17:23 WBC 13.7 H (3.8-10.6) k/uL Plt Count 711 H D (150-450) k/uL Neutrophils # 10.1 H (1.3-7.7) k/uL APTT (22.0-30.0) sec D-Dimer 1.75 H (<0.60) mg/L FEU Sodium 133 L (137-145) mmol/L Carbon Dioxide 21 L (22-30) mmol/L BUN 21 H (9-20) mg/dL Glucose 109 H (74-99) mg/dL Total Bilirubin 1.6 H (0.2-1.3) mg/dL Alkaline Phosphatase (38-126) U/L 07/06/24 07/06/24 07/06/24 Range/Units 00:51 08:23 08:23 WBC 11.3 H (3.8-10.6) k/uL Plt Count 704 H (150-450) k/uL Neutrophils # (1.3-7.7) k/uL APTT 63.9 H (22.0-30.0) sec D-Dimer (<0.60) mg/L FEU Sodium 135 L (137-145) mmol/L Carbon Dioxide (22-30) mmol/L BUN (9-20) mg/dL Glucose 112 H (74-99) mg/dL Total Bilirubin 1.6 H (0.2-1.3) mg/dL Alkaline Phosphatase 127 H (38-126) U/L Diabetes panel 07/05/24 07/06/24 Range/Units 17:23 08:23 Sodium 133 L 135 L (137-145) mmol/L Potassium 4.8 4.7 (3.5-5.1) mmol/L Chloride 98 101 (98-107) mmol/L Carbon Dioxide 21 L 22 (22-30) mmol/L BUN 21 H 17 (9-20) mg/dL Creatinine 1.14 1.09 (0.66-1.25) mg/dL Glucose 109 H 112 H (74-99) mg/dL Calcium 10.1 9.7 (8.4-10.2) mg/dL AST 22 25 (17-59) U/L ALT 26 23 (4-49) U/L Alkaline Phosphatase 122 127 H (38-126) U/L Total Protein 7.5 7.2 (6.3-8.2) g/dL Albumin 4.5 4.3 (3.5-5.0) g/dL Calcium panel 07/05/24 07/06/24 Range/Units 17:23 08:23 Calcium 10.1 9.7 (8.4-10.2) mg/dL Phosphorus 3.9 (2.5-4.5) mg/dL Albumin 4.5 4.3 (3.5-5.0) g/dL Pituitary panel 07/05/24 07/06/24 Range/Units 17:23 08:23 Sodium 133 L 135 L (137-145) mmol/L Potassium 4.8 4.7 (3.5-5.1) mmol/L Chloride 98 101 (98-107) mmol/L Carbon Dioxide 21 L 22 (22-30) mmol/L BUN 21 H 17 (9-20) mg/dL Creatinine 1.14 1.09 (0.66-1.25) mg/dL Glucose 109 H 112 H (74-99) mg/dL Calcium 10.1 9.7 (8.4-10.2) mg/dL Adrenal panel 07/05/24 07/06/24 Range/Units 17:23 08:23 Sodium 133 L 135 L (137-145) mmol/L Potassium 4.8 4.7 (3.5-5.1) mmol/L Chloride 98 101 (98-107) mmol/L Carbon Dioxide 21 L 22 (22-30) mmol/L BUN 21 H 17 (9-20) mg/dL Creatinine 1.14 1.09 (0.66-1.25) mg/dL Glucose 109 H 112 H (74-99) mg/dL Calcium 10.1 9.7 (8.4-10.2) mg/dL Total Bilirubin 1.6 H 1.6 H (0.2-1.3) mg/dL AST 22 25 (17-59) U/L ALT 26 23 (4-49) U/L Alkaline Phosphatase 122 127 H (38-126) U/L Total Protein 7.5 7.2 (6.3-8.2) g/dL Albumin 4.5 4.3 (3.5-5.0) g/dL - Imaging CT scan - chest: report reviewed, image reviewed Assessment and Plan Assessment: 1: Pulmonary embolism which does not appear to be causing any right heart strain. 2: History of blood dyscrasia/cancer. 3: Recent history of right lower extremity deep venous thrombosis. Plan: 1: Agree with current therapy. There is no indication for pulmonary thrombectomy/thrombolysis. 2: Will obtain venous duplex of the lower extremities. 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 4: Will sign off. Will be happy to reevaluate at your request. Time with Patient: Less than 30
[2024-07-06] MEDS ORDERED: HYDROcodone/APAP 5-325MG 1 EACH TAB PO PRN (11:42)
[2024-07-06] MEDS ORDERED: ACETAMINOPHEN TAB 325 MG TAB PO PRN (11:42)
--- NOTE | 2024-07-06 11:47 | P.HPIM ---
History of Present Illness This is a pleasant 64 years old male with past medical history of multiple medical problems He was recently discharged from this facility after he underwent laparoscopic cholecystectomy for his gallstone cholecystitis and pancreatitis. After discharge from the hospital he started having exertional dyspnea which was gradually worsening, he went to see his PCP for suspected PE and sent him to the emergency room. Patient denies chest pain or hemoptysis. No abdominal pain. No urinary complaints like dysuria or urgency. No vomiting or diarrhea. No headache dizziness weakness or numbness. Last time he was discharged on 7 days of Cipro and Flagyl. Currently patient is afebrile and hemodynamically stable Leukocytosis slightly up to 13.7 and 11.3, rest of labs including CBC, BMP, LFT and troponin x 3 are negative. D-dimer is elevated to 1.75. CTA of the chest showing acute pulmonary embolism with no right heart strain. 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 HEENT: No recent visual problems or hearing problems. Denied any sore throat. CARDIOVASCULAR: No orthopnea, PND, no palpitations, no syncope. PULMONARY: No shortness of breath, no cough, no hemoptysis. GASTROINTESTINAL: No diarrhea, no nausea, no vomiting, no abdominal pain. Normoactive bowel sounds. NEUROLOGICAL: No headaches, no weakness, no numbness. HEMATOLOGICAL: Denies any bleeding or petechiae. GENITOURINARY: Denies any burning micturition, frequency, or urgency. MUSCULOSKELETAL/RHEUMATOLOGICAL: Denies any joint pain, swelling, or any muscle pain. ENDOCRINE: Denies any polyuria or polydipsia. Past Medical History Past Medical History: Coronary Artery Disease (CAD), Cancer, CVA/TIA, Hypertension Additional Past Medical History / Comment(s): erdheimchester's disease (rare blood cancer) History of Any Multi-Drug Resistant Organisms: None Reported Past Surgical History: Heart Catheterization With Stent, Hernia Repair Additional Past Surgical History / Comment(s): exp lap,. biopsies of bone and kidney (negative) Past Anesthesia/Blood Transfusion Reactions: No Reported Reaction Date of Last Stent Placement:: 2013 Past Psychological History: Anxiety, Depression Smoking Status: Never smoker Past Alcohol Use History: Rare Past Drug Use History: Marijuana - Past Family History Mother Family Medical History: Coronary Artery Disease (CAD) Father Additional Family Medical History / Comment(s): dies from AIDS in 1988 Medications and Allergies Home Medications Medication Instructions Recorded Confirmed Type Clopidogrel Bisulfate [Plavix] 75 mg PO DAILY 07/05/19 07/05/24 History Metoprolol Tartrate 25 mg PO BID 07/05/19 07/05/24 History Rosuvastatin Calcium [Crestor] 10 mg PO DAILY 07/05/19 07/05/24 History Tamsulosin HCl [Flomax] 0.4 mg PO DAILY 07/05/19 07/05/24 History Omeprazole 20 mg PO DAILY 12/30/21 07/05/24 History buPROPion XL [Wellbutrin XL] 150 mg PO DAILY 12/30/21 07/05/24 History Citalopram Hydrobromide [CeleXA] 20 mg PO DAILY 06/16/22 07/05/24 History Vemurafenib [Zelboraf] 960 mg PO BID 06/15/24 07/05/24 History Acetaminophen Tab [Tylenol] 650 mg PO Q6HR PRN tab 06/23/24 07/05/24 Rx HYDROcodone/APAP 5-325MG [[place] 1 tab PO Q6HR PRN 3 Days #12 tab 06/23/24 07/05/24 Rx 5-325] hydrALAZINE HCL [Apresoline] 25 mg PO QID PRN 30 Days #120 tab 06/23/24 07/05/24 Rx lisinopriL [Zestril] 10 mg PO DAILY #30 tab 06/23/24 07/05/24 Rx Allergies Allergy/AdvReac Type Severity Reaction Status Date / Time No Known Allergies Allergy Verified 07/05/24 15:28 Physical Exam Vitals: Vital Signs Temp Pulse Resp BP Pulse Ox 07/06/24 10:28 80 18 124/81 100 07/06/24 08:16 97.8 F 97 18 146/98 97 07/06/24 06:00 84 18 124/79 98 07/06/24 04:00 80 18 108/83 97 07/06/24 03:00 80 18 108/83 98 07/06/24 02:00 89 18 125/77 98 07/05/24 22:00 90 18 103/82 98 07/05/24 21:35 18 07/05/24 21:00 92 18 103/82 98 07/05/24 20:00 103 H 18 118/77 98 07/05/24 19:10 96 18 130/92 98 07/05/24 15:29 98.8 F 95 20 143/85 98 Intake and Output 07/05/24 07/06/24 07/06/24 22:59 06:59 14:59 Intake Total 209.125 Balance 209.125 Intake: Intake, IV Titration 209.125 Amount Heparin Sod,Pork in 0.45% 209.125 NaCl 25,000 unit In 0.45 % NaCl 1 250ml.bag @ 18 UNITS/KG/HR 13.88 mls/hr IV .Q18H1M [facility] Rx#: [id number] Other: Weight 77.111 kg GENERAL: The patient is alert and oriented x3, not in any acute distress. Well developed, well nourished. HEENT: Pupils are round and equally reacting to light. EOMI. No scleral icterus. No conjunctival pallor. Normocephalic, atraumatic. No pharyngeal erythema. No thyromegaly. CARDIOVASCULAR: S1 and S2 present. No murmurs, rubs, or gallops. PULMONARY: Chest is clear to auscultation, no wheezing , no crackles. ABDOMEN: Soft, nontender, nondistended, normoactive bowel sounds. No palpable organomegaly. MUSCULOSKELETAL: No joint swelling or deformity. EXTREMITIES: No cyanosis, clubbing, or pedal edema. NEUROLOGICAL: Gross neurological examination did not reveal any focal deficits. SKIN: No rashes. no petechiae. Results CBC & Chem 7: 07/06/24 08:23 07/06/24 08:23 Labs: Abnormal Lab Results - Last 24 Hours (Table) 07/05/24 07/05/24 07/05/24 Range/Units 17:23 17:23 17:23 WBC 13.7 H (3.8-10.6) k/uL Plt Count 711 H D (150-450) k/uL Neutrophils # 10.1 H (1.3-7.7) k/uL APTT (22.0-30.0) sec D-Dimer 1.75 H (<0.60) mg/L FEU Sodium 133 L (137-145) mmol/L Carbon Dioxide 21 L (22-30) mmol/L BUN 21 H (9-20) mg/dL Glucose 109 H (74-99) mg/dL Total Bilirubin 1.6 H (0.2-1.3) mg/dL Alkaline Phosphatase (38-126) U/L 07/06/24 07/06/24 07/06/24 Range/Units 00:51 08:23 08:23 WBC 11.3 H (3.8-10.6) k/uL Plt Count 704 H (150-450) k/uL Neutrophils # (1.3-7.7) k/uL APTT 63.9 H (22.0-30.0) sec D-Dimer (<0.60) mg/L FEU Sodium 135 L (137-145) mmol/L Carbon Dioxide (22-30) mmol/L BUN (9-20) mg/dL Glucose 112 H (74-99) mg/dL Total Bilirubin 1.6 H (0.2-1.3) mg/dL Alkaline Phosphatase 127 H (38-126) U/L Assessment and Plan Assessment: Acute mid and lower abdominal neuroexam with no right heart strain Extensive retroperitoneal infiltrate, with possible trace air under the diaphragm, currently no much abdominal symptoms. Recent history of Gallbladder pancreatitis is status post robotic cholecystectomy BPH Depression, not an active issue
--- NOTE | 2024-07-06 13:20 | P.CRDCN ---
History of Present Illness Consult date: 07/06/24 History of present illness: HISTORY OF PRESENTING ILLNESS: 64-year-old with multiple medical problems was recently in the hospital and was treated for gallstone related cholecystitis and pancreatitis. She underwent laparoscopic cholecystectomy. After discharge patient has been experiencing some exertional dyspnea for which she went to her PCP who was concerned of po ssible pulmonary embolism and sent her to the ER. In ER initial workup including CTA chest showed concerns of a small acute pulmonary embolism with no concerns of right heart strain. Admission Cardiac Labs: Hb 16.2, platelets 702, BUN 17, creatinine 1.7, troponin negative x 3, NT-proBNP 40. Admission testing: CTA chest shows acute PE with mild clot burden with no clear evidence of RV strain. Medications lisinopril 10, hydralazine 25 mg 4 times daily as needed, rosuvastatin 10 mg, metoprolol 25 mg twice daily, Plavix 75 mg daily, REVIEW OF SYSTEMS: 14 point review of system is negative except what is mentioned above in HPI. PHYSICAL EXAMINATION: Neck: Brisk carotid upstroke, no jugular venous distention. Lungs: Clear to auscultation. Heart: Regular rate and rhythm, S1-S2, , no murmur or rub. Abdomen: Soft nontender, positive bowel sounds. Extremities: No edema, intact distal pulses. Neuro: Alert, oritented, no focal deficits. Detailed neuro exam was not performed. ASSESSMENT: # Acute noninvasive PE likely provoked from recent gallbladder surgery. No evidence of RV strain # Recent gallbladder pancreatitis status post robotic cholecystectomy # History of CAD status post PCI to LCx. # History of CVA x 2 # Prior history of DVT # Erdheim Migue disease PLAN: # Continue Plavix 75 mg daily, Lipitor 40 mg daily. # Continue metoprolol 25 mg twice daily. Continue lisinopril 10 mg daily # Obtain updated echocardiogram # Start Eliquis 10 mg twice daily for 7 days and thereafter 5 mg twice daily. I would recommend lifelong anticoagulation because of prior history of CVA/DVT in past if there is no contraindications or new concerns of bleeding. # Discontinue heparin drip 2 to 3 hours after giving Eliquis Tommy Paula MD, FACC, RPVI Thank you for allowing [facility] to participate in this patient's care. Feel free to reach out in case of any followup questions. Past Medical History Past Medical History: Coronary Artery Disease (CAD), Cancer, CVA/TIA, Hypertension Additional Past Medical History / Comment(s): erdheimchester's disease (rare blood cancer) History of Any Multi-Drug Resistant Organisms: None Reported Past Surgical History: Heart Catheterization With Stent, Hernia Repair Additional Past Surgical History / Comment(s): exp lap,. biopsies of bone and kidney (negative) Past Anesthesia/Blood Transfusion Reactions: No Reported Reaction Date of Last Stent Placement:: 2013 Past Psychological History: Anxiety, Depression Smoking Status: Never smoker Past Alcohol Use History: Rare Past Drug Use History: Marijuana - Past Family History Mother Family Medical History: Coronary Artery Disease (CAD) Father Additional Family Medical History / Comment(s): dies from AIDS in 1988 Medications and Allergies Home Medications Medication Instructions Recorded Confirmed Type Clopidogrel Bisulfate [Plavix] 75 mg PO DAILY 07/05/19 07/05/24 History Metoprolol Tartrate 25 mg PO BID 07/05/19 07/05/24 History Rosuvastatin Calcium [Crestor] 10 mg PO DAILY 07/05/19 07/05/24 History Tamsulosin HCl [Flomax] 0.4 mg PO DAILY 07/05/19 07/05/24 History Omeprazole 20 mg PO DAILY 12/30/21 07/05/24 History buPROPion XL [Wellbutrin XL] 150 mg PO DAILY 12/30/21 07/05/24 History Citalopram Hydrobromide [CeleXA] 20 mg PO DAILY 06/16/22 07/05/24 History Vemurafenib [Zelboraf] 960 mg PO BID 06/15/24 07/05/24 History Acetaminophen Tab [Tylenol] 650 mg PO Q6HR PRN tab 06/23/24 07/05/24 Rx HYDROcodone/APAP 5-325MG [[place] 1 tab PO Q6HR PRN 3 Days #12 tab 06/23/24 07/05/24 Rx 5-325] hydrALAZINE HCL [Apresoline] 25 mg PO QID PRN 30 Days #120 tab 06/23/24 07/05/24 Rx lisinopriL [Zestril] 10 mg PO DAILY #30 tab 06/23/24 07/05/24 Rx Allergies Allergy/AdvReac Type Severity Reaction Status Date / Time No Known Allergies Allergy Verified 07/05/24 15:28 Physical Exam Vitals: Vital Signs Temp Pulse Resp BP Pulse Ox 07/06/24 12:18 98 16 132/88 97 07/06/24 10:28 80 18 124/81 100 07/06/24 08:16 97.8 F 97 18 146/98 97 07/06/24 06:00 84 18 124/79 98 07/06/24 04:00 80 18 108/83 97 07/06/24 03:00 80 18 108/83 98 07/06/24 02:00 89 18 125/77 98 07/05/24 22:00 90 18 103/82 98 07/05/24 21:35 18 07/05/24 21:00 92 18 103/82 98 07/05/24 20:00 103 H 18 118/77 98 07/05/24 19:10 96 18 130/92 98 07/05/24 15:29 98.8 F 95 20 143/85 98 Intake and Output 07/05/24 07/06/24 07/06/24 22:59 06:59 14:59 Intake Total 209.125 Balance 209.125 Intake: Intake, IV Titration 209.125 Amount Heparin Sod,Pork in 0.45% 209.125 NaCl 25,000 unit In 0.45 % NaCl 1 250ml.bag @ 18 UNITS/KG/HR 13.88 mls/hr IV .Q18H1M [facility] Rx#: [id number] Other: Weight 77.111 kg Results 07/06/24 08:23 07/06/24 08:23 Cardiac Enzymes 07/05/24 07/05/24 07/05/24 Range/Units 17:23 17:23 20:28 AST 22 (17-59) U/L Troponin I <0.012 <0.012 (0.000-0.034) ng/mL 07/06/24 07/06/24 Range/Units 00:51 08:23 AST 25 (17-59) U/L Troponin I <0.012 (0.000-0.034) ng/mL Coagulation 07/05/24 07/06/24 Range/Units 17:23 00:51 PT 10.7 (10.0-12.5) sec APTT 23.4 63.9 H (22.0-30.0) sec CBC 07/05/24 07/06/24 Range/Units 17:23 08:23 WBC 13.7 H 11.3 H (3.8-10.6) k/uL RBC 5.36 5.36 (4.30-5.90) m/uL Hgb 16.4 D 16.2 (13.0-17.5) gm/dL Hct 49.0 49.9 (39.0-53.0) % Plt Count 711 H D 704 H (150-450) k/uL Comprehensive Metabolic Panel 07/05/24 07/06/24 Range/Units 17:23 08:23 Sodium 133 L 135 L (137-145) mmol/L Potassium 4.8 4.7 (3.5-5.1) mmol/L Chloride 98 101 (98-107) mmol/L Carbon Dioxide 21 L 22 (22-30) mmol/L BUN 21 H 17 (9-20) mg/dL Creatinine 1.14 1.09 (0.66-1.25) mg/dL Glucose 109 H 112 H (74-99) mg/dL Calcium 10.1 9.7 (8.4-10.2) mg/dL AST 22 25 (17-59) U/L ALT 26 23 (4-49) U/L Alkaline Phosphatase 122 127 H (38-126) U/L Total Protein 7.5 7.2 (6.3-8.2) g/dL Albumin 4.5 4.3 (3.5-5.0) g/dL Current Medications Generic Name Dose Route Start Last Admin Trade Name Freq PRN Reason Stop Dose Admin Acetaminophen 650 mg 07/06/24 11:42 Acetaminophen Tab 325 Mg Tab PO Q6HR PRN Mild Pain or Fever > 100.5 Hydrocodone Bitart/Acetaminophen 1 each 07/06/24 11:42 Hydrocodone/Apap 5-325mg 1 Each Tab PO Q6HR PRN Pain Apixaban 10 mg 07/06/24 13:30 Apixaban 5 Mg Tab PO 08/05/24 13:29 BID FARHAT Taper Protocol Atorvastatin Calcium 40 mg 07/06/24 21:00 Atorvastatin 40 Mg Tab PO HS [facility] Bupropion HCl 150 mg 07/07/24 09:00 Bupropion Xl 150 Mg Tab.Er.24h PO DAILY [facility] Citalopram Hydrobromide 20 mg 07/07/24 09:00 Citalopram Hydrobromide 20 Mg Tab PO DAILY [facility] Clopidogrel Bisulfate 75 mg 07/07/24 09:00 Clopidogrel 75 Mg Tab PO DAILY [facility] Famotidine 20 mg 07/06/24 21:00 Famotidine 20 Mg/2 Ml Vial IV Q12HR [facility] Sodium Chloride 1,000 mls @ 20 mls/hr 07/05/24 19:15 07/05/24 19:40 Saline 0.9% IV 20 mls/hr .Q24H [facility] Administration Lisinopril 10 mg 07/07/24 09:00 Lisinopril 10 Mg Tab PO DAILY [facility] Metoprolol Tartrate 25 mg 07/06/24 21:00 Metoprolol Tartrate 25 Mg Tab PO BID [facility] Morphine Sulfate 4 mg 07/05/24 19:08 Morphine Sulfate 4 Mg/Ml Syringe IV Q4HR PRN Severe Pain (Scale 7 to 10) Naloxone HCl 0.2 mg 07/05/24 19:08 Naloxone 0.4 Mg/Ml 1 Ml Vial IV Q2M PRN Opioid Reversal Tamsulosin HCl 0.4 mg 07/07/24 09:00 Tamsulosin 0.4 Mg Cap.Er.24h PO DAILY [facility] Intake and Output 07/05/24 07/06/24 07/06/24 22:59 06:59 14:59 Intake Total 209.125 Balance 209.125 Intake: Intake, IV Titration 209.125 Amount Heparin Sod,Pork in 0.45% 209.125 NaCl 25,000 unit In 0.45 % NaCl 1 250ml.bag @ 18 UNITS/KG/HR 13.88 mls/hr IV .Q18H1M [facility] Rx#: [id number] Other: Weight 77.111 kg 07/06/24 08:23 07/06/24 08:23
[2024-07-06] MEDS: APIXABAN 5 MG TAB PO SCH (13:42)
--- NOTE | 2024-07-06 13:52 | US ---
EXAMINATION TYPE: US venous doppler duplex LE BI DATE OF EXAM: 07/06/2024 1:41 PM COMPARISON: NONE CLINICAL INDICATION: Male, 64 years old with history of DVT / P.E.; PE. History of DVT right leg, Fabiana n TECHNIQUE: The lower extremity deep venous system is examined utilizing real time linear array sonog indira with graded compression, color doppler sonography, and spectral doppler. SIDE PERFORMED: bilateral FINDINGS: VESSELS IMAGED: Common Femoral Vein Deep Femoral Vein Greater Saphenous Vein * Femoral Vein Popliteal Vein Small Saphenous Vein * Proximal Calf Veins (* superficial vessels) Right Leg: Appears positive for DVT right poplital vein, Color Doppler imaging shows patency of the vessels. Spectral waveforms are within normal limits. Left Leg: No evidence of DVT, Color Doppler imaging shows patency of the vessels. Spectral waveforms are within normal limits. IMPRESSION: 1. Deep venous thrombosis right popliteal vein. 2. No deep venous thrombosis left lower extremity. [facility], Workstation: [facility], 07/06/2024 1:49 PM
[2024-07-06] MEDS: ATORVASTATIN 40 MG TAB PO SCH (20:21)
[2024-07-06] MEDS: METOPROLOL TARTRATE 25 MG TAB PO SCH (20:21)
[2024-07-06] MEDS: FAMOTIDINE 20 MG TAB PO SCH (20:21)
[2024-07-06] MEDS ORDERED: FAMOTIDINE 20 MG/2 ML VIAL IV SCH (21:00)
--- NOTE | 2024-07-06 21:11 | P.GSCN ---
History of Present Illness History of present illness: Patient is a 64 male s/p lap gilda 2/ to gallstone pancreatitis coming back with shortness of breath and chest pain. Patient is currently being worked up for a pulmonary embolism. While at home, patient was found to be tolerating diet, minimal abdominal pain and having bowel function. Currently denies fevers, chills, shortness of breath or chest pain. Review of Systems - Constitutional Reports as per HPI Past Medical History Past Medical History: Coronary Artery Disease (CAD), Cancer, CVA/TIA, Hypertension Additional Past Medical History / Comment(s): erdheimchester's disease (rare blood cancer) History of Any Multi-Drug Resistant Organisms: None Reported Past Surgical History: Heart Catheterization With Stent, Hernia Repair Additional Past Surgical History / Comment(s): exp lap,. biopsies of bone and kidney (negative) Past Anesthesia/Blood Transfusion Reactions: No Reported Reaction Date of Last Stent Placement:: 2013 Past Psychological History: Anxiety, Depression Smoking Status: Never smoker Past Alcohol Use History: Rare Past Drug Use History: Marijuana - Past Family History Mother Family Medical History: Coronary Artery Disease (CAD) Father Additional Family Medical History / Comment(s): dies from AIDS in 1988 Medications and Allergies Home Medications Medication Instructions Recorded Confirmed Type Clopidogrel Bisulfate [Plavix] 75 mg PO DAILY 07/05/19 07/05/24 History Metoprolol Tartrate 25 mg PO BID 07/05/19 07/05/24 History Rosuvastatin Calcium [Crestor] 10 mg PO DAILY 07/05/19 07/05/24 History Tamsulosin HCl [Flomax] 0.4 mg PO DAILY 07/05/19 07/05/24 History Omeprazole 20 mg PO DAILY 12/30/21 07/05/24 History buPROPion XL [Wellbutrin XL] 150 mg PO DAILY 12/30/21 07/05/24 History Citalopram Hydrobromide [CeleXA] 20 mg PO DAILY 06/16/22 07/05/24 History Vemurafenib [Zelboraf] 960 mg PO BID 06/15/24 07/05/24 History Acetaminophen Tab [Tylenol] 650 mg PO Q6HR PRN tab 06/23/24 07/05/24 Rx HYDROcodone/APAP 5-325MG [[place] 1 tab PO Q6HR PRN 3 Days #12 tab 12/19/24 12/31/24 Rx 5-325] hydrALAZINE HCL [Apresoline] 25 mg PO QID PRN 30 Days #120 tab 06/23/24 07/05/24 Rx lisinopriL [Zestril] 10 mg PO DAILY #30 tab 06/23/24 07/05/24 Rx Allergies Allergy/AdvReac Type Severity Reaction Status Date / Time No Known Allergies Allergy Verified 07/05/24 15:28 Surgical - Exam Osteopathic Statement: *. No significant issues noted on an osteopathic structural exam other than those noted in the History and Physical/Consult. Vital Signs Temp Pulse Resp BP Pulse Ox 98.8 F 95 20 143/85 98 07/05/24 15:29 07/05/24 15:29 07/05/24 15:29 07/05/24 15:29 07/05/24 15:29 - General gen: nad heent: atraumatic, normocephalic, eys perrla, oral mucosa moist, no neck masses appreciated cv: rrr pul: mild labored breathing abd: soft, non distended, non tender to palpation, no guarding or rebound tenderness Results - Labs 07/06/24 08:23 07/06/24 08:23 Abnormal Lab Results - Last 24 Hours (Table) 07/06/24 07/06/24 07/06/24 Range/Units 00:51 08:23 08:23 WBC 11.3 H (3.8-10.6) k/uL Plt Count 704 H (150-450) k/uL APTT 63.9 H (22.0-30.0) sec Sodium 135 L (137-145) mmol/L Glucose 112 H (74-99) mg/dL Total Bilirubin 1.6 H (0.2-1.3) mg/dL Alkaline Phosphatase 127 H (38-126) U/L Diabetes panel 07/06/24 Range/Units 08:23 Sodium 135 L (137-145) mmol/L Potassium 4.7 (3.5-5.1) mmol/L Chloride 101 (98-107) mmol/L Carbon Dioxide 22 (22-30) mmol/L BUN 17 (9-20) mg/dL Creatinine 1.09 (0.66-1.25) mg/dL Glucose 112 H (74-99) mg/dL Calcium 9.7 (8.4-10.2) mg/dL AST 25 (17-59) U/L ALT 23 (4-49) U/L Alkaline Phosphatase 127 H (38-126) U/L Total Protein 7.2 (6.3-8.2) g/dL Albumin 4.3 (3.5-5.0) g/dL Calcium panel 07/06/24 Range/Units 08:23 Calcium 9.7 (8.4-10.2) mg/dL Phosphorus 3.9 (2.5-4.5) mg/dL Albumin 4.3 (3.5-5.0) g/dL Pituitary panel 07/06/24 Range/Units 08:23 Sodium 135 L (137-145) mmol/L Potassium 4.7 (3.5-5.1) mmol/L Chloride 101 (98-107) mmol/L Carbon Dioxide 22 (22-30) mmol/L BUN 17 (9-20) mg/dL Creatinine 1.09 (0.66-1.25) mg/dL Glucose 112 H (74-99) mg/dL Calcium 9.7 (8.4-10.2) mg/dL Adrenal panel 07/06/24 Range/Units 08:23 Sodium 135 L (137-145) mmol/L Potassium 4.7 (3.5-5.1) mmol/L Chloride 101 (98-107) mmol/L Carbon Dioxide 22 (22-30) mmol/L BUN 17 (9-20) mg/dL Creatinine 1.09 (0.66-1.25) mg/dL Glucose 112 H (74-99) mg/dL Calcium 9.7 (8.4-10.2) mg/dL Total Bilirubin 1.6 H (0.2-1.3) mg/dL AST 25 (17-59) U/L ALT 23 (4-49) U/L Alkaline Phosphatase 127 H (38-126) U/L Total Protein 7.2 (6.3-8.2) g/dL Albumin 4.3 (3.5-5.0) g/dL Assessment and Plan Assessment: 64 yo male s/p lap gilda 2/2 gallstone pancreatitis 0k for diet no intervention at this time surgery will sign off please call my cellphone with any questions Hung Patel DO [phone] Time with Patient: Less than 30
[2024-07-07 03:26] VITALS: RESP 16
[2024-07-07 07:07] LABS: African American GFR (CKD) >90 (>60 ml/min/1.73 sqM); Anion Gap 9 mmol/L; Blood Urea Nitrogen 14 mg/dL (9-20); Calcium 9.8 mg/dL (8.4-10.2); Carbon Dioxide 20 mmol/L (22-30); Chloride 103 mmol/L (98-107); Glucose 85 mg/dL (74-99); Non-African American GFR(CKD) 80 (>60 ml/min/1.73 sqM); Sodium 132 mmol/L (137-145)
[2024-07-07 07:24] LABS: C Reactive Protein <0.5 mg/dL (<1.0)
[2024-07-07 07:43] LABS: HCT 48.8 % (39.0-53.0); HGB 15.8 gm/dL (13.0-17.5); MCH 30.2 pg (25.0-35.0); MCHC 32.4 g/dL (31.0-37.0); MCV 93.3 fL (80.0-100.0); Mean Platelet Volume 7.6; Platelet Count 510 k/uL (150-450); RBC 5.23 m/uL (4.30-5.90); RDW 13.1 % (11.5-15.5); WBC 9.4 k/uL (3.8-10.6)
[2024-07-07] MEDS: lisinopriL 10 MG TAB PO SCH (07:59)
[2024-07-07] MEDS: buPROPion XL 150 MG TAB.ER.24H PO SCH (07:59)
[2024-07-07] MEDS: TAMSULOSIN 0.4 MG CAP.ER.24H PO SCH (07:59)
[2024-07-07] MEDS: CITALOPRAM HYDROBROMIDE 20 MG TAB PO SCH (08:00)
[2024-07-07] MEDS: CLOPIDOGREL 75 MG TAB PO SCH (08:00)
[2024-07-07 08:05] VITALS: TEMP 98.1
[2024-07-07 09:09] LABS: Band Neutrophils % 1 %; Eosinophils # (M) 0.66 k/uL (0-0.7); Lymphocytes # (M) 1.69 k/uL (1.0-4.8); Monocytes # (M) 0.94 k/uL (0-1.0); Neutrophils % (M) 65 %; Nucleated Red Blood Cells 0 /100 WBC (0-0); Total Cells Counted 200
[2024-07-07 11:51] VITALS: BP 117/73; PULSE 74
--- NOTE | 2024-07-07 12:31 | P.PN ---
Subjective Progress Note Date: 07/07/24 HISTORY OF PRESENTING ILLNESS: 64-year-old with multiple medical problems was recently in the hospital and was treated for gallstone related cholecystitis and pancreatitis. He underwent laparoscopic cholecystectomy. After discharge patient has been experiencing some exertional dyspnea for which she went to her PCP who was concerned of possible pulmonary embolism and sent him to the ER. In ER initial workup including CTA chest showed concerns of a small acute pulmonary embolism with no concerns of right heart strain. Admission Cardiac Labs: Hb 16.2, platelets 702, BUN 17, creatinine 1.7, troponin negative x 3, NT-proBNP 40. Admission testing: CTA chest shows acute PE with mild clot burden with no clear evidence of RV strain. Medications lisinopril 10, hydralazine 25 mg 4 times daily as needed, rosuvastatin 10 mg, metoprolol 25 mg twice daily, Plavix 75 mg daily, 07/07/2024 Patient seen and examined. He states he is feeling wonderful today. He denies having any chest pain, no shortness of breath. Vital signs have been stable. Blood pressure 140/87, heart rate 89, pulse ox 99% on room air. Repeat blood work reveals WBC 9.4, hemoglobin 15.8, platelet count 510. Sodium 132, potassium 5, BUN 14 creatinine 1. Echocardiogram is pending. A venous duplex reveals DVT right popliteal vein. PHYSICAL EXAMINATION: Lungs: Clear to auscultation. Heart: Regular rate and rhythm, S1-S2, , no murmur or rub. Abdomen: Soft nontender, positive bowel sounds. Extremities: No edema, intact distal pulses. Neuro: Alert, oriented, no focal deficits. Detailed neuro exam was not performed. ASSESSMENT: # Acute noninvasive PE likely provoked from recent gallbladder surgery. No evidence of RV strain # Recent gallbladder pancreatitis status post robotic cholecystectomy # History of CAD status post PCI to LCx. 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 # Continue metoprolol 25 mg twice daily. Continue lisinopril 10 mg daily # Obtain updated echocardiogram # Continue Eliquis 10 mg twice daily for 7 days and thereafter 5 mg twice daily. I would recommend lifelong anticoagulation because of prior history of CVA/DVT in past if there is no contraindications or new concerns of bleeding. If echocardiogram is unremarkable, patient is cleared for discharge. Nurse practitioner note has been reviewed, I agree with documented findings and plan of care. Patient was seen and examined. Objective - Vital Signs Vital signs: Vital Signs Temp 98.1 F 07/07/24 08:00 Pulse 89 07/07/24 08:05 Resp 16 07/07/24 08:05 BP 140/87 07/07/24 08:00 Pulse Ox 99 07/07/24 08:00 FiO2 Intake & Output 07/06/24 07/07/24 07/07/24 18:59 06:59 18:59 Intake Total 209.125 128.211 250 Balance 209.125 128.211 250 Weight 75.6 kg Intake: IV 10 10 Invasive Line 1 10 10 Intake, IV Titration 209.125 118.211 Amount Heparin Sod,Pork in 0.45% 209.125 118.211 NaCl 25,000 unit In 0.45 % NaCl 1 250ml.bag @ 18 UNITS/KG/HR 13.88 mls/hr IV .Q18H1M [facility] Rx#: [id number] Oral 240 Other: # Voids 1 - Labs CBC & Chem 7: 07/07/24 05:24 07/07/24 05:24 Labs: Abnormal Lab Results - Last 24 Hours (Table) 07/06/24 07/06/24 07/07/24 Range/Units 08:23 08:23 05:24 WBC 11.3 H (3.8-10.6) k/uL Plt Count 704 H 510 H (150-450) k/uL Sodium 135 L (137-145) mmol/L Carbon Dioxide (22-30) mmol/L Glucose 112 H (74-99) mg/dL Total Bilirubin 1.6 H (0.2-1.3) mg/dL Alkaline Phosphatase 127 H (38-126) U/L 07/07/24 Range/Units 05:24 WBC (3.8-10.6) k/uL Plt Count (150-450) k/uL Sodium 132 L (137-145) mmol/L Carbon Dioxide 20 L (22-30) mmol/L Glucose (74-99) mg/dL Total Bilirubin (0.2-1.3) mg/dL Alkaline Phosphatase (38-126) U/L
--- NOTE | 2024-07-07 13:04 | CA ---
Transthoracic Echo Report Name: Pancho Hicks Age: 64 Gender: M : 1960 Exam Date: 07/07/2024 09:10 Exam Location: [facility] Ht (in): 69 Wt (lb): 170 Ordering Physician: Ray Reyes DO Attending/Referring Phys: [id number] Program Production Specialist Nena Sgeundo RDCS Procedure CPT: Indications: PE Cardiac Hx: Technical Quality: Good Contrast 1: Total Dose (mL): Contrast 2: Total Dose (mL): MEASUREMENTS (Male / Female) Normal Values 2D ECHO LV Diastolic Diameter PLAX 4.2 cm 4.2 - 5.9 / 3.9 - 5.3 cm LV Systolic Diameter PLAX 3.1 cm IVS Diastolic Thickness 0.9 cm 0.6 - 1.0 / 0.6 - 0.9 cm LVPW Diastolic Thickness 0.8 cm 0.6 - 1.0 / 0.6 - 0.9 cm LV Relative Wall Thickness 0.4 LVOT Diameter 2.3 cm Aortic Root Diameter 3.1 cm LV Diastolic Volume MOD BP 95.1 cm??? 67 - 155 / 56 - 104 cm??? LV Systolic Volume MOD BP 47.1 cm??? 22 - 58 / 19 - 49 cm??? LV Ejection Fraction MOD BP 50.5 % >= 55 % LV Cardiac Index MOD BP 1848.4 cm???/min???m??? LV Diastolic Volume MOD 4C 93.5 cm??? LV Systolic Volume MOD 4C 46.3 cm??? LV Ejection Fraction MOD 4C 50.4 % LV Cardiac Index MOD 4C 1816.1 cm???/min???m??? LV Diastolic Length 4C 7.6 cm LV Systolic Length 4C 6.6 cm LV Diastolic Volume MOD 2C 94.9 cm??? LV Systolic Volume MOD 2C 48.0 cm??? LV Ejection Fraction MOD 2C 49.4 % LV Cardiac Index MOD 2C 1805.9 cm???/min???m??? LV Diastolic Length 2C 7.8 cm LV Systolic Length 2C 6.5 cm LA Volume 41.8 cm??? 18 - 58 / 22 - 52 cm??? LA Volume Index 21.5 cm???/m??? 16 - 28 cm???/m??? Ascending Aorta Diameter 3.5 cm DOPPLER AV Peak Velocity 124.6 cm/s AV Peak Gradient 6.2 mmHg AV Mean Velocity 90.1 cm/s AV Mean Gradient 3.6 mmHg AV Velocity Time Integral 23.3 cm LVOT Peak Velocity 102.2 cm/s LVOT Peak Gradient 4.2 mmHg LVOT Velocity Time Integral 18.9 cm LVOT Stroke Volume 77.6 cm??? LVOT Stroke Volume Index 40.3 ml/m??? LVOT Cardiac Index 2990.3 cm???/min???m??? AV Area Cont Eq vti 3.3 cm??? AV Area Cont Eq pk 3.4 cm??? MV Area PHT 3.0 cm??? Mitral E Point Velocity 49.6 cm/s Mitral A Point Velocity 56.3 cm/s Mitral E to A Ratio 0.9 MV Deceleration Time 250.6 ms PV Peak Velocity 138.7 cm/s PV Peak Gradient 7.7 mmHg FINDINGS Left Ventricle Left ventricular ejection fraction is estimated at 50 %. Mildly decreased left ventricular ejection fraction. Left ventricular cavity size normal. No obvious regional wall motion abnormalities. Right Ventricle Normal right ventricular size and function. Unable to estimate the right ventricular systolic pressure. Right Atrium Normal right atrial size. Left Atrium Normal left atrial size. Mitral Valve Structurally normal mitral valve. No evidence for mitral valve prolapse. No mitral stenosis. Trace mitral regurgitation. Aortic Valve Trileaflet aortic valve. No aortic valve stenosis or regurgitation. Tricuspid Valve Structurally normal tricuspid valve. No tricuspid stenosis, regurgitation or prolapse. Pulmonic Valve Pulmonic valve not well visualized. No pulmonic stenosis. No pulmonic regurgitation. Pericardium No pericardial effusion. Aorta Normal size aortic root and proximal ascending aorta. CONCLUSIONS Normal biventricular systolic function No significant valvular abnormalities No pericardial effusion Previewed by: Dr. Silvano Oliveira MD (Electronically Signed) Final Date: 07 July 2024 13:03
--- NOTE | 2024-07-07 14:48 | P.PN ---
Subjective This is a pleasant 64 years old male with past medical history of multiple medical problems He was recently discharged from this facility after he underwent laparoscopic cholecystectomy for his gallstone cholecystitis and pancreatitis. After disch argdarrel from the hospital he started having exertional dyspnea which was gradually worsening, he went to see his PCP for suspected PE and sent him to the emergency room. Patient denies chest pain or hemoptysis. No abdominal pain. No urinary complaints like dysuria or urgency. No vomiting or diarrhea. No headache dizziness weakness or numbness. Last time he was discharged on 7 days of Cipro and Flagyl. Currently patient is afebrile and hemodynamically stable Leukocytosis slightly up to 13.7 and 11.3, rest of labs including CBC, BMP, LFT and troponin x 3 are negative. D-dimer is elevated to 1.75. CTA of the chest showing acute pulmonary embolism with no right heart strain. Also there is trace free air under the diaphragm and there is extensive soft tissue infiltrations of the retroperitoneum with increase changes in the mid mesentery, and review of his history of Erdhem yahaira disease needs to be considered by surgery team whom saw him last time Patient currently on heparin drip 1/2 Patient feels better No chest pain or dyspnea Echocardiogram is pending His heparin drip switched to Eliquis 10 mg Lipitor is added Possible discharge soon Ultrasound of the lower extremities positive for DVT Review of systems CONSTITUTIONAL: No fever, no malaise, no fatigue. HEENT: No recent visual problems or hearing problems. Denied any sore throat. CARDIOVASCULAR: No orthopnea, PND, no palpitations, no syncope. PULMONARY: No shortness of breath, no cough, no hemoptysis. MUSCULOSKELETAL/RHEUMATOLOGICAL: Denies any joint pain, swelling, or any muscle pain. ENDOCRINE: Denies any polyuria or polydipsia. Active Medications Generic Name Dose Route Start Last Admin Trade Name Freq PRN Reason Stop Dose Admin Acetaminophen 650 mg 07/06/24 11:42 Acetaminophen Tab 325 Mg Tab PO Q6HR PRN Mild Pain or Fever > 100.5 Hydrocodone Bitart/Acetaminophen 1 each 07/06/24 11:42 Hydrocodone/Apap 5-325mg 1 Each Tab PO Q6HR PRN Pain Apixaban 10 mg 07/06/24 13:30 07/07/24 07:59 Apixaban 5 Mg Tab PO 08/05/24 13:29 10 mg BID FARHAT Administration Taper Protocol Atorvastatin Calcium 40 mg 07/06/24 21:00 07/06/24 20:21 Atorvastatin 40 Mg Tab PO 40 mg HS FARHAT Administration Bupropion HCl 150 mg 07/07/24 09:00 07/07/24 07:59 Bupropion Xl 150 Mg Tab.Er.24h PO 150 mg DAILY FARHAT Administration Citalopram Hydrobromide 20 mg 07/07/24 09:00 07/07/24 08:00 Citalopram Hydrobromide 20 Mg Tab PO 20 mg DAILY FARHAT Administration Clopidogrel Bisulfate 75 mg 07/07/24 09:00 07/07/24 08:00 Clopidogrel 75 Mg Tab PO 75 mg DAILY FARHAT Administration Famotidine 20 mg 07/06/24 21:00 07/07/24 07:59 Famotidine 20 Mg Tab PO 20 mg BID FARHAT Administration Sodium Chloride 1,000 mls @ 20 mls/hr 07/05/24 19:15 07/06/24 18:07 Saline 0.9% IV 20 mls/hr .Q24H FARHAT Administration Lisinopril 10 mg 07/07/24 09:00 07/07/24 07:59 Lisinopril 10 Mg Tab PO 10 mg DAILY FARHAT Administration Metoprolol Tartrate 25 mg 07/06/24 21:00 07/07/24 07:59 Metoprolol Tartrate 25 Mg Tab PO 25 mg BID FARHAT Administration Morphine Sulfate 4 mg 07/05/24 19:08 Morphine Sulfate 4 Mg/Ml Syringe IV Q4HR PRN Severe Pain (Scale 7 to 10) Naloxone HCl 0.2 mg 07/05/24 19:08 Naloxone 0.4 Mg/Ml 1 Ml Vial IV Q2M PRN Opioid Reversal Tamsulosin HCl 0.4 mg 07/07/24 09:00 07/07/24 07:59 Tamsulosin 0.4 Mg Cap.Er.24h PO 0.4 mg DAILY FARHAT Administration Objective - Vital Signs Vital signs: Vital Signs Temp 98.1 F 07/07/24 08:00 Pulse 74 07/07/24 14:00 Resp 16 07/07/24 14:00 BP 117/73 07/07/24 11:50 Pulse Ox 99 07/07/24 11:50 FiO2 Intake & Output 07/06/24 07/07/24 07/07/24 18:59 06:59 18:59 Intake Total 209.125 128.211 740 Balance 209.125 128.211 740 Weight 75.6 kg Intake: IV 10 20 Invasive Line 1 10 20 Intake, IV Titration 209.125 118.211 Amount Heparin Sod,Pork in 0.45% 209.125 118.211 NaCl 25,000 unit In 0.45 % NaCl 1 250ml.bag @ 18 UNITS/KG/HR 13.88 mls/hr IV .Q18H1M [facility] Rx#: [id number] Oral 720 Other: # Voids 1 1 - Labs CBC & Chem 7: 07/07/24 05:24 07/07/24 05:24 Labs: Abnormal Lab Results - Last 24 Hours (Table) 07/07/24 07/07/24 Range/Units 05:24 05:24 Plt Count 510 H (150-450) k/uL Sodium 132 L (137-145) mmol/L Carbon Dioxide 20 L (22-30) mmol/L Assessment and Plan Assessment: Acute mid and lower a pulmonary embolism with no right heart strain Acute right lower extremity DVT Extensive retroperitoneal infiltrate, with possible trace air under the diaphragm, currently no much abdominal symptoms. Recent history of Gallbladder pancreatitis is status post robotic cholecystectomy BPH Depression, not an active issue Plan: Patient continued with heparin drip on admission, currently switched to Eliquis 10 mg twice daily x 7 days then 5 mg thereafter Patient will continue with cardiac medication including Plavix Cardiology evaluated the patient pending echocardiogram General Surgery evaluated the patient, no further intervention. Surgery team for sign of the case. Patient tells me he has appointment with same surgeon Dr. Patel next week that he intends to follow-up with Vascular surgery evaluated the patient and recommended no need for thrombectomy or thrombolysis and they signed off the case Labs and medication were reviewed.. Continue same treatment. Continue with symptomatic treatment. Resume home medication. Monitor labs and vitals. DVT and GI prophylaxis. Further recommendations as per clinical course of the patient DVT prophylaxis: Eliquis GI Prophylaxis: Pepcid Prognosis is guarded
--- NOTE | 2024-07-07 17:00 | P.CNPUL ---
History of Present Illness Consult date: 07/07/24 Requesting physician: Robin E Shawna Reason for consult: dyspnea, hypoxemia, pulmonary embolism, abnormal CXR/CT Chief complaint: Shortness of breath. History of present illness: Pulmonary consult dated July 07, 2024. 64-year-old male with a history of multiple medical, problems including hyp ertension, hyperlipidemia, a blood cancer referred to his [facility], CAD, and stents x 2. The patient presented to the emergency department on July 05, via the ER, shortness of breath has been going on for 2 to 3 weeks. The patient was evaluated and found to have a pulmonary embolism. Patient was initially started on IV heparin, and then transition to Eliquis. Currently, we see him in room 350. The patient is on room air. No IV fluids. A Dopplers of the lower extremity that were negative. The patient was in the hospital between 1210 and 1218, for gallstone pancreatitis. The patient had a cholecystectomy performed on 1214, by Dr. Patel. The patient has been inactive. In addition, the patient has a prior history of a DVT in the leg, and he was treated at that time for 3 months. CTA, showed pulmonary emboli, with mild burden involving the lobar and segmental branches of the lingula, without right heart strain. Current laboratory data includes a white count 9.4, hemoglobin 15.8, hematocrit 48.8, and a platelet count of 510,000. Sodium 132, potassium 5, chlorides 103, CO2 20, anion gap 9, BUN 14, creatinine 1. The patient's C-reactive protein was less than 0.5. Troponins were negative. N-terminal proBNP was normal. Procalcitonin level was 0.06 which is normal. Review of Systems REVIEW OF SYSTEMS: CONSTITUTIONAL: [Negative.] NEUROLOGIC: [ Negative.] HEENT: [ Negative.] CARDIAC: [Negative.] PULMONARY: Shortness of breath for 2 to 3 weeks. GI: [Negative.] : [Negative.] RHEUMATOLOGIC: [ Negative.] IMMUNOLOGIC: [ Negative.] ENDOCRINE: [Negative. ] DERMATOLOGIC: [Negative.] Past Medical History Past Medical History: Coronary Artery Disease (CAD), Cancer, CVA/TIA, Deep Vein Thrombosis (DVT), Hyperlipidemia, Hypertension, Neurologic Disorder, Osteoarthritis (OA) Additional Past Medical History / Comment(s): erdheimchester's disease (rare blood cancer), CVA in 2010 with slight right side facial droop and slight slurred speech, 95% left cerebral main artery "twisted" History of Any Multi-Drug Resistant Organisms: None Reported Past Surgical History: Cholecystectomy, Heart Catheterization With Stent, Hernia Repair Additional Past Surgical History / Comment(s): exp lap,. biopsies of bone and kidney (negative) Past Anesthesia/Blood Transfusion Reactions: No Reported Reaction Date of Last Stent Placement:: 2013 Past Psychological History: Anxiety, Depression Smoking Status: Never smoker Past Alcohol Use History: Rare Past Drug Use History: Marijuana Additional Drug Use History / Comment(s): Marijuana to help with sleep on occasion - Past Family History Mother Family Medical History: Coronary Artery Disease (CAD) Father Additional Family Medical History / Comment(s): dies from AIDS in 1988 Medications and Allergies Home Medications Medication Instructions Recorded Confirmed Type Clopidogrel Bisulfate [Plavix] 75 mg PO DAILY 07/05/19 07/05/24 History Metoprolol Tartrate 25 mg PO BID 07/05/19 07/05/24 History Rosuvastatin Calcium [Crestor] 10 mg PO DAILY 07/05/19 07/05/24 History Tamsulosin HCl [Flomax] 0.4 mg PO DAILY 07/05/19 07/05/24 History Omeprazole 20 mg PO DAILY 12/30/21 07/05/24 History buPROPion XL [Wellbutrin XL] 150 mg PO DAILY 12/30/21 07/05/24 History Citalopram Hydrobromide [CeleXA] 20 mg PO DAILY 06/16/22 07/05/24 History Vemurafenib [Zelboraf] 960 mg PO BID 06/15/24 07/05/24 History Acetaminophen Tab [Tylenol] 650 mg PO Q6HR PRN tab 06/23/24 07/05/24 Rx HYDROcodone/APAP 5-325MG [Edroy 1 tab PO Q6HR PRN 3 Days #12 tab 06/23/24 07/05/24 Rx 5-325] hydrALAZINE HCL [Apresoline] 25 mg PO QID PRN 30 Days #120 tab 06/23/24 07/05/24 Rx lisinopriL [Zestril] 10 mg PO DAILY #30 tab 06/23/24 07/05/24 Rx Rivaroxaban InitiationDose-VTE See Taper PO DIRECTED 30 Days 07/07/24 Rx [Xarelto Initiation Dosing for VTE #60 tab Treatment] Allergies Allergy/AdvReac Type Severity Reaction Status Date / Time No Known Allergies Allergy Verified 07/05/24 15:28 Physical Exam Osteopathic Statement: *. No significant issues noted on an osteopathic structural exam other than those noted in the History and Physical/Consult. Vitals: Vital Signs Temp Pulse Pulse Resp BP BP Pulse Ox 07/07/24 14:00 74 16 07/07/24 11:50 74 16 117/73 99 07/07/24 08:05 89 16 07/07/24 08:00 98.1 F 89 16 140/87 99 07/07/24 03:20 98.2 F 71 16 151/87 99 07/07/24 00:17 98.9 F 72 15 147/83 99 07/06/24 23:50 70 16 143/98 98 07/06/24 20:21 98.6 F 90 16 158/84 97 07/06/24 18:12 99.3 F 92 17 146/84 98 07/06/24 17:00 99.4 F 84 16 136/92 96 Intake and Output 07/07/24 07/07/24 07/07/24 06:59 14:59 22:59 Intake Total 10 740 Balance 10 740 Intake: IV 10 20 Invasive Line 1 10 20 Oral 720 Other: # Voids 1 1 Weight 75.6 kg No acute distress, oriented 3. The patient is currently on room air. HEENT examination is grossly unremarkable. Mucous membranes are moist. No oral lesions. Neck supple. Full range of motion. No adenopathy thyromegaly or neck vein distention. Cardiovascular examination reveals regular rhythm rate. S1-S2 normal. No S3 or S4. No discernible murmur noted. Lungs reveal clear breath sounds. Breath sounds are equal bilaterally. No adventitious lung sounds including wheezes rhonchi or crackles. Abdomen soft bowel sounds are heard. No masses or tenderness. Extremities are intact. No cyanosis clubbing or edema. Skin is without rash or lesion. Neurologic examination is brief but nonfocal. Results - Laboratory Findings CBC and BMP: 07/07/24 05:24 07/07/24 05:24 PT/INR, D-dimer PT 10.7 sec (10.0-12.5) 07/05/24 17:23 INR 1.0 (<1.2) 07/05/24 17:23 D-Dimer 1.75 mg/L FEU (<0.60) H 07/05/24 17:23 Abnormal lab findings: Abnormal Labs 07/05/24 07/05/24 07/05/24 17:23 17:23 17:23 WBC 13.7 H Plt Count 711 H D Neutrophils # 10.1 H APTT D-Dimer 1.75 H Sodium 133 L Carbon Dioxide 21 L BUN 21 H Glucose 109 H Total Bilirubin 1.6 H Alkaline Phosphatase 07/06/24 07/06/24 07/06/24 00:51 08:23 08:23 WBC 11.3 H Plt Count 704 H Neutrophils # APTT 63.9 H D-Dimer Sodium 135 L Carbon Dioxide BUN Glucose 112 H Total Bilirubin 1.6 H Alkaline Phosphatase 127 H 07/07/24 07/07/24 05:24 05:24 WBC Plt Count 510 H Neutrophils # APTT D-Dimer Sodium 132 L Carbon Dioxide 20 L BUN Glucose Total Bilirubin Alkaline Phosphatase - Diagnostic Findings CT scan - chest: image reviewed Assessment and Plan Assessment: Two to 3 weeks of shortness of breath, caused by a left-sided pulmonary embolism, patient currently on Eliquis. Recent hospitalization between June 15 and June 23, for gallstone pancreatitis, status post cholecystectomy on June 19. Prior history of DVT involving the lower extremity. History of Erdheim Corson's disease History of hypertension. History of hyperlipidemia. History of CAD, with previous stent placement x 2. Anxiety/depression. Lifelong non-smoker. Plan: Plan dated July 07, 2024. The patient is seen in room 350. The patient is doing relatively well. He is on room air. No IV fluids. The patient was started on Eliquis. The patient has a previous history of DVT. We are recommending that the patient follow-up with hematology, to rule out a primary hypercoagulable state. The patient was recently in the hospital between June 15 and June 23, for gallstone pancreatitis, and underwent a cholecystectomy on June 19. Dopplers on this admission were negative. The patient will need follow-up. Time with Patient: Greater than 30
== END 2024-07-07 18:32 | disposition home or self-care (01) | DRG 176 ==
LOC: SUPCPDRO 15:12 → EC 15:12 → 3SCARD 19:09
PROVIDERS: ADMIT Hospitalist; ATTEND Hospitalist
DX: I26.99 Other pulmonary embolism without acute cor pulmonale (principal); I82.431 Acute embolism and thrombosis of right popliteal vein; E88.89 Other specified metabolic disorders; I10 Essential (primary) hypertension; F32.A Depression, unspecified; I25.10 Atherosclerotic heart disease of native coronary artery without angina pectoris; N40.0 Benign prostatic hyperplasia without lower urinary tract symptoms; D75.9 Disease of blood and blood-forming organs, unspecified; F41.9 Anxiety disorder, unspecified; E78.5 Hyperlipidemia, unspecified; Z79.02 Long term (current) use of antithrombotics/antiplatelets; Z79.899 Other long term (current) drug therapy; Z86.718 Personal history of other venous thrombosis and embolism; Z86.73 Personal history of transient ischemic attack (TIA), and cerebral infarction without residual deficits; Z95.5 Presence of coronary angioplasty implant and graft
CPT/HCPCS: 36415; 71275; 80048; 80053; 83735; 83880; 84100; 84145; 84484; 85025; 85379; 85610; 85730; 86140; 93005; 93306; 93970; 96365; 96366; 99291